=== PATIENT | female | born 1945 | race Caucasian/White ===

== ENCOUNTER 2016-09-15 22:59 | Inpatient (IN) | payer MEDICARE ==
[~2016-09-15] VITALS: Ht 162.6 cm; Wt 127.6 kg
[~2016-09-15 22:59] MED LIST: AMOX500C2 PO; CLAR500T PO; FERR-83 PO; FUR20 PO; GLIM4TAB2 PO; LEVO50TA6 PO; LOSA50TA37 PO; METF500T4 PO; METO25TA6 PO; SPIR25TA3 PO
[2016-09-15 23:05] VITALS: BP 107/44; PULSE 75; RESP 26; O2SAT 98
[2016-09-15] MEDS ORDERED: Albuterol 2.5 mg/3 mL Inhalation Solution NEB ONE (23:05)
[2016-09-15] MEDS ORDERED: Calcium GLUCOnate 10% (Gm) 1 Gm/10 mL Inj IVPUSH ONE (23:05)
[2016-09-15] MEDS ORDERED: Sodium Bicarb (50 mEq) 8.4% 1 mEq/mL 50 mL Syringe IVPUSH ONE (23:05)
[2016-09-15] MEDS ORDERED: (U-500) Insulin Regluar, Human 500 Unit/mL Syringe SUBQ ONE (23:05)
[2016-09-15] MEDS ORDERED: Insulin Human REGular 300 Unit/3 mL Inj SUBQ ONE (23:10)
[2016-09-15] MEDS ORDERED: Insulin Human REGular-Omnicell 100 Unit/mL SUBQ ONE (23:10)
--- NOTE | 2016-09-15 23:14 | ED.REPORT ---
HPI-General Illness Date of Service Sep 15, 2016 ED Provider: Phil Presley MD Patient is a 70-year-old female with a hx of HTN, DM, rectal cancer, and hypothyroidism reports to the ED via EMS from [facility] assisted living after abnormal blood labs were drawn revealing elevated potassium levels. Via [facility] the patient has been acting noticeably weaker and presented an altered mental status for the past couple of days. Patient is unable to give full review of symptoms due to confusion and altered mental status. Nursing Notes Stated Complaint: ABNORMAL LAB Nursing Notes Reviewed: Yes (Spoonfed not reconciled) Allergies: Coded Allergies: codeine (Verified Allergy, Unknown, 09/16/16) Scheduled Amoxicillin (Amoxicillin) 500 Mg Capsule 500 MG PO BID Clarithromycin (Clarithromycin) 500 Mg Tablet 500 MG PO BID Ferrous Sulfate (Ferrous Sulfate) 325 Mg Tablet 325 MG PO BID Furosemide (Furosemide) 20 Mg Tab 20 MG PO DAILY Glimepiride (Glimepiride) 4 Mg Tablet 4 MG PO DAILYAC Levothyroxine (Levothyroxine) 50 Mcg Tablet 50 MCG PO DAILY Loperamide (Loperamide) 2 Mg Capsule 2 MG PO Q4H Losartan Potassium (Losartan Potassium) 50 Mg Tablet 50 MG PO DAILY Metformin (Metformin) 500 Mg Tablet 1,000 MG PO BID Metoprolol Tartrate (Metoprolol Tartrate) 25 Mg Tablet 25 MG PO DAILY Pantoprazole DR (Pantoprazole DR) 40 Mg Tablet.dr 40 MG PO DAILY Spironolactone (Spironolactone) 25 Mg Tablet 25 MG PO DAILY Scheduled PRN Acetaminophen (Acetaminophen) 500 Mg Tablet 500 MG PO Q6H PRN PRN For Fever oxyCODONE (oxyCODONE) 5 Mg Capsule 5 MG PO Q4H PRN PRN For Pain General Time Seen by MD: 22:56 Chief Complaint Other (elevated potassium levels) Hx Obtained From: EMS Arrived By: Ambulance Sudden in Onset?: Yes Onset Occurred: Just prior to arrival Symptom Duration: Since onset Recent Healthcare: Recent hospitalization Similar Sx Previous: Yes Past Medical History Past Medical History Rectal CA HTN Diabetes Hypothyroidism Vascular insufficiency Leg Swelling Past Surgical History Laparoscopic robotic low anterior resection with diverting loop ileostomy and a transanal total mesorectal excision with rigid proctoscopy May 2016 GRIFFIN drain to buttock recently Colonoscopy 2015 Reports: Tonsillectomy Smoking History Never Smoker Social History Currently residing at [facility] form indicates full code Alcohol Use: Denies alcohol use Drug Use: Denies drug use Review of Systems Unable to Obtain ROS Patient condition Physical Exam Vital Signs Vital Signs Date Time Temp Pulse Resp B/P Pulse Ox O2 Delivery O2 Flow Rate FiO2 09/15/16 23:24 72 21 92 Room Air 09/15/16 23:05 36.6 75 26 107/44 98 Room Air Initial VS: Reviewed, Vital signs abnormal (increased RR) Head / Eyes: Atraumatic, Normocephalic, PERRL ENT: Mucous membranes moist, Conjunctiva normal, No scleral icterus Neck: Supple, Non-tender, Full range of motion General/Constitutional: Awake Alertness: Positive: Confused Appearance / Presentation: Positive: Obese Cannot give full history Respiratory / Chest: Atraumatic, Breath sounds NL, Breath sounds = bilat tachypnic lungs are clear Interpretation & Diagnostics Lab Results Interpretation Result Diagram: 09/21/16 0320 09/21/16 0320 Test 09/15/16 00:00 09/15/16 00:55 09/16/16 01:08 Miscellaneous Test Comment Urine Color Yellow (YELLOW) Urine Appearance Cloudy (CLEAR,HAZY) Urine pH 5.5 (5.0-8.0) Urine Specific [place] 1.025 (1.003-1.035) Urine Protein Negativemg/dL (NEG,TRACE) Urine Glucose (UA) 100mg/dL (NEGATIVE) Urine Ketones Negativemg/dL (NEGATIVE) Urine Occult Blood Negative (NEGATIVE) Urine Nitrite Negative (NEGATIVE) Urine Bilirubin Negative (NEGATIVE) Urine Urobilinogen Normalmg/dL (NORMAL) Urine Leukocyte Esterase Small (NEGATIVE) Urine RBC 0-2/hpf (0-2) Urine WBC 6-10/hpf (0-5) Urine Epithelial Cells Many/hpf (NONE-MOD) Urine Crystals Amorphous urates (NONE Urine Bacteria Few/hpf (NONE-FEW) Urine Hyaline Casts Occasional/lpf (NONE) Urine Granular Casts None seen (NONE SEEN) Urine Waxy Casts None seen (NONE SEEN) Urine Red Blood Cell Casts None seen (NONE SEEN) Urine White Blood Cell Casts None seen (NONE SEEN) Urine Mucus None seen (None Seen) Urine Trichomonas None seen (NONE SEEN) Urine Yeast None (NONE SEEN) Urine Culture Reflexed Indicated Pro-B-Type Natriuretic Peptide 3452pg/mL (0-301) Lab Results Interpretation: CBC moderate leukocytosis This is CMP-significant hyponatremia, severe hyperkalemia, moderate acidosis, renal failure-new compared to June 2016 work creatinine was 0.66 at [facility] Blood cultures pending UA 6-10 white cells and few bacteria, but is not suggestive of significant infection merit antibiotics at this time repeat potassium pending Urinalysis pending ECG Interpretation ECG Interpretation: widened QRS concerning for findings consistent with hypokalemia no prior EKG avilable for comparison Time: 10:59 Interpreted by: ED physician Normal ECG Interpretation: Normal sinus rhythm Abnormal T wave or ST segment: T-waves peaked ECG Interpretation: improved from previous ECG T-waves improved Q-wave narrowing from 146-106 Time: 13:28 Interpreted by: ED physician X-Ray Chest Interpretation Chest Xray Interpretation: no signs of heart disease View: Portable Interpretation / Wet Read by: Wet read ED physician NL X-Ray Chest Findings: No acute disease CT Abd / Pelvis Interpretation IMPRESSION: No acute abnormalities. No evidence of obstructive uropathy. Study type: Abdominal CT no contrast Interpretation / Wet Read by: Interpret - Radiologist Re-Eval/Medical Decision Med Decision/Clinical Course This is a 70-year-old female sent from [facility] about Andrew with a lab draw that revealed a potassium of 7.8. Patient herself is unable to give any useful history, and she has some chronic confusion. The facility indicates that the patient is recovering air following surgery in June for a rectal cancer. He also has what sounds like a buttock abscess that was was then drained. However she is, increasingly weak, less energetic-she can only stand for transfers and he noticed a decrease in her energy level-soaked Baseline labs were drawn today. These returned markedly abnormal, so she was sent to the emergency department. Patient's chief complaint is that she is missing her pink pillow. She cannot provide useful history. He appears fatigued, and she appears ill. She is also obese. He has a colostomy. Her abdomen is soft and nontender. Her mucous membranes appear dry, her obesity complicates the evaluation for JVD, and her lung sounds are normal without gross rales or respiratory distress, or hypoxia. Her habitus he also complicates exam of her lower extremities, she does have some chronic edema. Overall makes it somewhat difficult to determine her clinical assessment of her volume status, but I think she is dehydrated. I do not find signs of severe volume overload, and the nursing facility indicates decreased intake recently. She has some venous discoloration of the lower extremities which appears chronic. On arrival an EKG was obtained and revealed widened QRS and peak T waves concerning for hyperkalemic changes, no prior EKG was available for comparison. I ultimately was able to obtain a faxed copy of his ear ox of an EKG that suggests as best I can tell that the peak T waves are new, but cannot quite tell if the QRS widening is actually new or not. Given such elevated potassium, the patient is treated empirically and received calcium, insulin, albuterol, bicarbonate, dextrose, and Kayexalate has been ordered, the patient however is initially refusing to drink it. I had the facility sent over her MARS record, but I did not identify any overt nephrotoxic drugs. I also obtained last admitted from [facility] which was in June-and her baseline creatinine appears to be normal at 0.66. Repeat labs today confirm the lab abnormalities identified from the draw at the [facility] - and are notable for leukocytosis, significant hyponatremia, moderate metabolic acidosis, renal insufficiency, and severe hyperkalemia. A Jordan was placed to drain the bladder. A CT KUB was obtained to evaluate for signs of obstructive pathology. (None was appreciated on my wet read.) The nightshift read also did not appreciate obstructive uropathy, but does note an incidental stone and an irregular soft tissue density near the rectum with an included differential. The patient does not have any complaints of abdominal pain, has no abdominal tenderness to suggest an abscess, and postsurgical changes remain in the differential given the patient's recent surgery in this area in June. Continue to monitor. Consults been obtained with the terrazzo polisher and the case discussed. The patient is being admitted to the CCU for continued care. Source of Hx: Old records, EMS Time of Eval: 00:12 Re-Evaluation/Progress Note: Seam Press Operator Dr. Steve Parker consulted. Case discussed. She will see patient in the morning. Time of Eval: 13:00 Patient Status: Condition improved Re-Evaluation/Progress Note: Pt rechecked. Informed pt of need for admission. Pt understands and agrees with plan for admission. All questions addressed. Differential Diagnosis: Positive: Diabetes mellitus, Negative: Abdominal pain, Acute coronary syndrome, G-tube repair/replacement , Malingering, Medication refill, Neutropenia, Pneumonia, Urinary tract infection Counseled Regarding: Diagnosis, Lab results, Need for admission Discharge & Departure Primary Impression: Hyperkalemia Additional Impressions: Renal failure Hyponatremia Metabolic acidosis Disposition: ADMITTED TO HOSPITAL Discharge Condition All VS Reviewed: Yes Condition: Stable Crit Care Except Billable Proc Time Spent: 30-74 minutes Services Performed: Patient management by me, Time spent at bedside, Reviewing test results, Reviewing imaging, Discussing patient care, Documentation in record Critical Care Notes: Management of life-threatening hyperkalemia Scribe Attestation Portion of this note were transcribed by Sridhar Arnett. I, Dr. Preslye, personally performed the history, physical exam, and medical decision-making: I reviewed and confirmed the accuracy for the information in the transcribed note. Signed by: debbie Rosales, 09/15/16 1345 Phil Presley MD Sep 15, 2016 23:14 SRIDHAR ARNETT Sep 15, 2016 23:38 Given such elevated potassium, the patient is treated empirically and received calcium, insulin, albuterol, bicarbonate, dextrose, and Kayexalate has been ordered, the patient however is initially refusing to drink it. I had the facility sent over her MARS record, but I did not identify any overt nephrotoxic drugs. I also obtained last admitted from [facility] which was in June-and her baseline creatinine appears to be normal at 0.66. Repeat labs today confirm the lab abnormalities identified from the draw at the nursing home facility - and are notable for leukocytosis, significant hyponatremia, moderate metabolic acidosis, renal insufficiency, and severe hyperkalemia. A Jordan was placed to drain the bladder. A CT KUB was obtained to evaluate for signs of obstructive pathology. (None was appreciated on my wet read.) The nightshift read also did not appreciate obstructive uropathy, but does note an incidental stone and an irregular soft tissue density near the rectum with an included differential. The patient does not have any complaints of abdominal pain, has no abdominal tenderness to suggest an abscess, and postsurgical changes remain in the differential given the patient's recent surgery in this area in June. Consults been obtained with the terrazzo polisher and the case discussed. The patient is being admitted to the CCU for continued care. Source of Hx: Old records, EMS Time of Eval: 00:12 Re-Evaluation/Progress Note: Seam Press Operator Dr. Steve Parker consulted. Case discussed. She will see patient in the morning. Time of Eval: 13:00 Patient Status: Condition improved Re-Evaluation/Progress Note: Pt rechecked. Informed pt of need for admission. Pt understands and agrees with plan for admission. All questions addressed. Differential Diagnosis: Positive: Diabetes mellitus, Negative: Abdominal pain, Acute coronary syndrome, G-tube repair/replacement , Malingering, Medication refill, Neutropenia, Pneumonia, Urinary tract infection Counseled Regarding: Diagnosis, Lab results, Need for admission Discharge & Departure Primary Impression: Hyperkalemia Additional Impressions: Renal failure Hyponatremia Metabolic acidosis Disposition: ADMITTED TO HOSPITAL Discharge Condition All VS Reviewed: Yes Condition: Stable Crit Care Except Billable Proc Time Spent: 30-74 minutes Services Performed: Patient management by me, Time spent at bedside, Reviewing test results, Reviewing imaging, Discussing patient care, Documentation in record Critical Care Notes: Management of life-threatening hyperkalemia Scribe Attestation Portion of this note were transcribed by Sridhar Arnett. I, Dr. Presley, personally performed the history, physical exam, and medical decision-making: I reviewed and confirmed the accuracy for the information in the transcribed note. Signed by: debbie Rosales, 09/15/16 1345 Phil Presley MD Sep 15, 2016 23:14 SRIDHAR ARNETT Sep 15, 2016 23:38
[2016-09-15 23:24] VITALS: PULSE 72; RESP 21; O2SAT 92
[2016-09-15 23:41] LABS: BASOPHILS % (AUTO) 0.1 % (0-3); EOSINOPHILS % (AUTO) 0.1 % (0-5); MONOCYTES % (AUTO) 9.1 % (4-12); Mean Corpuscular Hemoglobin 27.2 pg (27.0-35.0); Mean Corpuscular Volume 80.2 fL (81-100); NEUTROPHILS % (AUTO) 81.5 % (40-74); Platelet Count 387 bil/L (150-400)
[2016-09-15 23:45] LABS: Magnesium 2.1 mg/dL (1.6-2.6); Phosphorus 6.5 mg/dL (2.5-4.9)
[2016-09-16] VITALS (9 sets, daily range): BP systolic 77–119; BP diastolic 27–75; PULSE 64–105; RESP 17–24; O2SAT 96–100
[2016-09-16] MEDS ORDERED: 0.9% Sodium Chloride 1,000 ML IV ONE ×2 (00:10→01:30)
[2016-09-16] MEDS ORDERED: Calcium GLUCOnate 10% (Gm) 1 Gm/10 mL Inj IVPUSH ONE (00:15)
[2016-09-16 01:13] LABS: APPEARANCE,URINE CLOUDY (CLEAR,HAZY); COLOR,URINE YELLOW (YELLOW); OCCULT BLOOD,URINE NEGATIVE (NEGATIVE); PH,URINE 5.5 (5.0-8.0); UROBILINOGEN,URINE NORMAL (NORMAL)
[2016-09-16] MEDS ORDERED: Albuterol 2.5 mg/3 mL Inhalation Solution NEB ONE ×2 (01:25→02:40)
[2016-09-16] MEDS ORDERED: 0.9% Sodium Chloride 1,000 ML IV SCH (02:28)
[2016-09-16] MEDS ORDERED: Insulin Human REGular 300 Unit/3 mL Inj IV ONE (02:30)
[2016-09-16] MEDS ORDERED: Albuterol 0.5% (5mg/mL) 20 mL Inhalation Solution NEB ONE (02:30)
[2016-09-16] MEDS ORDERED: Sodium Bicarb (50 mEq) 8.4% 1 mEq/mL 50 mL Syringe IVPUSH ONE (02:30)
[2016-09-16] MEDS ORDERED: Norepinephrine 8,000 mCg/250 mL NS Premix IV ONE (02:32)
[2016-09-16] MEDS ORDERED: 0.9% Sodium Chloride 500 ML ONE (02:56)
[2016-09-16] MEDS: Sodium Polystyrene Sulfonate 0.25 Gm/mL 500 mL Suspension PO ONE ×2 (02:59→03:52)
[2016-09-16] MEDS: Norepineph 8,000 mCg/250 mL NS 8,000 MCG in IV Premix 1 EACH IV SCH ×2 (02:59→22:55)
--- NOTE | 2016-09-16 03:20 | ABG ---
DateTimeAnalyzed 03:14:00 -_ pH ____7.303 - 7.350 7.450 pCO2 ___31.6__ -mmHg 35.0 45.0 pO2 100 -mmHg 69.0 116 HCO3- ___15.2__ -mmol/L 22.0 26.0 ABE ___-9.8__ -mmol/L -2.0 2.0 tHb ____9.3__ -g/dL O2Hb ___96.0__ -% COHb ____0.7__ -% MetHb ____0.9__ -% sO2 ___97.6__ -% FIO2 ___21.0__ -% Drawn By MM - Date/Time Notified____ 03:19:00 -_ Notified By MM - Notified Whom DRSullenberger - B 772 -mmHg tO2 ___12.7__ -Vol% Puma test _Positive -
--- NOTE | 2016-09-16 03:58 | PCM.HPMED ---
Subjective Date of Service Sep 16, 2016 Primary Provider: Admitting Physician: Sofi Titus DO Primary Care Physician: Nopcp Attending Physician: Sofi Titus DO Chief Complaint: Hyperkalemia History of Present Illness: Patient is a 70 year old female with a history of rectal cancer and type 2 DM. She presented to [facility] on 09/15/16 from [facility] after abnormal lab testing was found. Patient was hyperkalemic with acute renal failure. Patient currently able to report that she has no pain anywhere, including no chest pain or abdominal pain. She is undergoing a nebulizer treatment at the time of this exam and perseverates about how she cannot breathe with the mask on. Unable to obtain any meaningful history. Per ED report the nursing staff at [facility] states that the patient has been increasingly weak and less-energetic. This worsening weakness was the motivation to check labs today. In the ED the patient is afebrile with a heart rate of 75, respiratory rate 26, blood pressure 107/44, and O2 saturation 98% on room air. Labs remarkable for WBC 16.9, sodium 120, potassium 7.9, chloride 84, CO2 17, BUN 69, creatinine 3.39 and lactate 2.2. Given albuterol, insulin/dextrose, calcium gluconate, kayexalate, and sodium bicarb given in ED. Repeat labs showed potassium 6.9. IV NS given x 2L. Patient to be admitted to the ICU for further management. Discussed with Dr. Presley. Review of Systems: A comprehensive review of systems was conducted with the patient and found to be negative except as above in the history of present illness. Allergies Coded Allergies: codeine (Verified Allergy, Unknown, 09/16/16) Home Medications Per MAR from [facility]: Levothyroxine 50 mcg daily Loperamide 2 mg Q8H Omeprazole 20 mg daily Fentanyl patch 25 mcg Q3D Oxycodone 10 mg Q6H PRN Metoprolol tartrate 25 mg Q8H (give 12.5 if BP <95/55) Tolterodine ER 4 mg daily Colace 200 mg daily PRN constipation Miralax daily Magnesium 400 mg Q12 Melatonin 6 mg HS PRN Tylenol 650 mg PRN Zofran 4 mg ODT PRN Lorazepam 1 mg Q6H PRN Mirtazapine 7.5 mg HS Levemir 10 units HS Novolog correction scale insulin: <150 0 units, 151-200 1 unit, 201-250 2 units , 251-300 3 units, 301-350 4 units, 351-400 5 units Heparin SQ 5000 units Q8H PMH Rectal cancer Type 2 diabetes mellitus GERD Hypertension Hypothyroidism Generalized weakness Surgical History Laparoscopic robotic low anterior resection with diverting loop ileostomy and a transanal total mesorectal excision with rigid proctoscopy May 2016 GRIFFIN drain to buttock recently Colonoscopy 2016 Tonsillectomy Family History Patient currently unable to answer this question Social History Hx Alcohol Use: Yes (rare per record review) Hx Substance Use: No Hx Tobacco Use: No Smoking Status: Never Smoker Living Arrangement: Nursing Home Facility ([facility] Exam Vital Signs Vital Sign - Last Date Time Temp Pulse Resp B/P Pulse Ox O2 Delivery O2 Flow Rate FiO2 09/16/16 01:39 96 17 97 Room Air 09/15/16 23:05 36.6 107/44 Intake and Output 09/15/16 09/15/16 09/16/16 Cumulative From/Thru 15:00 23:00 07:00 09/15/16 23:05 - 09/16/16 01:10 Intake Total 1000 ml 1000 ml Balance 1000 ml 1000 ml Intake IV Total 1000 ml 1000 ml Exam Awake but confused, no acute distress, obese, follows directions poorly Head atraumatic, normocephalic PERRLA, EOMI, sclera anicteric Mucus membranes dry, no oral thrush observed No cervical lymphadenopathy, neck supple, nontender No JVD noted Cardiac tones regular rate and rhythm with no murmur appreciated Lungs clear to auscultation bilaterally with adequate respiratory effort - difficult to appreciate due to body habitus No abdominal tenderness, non-distended, normoactive bowel tones, soft; right side colostomy Jordan present Radial pulses normal and equivalent bilaterally, dorsalis pedis pulses normal and equivalent bilaterally No cyanosis, clubbing; moderate pitting edema with appearance of venous stasis changes; lower extremities warm to touch, erythematous Thickened, dry looking skin on the feet Cranial nerves appear to be fully intact, normal speech, patient can move upper and lower limbs grossly; cannot assess further as patient following directions poorly Lab and Diagnostics Labs Labs ordered 09/15/16 6:10PM WBC 13.3 Hgb 11.6 Hct 34.4 Plt 403 [id number] Potassium 7.8 Chloride 83 Co2 17 BUN 66 Cr 3.34 Glucose 154 Result Diagram: 09/15/16 2311 09/16/16 0108 X-Rays, CTs and MRIs CT abdomen/pelvis: Impression: No evidence of obstructive uropathy. There is a 2 mm stone in the region of the left UPJ producing no apparent obstruction. There is marked distortion of the lower rectum and anal region is irregular soft tissue density, fluid density, and gas collections. Differential considerations include rectal neoplasm, abscess, postsurgical change or combination thereof. Findings need to be correlated with surgical history and symptoms. There is parastomal herniation of small bowel segment at the site of the patient 's right lower quadrant ileostomy. There is no evidence of small bowel obstruction or other complication. NightShift reader: Alok Rose MD 12-lead ECG Multiple EKG's taken in ED. Rate 75-85. Peaked T waves in first EKG in keeping with hyperkalemia on labs. Improved on subsequent exam. QTc 495 on first EKG improved to 443. Assessment & Plan Patient is a 70 year old female with a history of rectal cancer and type 2 DM. She presented to [facility] on 09/15/16 from [facility] after abnormal lab testing was found. Patient was hyperkalemic with acute renal failure. Given albuterol, insulin/dextrose, calcium gluconate, kayexalate, and sodium bicarb given in ED. Given IV NS x 2L. Admitted to ICU for management. 1. Hyperkalemia, acute, present on admission. - Possibly secondary to renal failure. - Another dose of kayexalate, insulin/dextrose, albuterol and sodium bicarb to be given. - Continue IV hydration. - Continue to monitor with BMP Q2 through 0800. - Nephrology consulted. We appreciate their expertise. 2. Hyponatremia, acute, present on admission. - Continue IV NS. - Do not want to correct too quickly - goal 6 mEq in first 24 hours - unknown chronicity. - Continue to monitor with BMP Q2 through 0800. 3. Acute renal failure, present on admission. - Possibly secondary to infection or hypoperfusion related to hypotension. - Baseline creatinine appears to be normal at 0.66 (Jun 2016). - Continue IV hydration. - Continue to monitor with BMP. 4. Hypotension, acute, present on admission. - Likely secondary to shock - cardiogenic, possible PE (consider VQ when stable , heparin DVT protocol started) vs. septic . - Dr. Kimball called for central line placement. We appreciate his expertise. - Norepinephrine drip to be started. - Continue IV NS. Boluses given up to 4L. norepinephrine started - Echo ordered and pending. 5. Leukocytosis, acute, present on admission. - Possible lower extremity cellulitis, diabetic leg infection. - Will start antibiotics - Linezolid and cefepime (to be renally adjusted). - Consider ID consult tomorrow AM. - Continue to montior CBC. 6. Metabolic acidosis, acute, present on admission. - Likely secondary to CLAY. - Continue to monitor BMP. ABG as needed. 7. Type 2 diabetes mellitus, chronic, presume stable. - A1c 6.4 01/03/16. - Low dose correction scale to be ordered. - Will hold levemir 10 units HS at this time. Add back to regimen once patient stabilizes. 8. Rectal cancer, ongoing. - Oncologist Wicho Delong. Uncertain of current treatment regimen, if any. - Consider wound care consultation for ostomy management. - Continue Fentanyl patch 25 mcg Q3days. 9. Hypothyroidism, chronic, presume stable. - Holding levothyroxine 50 mcg daily at this time until patient stabilizes. - Bowel regimen available PRN. Patient admitted under inpatient status with expected length of stay greater than 2 midnights for severity of present symptoms, complexities of treatment plan and risk for adverse events. PCP Gal Krishnan DO GI Prophylaxis: Proton Pump Inhibitor VTE Prophylaxis: Sub-Q Heparin (Unfractionated), SCDs Resuscitation Status: CPR: Attempt Resuscitation Attending Statement The patient was seen and examined together with house staff on 09/16/2016 and I agree with the history, exam and plan as outlined in the note above. copies to: Gal Krishnan Jennifer E DO Sep 16, 2016 02:28 Sofi Titus DO Sep 16, 2016 06:57
[2016-09-16] MEDS ORDERED: Glucose 40% Oral Gel 15 Gm Tube PO PRN (04:00)
[2016-09-16] MEDS: Cefepime Inj 1,000 MG in Dextrose 5% Minibag Plus 50 ML IV SCH ×2 (04:25→20:03)
[2016-09-16] MEDS: Linezolid Inj 600 MG in IV Premix 1 EACH IV SCH ×2 (04:26→20:03)
[2016-09-16] MEDS: Sodium Bicarb(50 mEq) 8.4% Inj 150 MEQ in Dextrose 5% 1,000 ML IV SCH ×2 (05:27→19:40)
[2016-09-16] MEDS ORDERED: Polyethylene Glycol (PEG) 17 Gm Powder PO PRN (05:30)
[2016-09-16 05:46] LABS: INR 1.19 ratio
[2016-09-16] MEDS: Vasopressin Inj 20 UNIT in 0.9% Sodium Chloride 100 ML IV SCH ×3 (05:52→21:59)
[2016-09-16] MEDS ORDERED: Heparin 5,000 Unit/mL Inj IVPUSH ONE (05:55)
[2016-09-16] MEDS ORDERED: Heparin 5,000 Unit/mL Inj IVPUSH PRN (05:55)
[2016-09-16] MEDS: Heparin 25K Unit/500mL 0.45 NS 25,000 UNIT in IV Premix 1 EACH IV SCH (06:10)
--- NOTE | 2016-09-16 06:48 | NUR ---
Admission Pt admitted to CCU Room # 2014 at 0155 this morn ing 09/16/16. Pt has 2 PIV with NS running wide open with pressure bag. TELE SR, SpO2 96% on RA. Pt restless. Pt smells strongly. Skin check performed with Brittany RN and myself. MD and Resident at bedside multiple times throughout the night r/t hypotension. Anesthesia called in to place central line with no success r/t restlessness/confusion of patient. Decision made to start pressers through peripheral lines. Levophed gtt titrated up to 0.05mcg/kg/minute. Vasopressin at 0.03units/minute. Pt given total of 4L NS. Sodium Bicarbonate gtt at 150ml/hour. Heparin gtt DVT/PE protocol at 18units with 9350 unit bolus.
[2016-09-16 07:25] LABS: Mean Corpuscular Hemoglobin 26.8 pg (27.0-35.0); Mean Corpuscular Volume 80.8 fL (81-100)
[2016-09-16] MEDS ORDERED: Phenylephrine/NS-PF 100 mCg/mL 5 mL Syringe IVPUSH ONE (07:32)
--- NOTE | 2016-09-16 08:08 | DRSVH ---
PROCEDURE: X-RAY CHEST ONE VIEW, PORTABLE ([id number]) INDICATIONS: 70 year-old woman with dyspnea. TECHNIQUE: One view of the chest was acquired. COMPARISON: Located Within [facility], , CHEST 2 VIEW, 03/07/2007, 15:44. FINDINGS: Surgical changes and devices: None. Lungs and pleura: Low lung volumes secondary to shallow inspiration. No pleural effusions or pneumot horax. Lungs are clear. Mediastinum: Mediastinal contours appear normal. Heart size is normal. Bones and chest wall: No suspicious bony lesions. Overlying soft tissues appear unremarkable. IMPRESSION: No acute cardiopulmonary disease. Dictated by: Umer Smith M.D. on 09/16/2016 at 8:06 Approved by: Umer Smith M.D. on 09/16/2016 at 8:07
--- NOTE | 2016-09-16 08:08 | PCM.PNMED ---
Subjective Date of Service Sep 16, 2016 Subjective Patient really nonverbal and cannot complain of chest pain dyspnea or nausea and vomiting Exam Vital Signs Vital Sign - Last Date Time Temp Pulse Resp B/P Pulse Ox O2 Delivery O2 Flow Rate FiO2 09/16/16 03:14 105 22 89/75 100 Room Air 09/16/16 02:34 36.7 Intake and Output 09/15/16 09/15/16 09/16/16 Cumulative From/Thru 15:00 23:00 07:00 09/15/16 23:05 - 09/16/16 06:38 Intake Total 6651 ml 6651 ml Output Total 650 ml 650 ml Balance 6001 ml 6001 ml Intake Oral 0 ml 0 ml IV Total 6651 ml 6651 ml Output Urine Total 400 ml 400 ml Stool Total 250 ml 250 ml Exam Gen.- A+ O 3 no apparent distress. Morbidly obese female lying in bed obtunded Eyes-eyes are closed, no drainage noted normal limits Mouth- oral mucosa moist, no exudate ENT- ears normal, nose normal Neck- supple/trach midline CVS- RRR no murmur or gallop Lungs CTA GI- NABS/NT soft Musc- moving 4 no obvious deformity Neuro- cranial nerves II through XII intact to gross examination, nonfocal Skin- warm and dry, no rashes/lesions/wounds noted Psych- pleasant and appropriate, Lab and Diagnostics WBC 16.9, HDL 11.8, PLT S 387 on admission NA 122, K+ 6.9, CL 85, CO2 16, BUNs 68, CR 3.4 on admission Troponin 0.35 09/15?, 0.521 1351 09/16 Urine clear with no UTI 09/15 Result Diagram: 09/16/16 0715 09/16/16 0400 Microbiology MRSA, blood, urine pending X-Rays, CTs and MRIs CXR IMPRESSION: No acute cardiopulmonary disease. Umer Smith M.D. on 09/16/2016 at 8:06 personally/concurrently reviewed by Yuan 09/16 CT abdomen/pelvis: Personally/concurrently reviewed by Yuan 09/16 Impression: No evidence of obstructive uropathy. There is a 2 mm stone in the region of the left UPJ producing no apparent obstruction. There is marked distortion of the lower rectum and anal region is irregular soft tissue density, fluid density, and gas collections. Differential considerations include rectal neoplasm, abscess, postsurgical change or combination thereof. Findings need to be correlated with surgical history and symptoms. There is parastomal herniation of small bowel segment at the site of the patient 's right lower quadrant ileostomy. There is no evidence of small bowel obstruction or other complication. NightShift reader: Alok Rose MD 12-lead ECG Sinus rhythm personally/concurrently reviewed by Angelo Trevino 09/16 * Left bundle branch block rate 75, QTC 430 ms . When compared with ECG of 15-Sep-2016 22:59:46, * No significant change none prior to 09/15 Multiple EKG's taken in ED. Rate 75-85. Peaked T waves in first EKG in keeping with hyperkalemia on labs. Improved on subsequent exam. QTc 495 on first EKG improved to 443 . Cardiac Echo Impressions ECHO 08/27 [place] Interpretation Summary The left ventricle is not well visualized. The left ventricle is mildly dilated.The ejection fraction is estimated to be 25-30%. Except basal segments which are marcos slightly hyperdynamic rest of the LV segments are severely hypokinetic to akinetic with apical ballooning. These findings suggest likely stress induced cardiomyopathy, however multivessel CAD can not be ruled out. Compared to the prior exam, left ventricular function is significantly decreased with new wall motion abnormalities. The right ventricle is normal in size and function. There is severe posterior mitral annulus calcification, extending in to the subvalvular apparatus as well with restricted posterior mitral leaflet. Based on pressure half time MVA is about 1.7 cm square. Overall based on doppler profile across the MV, MS does not appear to be severe. It appears to be in moderate range. The mitral valve mean gradient is 6.2 mmHg. The mean MV gradient was 10.2 mmHg on the prior echo. There is mild to moderate tricuspid regurgitation. Right ventricular systolic pressure is estimated to be 48 mmHg plus the clinically estimated CVP which cannot be estimated on this exam. Assessment & Plan Patient is a 70 year old female with a history of rectal cancer and type 2 DM. She presented to [facility] on 09/15/16 from [facility] after abnormal lab testing was found. Patient was hyperkalemic with acute renal failure. Given albuterol, insulin/dextrose, calcium gluconate, kayexalate, and sodium bicarb given in ED. Given IV NS x 2L. Admitted to ICU for management. Hypotension, volume depletion/shock - cardiogenic, possible PE vs. septic . Acute anemia-uncertain whether this is blood loss or simply dilutional will continue to follow H&H transfusing as needed, anemia panel pending ACS?nstemi- first EKG benign controlled still going up, thank you cardiology consultation patient requires volume resuscitation before starting any cardiac med she is already on a heparin drip. DVT- R leg, left leg poorly visualized patient on heparin drip Hyperkalemia, Probaly 2' CLAY. Kayexalate, insulin/dextrose, albuterol and sodium bicarb given 09/15-09/16. Last K+ 5.0 0700, 4.7 1400 09/16 Hyponatremia, consistent with volume depletion, have corrected greater than 6 and acute first 8 hours IV fluid to 1/2NS, following BMPs, Na 127 0800, 127 1400 09/16 CLAY- 2' volume depletion/creatinine hydrate and monitor BMP, baseline Cr 0.7 , Cr 1.78 1400 09/16, thank you Dr. Phillips nephrology for following/ recommendations Acute systolic CHF-whether there is a chronic component is not known Will have to follow fluids closely for now fluid resuscitation taking precedence Leukocytosis, no definitive source, covering with Levaquin/cefepime/Flagyl for GI sources should has known Hx of intra-abdominal abscess/something in the buttock possibly perirectal. CT abd/pelvis 09/16 not revealing. Metabolic acidosis, volume depletion and renal failure lactate only 2.2 DM2/hyperglycemia, resume her low-dose sliding scale, many of her fluids are containing glucose we will try and minimize these and treat accordingly. Rectal cancer, Oncologist Wicho Delong. Uncertain of current treatment regimen, if any. Ileostomy/multiple intra-abdominal and extra abdominal ptosis thank you surgery Dr. Blanc will need to roll the patient and evaluate her buttock where she had a drain placed and only removed mid July Metabolic encephalopathy-discontinue fentanyl and narcotics and other sedating medications Ileostomy- - Consider wound care consultation for ostomy management. Hypothyroidism, chronic, presume stable. - Holding levothyroxine 50 mcg daily at this time until patient stabilizes. Prophylaxis-DVT patient already has on heparin drip 09/16, GI pantoprazole IV Greater than 90 minutes spent doing ICU level care on this patient she has life- threatening illness thank you Dr. Mendoza ICU slag dumper consultation/ recommendation. Thank you anesthesia for placing difficult arterial line as well as central access. GI Prophylaxis: Proton Pump Inhibitor VTE Prophylaxis: SCDs, Other Resuscitation Status: CPR: Attempt Resuscitation Kushal Bolden MD Sep 16, 2016 08:08
[2016-09-16] MEDS ORDERED: Heparin 5,000 Unit/mL Inj SUBQ SCH (08:30)
[2016-09-16] MEDS: Pantoprazole 4 mg/mL 10 mL Inj IVPUSH SCH (09:12)
[2016-09-16] MEDS: Insulin LISPRO 300 Unit/3 mL Inj SUBQ SCH ×4 (09:14→20:04)
[2016-09-16] MEDS ORDERED: SODIUM CHLORIDE IV PRN (09:15)
[2016-09-16] MEDS: Phenylephrine 20 mg/250 mL D5W IV SCH ×8 (09:48→21:58)
--- NOTE | 2016-09-16 10:23 | CONS ---
[address] [address] CONSULTATION REPORT PATIENT: JOHN SMITH : 1945 MR#: [id number] ADMIT: 09/16/2016 JOB ID: [id number] DATE OF SERVICE: 09/16/2016 CHIEF COMPLAINT: Hypotension and acute renal failure. HISTORY OF PRESENT ILLNESS: The patient is a 70-year-old female, who was transferred in from [facility] due to progressive weakness and hyperkalemia. I was consulted by the Hospitalist team for evaluation due to the patient's history of robotic low anterior section at the [facility] back in May 2016. The patient is currently in intensive care, and she is requiring pressors to increase her blood pressure. The patient is arousable, and she denies any recent nausea, vomiting, or any abdominal pain. From the charts, I am able to gather that she had T3 rectal cancer and underwent preoperative chemoradiation, followed by laparoscopic robotic low anterior resection with diverting ileostomy and transanal excision at [facility] in May 2016. The patient has a right lower quadrant ileostomy. The patient did undergo a CT scan yesterday upon presentation to the hospital, and it did not show any signs of small bowel obstruction or anything ominous at this point. It did show some abnormality at the rectal region but this could be due to postoperative changes or a subclinical leak or an abscess. The patient did have an elevated white blood count of 16.9. PAST MEDICAL HISTORY: Rectal cancer, status post preop chemoradiation, followed by robotic low anterior resection at [facility] in May 2016. Hypertension, diabetes, lower extremity stasis dermatitis and morbid obesity. MEDICATIONS AT [facility]: Include amoxicillin, clarithromycin, iron, Lasix, glimepiride, levothyroxine, losartan, metformin, metoprolol, spironolactone. ALLERGIES: To CODEINE. SOCIAL HISTORY: The patient is . She was at [facility]. FAMILY HISTORY: Not contributory to the current clinical situation. REVIEW OF SYSTEMS: Negative for abdominal pain or nausea and vomiting. PHYSICAL EXAMINATION: The patient is currently in the intensive care. She is not intubated. She does arouse and was able to provide me with some answers. She denies any abdominal pain. Her BMI is 44.2. Her temperature is 36.7, blood pressure 89/75, pulse is 105. Head is normocephalic, atraumatic. Neck is supple. Heart is in regular rate. Lungs are clear. Abdomen is obese. There is a right lower quadrant ileostomy with a bag; however, there is no obvious tenderness. Incisions are all well healed. Extremities: The patient has obvious bilateral lower extremity stasis dermatitis. LABORATORY EXAMINATION: Showed a white blood count of 13 this morning, hematocrit 29.5, platelet count is 272. Sodium is 127, potassium 5.0, creatinine 2.42 which is down from 2.93. She had a troponin level of 0.035. ASSESSMENT: This is a morbidly obese, 70-year-old female, who presents to the hospital due to progressive weakness and hyperkalemia and elevated creatinine and hypotension. The patient did have rectal surgery at [facility] in May 2016 with an ileostomy, which is a while ago. I will follow up on the final reading on the CT scan from last night. It would be nice if we had a prior CT scan to compare with in regards to the rectal findings. The patient should be maintained on IV antibiotics. The patient is currently requiring pressors. We will follow the patient along with you. Addendum: Her says she had a RLQ drain after May surgery, then it was removed, then a CT guided drain was placed thru L buttock region on Jul 28, then the L sided drain was removed on 08/23/16. TOY
--- NOTE | 2016-09-16 10:45 | DRSVH ---
PROCEDURE: US VENOUS LEG DUPLEX BILATERAL INDICATIONS: assess for DVT TECHNIQUE: Real-time imaging, as well as color and pulse Doppler interrogation, were performed of the deep veins of both legs from the inguinal ligament to the popliteal fossa. COMPARISON: [facility], US, US ARTERY LEG DPLX BILAT, 09/16/2016, 9:38. FINDINGS: This study is limited by body habitus. There is occlusive thrombus seen within the left distal femoral vein and the left popliteal vein. No definite right lower extremity deep venous thrombosis is seen, although the midportion of the righ t femoral vein is not well-seen. IMPRESSION: Occlusive deep venous thrombosis is seen involving the left distal femoral vein and the l eft popliteal vein. No definite right lower extremity deep venous thrombosis is seen. Suboptimal examination, secondary to body habitus. Note: Concordant preliminary findings given by the network support analyst upon the completion of the examination to Lilian Naylor at 10:15 [place] time on September 16, 2016. Dictated by: Lam Law M.D. on 09/16/2016 at 9:40 Approved by: Lam Law M.D. on 09/16/2016 at 9:43
--- NOTE | 2016-09-16 10:46 | DRSVH ---
PROCEDURE: CT KUB ([id number]) INDICATIONS: Severe acute renal failure. Evaluate for renal obstruction, TECHNIQUE: Noncontrast 5 mm thick sections acquired from the diaphragms to the symphysis. 5 mm thick coronal an d sagittal reformats were then performed. For radiation dose reduction, the following was used: aut omated exposure control, adjustment of mA and/or kV according to patient size. COMPARISON: [facility], CT, CHEST/ABD/PEL WITH CONTRAST, 12/28/2015, 9:19. FINDINGS: Image quality: Excellent. Lung bases: There is a 1.2 cm nodular density in the left lower lobe. Heart size is normal. Urinary system: There is a 2 mm stone in the proximal left ureter just beyond the left UPJ. No left hydronephrosis. No right renal stone. Both kidneys are normal in size. Both ureters appear non-dila abdiel throughout their expected courses. Bladder is contracted with a Jordan catheter. Other solid organs: Mild hepatic fatty infiltration. Liver and spleen are normal in size. Gallbladd er is contracted. Pancreas is normal in contours. No adrenal nodules. Peritoneum and bowel: There is an ileostomy. Unenhanced bowel loops demonstrate normal wall thicknes s and caliber. No free fluid or air. Nodes and vessels: No retroperitoneal or mesenteric adenopathy by size criteria. Aorta and inferior vena cava are normal in caliber. Abdominal wall: There is a tiny fat containing umbilical hernia. Pelvis: There is presacral soft tissue thickening and a complex presacral fluid collection with air collection measuring 3.5 x 7.5 cm suspicious for abscess. No free pelvic fluid. No inguinal hernias or adenopathy. Bones: No suspicious bony lesions. No vertebral body compression fractures. IMPRESSION: 1. A 2 mm nonobstructing stone in the proximal right ureter just beyond the right UPJ. No CT findings to explain acute renal failure. 2. Presacral soft tissue thickening and a fluid collection with air suspicious for an abscess. No significant discrepancy with the shift manager radiology preliminary report. Dictated by: Umer Smith M.D. on 09/16/2016 at 10:44 Transcribed by: CASIMIRO on 09/16/2016 at 10:47 Approved by: Umer Smith M.D. on 09/16/2016 at 11:30
--- NOTE | 2016-09-16 10:51 | DRSVH ---
PROCEDURE: US DUPLEX DOPPLER BILATERAL LEG ARTERIES ([id number]) INDICATIONS: swelling, erythema TECHNIQUE: Color and pulse Doppler interrogation was performed of both lower extremity arterial systems, with im age documentation. COMPARISON: [facility], US, US VENOUS LEG DPLX BILAT, 09/16/2016, 9:19. FINDINGS: Right lower extremity: Vascular Ultrasound Procedure Report Findings(Artery of Lower Extremity)(Right) Common Femoral Artery(Distal) Velocity: 107 cm/s Profunda Femoris Artery(Proximal) Velocity: 129.70 cm/s Superficial Femoral Artery(Proximal) Velocity: 130 Superficial Femoral Artery(Mid-longitudinal) Velocity: Not well seen Superficial Femoral Artery(Distal) Velocity: Not well-seen Popliteal Artery(Mid-longitudinal) Velocity: 13.90 cm/s Posterior Tibial Artery(Distal) Velocity: Not well-seen Dorsalis Pedis Artery(Distal) Velocity: 51.70 cm/s Greyscale findings: Atherosclerotic changes are seen. Left lower extremity: Vascular Ultrasound Procedure Report Findings(Artery of Lower Extremity)(Left) Common Femoral Artery(Distal) Velocity: 139.50 cm/s Profunda Femoris Artery(Proximal) Velocity: 102.20 cm/s Superficial Femoral Artery(Proximal) Velocity: 136.30 cm/s Superficial Femoral Artery(Mid-longitudinal) Velocity: 120 cm/s, 125.10 cm/s Superficial Femoral Artery(Distal) Velocity: 76.40 cm/s, 121.50 cm/s Popliteal Artery(Mid-longitudinal) Velocity: 51.30 cm/s Posterior Tibial Artery(Distal) Velocity: Not well seen Dorsalis Pedis Artery(Distal) Velocity: 122.90 cm/s Greyscale findings: Atherosclerotic changes are seen. This study is limited by body habitus. IMPRESSION: No definite, focal hemodynamically significant stenosis is identified. This ultrasound study is limited by body habitus, with several arterial sites not well-seen. Dictated by: Lam Law M.D. on 09/16/2016 at 9:45 Approved by: Lam Law M.D. on 09/16/2016 at 9:49
[2016-09-16 12:08] LABS: BASOPHILS % (AUTO) 0.1 % (0-3); EOSINOPHILS % (AUTO) 0 % (0-5); MONOCYTES % (AUTO) 10.7 % (4-12); NEUTROPHILS % (AUTO) 82.4 % (40-74)
[2016-09-16] MEDS ORDERED: 0.9% Sodium Chloride 1,000 ML ONE (12:52)
--- NOTE | 2016-09-16 13:44 | DRSVH ---
[facility] [address] [place] [address] Echocardiogram Report Name: JOHN SMITH HStudy Date: 09/16/2016 Height: 64 in Hospital Exam Location: [facility] Weight: 258 lb Gender: Female BSA: 2.2 m2 : 1945 Age: 70 yrs BP: 150/76 mmHg Reason For Study: Hypotension Ordering Physician: Performed By: Jimena De La Rosa HOSPITALIST [facility] Interpretation Summary The left ventricle is not well visualized. The left ventricle is mildly dilated.The ejection fraction is estimated to be 25-30%. Except basal segments which are marcos slightly hyperdynamic rest of the LV segments are severely hypokinetic to akinetic with apical ballooning. These findings suggest likely stress induced cardiomyopathy, however multivessel CAD can not be ruled out. Compared to the prior exam, left ventricular function is significantly decreased with new wall motion abnormalities. The right ventricle is normal in size and function. There is severe posterior mitral annulus calcification, extending in to the subvalvular apparatus as well with restricted posterior mitral leaflet. Based on pressure half time MVA is about 1.7 cm square. Overall based on doppler profile across the MV, MS does not appear to be severe. It appears to be in moderate range. The mitral valve mean gradient is 6.2 mmHg. The mean MV gradient was 10.2 mmHg on the prior echo. There is mild to moderate tricuspid regurgitation. Right ventricular systolic pressure is estimated to be 48 mmHg plus the clinically estimated CVP which cannot be estimated on this exam. Procedure: A two-dimensional transthoracic echocardiogram with color flow and Doppler was performed. The study quality was technically difficult. Comparison is made with the echocardiogram of 06/12/2016. A contrast injection of Definity was performed to improve assessment of LV function. The patient was in normal sinus rhythm during the exam. Left Ventricle: The left ventricle is not well visualized. The left ventricle is mildly dilated. There is no thrombus. The ejection fraction is estimated to be 25-30%. Compared to the prior exam, left ventricular function is significantly decreased. Except basal segments which are marcos slightly hyperdynamic rest of the LV segments are severely hypokinetic to akinetic with apical ballooning. These findings suggest likely stress induced cardiomyopathy, however multivessel CAD can not be ruled out. Diastolic function could not be accurately assessed due to unobtainable data. Right Ventricle: The right ventricle is normal in size and function. Atria: The left atrium is moderately dilated. Right atrial size is normal. The interatrial septum is intact with no evidence for an atrial septal defect. There is no Doppler evidence for an interatrial shunt. Mitral Valve: The mitral valve is not well visualized. There is moderate mitral annular calcification. There is severe posterior mitral annulus calcification, extending in to the subvalvular apparatus as well with restricted posterior mitral leaflet. with pressure half time MVA is about 1.7 cm square. Overall based on doppler profile across the MV, MS does not appear to be severe appears to be in moderate range. The mitral valve mean gradient is 6.2 mmHg. The mean MV gradient was 10.2 mmHg on the prior echo. There is mild mitral regurgitation. Aortic Valve: The aortic valve is not well visualized. The peak aortic velocity is 2.05 m/sec. The peak aortic velocity on the previous exam was 2.04 m/sec. There is mild aortic stenosis. There is trace aortic regurgitation. Tricuspid Valve: The tricuspid valve is not well visualized. There is mild to moderate tricuspid regurgitation. Right ventricular systolic pressure is estimated to be 48 mmHg plus the clinically estimated CVP which cannot be estimated on this exam. Pulmonic Valve: The pulmonic valve is not well visualized. Great Vessels: The aortic root is not well visualized. The ascending aorta could not be visualized. The IVC has a measurement of 28 mm. The patient could not perform sniff test. Pericardium/ Pleura There is no pericardial effusion. There is an anterior echo-free space consistent with a fat pad. MMode/2D Measurements & Calculations RA long axis EDV(MOD-sp2) RVD1 (basal) LA A2 area: 29.0 cm : 151.3 ml : 3.8 cm LA A4 area: 26.5 cm LA length (vol) RA area: 19.3 cm RA vol: 59.1 ml LA vol: 92.8 ml RA : 27.1 ml/m2 LA vol index IVC diam: 2.8 cm TAPSE: 2.0 cm Doppler Measurements & Calculations Ao V2 max MV E max oliver MV E/A: 0.86 TR max oliver : 205.3 cm/sec : 166.8 cm/sec Pulm A Revs Dur : 347.5 cm/sec Ao max PG MV A max oliver TR max PG : 16.9 mmHg : 194.2 cm/sec : 48.3 mmHg Ao mean PG MV P1/2t: 123.4 msec LVOT Max Oliver : 102.4 cm/sec sev ratio: 0.46 MV V2 mean MV P1/2t max oliver Ao V2 mean LV V1 max PG : 115.2 cm/sec : 119.7 cm/sec MV mean PG Ao V2 VTI: 44.3 cm LV V1 VTI: 20.2 cm MVA(P1/2t): 1.8 cm2 MV V2 VTI: 62.2 cm MV dec time : 0.42 sec Reading Physician:PM
--- NOTE | 2016-09-16 13:56 | CONS ---
[address] [address] CONSULTATION REPORT PATIENT: JOHN SMITH : 1945 MR#: [id number] ADMIT: 09/16/2016 JOB ID: [id number] DATE OF SERVICE: 09/16/2016 CARDIOLOGY CONSULTATION: REASON FOR CONSULT: Hospitalist team asked me to see this patient regarding abnormal potassium, EKG changes, abnormal troponin. CHIEF COMPLAINT: Lethargy, confused. Most of the information I gathered through the current chart. The patient is in the ICU. She is drowsy. She is not able to provide detailed history. PRESENT HISTORY: This 70-year-old female, who has a history of vsrfziha-qe-odnskw mitral stenosis due to significant mitral annulus calcification based on echocardiogram on June 12, 2016 with LV ejection fraction 65%-70% with mild to moderately increased LVH, normal right ventricular function, pulmonary artery systolic pressure about 38 mmHg, severely dilated left atrium, zvmt-kn-fbwgvopz tricuspid regurgitation, borderline aortic stenosis with mean gradient about 9 mmHg, history of essential hypertension, diabetes mellitus, hypothyroidism, rectal cancer who underwent laparoscopic robotic low anterior resection with diverting loop ileostomy and a total mesorectal excision with rigid proctoscopy in May 2016 in [facility], recent rectal abscess surgery, history of ileostomy who has been in [facility], was transferred to the ED because her potassium was very high. It was about 7.9. In the hospital, the patient was found to be in shock, acute renal failure, sepsis. At present, she is in ICU. She was on Levophed, phenylephrine, as well as vasopressin. Later on, Levophed was discontinued. Cardiology consult was sought. At present, she is in the ICU. She is not able to provide detailed history. She is confused. When I tried to ask about chest pain, did not get a definitive answer. PAST MEDICAL HISTORY: History of jqqieazf-lj-rbfabr mitral stenosis due to significant mitral annulus calcification and mitral leaflet calcification with mitral valve area about 1.1 cm2, LVEF 65%-70% with underlying essential hypertension, hyperlipidemia, hypothyroidism, history of rectal cancer, details as stated above, recent rectal abscess surgery, GERD, ileostomy, history of tonsillectomy. PAST SURGICAL HISTORY: As stated above. ALLERGIES: The patient is allergic to CODEINE. MEDICATION LIST: She was on: 1. Levothyroxine 50 mcg daily. 2. Loperamide. 3. Omeprazole 20 mg daily. 4. Fentanyl patch. 5. Oxycodone 10 mg p.r.n. 6. Metoprolol tartrate 25 mg q.8. 7. Tolterodine ER 4 mg daily. 8. Colace 200 mg daily. 9. Magnesium 400 mg q.12. 10. Melatonin 6 mg q.h.s. 11. Tylenol. 12. Zofran. 13. Lorazepam. 14. Mirtazapine 7.5 mg h.s. 15. Insulin. 16. Heparin. SOCIAL HISTORY: No history of tobacco abuse. Alcohol history use: The patient is unable to provide detailed history. FAMILY HISTORY: None obtainable. REVIEW OF SYSTEMS: I tried to obtain at least 10 points of review of system but not able to obtain due to patient's mental status. PHYSICAL EXAMINATION: Blood pressure 111/44, heart rate 83, respiratory rate 22, oxygen saturation 2 L 98%. HEENT: No significant jaundice. Neck: I do not appreciate any significant JVD. Chest: Decreased air entry at the bases. CVS: Clinically S1, S2 normal. No S3, no S4. I do not appreciate any significant rub or murmur. Abdomen: Obese. The patient has right lower quadrant ileostomy. GROUP HOME COUNSELOR: The patient is confused. Extremities: The patient has diffuse erythematous changes in shins as well as both feet. Lower extremity appears to be warm. It is not cold, clammy. Vascular: I do not see obvious critical limb ischemia features. LABORATORIES: Initial WBC 16.9, now 13. Hemoglobin was 11.8, now 9.8, platelets 387 and repeat 272. Polymorphs 81.5. INR 1.19. Initial sodium 122, potassium 7.9, then 6.9, now 5.0. Initial BUN 69, creatinine 3.39, now 2.42. Chloride 85, CO2 16. Total bilirubin, AST, ALT normal. Troponin T 0.035. ProBNP 3452. Albumin 3.0. Procalcitonin 0.48. EKG on September 15, 2006 at 11:38 a.m. revealed sinus rhythm with intraventricular conduction delay with almost QS complexes in V1-V6, as well as inferior leads. Tall tented T-waves. Minimal J-point elevation in inferior lateral leads. QTc 438 msec. Repeat EKG today at 11:12 a.m. revealed sinus rhythm, sinus bradycardia, rate 55, with almost similar EKG changes. There is a concave less than [address]-elevation in V4-V6 and minimal J-point elevation in inferior leads. QTc 444 msec. Lower extremity venous Doppler revealed left lower extremity deep vein thrombosis involving the left distal femoral vein and left popliteal vein. Arterial duplex examination revealed atherosclerotic plaque without any critical disease. CT abdomen revealed presacral soft tissue thickening and fluid collection, suspicious for an abscess. There was no obvious abdominal aortic aneurysm. Heart size reported to be normal. On x-ray chest, there was no acute cardiopulmonary disease seen. ASSESSMENT AND PLAN: Hypertension with shock which appears to be multifactorial, likely septic shock with an abnormal EKG suggestive of possible anterior inferior AK. However, we do not have old EKG to compare and those EKG changes could be due to significant electrolyte imbalances like severe hyperkalemia. With acute renal failure, metabolic acidosis, leukocytosis, history of zfloxdct-ew-cdsxef mitral stenosis due to significant mitral valve calcification, recent rectal cancer surgery and rectal abscess surgery, likely source possible reaccumulation of rectal abscess and other problems as stated above. At present, patient is critically sick. I showed those EKGs to our jewelry inspector, Dr. Aguayo, and discussed the case. We will plan stat echocardiogram which we will review. She has significant barriers to take her to the clinical laboratory service teacher at present. As per Dr. Leonardo, the consensus is to treat her medically. Continue anticoagulation/anti-platelet therapy unless there is major contraindication. Her liver function is okay. We can put her on statin as well. At present, she is not a candidate for any beta violette, DC inhibitor due to hypotension. Continue vasopressor support. Management of underlying sepsis, other medical problems as well as acute renal failure, I will leave up to the hospitalist team. We will get her records from [facility] to compare her EKG. Cardiology service will continue to follow this patient. I spent more than 90 minutes for this critical care consult including having discussion with different physicians, ICU team as well as the nurse. Thanks for the cardiology consult. At present there is no family members in the room.
--- NOTE | 2016-09-16 14:21 | CONS ---
[address] [address] CONSULTATION REPORT PATIENT: JOHN SMITH : 1945 MR#: [id number] ADMIT: 09/16/2016 JOB ID: [id number] DATE OF SERVICE: 09/16/2016 NEPHROLOGY CONSULTATION: REQUESTING PHYSICIAN: Sofi Titus DO REASON FOR CONSULTATION: Management of acute kidney injury and hyperkalemia. PRESENT ILLNESS: This is a 70-year-old lady with a significant past medical history of type 2 diabetes, hypertension, colorectal cancer who was brought to the emergency department due to altered mental status and malaise. The patient is now very lethargic. She is not able to provide me a solid history. She is able to follow simple commands and able to answer yes and no. I have gathered history from the medical record. Apparently she was recently diagnosed with colorectal cancer. She underwent preoperative chemoradiation and followed by laparoscopic robotic low anterior resection with diverting ileostomy at [facility] in May 2016. The patient now lives at [facility] assisted living. According to the ED note, the patient noted to become more confused and weak. She was found to have abnormal blood work with an elevation of potassium level. She was then brought to [facility] Emergency Department for further investigation. Her initial vitals at the emergency department were a temperature of 36.6, respiratory of 26, blood pressure of 107/44, later on dropped to 77/27. Her initial BMP showed a potassium of 7.9, sodium of 120, BUN of 69, creatinine of 3.39. Overnight she has had medical management for hyperkalemia. Current potassium level came down to 5.0. Her sodium level now is 127. Her blood pressure has been low currently on Levophed to maintain her blood pressure. CT abdomen showed complex presacral fluid collection with air collection measuring 3.5 x 7.5 cm suspicious for an abscess, 2 mm non obstructing stone in the proximal right ureter. There was no evidence of hydronephrosis. The patient has been evaluated by surgical team. There was no emergent surgical procedure required at this moment. The patient is currently administered IV broad-spectrum antibiotics including linezolid and cefepime. Heparin drip was started given evidence soft occlusive DVT involving the left distal femoral vein and left popliteal vein. PAST MEDICAL HISTORY: 1. Colorectal cancer, status post preoperative chemoradiation, low anterior resection and diverting ileostomy at the [facility] in May 2016. 2. Type 2 diabetes. 3. Hypertension. 4. Obesity. PAST SURGICAL HISTORY: 1. Status post colonoscopy. 2. Status post tonsillectomy. 3. Status post laparoscopic robotic low anterior resection with diverting loop colostomy in May 2016. SOCIAL HISTORY: She lives at [facility]. FAMILY HISTORY: Noncontributory. ALLERGIES: CODEINE. MEDICATIONS: Levothyroxine, loperamide, omeprazole, fentanyl patch, oxycodone, metoprolol tartrate, Colace, MiraLAX, magnesium, melatonin, Tylenol, Zofran, Ativan, Levemir insulin sliding scale, heparin subcu, mirtazapine. REVIEW OF SYSTEMS: Unable to obtain. PHYSICAL EXAM: Vitals: Temperature 36.8, pulse 83, respiratory 22, blood pressure 111/44, pulse ox 89% nasal cannula 2%. General appearance: Chronically ill-looking, mild distress. Obese. Follows simple commands. Able to answer yes and no. HEENT: Dry mucous membranes. Atraumatic. PERRLA. Mild pallor. No jaundice. No JVD. No lymphadenopathy. No thyroid gland enlargement. Heart: Regular rhythm. Normal S1, S2. No murmurs, rubs or gallops. Lungs: Decreased breath sound at bases. No wheezing. No rhonchi. No rales. Abdomen: Soft, nontender, nondistended. Right ileostomy with greenish watery stool. Active bowel sounds. Extremities: Chronic skin changes on the lower extremities, 1+ edema. LABORATORY: INR 1.19. Sodium 127, potassium 5.0, chloride 93, bicarbonate 27, BUN 56, creatinine 2.42. Glucose 113. Calcium 7.9. CBC: Hemoglobin 6.9, a drop from 9.8 last night. WBC 10.5, platelets 265. The lower extremity Doppler showed occlusive DVT involving left distal femoral vein and left popliteal vein. CT abdomen showed a complex presacral fluid collection with air measuring 3.5 x 7.5 cm suspicious for abscess, 2 mm nonobstructing stones in the proximal right year ureter just beyond the right UPJ. ASSESSMENT: 1. Acute kidney injury, unknown baseline serum creatinine. The etiology of acute kidney injury secondary to intravascular volume depletion and sepsis. 2. Hypovolemic hyponatremia. Her current serum sodium is 127. I would recommend to switch normal saline to half normal saline to prevent over-correction. 3. Hyperkalemia secondary to acute kidney injury, poor renal perfusion. 4. Hypotension, multifactorial secondary to intravascular volume depletion, septic shock and possible pulmonary embolus since the patient has a deep venous thrombophlebitis. 5. Mixed anion gap metabolic acidosis and metabolic alkalosis. 6. Colorectal cancer status post preoperative chemo and radiation followed by robotic low anterior resection with a voiding loop ileostomy. 7. History of hypertension. 8. History of type 2 diabetes. 9. History of hypothyroidism. 10. Complex presacral fluid collection, suspected abscess. 11. Deep venous thrombophlebitis involving left distal femoral vein and left popliteal vein. PLAN: Per renal standpoint, we will switch D5 normal saline to half normal saline 100 cc/hour to prevent over collection. Potassium has gone down to 5.0 with the IV fluids as well as her kidney function has improved slowly. At this point, we do not need to proceed with any renal replacement therapy. We will monitor carefully. ICU team has done to management on her electrolytes. I do not have anything to add right now. We will monitor along. Thank you for the consultation.
--- NOTE | 2016-09-16 14:57 | CONS ---
[address] [address] CONSULTATION REPORT PATIENT: JOHN SMITH : 1945 MR#: [id number] ADMIT: 09/16/2016 JOB ID: [id number] DATE OF SERVICE: 09/16/2016 EMERGENT PULMONARY CRITICAL CARE CONSULTATIVE NOTE: REQUESTING PHYSICIAN: Sofi Titus DO REASON FOR CONSULTATION: Shock. HISTORY OF PRESENT ILLNESS: The patient is a 70-year-old female who was recently operated on for rectal carcinoma. The patient is unable to give any history and no family members are accompanying her at this time. She is unable to give any cogent history and no family members are present. Apparently after chemoradiation therapy she underwent a low anterior resection with diverting loop ileostomy and transanal total mesorectal excision. Apparently she was at [facility]. Developed increasing weakness, apparently became increasingly weak, and this prompted blood work which showed hyponatremia and hyperkalemia. No other history is particularly available. Admitting note indicates that she suffers from type 2 diabetes mellitus, GERD, hypertension, hypothyroidism, and generalized weakness. MEDICATIONS: On admission include levothyroxine, loperamide, omeprazole, fentanyl patch, oxycodone, metoprolol, tolterodine, Zofran, lorazepam, mirtazepine, Levemir, NovoLog, and subcu heparin. SOCIAL HISTORY: Rare use of alcohol. No use of tobacco. No other history is available. REVIEW OF SYSTEMS: Attempts to obtain review of systems but the patient could not supply any details. PHYSICAL EXAMINATION: Vital signs: Blood pressure 80/40. Pulse about 100-105. General appearance: Well-developed female lying in bed. Somewhat agitated. Although she response to questions, her answers are often inaudible and bereft of content. Eyes: Conjunctivae are pink. Chest: Moderately decreased breath sounds. Lung barfield are clear. Abdomen: Soft. Extremities: Stasis changes over both calves distally to the feet. The patient is currently being evaluated for a central line. I have told that she has significant abnormalities on her buttocks consisting of ulcerations as well as possibly a rectal lesion consistent with abscess. In order to facilitate procedures with the patient in shock she was given blood pressure responded to the 120-130 range with diastolic of about 70. Mental status did not improve. Apparently access for central line was not obtained. Apparently the plan is to . LABORATORY VALUES: [place] [address]. No diff available. However diff from midnight shows moderate neutrophilia with 81 polymorphonuclears, no bands, 8 lymphocytes, 9 monocytes. Sodium at 125, potassium 6, chloride 90, CO2 14, BUN 62, creatinine 2.93, glucose 243. Calcium 8.2 with an albumin of 2.7, total bilirubin 0.4. PT/INR is 1.19. PTT is 36.2. UA shows 6-10 urine WBCs. Few bacteria. Small leukocyte esterase. Currently Nephrology service has been contacted regarding the hyperkalemia. ASSESSMENT: Shock. Presumably the shock is from the soft tissue infections. Surgery has been consulted and will be evaluating the situation. The prime problem now as to obtain IV access. Apparently this will be evaluated quickly. The plan is to put IJ line in. If she remains agitated and needs sedation, may very well need to be intubated in order to accomplish this. With the suspicion that the infection is from the perineal area, would cover for anaerobes, gram-negative rods, and Staph as she came from a long-term care facility. At the moment I do not see any need for intubation and mechanical ventilation. Hopefully with some fluids, maintenance of a good blood pressure. The patient is in renal failure. Will need to discuss fluids with Nephrology. Currently receiving bicarbonate. PLAN: 1. Phenylephrine until a line can be placed. Will maintain blood pressure with that. Then hopefully will be able to assess the patient for the type and physiology of the shock and approach it from that perspective. Phenylephrine IV push in 0.05 mL doses p.r.n. mean arterial pressure less than 55 until central venous access obtained. Hopefully we can avoid intubation though if needed there is no obvious reason that cannot be accomplished. 2. Surgical nephrology consultation. 3. May well need to speak with Infectious Disease. Thank you so much, Dr. Titus for asking me to see this most unfortunate individual.
[2016-09-16 15:02] LABS: Mean Corpuscular Hemoglobin 27.4 pg (27.0-35.0); Mean Corpuscular Volume 80.7 fL (81-100)
[2016-09-16 15:03] LABS: Platelet Count 442 bil/L (150-400)
--- NOTE | 2016-09-16 15:19 | DRSVH ---
PROCEDURE: X-RAY CHEST ONE VIEW, PORTABLE ([id number]) INDICATIONS: Check Right IJ line placement TECHNIQUE: One view of the chest was acquired. COMPARISON: [facility], CR, XR CHEST 1VW (PORTABLE), 09/15/2016, 23:25. FINDINGS: Surgical changes and devices: There is a right IJ central line with the tip in the area of right atri um. Lungs and pleura: Bilateral interstitial and airspace infiltrates suspicious for pulmonary edema. No pleural effusions or pneumothorax. Mediastinum: Mediastinal contours appear normal. Heart size is mildly increased. Bones and chest wall: No suspicious bony lesions. Overlying soft tissues appear unremarkable. IMPRESSION: 1. Right IJ central line tip in the area of right atrium. 2. Suspect pulmonary edema secondary to CHF. Dictated by: Umer Smith M.D. on 09/16/2016 at 15:17 Approved by: Umer Smith M.D. on 09/16/2016 at 15:18
--- NOTE | 2016-09-16 15:29 | NUR ---
NUTRITION ASSESSMENT: ASSESS:70 YO female transferred from [facility] due to progressive weakness and hyperkalemia, with elevated creatinine and hypotension. Septic shock appears to be multifactorial, with an abnormal EKG suggestive of possible anterior inferior DC. With acute renal failure, metabolic acidosis, leukocytosis, history of degcinlv-vm-kexcqn mitral stenosis due to significant mitral valve calcification, recent rectal cancer surgery and rectal abscess surgery, likely source possible reaccumulation of rectal abscess and other problems as stated above. Code status: full. PMHx:Rectal cancer surgery with abscess surgery, type 2 diabetes, GERD, HTN, mitral stenosis, hypothyroid, deconditioning. DIET:NPO. LABS: Reviewed. Na 127, Chloride 93, CO2 16, BUN 48, Cr 187, Glu 260, A1c pending, Ca 7.8. MEDICATIONS: Reviewed. Norepi, levophed, vasopressin, insulin, fentanyl patch. NUTRITION FOCUSED PHYSICAL ASSESSMENT: GI symptoms / stool: 250 ml stool today.Koko: 12. Skin Integrity: Pt. reports she is a current [facility] pt. ANTHROPOMETRICS: Current Wt: 116.9 kg BMI: 44.0 kg/m2. IBW: 54.5 kg (214.3% IBW) ESTIMATED NEEDS(CLASS III OBESITY, CCU): Calories: 1636 - 1909 kcal (30 - 35 kcal / kg IBW) Protein: 109 - 136 g protein (2.0 - 2.5 g / kg IBW) Fluids: 1635 ml fluid (approx. 30 ml / kg IBW) NUTRITION DIAGNOSIS: 1)Inadequate oral intake related to workup for septic shock, hyperkalemia, as evidenced by NPO status. INTERVENTION: 1) No intervention at this time. MONITOR/EVALUATE: Diet advance / tolerance, PO intake, labs, GI/nutrition status. Follow up per high nutrition risk guidelines.
[2016-09-16] MEDS: Albumin 25% 50 GM in IV Premix 1 EACH IV SCH ×2 (15:30→20:02)
[2016-09-16 16:16] LABS: Unsaturated Iron Binding 98.2 ug/dL
--- NOTE | 2016-09-16 16:50 | NUR ---
Social Work: Attempted Assessment D: Per EMR review, pt is a 70 year old female admitted for acute renal failure; hyperkalemia. Pt is Medicare with [employer]. Pt does not have a primary care provider listed. NOK is Angelo Cody, spouse, .m No readmit score entered at this time. PRODUCT MANAGEMENT MANAGER attempted to meet with pt at bedside. Per pharmacy sales assistant, pt is not approrpiate for assessment at this time. Family also not present. PRODUCT MANAGEMENT MANAGER left message for pt's spouse to discuss and complete IA. Pt comes from [facility]. t/c to [facility]; PRODUCT MANAGEMENT MANAGER spoke roger Rousseau, Weekend timekeeper. She states that the pt is a rehab pt and has been there for approximately 1 month. She has been able to ambulate approximately 200 feet with assistance but yesterday was only able to ambulate 10 feet due to ams. They state they can accept the pt back once she is medically stable. Dr. Krishnan follows. A: Pt who was completing rehab at [facility] prior to admission. P: Anticipate pt to discharge back to [facility] with Dr. Krishnan to follow once medically stable; PRODUCT MANAGEMENT MANAGER to continue to attempt assessment with pt's spouse FREEDOM Scherer
--- NOTE | 2016-09-16 19:18 | NUR ---
BP/LOC/labs Pt's BP trending down this AM (see CCU flow sheet). Notified who added phenylephrine pushes and then finally a phenylephrine gtt along with vasopressin and norepi. Those doses were maxed out for PIV sites. MD at bedside trying to get central line in, but unsuccessful. PICC RN also unsuccessful. Pt LOC RASS score +1 most of morning, very confused and asking for water and saying she had to urinate and would not remember when we reoriented her. IN afternoon, pt LOC decreased and but was able to voice pain and needs. Pt's brought in ileostomy appliance from home and helped me apply it. Lab draws from lab techs kept coming back very abnormal, so had to redraw them a couple times, so some labs delayed. Critical labs notified , who said they were false. Redrawn when got ART line.
[2016-09-16] MEDS: Sodium Chloride LOK Flush 10 mL Syringe IVFLUSH PRN ×2 (20:03)
[2016-09-16] MEDS ORDERED: 0.9% Sodium Chloride 100 ML ONE (20:15)
[2016-09-16 21:30] LABS: Magnesium 1.6 mg/dL (1.6-2.6)
[2016-09-16 21:37] LABS: TROPONIN T 0.881 ug/L (0.0-0.011)
[2016-09-16 21:39] LABS: Phosphorus 4.9 mg/dL (2.5-4.9)
[2016-09-16] MEDS ORDERED: Mag Sulf 4 Gm/100 mL IV Premix (Mag < 1.6 & Creat < 2) IV ONE (22:50)
[2016-09-17] VITALS (7 sets, daily range): BP systolic 100–130; BP diastolic 60–77; PULSE 74–88; RESP 19–36; O2SAT 95–100
[2016-09-17] MEDS: Albumin 25% 50 GM in IV Premix 1 EACH IV SCH ×5 (02:44→20:30)
[2016-09-17 04:06] LABS: BASOPHILS % (AUTO) 0.2 % (0-3); EOSINOPHILS % (AUTO) 0.1 % (0-5); Mean Corpuscular Hemoglobin 27.1 pg (27.0-35.0); Mean Corpuscular Volume 82.4 fL (81-100); NEUTROPHILS % (AUTO) 86.9 % (40-74); Platelet Count 270 bil/L (150-400)
[2016-09-17 05:10] LABS: Magnesium 2.6 mg/dL (1.6-2.6); Unsaturated Iron Binding 84.6 ug/dL
[2016-09-17] MEDS: Norepineph 8,000 mCg/250 mL NS 8,000 MCG in IV Premix 1 EACH IV SCH ×2 (05:16→17:31)
[2016-09-17 05:27] LABS: TROPONIN T 0.697 ug/L (0.0-0.011)
--- NOTE | 2016-09-17 06:43 | NUR ---
Heparin Heparin gtt restarted once Ptt levels were <150. Heparin gtt decreased to 14 units/kg/hour and then upon subsequent ptt was decreased a second time down to 10 units/kg/hour. Next PTT draw at 1100 this morning.
--- NOTE | 2016-09-17 07:45 | DRSVH ---
PROCEDURE: X-RAY CHEST ONE VIEW, PORTABLE ([id number]) INDICATIONS: short of breath TECHNIQUE: One view of the chest was acquired. COMPARISON: [facility], CR, XR CHEST 1VW (PORTABLE), 09/16/2016, 14:28. [facility], CR, XR CHEST 1VW (PORTABLE), 09/15/2016, 23:25. FINDINGS: Surgical changes and devices: Right internal jugular vein central venous catheter is present, tip of which is in the lower SVC. Lungs and pleura: No pleural effusions or pneumothorax. Mild bilateral perihilar opacity. Mediastinum: Mediastinal contours appear normal. Heart size is normal. Bones and chest wall: No suspicious bony lesions. Overlying soft tissues appear unremarkable. IMPRESSION: Mild atypical pneumonia. Dictated by: Rebecca Salgado M.D. on 09/17/2016 at 7:43 Approved by: Rebecca Salgado M.D. on 09/17/2016 at 7:43
[2016-09-17] MEDS ORDERED: LOPE2CAP PO (07:52)
[2016-09-17] MEDS ORDERED: PANT40TA3 PO (07:52)
[2016-09-17] MEDS ORDERED: ACET-171 PO (07:52)
[2016-09-17] MEDS ORDERED: OXYC5CAP4 PO (07:52)
--- NOTE | 2016-09-17 07:55 | PCM.PNMED ---
Subjective Date of Service Sep 17, 2016 Subjective Patient is drowsy but denies chest pain, dyspnea, nausea vomiting. She is hungry and really wants his chips. Exam Vital Signs Vital Sign - Last Date Time Temp Pulse Resp B/P Pulse Ox O2 Delivery O2 Flow Rate FiO2 09/17/16 03:19 76 19 110/60 95 Nasal Cannula 2.00 09/16/16 23:08 36.8 Intake and Output 09/16/16 09/16/16 09/17/16 Cumulative From/Thru 15:00 23:00 07:00 09/15/16 23:05 - 09/17/16 05:23 Intake Total 2398 ml 2549 ml 15565 ml Output Total 1360 ml 800 ml 2810 ml Balance 1038 ml 1749 ml 8788 ml Intake Oral 0 ml 0 ml IV Total 2398 ml 2549 ml 61314 ml Output Urine Total 800 ml 600 ml 1800 ml Stool Total 560 ml 200 ml 1010 ml Exam Gen.- A+ O 1-2 no apparent distress. More awake today 09/17 and interactive Eyes- open conjunctiva clear, pupils equal nonicteric Mouth- oral mucosa moist, no exudate ENT- ears normal, nose normal Neck- supple/trach midline, unable to assess JVD secondary to body habitus CVS- RRR no murmur or gallop, heart sounds particular secondary to body habitus Bilateral pedal edema Lungs CTA, breath sounds difficult to hear secondary to body habitus GI- NABS/NT soft, generous pannus multiple skin folds Ostomy in place multiple bruises covering the abdomen likely sites of subcutaneous heparin Musc- moving 4 no obvious deformity Neuro- cranial nerves II through XII intact to gross examination, nonfocal Stasis dermatitis bilaterally lower extremities Skin- warm and with a variety of different lesion Psych-pretty agreeable but obtunded and sleepy Lab and Diagnostics Troponin 0.035 admitted, 0.521, 0.881 09/16, 0.697 09/17 Iron normal, B12 pending CRP 18.6, ESR 63 09/17 Result Diagram: 09/17/16 0400 09/17/16 0400 Microbiology MRSA, blood, urine pending X-Rays, CTs and MRIs CXR IMPRESSION: No acute cardiopulmonary disease. Umer Smith M.D. on 09/16/2016 at 8:06 personally/concurrently reviewed by Yuan 09/16 CT abdomen/pelvis: Personally/concurrently reviewed by Yuan 09/16 Impression: No evidence of obstructive uropathy. There is a 2 mm stone in the region of the left UPJ producing no apparent obstruction. There is marked distortion of the lower rectum and anal region is irregular soft tissue density, fluid density, and gas collections. Differential considerations include rectal neoplasm, abscess, postsurgical change or combination thereof. Findings need to be correlated with surgical history and symptoms. There is parastomal herniation of small bowel segment at the site of the patient 's right lower quadrant ileostomy. There is no evidence of small bowel obstruction or other complication. NightShift reader: Alok Rose MD 12-lead ECG 09/16 11:00 personally/concurrently reviewed by Yuan . Sinus rhythm 55, QTC 444 ms . Atrial premature complex . Inferior infarct, old . Consider anterior infarct Sinus rhythm personally/concurrently reviewed by Yuan 09/16 * Left bundle branch block rate 75, QTC 430 ms . When compared with ECG of 15-Sep-2016 22:59:46, * No significant change none prior to 09/15 Multiple EKG's taken in ED. Rate 75-85. Peaked T waves in first EKG in keeping with hyperkalemia on labs. Improved on subsequent exam. QTc 495 on first EKG improved to 443 . Cardiac Echo Impressions ECHO 08/27 Pal[place]wal Interpretation Summary The left ventricle is not well visualized. The left ventricle is mildly dilated.The ejection fraction is estimated to be 25-30%. Except basal segments which are marcos slightly hyperdynamic rest of the LV segments are severely hypokinetic to akinetic with apical ballooning. These findings suggest likely stress induced cardiomyopathy, however multivessel CAD can not be ruled out. Compared to the prior exam, left ventricular function is significantly decreased with new wall motion abnormalities. The right ventricle is normal in size and function. There is severe posterior mitral annulus calcification, extending in to the subvalvular apparatus as well with restricted posterior mitral leaflet. Based on pressure half time MVA is about 1.7 cm square. Overall based on doppler profile across the MV, MS does not appear to be severe. It appears to be in moderate range. The mitral valve mean gradient is 6.2 mmHg. The mean MV gradient was 10.2 mmHg on the prior echo. There is mild to moderate tricuspid regurgitation. Right ventricular systolic pressure is estimated to be 48 mmHg plus the clinically estimated CVP which cannot be estimated on this exam. Assessment & Plan Patient is a 70 year old female with a history of rectal cancer and type 2 DM. She presented to [facility] on 09/15/16 from [facility] after abnormal lab testing was found. Patient was hyperkalemic with acute renal failure. Given albuterol, insulin/dextrose, calcium gluconate, kayexalate, and sodium bicarb given in ED. Given IV NS x 2L. Admitted to ICU for management. Hypotension, volume depletion/shock - patient volume resuscitated most pressors weaned we are working weaning last 09/17 Acute anemia-uncertain whether this is blood loss or simply dilutional will continue to follow H&H transfusing as needed, anemia panel iron WNL, Retics low 2.0, Hgb 10.4, 9.3 09/16, 9.1 09/17 ACS/nstemi- first EKG benign controlled still going up, thank you cardiology consultation (dx stress cardiomyopathy noted) ongoing volume resuscitation any cardio interventions/meds cont heparin ggt 09/16-. Trops seemed to plateau and may be trending down will continue to trend 09/17. DVT- R leg, left leg poorly visualized patient on heparin drip, holding further anticoagulation pending cardiac evaluation and need for DAPT and anticoagulation, not pursuing PE as I do not think that would size changer and patient is still quite unstable and it is not worth the benefit of pursuing this diagnosis. Hyperkalemia, Probaly 2' CLAY. Kayexalate, insulin/dextrose, albuterol and sodium bicarb given 09/15-09/16. Last K+ 5.0 0700, 4.7 1400 09/16, 4.6 09/17 Hyponatremia, c/w volume depletion, Na 127 0800, 127 1400 09/16, 131 09/17 CLAY- baseline Cr 0.7, Cr 1.78 1400 09/16, 1.3 09/17, thank you Dr. Phillips nephrology for following/recommendations Acute systolic CHF-whether there is a chronic component is not known Will have to follow fluids closely for now fluid resuscitation taking precedence Leukocytosis, no definitive source, covering with Levaquin/cefepime/Flagyl for GI sources should has known Hx of intra-abdominal abscess/something in the buttock possibly perirectal. CT abd/pelvis 09/16 not revealing. Metabolic acidosis, volume depletion and renal failure lactate only 2.2, HCO3 still 15 09/17 follow, tx sepsis/volume ?prolonged 2' ileostomy output? DM2/hyperglycemia, low-dose sliding scale, last 4 BSs 170s, no changes for now. Holding on resuming metformin/glyburide Rectal cancer, Oncologist Wicho Delong. Uncertain of current treatment regimen, if any. Ileostomy/multiple intra-abdominal and extra abdominal thank you surgery/Dr. Blanc evaluating Metabolic encephalopathy-discontinue fentanyl and narcotics and other sedating medications, seems to be clearing 09/17 Ileostomy- - Consider wound care consultation for ostomy management. Hypothyroidism, chronic, presume stable. - Holding levothyroxine 50 mcg daily at this time until patient stabilizes. Prophylaxis-DVT patient already has (SCD contraindicated) on heparin drip , GI pantoprazole IV Medically complex patient at high risk for complications GI Prophylaxis: Proton Pump Inhibitor VTE Prophylaxis: SCDs, Other Resuscitation Status: CPR: Attempt Resuscitation Kushal Bolden MD Sep 17, 2016 07:55
--- NOTE | 2016-09-17 07:55 | PCM.PNSURG ---
Subjective Visit Information: Reason for Visit Acute Renal Failure, Hyperkalemia Surgery/Surgery Date Post-Op Day # Date of Admission: Sep 16, 2016 at 01:18 Hospital Day # Subjective: not intubated on pressors, denies abd pain, c/o thirst Objective Objective Awake in bed, able to answer some questions Abd: obese, soft, RLQ ilestomy L buttock -- bandaid dressing x2 at old drain sites, no sutures Vital Sign- Last 8 Hours Date Time Temp Pulse Resp B/P Pulse Ox O2 Delivery O2 Flow Rate FiO2 09/17/16 03:19 76 19 110/60 95 Nasal Cannula 2.00 Intake and Output- Last 8 Hour 09/17/16 Cumulative From/Thru 07:00 09/15/16 23:05 - 09/17/16 05:23 Intake Total 2549 ml 58977 ml Output Total 800 ml 2810 ml Balance 1749 ml 8788 ml Intake Oral 0 ml 0 ml IV Total 2549 ml 74103 ml Output Urine Total 600 ml 1800 ml Stool Total 200 ml 1010 ml Result Diagram: 09/17/16 0400 09/17/16 0400 Assessment & Plan Impression Hypotension on pressors Morbid obesity Rectal CA s/p preop chemorad, robotic LAR & transanal excision in May @ [facility] s/p postop drain placement Elevated troponin DVT new Problems: Plan Continue hepearin drip for DVT OK for ice chips If there's question of perirectal abscess --> IR drain Continue abx Pressors prn for BP support VTE Prophylaxis: SCDs, Other Resuscitation Status: CPR: Attempt Resuscitation Walt Blanc MD Sep 17, 2016 07:55
[2016-09-17] MEDS: Phenylephrine 20 mg/250 mL D5W IV SCH ×8 (08:12→19:25)
[2016-09-17] MEDS ORDERED: 0.9% Sodium Chloride 250 ML ONE (08:24)
[2016-09-17] MEDS: Pantoprazole 4 mg/mL 10 mL Inj IVPUSH SCH (08:31)
[2016-09-17] MEDS: Cefepime Inj 1,000 MG in Dextrose 5% Minibag Plus 50 ML IV SCH ×2 (08:31→19:40)
[2016-09-17] MEDS: Insulin LISPRO 300 Unit/3 mL Inj SUBQ SCH ×4 (08:32→19:32)
[2016-09-17] MEDS: Linezolid Inj 600 MG in IV Premix 1 EACH IV SCH ×2 (08:33→19:40)
--- NOTE | 2016-09-17 10:12 | PROG NOTE ---
[address] [address] PROGRESS NOTE PATIENT: JOHN SMITH : 1945 MR#: [id number] ADMIT: 09/16/2016 JOB ID: [id number] DATE: 09/17/2016 PROGRESS NOTE: The patient is in ICU. She appears more alert today than yesterday. She is not intubated. She is not having any active chest pain or shortness of breath. No active bleeding. In summary, this 70-year-old, female, who has a history of moderate to severe mitral stenosis due to significant mitral annulus calcification based on echocardiogram on June 12, 2016 with LV ejection fraction 65% to 70%, severely dilated left atrium, mild to moderate TR, pulmonary artery systolic pressure 38, borderline aortic stenosis with essential hypertension, diabetes mellitus, hypothyroidism, rectal cancer who underwent laparoscopic robotic low anterior resection with diverting loop ileostomy and total mesorectal excision with rigid bronchoscopy in May 2016 in [facility], recent rectal abscess surgery, history of ileostomy who has been in [facility] was transferred to the emergency room because her potassium was very high which was 7.9 with lethargy. In the hospital, the patient was hypotensive. She was in shock. She had acute renal failure, sepsis, metabolic acidosis. Her troponin was abnormal as well. Initially, she was on three pressors. Later on, two of the pressors were discontinued. Phenylephrine and vasopressin were discontinued. At present, her Levophed has decreased to 0.1 mcg. She underwent echocardiogram yesterday which revealed mildly dilated left ventricle. Except basal segments which are marcos slightly hyperdynamic, rest of the LV segments were severely hypokinetic to akinetic with apical ballooning consistent with stress-induced cardiomyopathy. However, multivessel CAD cannot be ruled out. Right ventricle function was normal. There was severe posterior mitral annular calcification extending into the subvalvular apparatus with a restricted posterior mitral leaflet. Overall mitral stenosis does not appear to be critical. The mean gradient across mitral valve was 6.2 mmHg, and based on pressure half time, mitral valve area about 1.7 cm2. Previous mean gradient was about 10.2 mmHg. There was mild to moderate TR and pulmonary artery systolic pressure about 48 mmHg. She also found to have left lower extremity DVT. She was started on anticoagulation. She underwent bilateral lower extremity arterial duplex examination which did not reveal any critical stenosis. OBJECTIVE: Blood pressure 110/60, heart rate 76, respiratory rate 19, oxygen saturation on 2 L 95%. Patient has a right IJ central line. Chest: Decreased air entry at the bases. CVS: Clinically S1, S2 normal. No S3, no S4. No significant murmur at present. Abdomen obese. Patient has ileostomy. Extremity: Bilateral diffuse erythematous changes. Distal toes appears to have some dusky discoloration. I cannot feel the distal pulses well. BALANCE BRIDGE INSPECTOR: As stated above. Telemetry: Patient at present is in sinus rhythm with some PACs. LABORATORY: WBC has decreased to 12.8. Her initial WBC was 16.9. Hemoglobin 9.2, platelets 270, polymorphs 86.9. Sodium improved to 131. She came with sodium of 120. Potassium has decreased to 4.6. She came with potassium of 7.9. Creatinine has decreased to 1.3. She came with 3.39. BUN 38. Lactic acid decreased from 2.2 to 1.0. Magnesium 2.6. Total bilirubin 0.5. AST, ALT normal. Troponin T peaked 0.881, now 0.697. Elevated C. reactive protein and ESR. ASSESSMENT AND PLAN: Shock which appears to be multifactorial with predominant complaint of sepsis with possibility of reaccumulation of rectal abscess. There is an element of left ventricular dysfunction as well. On 2D echo, left ventricular ejection fraction has decreased to 25% to 30%. She has wall motion abnormalities consistent with stress-induced cardiomyopathy with apical ballooning. However, multivessel coronary artery disease cannot be ruled out. She presented with severe hyperkalemia, acute renal failure, metabolic acidosis, hyponatremia. Electrolyte abnormalities are improving. Yesterday, I discussed the case with our interventional partner, Dr. Leonardo, and at that time decided, in view of acute renal failure and other comorbid conditions, to wait for left heart catheterization. Especially based on echocardiogram, as it is more consistent with stress-induced cardiomyopathy, it was decided to treat medically at present. Clinically, I do not see any stigmata of endocarditis. On 2D echocardiogram which was not a good quality, however, no significant vegetation seen. So far, blood culture is negative. She has a left lower extremity deep venous thrombosis and has been on anticoagulation. Now, she is on one vasopressor, Levophed 0.1. I will recommend discontinuation and see how she does. She had bilateral lower extremity arterial duplex yesterday which did not reveal any critical stenosis. However, not each and every artery was well seen. She may have peripheral vasoconstriction due to Levophed. We will get Doppler evaluation of posterior tibial and dorsalis pedis artery. Once she is off vasopressor and able to sustain blood pressure, then slowly we will recommend adding beta violette, and once kidney function gets normalized, angiotensin-converting enzyme inhibitor. If her left ventricular function down the road does not get better, consider left heart catheterization if everybody agrees. Total critical care time about 60 minutes. Discussed the plan with intensive care unit nurse as well. Tomorrow, my associate Dr. Olivera, will evaluate the patient.
--- NOTE | 2016-09-17 11:33 | NUR ---
Social Work: Continued Attempted Assessment D: Pt discussed at AMA rounds. Pt remains in CCU and confused with a sitter. MANUFACTURING TECHNOLOGIST attempted to contact pt's spouse at both phone numbers provided on pt's white board (home: [phone]; cell [phone]); messages left on both to discuss initial assessment. MANUFACTURING TECHNOLOGIST provided contact information on pt's board with message for spouse to contact social work A: Pt who comes from [facility] P: Evolving; Anticipate pt to discharge back to [facility] when medically appropriate. MANUFACTURING TECHNOLOGIST to continue to follow up with spouse to complete assessment. FREEDOM Scherer
--- NOTE | 2016-09-17 12:51 | NUR ---
Social Work: Initial Assessment D: APPLICATION CHEMIST was able to meet with pt's spouse at bedside. Sw role explained. See initial assessment. Pt was previously at [facility] for rehab. Spouse would like her to return there if she does not get transferred to another hospital. Pt has not completed advanced directives- information was provided to the spouse. Pt was accepted back by [facility] yesterday with Dr. Krishnan to follow. They have access and are following pt's progress. PPW is on chart A: Pt who previously was at [facility] for rehab P: Anticipate pt to discharge to [facility] with Dr. Krishnan to follow; APPLICATION CHEMIST to continue to follow if needs arise or change FREEDOM Scherer Addendum: 09/17/16 at 1254 by MIGNON NEGRETE Amended: Links added.
--- NOTE | 2016-09-17 13:12 | PCM.PNMED ---
Subjective Date of Service Sep 17, 2016 Subjective Pt remained in the critical condition. BP is stabilized. She is on 1/2 NS, IV alb and vasopressors. Trop elevated, seen by cardiology. Heparin gtt for DVT. K and serum creatinine have been normalized. is at the bedside, stated that she is better today. Exam Vital Signs Vital Sign - Last Date Time Temp Pulse Resp B/P Pulse Ox O2 Delivery O2 Flow Rate FiO2 09/17/16 12:00 37.0 76 19 100/62 95 09/17/16 08:00 Nasal Cannula 2.00 Intake and Output 09/16/16 09/16/16 09/17/16 Cumulative From/Thru 15:00 23:00 07:00 09/15/16 23:05 - 09/17/16 05:23 Intake Total 2398 ml 2549 ml 52544 ml Output Total 1360 ml 800 ml 2810 ml Balance 1038 ml 1749 ml 8788 ml Intake Oral 0 ml 0 ml IV Total 2398 ml 2549 ml 41672 ml Output Urine Total 800 ml 600 ml 1800 ml Stool Total 560 ml 200 ml 1010 ml Exam General appearance: Chronically ill-looking, Obese. more awake and alert today. HEENT: Dry mucous membranes. Atraumatic. PERRLA. Mild pallor. No jaundice. No JVD. No lymphadenopathy. No thyroid gland enlargement. Heart: Regular rhythm. Normal S1, S2. No murmurs, rubs or gallops. Lungs: Decreased breath sound at bases. No wheezing. No rhonchi. No rales. Abdomen: Soft, nontender, nondistended. Right ileostomy with greenish watery stool. Active bowel sounds. Extremities: Chronic skin changes on the lower extremities, 1+ edema. Lab and Diagnostics Result Diagram: 09/17/16 0400 09/17/16 0400 Microbiology MRSA, blood, urine pending X-Rays, CTs and MRIs CXR IMPRESSION: No acute cardiopulmonary disease. Umer Smith M.D. on 09/16/2016 at 8:06 personally/concurrently reviewed by Yuan 09/16 CT abdomen/pelvis: Personally/concurrently reviewed by Yuan 09/16 Impression: No evidence of obstructive uropathy. There is a 2 mm stone in the region of the left UPJ producing no apparent obstruction. There is marked distortion of the lower rectum and anal region is irregular soft tissue density, fluid density, and gas collections. Differential considerations include rectal neoplasm, abscess, postsurgical change or combination thereof. Findings need to be correlated with surgical history and symptoms. There is parastomal herniation of small bowel segment at the site of the patient 's right lower quadrant ileostomy. There is no evidence of small bowel obstruction or other complication. NightShift reader: Alok oRse MD 12-lead ECG 09/16 11:00 personally/concurrently reviewed by Yuan . Sinus rhythm 55, QTC 444 ms . Atrial premature complex . Inferior infarct, old . Consider anterior infarct Sinus rhythm personally/concurrently reviewed by Yuan 09/16 * Left bundle branch block rate 75, QTC 430 ms . When compared with ECG of 15-Sep-2016 22:59:46, * No significant change none prior to 09/15 Multiple EKG's taken in ED. Rate 75-85. Peaked T waves in first EKG in keeping with hyperkalemia on labs. Improved on subsequent exam. QTc 495 on first EKG improved to 443 . Cardiac Echo Impressions ECHO 08/27 Paliwal Interpretation Summary The left ventricle is not well visualized. The left ventricle is mildly dilated.The ejection fraction is estimated to be 25-30%. Except basal segments which are marcos slightly hyperdynamic rest of the LV segments are severely hypokinetic to akinetic with apical ballooning. These findings suggest likely stress induced cardiomyopathy, however multivessel CAD can not be ruled out. Compared to the prior exam, left ventricular function is significantly decreased with new wall motion abnormalities. The right ventricle is normal in size and function. There is severe posterior mitral annulus calcification, extending in to the subvalvular apparatus as well with restricted posterior mitral leaflet. Based on pressure half time MVA is about 1.7 cm square. Overall based on doppler profile across the MV, MS does not appear to be severe. It appears to be in moderate range. The mitral valve mean gradient is 6.2 mmHg. The mean MV gradient was 10.2 mmHg on the prior echo. There is mild to moderate tricuspid regurgitation. Right ventricular systolic pressure is estimated to be 48 mmHg plus the clinically estimated CVP which cannot be estimated on this exam. Assessment & Plan 1. Acute kidney injury. improving. secondary to intravascular volume depletion and sepsis. 2. Hypovolemic hyponatremia, improving 3. Hyperkalemia secondary to acute kidney injury, poor renal perfusion, resolved. 4. Septic shock. 5. Mixed anion gap metabolic acidosis and 6. Colorectal cancer status post preoperative chemo and radiation followed by robotic low anterior resection with ileostomy. 7. Complex presacral fluid collection, suspected abscess. 8. DVT involving left distal femoral vein and left popliteal vein. 9. GNR UTI. 10. Stress-induced cardiomyopathy with apical ballooning/mod MS/mild-mod TR. 11. History of hypertension. 12. History of type 2 diabetes. 13. History of hypothyroidism. PLAN: We will switch 1/2 NS to NS 80 ml/hr. Taper off vasopressors. maintain MAP > 65 mmHg. follow surgery recommendation, ? IR to drain fluid collection. GI Prophylaxis: Proton Pump Inhibitor VTE Prophylaxis: SCDs, Other Resuscitation Status: CPR: Attempt Resuscitation Amador Berrios MD Sep 17, 2016 13:12
[2016-09-17] MEDS: 0.9% Sodium Chloride 1,000 ML IV SCH (13:28)
--- NOTE | 2016-09-17 13:44 | ABG ---
DateTimeAnalyzed 13:37:00 -_ pH ____7.339 - 7.350 7.450 pCO2 ___31.1__ -mmHg 35.0 45.0 pO2 ___65.8__ -mmHg 69.0 116 HCO3- ___16.3__ -mmol/L 22.0 26.0 ABE ___-8.2__ -mmol/L -2.0 2.0 tHb ____8.3__ -g/dL O2Hb ___90.7__ -% COHb ____1.2__ -% MetHb ____0.8__ -% sO2 ___92.6__ -% FIO2 ___28.0__ -% Drawn By KBB - Date/Time Notified____ 13:44:00 -_ Oxygen Device 1 __CANNULA - Notified By kbb - Notified Whom Kendregan, John MD -_ B 767 -mmHg tO2 ___10.7__ -Vol% Puma test N/A -
[2016-09-17] MEDS ORDERED: HYDROcodone-APAP 5-325 mg Tablet PO PRN (14:05)
[2016-09-17] MEDS: Vasopressin Inj 20 UNIT in 0.9% Sodium Chloride 100 ML IV SCH (14:42)
[2016-09-17 15:58] LABS: TROPONIN T 0.533 ug/L (0.0-0.011)
--- NOTE | 2016-09-17 16:30 | PROG NOTE ---
[address] [address] PROGRESS NOTE PATIENT: JOHN SMITH : 1945 MR#: [id number] ADMIT: 09/16/2016 JOB ID: [id number] DATE: 09/17/2016 PROBLEM LIST: 1. Shock. 2. Cardiomyopathy. 3. Status post resection of rectal carcinoma with placement of the ileostomy. SUBJECTIVE: The patient is awake. Answers some questions. Denies shortness of breath, chest pain or abdominal pain. At other times she states she does not know how she feels. Apologizes for this but has problems with recall of recent events on even telling us how she is doing right now. OBJECTIVE: Temperature 37. Pulse mid 70s. Respiratory rate 20. Blood pressure 110/62 on norepinephrine IV infusion at 0.06 mcg/kg per minute. O2 sat on 2 L is 95%. I and O shows 9 L in, 2 L out. General appearance: A bit uncomfortable. No acute distress. Thinking is a bit blurred. Speech is relatively clear. Not effective cough at times. Chest: Clear in the upper lung barfield. Cannot hear very well in the lower. Heart: Regular rhythm. Heart tones seem normal. Abdomen soft. Nondistended. The patient states that there may be some discomfort in the left upper quadrant but then on re-examination states this feels okay. Ileostomy is functioning well. Lower extremities show stasis changes with induration below the knee. LABORATORY DATA: Shows a white count of 12,800 with 86 folic polymorphonuclears, 4 lymphocytes, 7 monocytes. Hemoglobin 9.2. Platelet count 270,000. Sodium 131, up from 128, potassium 4.6, chloride 96, CO2 is 15. BUN 38 and falling. Creatinine 1.3 and dropped the past 8 hours from 1.56. Lactic acid is 1. Calcium is 7.8 with albumin of 3.5. Phosphorus normal at 4. Magnesium normal at 2.6. Iron studies are normal. Ferritin moderately increased, however. PTT is 139 seconds with the patient receiving heparin. Chest x-ray shows some mild patchy perihilar infiltrates. ASSESSMENT: 1. Shock. Echocardiogram suggests a mildly low ejection fraction estimated to be 25% to 30%. Not sure what prestudies show. However, apical ballooning present. Takotsubo's cardiomyopathy implicated. What role the possible infection versus cardiomyopathy is playing is unclear. Initially thought to be in septic shock. However, I am told that the area of the rectal surgery looks reasonably well externally. Would wonder if we are dealing with Takotsubo's and that we should be using inotropes as to pressors. Will see if the system will accommodate a patient not on a ventilator. Otherwise, might consider empirically starting dobutamine so it will be quite difficult to follow hemodynamically. 2. Anion gap acidosis. Will need to see where her acidemia is falling. Lactate is normal. Renal function is improving. 3. Hypokalemia, resolved. PLAN: 1. Mixed venous gas. 2. Will find out about hemodynamic monitoring, otherwise might consider empirically dobutamine and see how this falls out. 3. Speech eval. TIME SPENT: So far in critical care is 46 minutes.
--- NOTE | 2016-09-17 18:33 | NUR ---
Oxygen/pain/anxiety/cough Pt's oxygen needs increased with oxymask up to 9L at 96%. RR in the mid 20s. Pt constantly trying to take off mask, sitter at bedside reorienting patient. Pt complains of back pain, vicodin 2 tabs given with moderate relief. Pt restless and anxious, states that she takes ativan PRN prior to hospital. Got order for IV ativan, gave 1mg IV push with good relief. Sitter at bedside. Q2h turns, oral care and frequent rounding continue. Pt coughing when taking ice chips. Notified MD and ordered speech eval.
[2016-09-17] MEDS ORDERED: Furosemide 10 mg/mL 2 mL Inj IV ONE (20:05)
[2016-09-17] MEDS ORDERED: Furosemide 10 mg/mL 4 mL Inj IVPUSH ONE (21:25)
--- NOTE | 2016-09-17 21:30 | ABG ---
DateTimeAnalyzed 21:26:00 -_ pH ____7.111 - 7.350 7.450 pCO2 ___45.8__ -mmHg 35.0 45.0 pO2 ___99.5__ -mmHg 69.0 116 HCO3- ___14.0__ -mmol/L 22.0 26.0 ABE __-14.4__ -mmol/L -2.0 2.0 tHb ____8.7__ -g/dL O2Hb ___94.1__ -% COHb ____0.5__ -% MetHb ____0.9__ -% sO2 ___95.4__ -% FIO2 __100.0__ -% Drawn By AF - Date/Time Notified____ 21:30:00 -_ Notified By AF - Notified Whom __Ryan RN - B 769 -mmHg tO2 ___11.7__ -Vol% Puma test N/A -
[2016-09-17] MEDS ORDERED: Sodium Bicarb (50 mEq) 8.4% 1 mEq/mL 50 mL Syringe ONE (22:16)
[2016-09-17 22:26] LABS: Magnesium 2.5 mg/dL (1.6-2.6); Phosphorus 4.4 mg/dL (2.5-4.9)
[2016-09-17] MEDS ORDERED: Propofol 10,000 mCg/mL 100 mL Inj ONE (22:28)
[2016-09-17 22:38] LABS: TROPONIN T 0.608 ug/L (0.0-0.011)
[2016-09-17] MEDS ORDERED: Sodium Bicarb 8.4% Inj 150 MEQ in Dextrose 5% 1,000 ML IV ONE (23:10)
[2016-09-17] MEDS: Sodium Chloride LOK Flush 10 mL Syringe IVFLUSH PRN ×2 (23:33)
[2016-09-18] VITALS (15 sets, daily range): BP systolic 78–125; BP diastolic 59–82; PULSE 59–77; RESP 18–30; O2SAT 96–100
--- NOTE | 2016-09-18 00:01 | ABG ---
DateTimeAnalyzed 23:56:00 -_ pH ____7.418 - 7.350 7.450 pCO2 ___26.0__ -mmHg 35.0 45.0 pO2 ___63.7__ -mmHg 69.0 116 HCO3- ___16.5__ -mmol/L 22.0 26.0 ABE ___-6.7__ -mmol/L -2.0 2.0 tHb ____8.4__ -g/dL O2Hb ___91.9__ -% COHb ____1.2__ -% MetHb ____0.9__ -% sO2 ___93.9__ -% FIO2 ___60.0__ -% PRVC 30 - PEEP ____7.0__ -cmH2O Vt __380.0__ -L Drawn By blf - Date/Time Notified____ 00:00:00 -_ Spontaneous_RR ___30.0__ -b/min Oxygen Device 1 VENTILATOR - Notified By blf - Notified Whom ___Dr. Sullenberger -____ B 768 -mmHg tO2 ___10.9__ -Vol% Puma test N/A -
[2016-09-18] MEDS: Albumin 25% 50 GM in IV Premix 1 EACH IV SCH (01:24)
[2016-09-18] MEDS: Vasopressin Inj 20 UNIT in 0.9% Sodium Chloride 100 ML IV SCH (01:24)
[2016-09-18] MEDS: Phenylephrine 20 mg/250 mL D5W IV SCH ×8 (01:24→22:19)
[2016-09-18] MEDS: fentaNYL 2,500 mCg/250 mL 2,500 MCG in IV Premix 1 EACH IV SCH (02:01)
[2016-09-18] MEDS: 0.9% Sodium Chloride 1,000 ML IV SCH (02:02)
--- NOTE | 2016-09-18 04:57 | ABG ---
DateTimeAnalyzed 04:52:00 -_ pH ____7.513 - 7.350 7.450 pCO2 ___21.0__ -mmHg 35.0 45.0 pO2 206 -mmHg 69.0 116 HCO3- ___16.8__ -mmol/L 22.0 26.0 ABE ___-5.0__ -mmol/L -2.0 2.0 tHb ____8.3__ -g/dL O2Hb ___97.9__ -% COHb ____1.0__ -% MetHb ____0.8__ -% sO2 ___99.7__ -% FIO2 ___70.0__ -% PRVC 30 - PEEP ____7.0__ -cmH2O Vt __380.0__ -L Drawn By blf - Date/Time Notified____ 04:57:00 -_ Spontaneous_RR ___30.0__ -b/min Oxygen Device 1 VENTILATOR - Notified By blf - Notified Whom TOM MARY RN - B 767 -mmHg tO2 ___11.9__ -Vol% Puma test N/A -
[2016-09-18 05:26] LABS: BASOPHILS % (AUTO) 0.1 % (0-3); EOSINOPHILS % (AUTO) 0 % (0-5); Mean Corpuscular Volume 79.9 fL (81-100); NEUTROPHILS % (AUTO) 86.3 % (40-74); Platelet Count 190 bil/L (150-400)
[2016-09-18] MEDS ORDERED: Propofol 10,000 mCg/mL 100 mL Inj ONE (05:41)
[2016-09-18] MEDS: Propofol Inj 1,000,000 MCG in IV Premix 1 EACH IV SCH ×2 (05:48→20:12)
[2016-09-18] MEDS: Heparin 25K Unit/500mL 0.45 NS 25,000 UNIT in IV Premix 1 EACH IV SCH (06:32)
--- NOTE | 2016-09-18 07:27 | PCM.PNMED ---
Subjective Date of Service Sep 18, 2016 Subjective Patient nonverbal unfortunately intubated overnight Exam Vital Signs Vital Sign - Last Date Time Temp Pulse Resp B/P Pulse Ox O2 Delivery O2 Flow Rate FiO2 09/18/16 05:00 100 50 09/18/16 03:50 72 106/82 09/18/16 03:17 30 Mechanical Ventilator 09/17/16 23:00 36.3 09/17/16 19:20 9.00 Intake and Output 09/17/16 09/17/16 09/18/16 Cumulative From/Thru 14:59 22:59 06:59 09/15/16 23:05 - 09/18/16 06:00 Intake Total 2329 ml 2800 ml 00076 ml Output Total 500 ml 430 ml 3740 ml Balance 1829 ml 2370 ml 45039 ml Intake Oral 0 ml 0 ml 0 ml IV Total 2329 ml 2800 ml 60539 ml Output Urine Total 500 ml 400 ml 2700 ml Stool Total 30 ml 1040 ml Gastric Drainage Total 0 ml 0 ml Exam Gen.-Sedated, obese female intubated Eyes- eyes closed normal eyelids no drainage from either eye Mouth- ET tube protruding ENT- ears normal, nose normal Neck- supple/trach midline, unable to assess JVD secondary to body habitus CVS- RRR no murmur or gallop, heart sounds particular secondary to body habitus Bilateral pedal edema, extremities warm, pulses auscultated in all 4 with Doppler by nurse Lungs CTA, strong clear mechanical ventilations GI- NABS/NT soft, generous pannus multiple skin folds Ostomy in place multiple bruises covering the abdomen likely sites of subcutaneous heparin Musc- no obvious deformity Neuro- cranial nerves II through XII intact to gross examination, nonfocal Stasis dermatitis bilaterally lower extremities Skin- warm and with a variety of different lesion, both legs deep purple hemosiderosis/stasis dermatitis Psych- sedated Lab and Diagnostics Lactate 5.09/17, 1.9 09/18 Result Diagram: 09/18/16 0515 09/18/16 0515 Microbiology MRSA, blood, urine pending X-Rays, CTs and MRIs CXR 09/18 -personally/concurrently reviewed by Yuan 09/18 1. Lines and tubes as above. 2. Worsening pulmonary edema and/or diffuse bilateral inflammatory process. Correlate clinically. CT abd/pelvis 09/17 -personally/concurrently reviewed by Yuan 09/18 1. In absence of oral and IV contrast, evaluation for bowel ischemia is limited ; but no definitive evidence for bowel ischemia. 2. Presacral soft tissue thickening with fluid and air collection appears unchanged and remains suspicious for abscess. 3. Bibasilar infiltrates and consolidation consistent with pneumonia. Small to moderate bilateral effusions. Recommend followup to resolution. 4. Abnormal appearance of gallbladder with wall thickening and hyperdensity within the gallbladder lumen. Recommend clinical correlation for acute cholecystitis. 5. A 2 mm nonobstructive renal calculus in the proximal left ureter just beyond the UPJ, unchanged. CXR IMPRESSION: No acute cardiopulmonary disease. Umer Smith M.D. on 09/16/2016 at 8:06 personally/concurrently reviewed by Yuan 09/16 CT abdomen/pelvis: Personally/concurrently reviewed by Yuan 09/16 Impression: No evidence of obstructive uropathy. There is a 2 mm stone in the region of the left UPJ producing no apparent obstruction. There is marked distortion of the lower rectum and anal region is irregular soft tissue density, fluid density, and gas collections. Differential considerations include rectal neoplasm, abscess, postsurgical change or combination thereof. Findings need to be correlated with surgical history and symptoms. There is parastomal herniation of small bowel segment at the site of the patient 's right lower quadrant ileostomy. There is no evidence of small bowel obstruction or other complication. NightShi reader: Alok Rose MD 12-lead ECG 09/16 11:00 personally/concurrently reviewed by Yuan . Sinus rhythm 55, QTC 444 ms . Atrial premature complex . Inferior infarct, old . Consider anterior infarct Sinus rhythm personally/concurrently reviewed by Yuan 09/16 * Left bundle branch block rate 75, QTC 430 ms . When compared with ECG of 15-Sep-2016 22:59:46, * No significant change none prior to 09/15 Multiple EKG's taken in ED. Rate 75-85. Peaked T waves in first EKG in keeping with hyperkalemia on labs. Improved on subsequent exam. QTc 495 on first EKG improved to 443 . Cardiac Echo Impressions ECHO 08/27 [place] Interpretation Summary The left ventricle is not well visualized. The left ventricle is mildly dilated.The ejection fraction is estimated to be 25-30%. Except basal segments which are marcos slightly hyperdynamic rest of the LV segments are severely hypokinetic to akinetic with apical ballooning. These findings suggest likely stress induced cardiomyopathy, however multivessel CAD can not be ruled out. Compared to the prior exam, left ventricular function is significantly decreased with new wall motion abnormalities. The right ventricle is normal in size and function. There is severe posterior mitral annulus calcification, extending in to the subvalvular apparatus as well with restricted posterior mitral leaflet. Based on pressure half time MVA is about 1.7 cm square. Overall based on doppler profile across the MV, MS does not appear to be severe. It appears to be in moderate range. The mitral valve mean gradient is 6.2 mmHg. The mean MV gradient was 10.2 mmHg on the prior echo. There is mild to moderate tricuspid regurgitation. Right ventricular systolic pressure is estimated to be 48 mmHg plus the clinically estimated CVP which cannot be estimated on this exam. Assessment & Plan Patient is a 70 year old female with a history of rectal cancer and type 2 DM. She presented to [facility] on 09/15/[address] [facility] after abnormal lab testing was found. Patient was hyperkalemic with acute renal failure. Given albuterol, insulin/dextrose, calcium gluconate, kayexalate, and sodium bicarb given in ED. Given IV NS x 2L. Admitted to ICU for management. Rectal abscess-we will inquire with INR here if they feel comfortable draining otherwise patient may need to be returned to [facility] for interventions , copious drainage noted by infectious disease this morning thank you Dr. Paula. Hopefully this is getting cultured... Surgeon David Tovar reportedly surgery making contact. Acute respiratory failure- 2' CHF and obesity hypoventilation, pneumonia Hypotension, volume depletion/shock - patient volume resuscitated last small bit norepi still running 09/18 Acute systolic CHF-whether there is a chronic component is not known. Pt 12L + since admit wt up 7kg when stable diuresis will be needed, thought to be acute stress induced cardiomyopathy (AKA Takatsubo) per cards , agree with gentle diuresis Pneumonia- by CT will add nebs q6 09/18 Acute anemia-uncertain whether this is blood loss or simply dilutional will continue to follow H&H transfuse prn, anemia panel iron WNL, Retics low 2.0, Hgb 10.4, 9.3 09/16, 9.1, 8.3 09/17, 8.2 09/18 ACS/nstemi- first EKG benign controlled still going up, thank you cardiology consultation (dx stress cardiomyopathy noted) ongoing volume resuscitation any cardio interventions/meds cont heparin ggt 09/16-. Trops seemed to plateau and may be trending down will continue to trend 09/17. DVT- R leg, left leg poorly visualized patient on heparin drip, holding further anticoagulation pending cardiac evaluation and need for DAPT and anticoagulation, not pursuing PE as I do not think that would director of program management and patient is still quite unstable and it is not worth the benefit of pursuing this diagnosis. Hyperkalemia, 2' CLAY. Kayexalate, insulin/dextrose, albuterol and sodium bicarb given 09/15-09/16. Last K+ 5.0 0700, 4.7 1400 09/16, 4.6 09/17, 3.8 09/18 Hyponatremia, c/w volume depletion, Na 127 0800, 127 1400 09/16, 131 09/17, 131 09/18 CLAY- baseline Cr 0.7 05/2016, Cr 1.78 1400 09/16, 1.3 09/17, 1.29 09/[address] Phillips nephrology for following/recommendations Leukocytosis, ressolved 09/18 CT abd/pelvis 09/16 not revealing. All cultures from admit still -09/18, WBCs 8.2 09/18 Metabolic acidosis, lactate 2.2, 5.0 09/17, 1.9 09/18, HCO3 still 15 09/17, 15 09/18 follow, multifactorila tx sepsis/volume/ 2' ileostomy output, resume bicarb drip 09/18 DM2/hyperglycemia, low-dose sliding scale, . Holding on resuming metformin/ glyburide. BS 140-170s 09/18 Rectal cancer, Oncologist Wicho Delong. Uncertain of current treatment regimen, if any. Ileostomy/multiple intra-abdominal and extra abdominal thank you surgery/Dr. Blanc evaluating Metabolic encephalopathy-discontinue fentanyl and narcotics and other sedating medications, seems to be clearing 09/17 Ileostomy- - Consider wound care consultation for ostomy management. Hypothyroidism, chronic, presume stable. - Holding levothyroxine 50 mcg daily at this time until patient stabilizes. Prophylaxis-DVT patient already has (SCD contraindicated) on heparin drip , GI pantoprazole IV Medically complex patient at high risk for complications GI Prophylaxis: Proton Pump Inhibitor VTE Prophylaxis: SCDs, Other Resuscitation Status: CPR: Attempt Resuscitation Kushal Bolden MD Sep 18, 2016 07:27
--- NOTE | 2016-09-18 08:54 | DRSVH ---
PROCEDURE: X-RAY CHEST ONE VIEW, PORTABLE ([id number]) INDICATIONS: POST INTUBATION. TECHNIQUE: One view of the chest was acquired. COMPARISON: [facility], CR, XR CHEST 1VW (PORTABLE), 09/17/2016, 4:53. FINDINGS: Surgical changes and devices: Right IJ CVL is in place tip projected over the lower SVC. Endotrachea l tube present tip projected 2 cm above the nichelle. Nasogastric tube tip not well seen. Lungs and pleura: Diffuse, widespread bilateral pulmonary interstitial and air space opacities are pr esent which has increased from prior examination. No definite pleural effusion. No pneumothorax Mediastinum: Mediastinal contours appear normal. Heart size is prominent. Bones and chest wall: No suspicious bony lesions. Overlying soft tissues appear unremarkable. IMPRESSION: 1. Lines and tubes as above. 2. Worsening pulmonary edema and/or diffuse bilateral inflammatory process. Correlate clinically. Dictated by: Wilton Casas RRA Interpreted: Abigail Acosta MD on 09/18/2016 at 8:52 Transcribed by: RADHA on 09/18/2016 at 8:54 Approved by: Abigail Acosta MD, PhD on 09/18/2016 at 17:02
[2016-09-18] MEDS: Pantoprazole 4 mg/mL 10 mL Inj IVPUSH SCH (08:55)
[2016-09-18] MEDS: Cefepime Inj 1,000 MG in Dextrose 5% Minibag Plus 50 ML IV SCH (08:56)
[2016-09-18] MEDS: Insulin LISPRO 300 Unit/3 mL Inj SUBQ SCH ×4 (08:56→20:02)
[2016-09-18] MEDS: Linezolid Inj 600 MG in IV Premix 1 EACH IV SCH ×2 (08:57→20:11)
[2016-09-18] MEDS ORDERED: fentaNYL-PF 50 mCg/mL 2 mL Inj ONE (08:57)
--- NOTE | 2016-09-18 09:22 | DRSVH ---
PROCEDURE: CT ABDOMEN AND PELVIS WITHOUT CONTRAST ([id number]) INDICATIONS: bowel ischemia TECHNIQUE: After the administration of oral contrast, 5 mm thick sections acquired from the diaphragms to the sy mphysis. 5 mm coronal and sagittal reformats were performed. For radiation dose reduction, the foll owing was used: automated exposure control, adjustment of mA and/or kV according to patient size. COMPARISON: [facility], CT, CT KUB, 09/16/2016, 0:58. [facility], CR, XR SHOSHANA ST 1VW (PORTABLE), 09/17/2016, 22:57. FINDINGS: Suboptimal examination to evaluate for ischemia in the absence of IV and oral contrast. Image quality: Excellent. ABDOMEN: Lung bases: There are bibasilar infiltrates and consolidations consistent with pneumonia. Several nod ular densities are present in the lower lobes bilaterally. There are small to moderate effusions tricia aterally. Heart size is normal. Dense calcification of mitral anulus. Solid organs: Liver and spleen are normal in size. Gallbladder has abnormal appearance with thicken ed wall and hyperintensity within the lumen. Pancreas is normal in size. No adrenal nodules. Again noted is a linear noncalcific stone in the proximal left ureter just beyond the UPJ. Both kidneys ar e normal in size, without hydronephrosis or nephrolithiasis. Mild bilateral perinephric stranding. Peritoneum and bowel: A ileostomy is noted. Bowel loops demonstrate normal wall thickness and caliber . No free fluid or air. Nodes and vessels: No retroperitoneal or mesenteric adenopathy by size criteria. Aorta and inferior vena cava are normal in size. Miscellaneous: A tiny fat-containing ventral hernia is noted. PELVIS: Genitourinary: Bladder wall thickness is normal. Presacral soft tissue thickening with fluid and ai r collection appears unchanged. Miscellaneous: No inguinal hernias or adenopathy. Bones: No suspicious bony lesions. No vertebral body compression fractures. IMPRESSION: 1. In absence of oral and IV contrast, evaluation for bowel ischemia is limited; but no definitive ev idence for bowel ischemia. 2. Presacral soft tissue thickening with fluid and air collection appears unchanged and remains suspi cious for abscess. 3. Bibasilar infiltrates and consolidation consistent with pneumonia. Small to moderate bilateral eff usions. Recommend followup to resolution. 4. Abnormal appearance of gallbladder with wall thickening and hyperdensity within the gallbladder antoni men. Recommend clinical correlation for acute cholecystitis. 5. A 2 mm nonobstructive renal calculus in the proximal left ureter just beyond the UPJ, unchanged. No significant discrepancy with the public health aides teacher radiology preliminary report. Dictated by: Umer Smith M.D. on 09/18/2016 at 9:09 Approved by: Umer Smith M.D. on 09/18/2016 at 9:20
--- NOTE | 2016-09-18 10:25 | NUR ---
NUTRITION FOLLOW UP: ASSESS: 70 YO F admitted to CCU with CLAY, hypotension, DVT, ACS/NSTEMI, and possible rectal abscess. Pt intubated last night 09/17. Enteral feeding to start per verbal order via Dr. Tillman. Possible transfer per CCU rounds. PMHx: Rectal cancer surgery with abscess surgery, type 2 diabetes, GERD, HTN, mitral stenosis, hypothyroid, deconditioning. DIET: NPO. LABS: Reviewed. Na 131, BUN 34, Cr 1.23, Glu 163, Lactic acid 2.3, Ca 7.8 MEDICATIONS: Reviewed. Fentanyl, Pressor, Propofol at ~ 15 ml/hr providing 396 kcal/day. GI: Stool via ileostomy. SKIN: Wound eval pending. ANTHROPOMETRICS: Current Wt: 124.0 kg, BMI: 46.9 kg/m2. Admit wt: 116.0 kg. IBW: 54.5 kg (214.3% IBW) ESTIMATED NEEDS(VENT/BMI): Calories: 6970-8856 kcal (20-22 kcal/kg BW) Protein: 82-98 g protein (1.5-1.8 g/kg IBW) Fluids: 1635 ml fluid (approx. 30 ml/kg IBW) NUTRITION DIAGNOSIS: 1) Inadequate oral intake related to inability to consume sufficient energy as evidenced by NPO/Vent status. INTERVENTION: 1) Recommend enteral feeding of Vital 1.5 starting at 10 ml/hr, once tolerance established, advance 10 ml q 6 hr to goal rate of 60 ml/hr. At goal TF will provide 1980 kcal (TF + Propofol = 2376 kcal), 90 g protein; meeting 100% calorie/protein needs. Signed orders to be placed in chart. 2) Adjust TF based on daily propofol rate. MONITOR/EVALUATE: NPO/Vent status, TF start, labs, GI/nutrition status. Follow per high nutrition risk guidelines.
[2016-09-18] MEDS: Piperacillin-Tazo 3.375 Gm Inj 3.375 GM in Dextrose 5% Minibag Plus 50 ML IV SCH ×2 (10:41→16:56)
--- NOTE | 2016-09-18 11:27 | DRSVH ---
PROCEDURE: X-RAY CHEST ONE VIEW, PORTABLE ([id number]) INDICATIONS: intubated TECHNIQUE: One view of the chest was acquired. COMPARISON: [facility], CR, XR CHEST 1VW (PORTABLE), 09/17/2016, 22:57. FINDINGS: Surgical changes and devices: Stable position of ETT and right IJ CVL. Nasogastric tube tip not well seen. Lungs and pleura: Diffuse bilateral pulmonary air space opacities are not significantly changed. No pneumothorax Mediastinum: Mediastinal contours appear normal. Heart size is normal. Bones and chest wall: No suspicious bony lesions. Overlying soft tissues appear unremarkable. IMPRESSION: 1. Support lines and tubes as above. 2. Pulmonary edema and/or bilateral pneumonia, unchanged. Dictated by: Wilton Casas [facility] Interpreted: Umer Smith MD on 09/18/2016 at 11:25 Transcribed by: SYDNI on 09/18/2016 at 11:26 Approved by: Umer Smith M.D. on 09/18/2016 at 16:32
--- NOTE | 2016-09-18 11:44 | PCM.PNMED ---
Subjective Date of Service Sep 18, 2016 Subjective PULMONARY/CRITICAL CARE PROGRESS NOTE Overnight: Patient was intubated overnight secondary to increasing respiratory compromise and inability to maintain airway. Today: Remains intubated and sedated. No acute distress noted on exam. Not aroused to voice stimuli. During turn, and by examination by other physician, approx 20cc foul-smelling purulent fluid exuded from site of anal closure. Cultured, sent to lab. Vent: PRVC FiO2 50 PEEP 7 RR26 Vt 380 Other: Net IO + [address]90; 24hUOP 1100mL Labs: Na 131, K 3.8, Cl 96, HCO 15, Cr 1.23, LA 2.3 Exam Vital Signs Vital Sign - Last Date Time Temp Pulse Resp B/P Pulse Ox O2 Delivery O2 Flow Rate FiO2 09/18/16 08:11 62 98/67 100 50 09/18/16 03:17 30 Mechanical Ventilator 09/17/16 23:00 36.3 09/17/16 19:20 9.00 Intake and Output 09/17/16 09/17/16 09/18/16 Cumulative From/Thru 15:00 23:00 07:00 09/15/16 23:05 - 09/18/16 06:00 Intake Total 2329 ml 2800 ml 90741 ml Output Total 500 ml 430 ml 3740 ml Balance 1829 ml 2370 ml 26423 ml Intake Oral 0 ml 0 ml 0 ml IV Total 2329 ml 2800 ml 32077 ml Output Urine Total 500 ml 400 ml 2700 ml Stool Total 30 ml 1040 ml Gastric Drainage Total 0 ml 0 ml Exam General: Intubated and sedated; no acute distress; no responses to stimuli HENT: Sclera anicteric; ETT in place, mucus membranes dry Neck: Soft, obese, trachea midline by palpation; edematous; RIJ in place Cardiac: Regular rate and rhythm; no murmurs appreciated Respiratory: Sounds faint secondary to habitus; faint crackles at bases bilaterally; no wheeze appreciated Abdomen: Soft, nontender, nondistended; obese; ileostomy RLQ Extremities: BLLE moderate chronic venous stasis changes; no distal palpable pulses, cap refill < 3s : Jordan in place; urine yellow; area of anal closure has abscess draining site Skin: Warm, dry Neuro: Unable to fully assess secondary to intubation and sedation; not arousable to voice or sternal rub Psych: Unable to assess at this time secondary to intubation and sedation Lab and Diagnostics Result Diagram: 09/18/16 0515 09/18/16 0515 Microbiology MRSA, blood, urine pending X-Rays, CTs and MRIs CXR IMPRESSION: No acute cardiopulmonary disease. Umer Smith M.D. on 09/16/2016 at 8:06 personally/concurrently reviewed by Yuan 09/16 CT abdomen/pelvis: Personally/concurrently reviewed by Yuan 09/16 Impression: No evidence of obstructive uropathy. There is a 2 mm stone in the region of the left UPJ producing no apparent obstruction. There is marked distortion of the lower rectum and anal region is irregular soft tissue density, fluid density, and gas collections. Differential considerations include rectal neoplasm, abscess, postsurgical change or combination thereof. Findings need to be correlated with surgical history and symptoms. There is parastomal herniation of small bowel segment at the site of the patient 's right lower quadrant ileostomy. There is no evidence of small bowel obstruction or other complication. NightShift reader: Alok Roes MD 12-lead ECG 09/16 11:00 personally/concurrently reviewed by Yuan . Sinus rhythm 55, QTC 444 ms . Atrial premature complex . Inferior infarct, old . Consider anterior infarct Sinus rhythm personally/concurrently reviewed by Yuan 09/16 * Left bundle branch block rate 75, QTC 430 ms . When compared with ECG of 15-Sep-2016 22:59:46, * No significant change none prior to 09/15 Multiple EKG's taken in ED. Rate 75-85. Peaked T waves in first EKG in keeping with hyperkalemia on labs. Improved on subsequent exam. QTc 495 on first EKG improved to 443 . Cardiac Echo Impressions ECHO 08/27 [place] Interpretation Summary The left ventricle is not well visualized. The left ventricle is mildly dilated.The ejection fraction is estimated to be 25-30%. Except basal segments which are marcos slightly hyperdynamic rest of the LV segments are severely hypokinetic to akinetic with apical ballooning. These findings suggest likely stress induced cardiomyopathy, however multivessel CAD can not be ruled out. Compared to the prior exam, left ventricular function is significantly decreased with new wall motion abnormalities. The right ventricle is normal in size and function. There is severe posterior mitral annulus calcification, extending in to the subvalvular apparatus as well with restricted posterior mitral leaflet. Based on pressure half time MVA is about 1.7 cm square. Overall based on doppler profile across the MV, MS does not appear to be severe. It appears to be in moderate range. The mitral valve mean gradient is 6.2 mmHg. The mean MV gradient was 10.2 mmHg on the prior echo. There is mild to moderate tricuspid regurgitation. Right ventricular systolic pressure is estimated to be 48 mmHg plus the clinically estimated CVP which cannot be estimated on this exam. Assessment & Plan PULMONARY/CRITICAL CARE PROGRESS NOTE - Hospital day 3 - Ventilator day 1 (intubated 09/17 @2300) Ms. Heather Cody is a 70 year old woman with history of rectal carcinoma s/p resection with ileostomy placement, DM2, and hypothyroidism, that presented from [facility] with increased weakness, confusion, and lethargy. On admission, initial labs revealed K 6.9. She was admitted for evaluation and treatment of CLAY due to volume depletion and septic chock secondary to PNA vs UTI vs perirectal abscess, hypovolemic hyponatremia, hyperkalemia, and elevated troponin secondary to stress-induced cardiomyopathy. Micro studies: MRSA screen POSITIVE; BCx 09/16 no growth to date; UCx 09/15 GNR with C/S to follow Imaging: CT 09/16 fluid collection suggestive of abscess within presacral region measuring 3.5 x 7.5cm; repeat CT completed 09/17, report pending. BLLE doppler revealed left distal femoral and left popliteal DVT; BLLE arterial studies did not reveal any areas of significant stenosis. Echo 09/16 revealed EF25-30 with apical ballooning and normal RV size and function. General surgery has been consulted, and has kindly agreed to follow. Recommending drain placement per IR of abscess visualized on repeat CT. Cardiology kindly consulted; recommending to treat stress-induced cardiomyopathy medically at this time, with initiation of therapies as BP stabilizes and CLAY resolves. ID consulted, will continue to monitor studies and antibiotic changes as needed. Nephrology has been consulted and has kindly agreed to follow, appreciate time and recommendations with fluid and electrolyte management. Assessments Acute hypoxemic respiratory failure requiring mechanical ventilation CLAY secondary to volume depletion and sepsis Septic shock secondary to presumed PNA, UTI and/or perirectal abscess Hypovolemic hyponatremia Hyperkalemia Elevated troponin secondary to stress-induced cardiomyopathy Plan - Await recs per general surgery for drain placement - Records request placed to [facility] for operative notes and imaging push - Tx stress-induced cardiomyopathy medically at this time: Cardiology recs include beta-violette tx initiation once stabilized and off pressors, initiation ACEi when CLAY resolved; consideration of cardiac cath when stabilized - Addition of NaHCO3 per nephro - Abx per ID - Continue heparin gtt - Continue to wean pressors as tolerated - Decrease RR to 18 on vent - Daily ABGs/CXR - Lasix 40mg IV x1 - DC IVF DVT prophylaxis: Therapeutic heparin gtt GI: PPI Nutrition: Tube feeds initiated PT: Consulted Thank you for this interesting consult, we will happily follow along at this time. Please let us know any additional questions or concerns. Total time: 90 minutes GI Prophylaxis: Proton Pump Inhibitor VTE Prophylaxis: SCDs, Other Resuscitation Status: CPR: Attempt Resuscitation Attending Statement I have seen and examined this patient with the resident physician. Vital signs , labs, imaging have been reviewed. I agree with the assessment and plan above. Please refer to my separately dictated progress note for any modifications to above. Geena Tillman M.D. Pulmonary and Critical Care medicine Pager [phone] Leeann Shaver DO Sep 18, 2016 10:01 Geena Tillman MD Sep 18, 2016 16:17
[2016-09-18] MEDS ORDERED: Furosemide 10 mg/mL 4 mL Inj IVPUSH ONE (11:45)
[2016-09-18] MEDS ORDERED: Furosemide 10 mg/mL 10 mL Inj IVPUSH ONE (11:55)
[2016-09-18] MEDS ORDERED: 0.9% Sodium Chloride 500 ML ONE (12:28)
--- NOTE | 2016-09-18 14:05 | PCM.PNMED ---
Subjective Date of Service Sep 18, 2016 Subjective Nephrology progress note I have discussed case with Dr. Sanchez, shortly exam of the patient. She recently had a resection of colorectal cancer and placement of an ileostomy in May 2016 at [facility]. He was admitted for prison several days ago with sepsis and acute kidney injury. Your evaluation of systems revealed perirectal abscess. She has been aggressively hydrated and diuresed and she has had some improvement in her urine output and renal function. She remains sedated Nuha ventilator with low-dose pressors currently infusing. Her systolic blood pressure remains in the mid to upper 80s. Her total fluid intake yesterday was 4878 in and 1100 out. His morning her hemoglobin is 8.2, sodium is 131, potassium 3.8, chloride 96, CO2 of 15, lactic acid is dropping to a level II.3 today, her BUN and creatinine were 34 and 1.23 respectively. Exam Vital Signs Vital Sign - Last Date Time Temp Pulse Resp B/P Pulse Ox O2 Delivery O2 Flow Rate FiO2 09/18/16 12:00 36.4 71 26 103/70 97 Mechanical Ventilator 50 09/17/16 19:20 9.00 Intake and Output 09/17/16 09/17/16 09/18/16 Cumulative From/Thru 15:00 23:00 07:00 09/15/16 23:05 - 09/18/16 06:00 Intake Total 2329 ml 2800 ml 68998 ml Output Total 500 ml 430 ml 3740 ml Balance 1829 ml 2370 ml 63050 ml Intake Oral 0 ml 0 ml 0 ml IV Total 2329 ml 2800 ml 25230 ml Output Urine Total 500 ml 400 ml 2700 ml Stool Total 30 ml 1040 ml Gastric Drainage Total 0 ml 0 ml Exam Patient is sedated and on a ventilator. Her sclerae are pale and there is some edema noted in her perineal region. Lungs show some scattered rhonchi and index auditory wheezes in both lung barfield. Heart sounds are diminished but present. Abdominal examination reveals a distended abdomen which is semi- formed. A possible fluid wave is noted in her intra-abdominal pressure is 13 mmHg. Bowel sounds are diminished and there is some tympany to percussion noted. Otherwise there was no tenderness, rebound, guarding, or masses noted. 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 There is some mild generalized edema. Skin turgor is good and there is no evidence of any rashes. Lab and Diagnostics Result Diagram: 09/18/16 0515 09/18/16514 Microbiology MRSA, blood, urine pending X-Rays, CTs and MRIs CXR 09/18 -personally/concurrently reviewed by Yuan 09/18 1. Lines and tubes as above. 2. Worsening pulmonary edema and/or diffuse bilateral inflammatory process. Correlate clinically. CT abd/pelvis 09/17 -personally/concurrently reviewed by Yuan 09/18 1. In absence of oral and IV contrast, evaluation for bowel ischemia is limited ; but no definitive evidence for bowel ischemia. 2. Presacral soft tissue thickening with fluid and air collection appears unchanged and remains suspicious for abscess. 3. Bibasilar infiltrates and consolidation consistent with pneumonia. Small to moderate bilateral effusions. Recommend followup to resolution. 4. Abnormal appearance of gallbladder with wall thickening and hyperdensity within the gallbladder lumen. Recommend clinical correlation for acute cholecystitis. 5. A 2 mm nonobstructive renal calculus in the proximal left ureter just beyond the UPJ, unchanged. CXR IMPRESSION: No acute cardiopulmonary disease. Umer Smith M.D. on 09/16/2016 at 8:06 personally/concurrently reviewed by Yuan 09/16 CT abdomen/pelvis: Personally/concurrently reviewed by Yuan 09/16 Impression: No evidence of obstructive uropathy. There is a 2 mm stone in the region of the left UPJ producing no apparent obstruction. There is marked distortion of the lower rectum and anal region is irregular soft tissue density, fluid density, and gas collections. Differential considerations include rectal neoplasm, abscess, postsurgical change or combination thereof. Findings need to be correlated with surgical history and symptoms. There is parastomal herniation of small bowel segment at the site of the patient 's right lower quadrant ileostomy. There is no evidence of small bowel obstruction or other complication. NightShift reader: Alok Rose MD 12-lead ECG 09/16 11:00 personally/concurrently reviewed by Yuan . Sinus rhythm 55, QTC 444 ms . Atrial premature complex . Inferior infarct, old . Consider anterior infarct Sinus rhythm personally/concurrently reviewed by Yuan 09/16 * Left bundle branch block rate 75, QTC 430 ms . When compared with ECG of 15-Sep-2016 22:59:46, * No significant change none prior to 09/15 Multiple EKG's taken in ED. Rate 75-85. Peaked T waves in first EKG in keeping with hyperkalemia on labs. Improved on subsequent exam. QTc 495 on first EKG improved to 443 . Cardiac Echo Impressions ECHO 08/27 [place] Interpretation Summary The left ventricle is not well visualized. The left ventricle is mildly dilated.The ejection fraction is estimated to be 25-30%. Except basal segments which are marcos slightly hyperdynamic rest of the LV segments are severely hypokinetic to akinetic with apical ballooning. These findings suggest likely stress induced cardiomyopathy, however multivessel CAD can not be ruled out. Compared to the prior exam, left ventricular function is significantly decreased with new wall motion abnormalities. The right ventricle is normal in size and function. There is severe posterior mitral annulus calcification, extending in to the subvalvular apparatus as well with restricted posterior mitral leaflet. Based on pressure half time MVA is about 1.7 cm square. Overall based on doppler profile across the MV, MS does not appear to be severe. It appears to be in moderate range. The mitral valve mean gradient is 6.2 mmHg. The mean MV gradient was 10.2 mmHg on the prior echo. There is mild to moderate tricuspid regurgitation. Right ventricular systolic pressure is estimated to be 48 mmHg plus the clinically estimated CVP which cannot be estimated on this exam. Assessment & Plan Impression #1 acute kidney injury secondary to sepsis and hypovolemia #2 dehydration #3 hyponatremia secondary to #1 and #2 #4 metabolic acidosis #5 acute anemia Recommendations #1 I would like to try to back down on her fluids and continue fairly aggressive IV diuretics. I would recommend minimum of 60-80 mg of furosemide now and see order urine output is likely next few hours. She says have improved urine output I would repeat this in about 8-12 hours. GI Prophylaxis: Proton Pump Inhibitor VTE Prophylaxis: SCDs, Other Resuscitation Status: CPR: Attempt Resuscitation He,Jaden Herrera DO Sep 18, 2016 14:05
[2016-09-18] MEDS: Albumin 25% 25 GM in IV Premix 1 EACH IV SCH ×3 (15:40→23:13)
--- NOTE | 2016-09-18 15:50 | NUR ---
Wound Care [facility] Patient seen per pressure ulcer protocol. Patient with likely perirectal abscess with plans for surgical exploration this evening, therefore did not assess during protocol eval. Patient with vascular changes to bilateral legs but no open areas noted. Patient with significant moisture to anastacio-area skin folds. Dried with 4x4s. Patient also noted with 2 intact blisters in skin fold under ostomy pouch. states it was leaking on Sunday. Blisters likely in response to increased moisture. Cleaned with 4x4s, and dry 4x4 placed between skin fold. Blisters each measure 8cmW x 1cmL with intact fluid filled blisters. Nursing to keep skin to blister area dry with 4x4s as needed. Reconsult wound care if further needs arise.
--- NOTE | 2016-09-18 16:13 | NUR ---
Social Work IRMA: IRMA signed
--- NOTE | 2016-09-18 16:39 | PROG NOTE ---
[address] [address] PROGRESS NOTE PATIENT: JOHN SMITH : 1945 MR#: [id number] ADMIT: 09/16/2016 JOB ID: [id number] DATE: 09/18/2016 PULMONARY CRITICAL CARE PROGRESS NOTE The patient is a 70-year-old woman with history of rectal cancer status post low anterior resection in May at [facility] presenting with septic shock, respiratory failure, and likely stress-induced cardiomyopathy. The patient was seen and evaluated with resident physician, Dr. Leeann Renteria. Please refer to her separate detailed note for additional information. The following is an addendum. INTERVAL HISTORY: She remains on very low-dose norepinephrine at 0.05. On evaluation by ID and ICU resident today, the patient had a large volume of pus flowing out of the perianal area on palpation. REVIEW OF SYSTEMS: Unable to obtain. PHYSICAL EXAMINATION: Vital signs reviewed. Temperature afebrile, pulse 72, respirations 30, BP 106/82, sats 100% on 50% FiO2. General: Morbidly obese woman, intubated, sedated, not responding to voice. Chest: Clear to auscultation. Heart: Regular rate, rhythm. Extremities: She has venous stasis dermatitis with edema. LABORATORIES: Reviewed. WBC down to 8.2 from 16.9 on admission. Chemistry reviewed and creatinine is down to 1.2 from a peak of 3.4 at admission. Electrolytes within normal limits except for bicarb of 15. Lactate is 2.3 today from 5 yesterday. Procalcitonin was 0.48 a few days ago and has not been checked since. Culture data: No growth on blood or urine or sputum cultures so far. MRSA nasal screen is positive. IMAGING: Reviewed. CT abdomen and pelvis done yesterday. Report indicates a presacral soft tissue fluid and air collection concerning for abscess. Dense bibasilar infiltrates and consolidation with small pleural effusions. Other nonspecific findings as well. Arterial blood gas from this morning shows pH of 7.51, pCO2 of 21, pO2 of 206. Bicarb of 16. Chest x-ray reviewed and shows some vascular congestion but no focal infiltrates appreciated on x-ray. ASSESSMENT AND RECOMMENDATIONS: 1. Septic shock. 2. Suspected perirectal abscess following low anterior resection for rectal carcinoma in May at [facility]. 3. Rectal carcinoma status post neoadjuvant chemoradiation, low anterior resection complicated by postoperative infection requiring drainage. 4. Acute hypoxic respiratory failure on mechanical ventilation since September 17. 5. Acute renal failure-improving. 6. Known prior deep venous thromboses. A 70-year-old woman with rectal CA status post chemoradiation followed by low anterior resection in May 2016 at [facility]. She had subsequent postoperative infection requiring drain placement in this area. She was discharged and presented here a few days ago with septic shock. Imaging shows findings suspicious for recurrent infections, and she had pus draining out of this area on exam this morning, per ID. She is currently on linezolid and cefepime. ID went to see her and modified her antibiotics so she has better anaerobic coverage. She is on very low-dose norepinephrine at 0.05. Will speak to Surgery and see if we can pursue drainage procedure here or if she needs to be transferred back to [facility]. From a respiratory standpoint, she is on 40% FiO2 and 7 cm of PEEP, stable. She is on appropriate DVT and GI prophylaxis. She is on a heparin drip for prior DVTs. She is reportedly a FULL CODE. TIME SPENT: Critical care time is 60 minutes.
--- NOTE | 2016-09-18 17:26 | CONS ---
[address] [address] CONSULTATION REPORT PATIENT: JOHN SMITH : 1945 MR#: [id number] ADMIT: 09/16/2016 JOB ID: [id number] DATE OF SERVICE: 09/18/[address] Bolden for this timely consult. REASON FOR CONSULTATION: Presacral abscess. HISTORY OF PRESENT ILLNESS: The patient is an unfortunate 70-year-old woman with multiple medical problems including diabetes and morbid obesity. In May of this year at [facility], she was treated for rectal carcinoma and underwent a robotic anterior-posterior resection with formation of an ileostomy. Also, there was some radiation involved in the treatment of this rectal CA. She subsequently ended up at [facility] in [facility] where recently she has been receiving amoxicillin though the reasons for this are not entirely clear to me. On September 15, she was noted to be profoundly weak and some labs were obtained at [facility] which were disconcerting and led to her referral to the emergency department here at [facility]. She was subsequently admitted in the perfusionist hours of September 16 for a variety of problems including profound weakness, diminished mental status, hypotension, acute renal injury and extreme hyperkalemia. The imaging was performed shortly after admission that raised the possibility of a presacral abscess but Surgery and others evaluated the patient and were not certain of the diagnosis so a repeat CT was done late last night, the results of which are not yet available. Because of possible sepsis, the patient was started on broad-spectrum antibiotics which include cefepime and linezolid at this time. 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 This morning, I discussed the patient extensively with Dr. Bolden, the attending, as well as Dr. Tillman of the ICU team, the bedside nurse and Respiratory Therapy. The patient remains intubated and sedated at this point. She is still requiring low doses of norepinephrine which has been present since the time of admission, a couple of days ago, and her current norepinephrine dose is 0.5 mg/kg. This case was discussed in detail with the above-mentioned health field care coordinator and all records were reviewed. There can be no additional interview from the patient as she is intubated and sedated. PAST MEDICAL HISTORY: 1. Rectal cancer status post APR, May 2016. 2. Diabetes. 3. Hypertension. 4. Lower extremity edema. 5. Morbid obesity. 6. Hypothyroidism. 7. GERD. SOCIAL HISTORY: This is gleaned from the records. The patient is a lifetime nonsmoker who rarely, if ever, smokes. She is and is a resident of the local area though she had her surgery at [place] and has since been at [facility]. FAMILY HISTORY: Cannot be obtained from this intubated patient. REVIEW OF SYSTEMS: Cannot be obtained from this critically ill intubated patient. PHYSICAL EXAMINATION: Reveals a morbidly obese, chronically ill-appearing woman lying supine, intubated and sedated in the ICU. Current temperature 36.3, pulse is running in the 60s, blood pressure 98/67. She is on 50% FiO2 and saturating quite well. Examination of the head reveals no trauma. The patient does have some of what appear to be actinic keratoses on the head. The eyes are small nonreactive pupils and no conjunctivitis or scleral icterus. Nose appears normal. Oral gastric tube. Oral endotracheal tube in good position. There are no herpetic lesions on the lips. The neck is unremarkable. The lungs with decreased breath sounds and a few crackles though air flow is fair bilaterally. Cardiac tones a bit distant. Regular rate and rhythm. No significant murmurs appreciated. The abdomen is slightly distended, soft, and without organomegaly or ascites. The external genitalia appear normal. A Jordan catheter is present. The extremities are notable for edema 2+ with venous stasis changes bilaterally that are quite significant. The feet have a diffuse erythema bilaterally with good capillary refill. There is scaling of the skin and cracking on the lower extremities below the knee as well as especially on the feet. Neurologically, we cannot examine the patient as she is intubated, sedated and unresponsive. The patient's joints are without evidence of synovitis. Of critical importance, the nurse and I made a great effort to roll over this morbidly obese patient and I carefully examined her perianal area. During examination of this area, a pocket of pus was encountered which drained out what appeared to be a pin hole adjacent to the anus. This material was thick, white and creamy with a truly horrible odor consistent with anaerobic infection. Recall that the patient has had an APR so there should not be any fluid collections present around the anus. It also appears that there is a former drain site and we understand from the records from [facility] that a perirectal drain was pulled just a couple of weeks ago. LABORATORIES: Include a white count that was 17,000 on admission, now down to 8000, hematocrit 24, platelet count 190,000, creatinine 1.23. Lactic acid 2.3. Urinalysis negative. MRSA screen of the nares positive. Blood cultures are negative. Urine is growing gram-negative rods though, as noted, there was not any significant pyuria. Two CT scans have been done, one on the when she was admitted that showed a presacral area about 7 x 3 cm consistent with an abscess. Numerous chest x-rays have been done but, in general, show bilateral pulmonary edema. The repeat CT was done late last night and was just read within the last few moments by Radiology. It shows what appears to be a presacral abscess and bilateral infiltrates and consolidation which could be compatible with pneumonia. A small nonobstructive stone was noted in the left ureter as well. IMPRESSION: This is a most interesting case of a woman admitted with hypotension, renal failure, hyperkalemia, leukocytosis and lactic acidosis. She has had a complex recent course with a rectal cancer including radiation and extensive surgery with a prolonged drained, all of which occurred at the [facility] in [place]. At this point, she is relatively stable in the intensive care unit on the ventilator but still requiring vasopressor agents. There has been some improvement in her white count and her renal failure since admission. Based on my physical exam during which I was able to uncover and partially drain a pocket of pus, I think that the CT scans are correct in what they are showing is a presacral abscess of significant size which I doubt has been completely drained. This is the source I believe of her ongoing sepsis and deterioration. She is currently on antibiotics which include linezolid and cefepime which, unfortunately, have no anaerobic coverage and we know from the stench emanating from this drainage that anaerobes are certainly present. Antibiotic modifications will be needed as well as additional drainage and this was discussed with the intensive care unit team during rounds this morning. RECOMMENDATIONS: 1. Will DC the cefepime. 2. Will substitute Zosyn. 3. The patient should have drainage either by Interventional Radiology or by General Surgery with probable need for a drain once again in this area. 4. Given that all this surgery and other events were initiated at [facility], it may be that a transfer is indicated though this is beyond my scope to recommend.
--- NOTE | 2016-09-18 18:07 | NUR ---
tube feeds/UAP/urine output Patient started on vital 1.5 feeds at 10ml/hr per MD order. Pt had 40ml residual at 6 hours, so advanced to 20ml/hr. Abd ZULY cook score 0. UAP sent up per nephrology request this afternoon, reading at 13. No repleting K+ at 3.8, order to recheck later this afternoon ordered my MD. 60mg of IV lasix given, urine output only 650ml, MD notified.
--- NOTE | 2016-09-18 19:26 | PROG NOTE ---
[address] [address] PROGRESS NOTE PATIENT: JOHN SMITH : 1945 MR#: [id number] ADMIT: 09/16/2016 JOB ID: [id number] DATE: 09/18/2016 The patient is seen in followup by the surgery service after her recent admission for sepsis with CT yesterday showing a presacral fluid collection. I have reviewed this patient's history and also discussed her case with her surgeon down at [facility]. In brief, she is a 70-year-old female with a history of rectal cancer for which she underwent neoadjuvant chemoradiotherapy and then a combined transanal and abdominal low anterior resection with colorectal anastomosis, in particular loop ileostomy. This was performed several months ago. Shortly after surgery, it was complicated by an anastomotic dehiscence requiring percutaneous drain placement. She has had a number of drain placements and keeps developing recurrent abscesses. She recently presented with weakness and was admitted to the hospital here at [facility]. A CT scan yesterday showed recurrent fluid collection down the area of her anastomotic dehiscence. Overnight, her condition worsened requiring intubation. She remains pressor dependent. She has remained afebrile and this afternoon is hemodynamically stable on low-dose blood pressure support. On exam, there is purulent material draining from the anus. This is a 70-year-old female with a pelvic abscess after anastomotic dehiscence from a colorectal anastomosis. Undoubtedly, this recurrent abscess is contributing to her sepsis, if not entirely causing it. I think the most appropriate course of action, given her history of multiple failed percutaneous drains, is to take her to the operating room, perform the exam under anesthesia, and place a pelvic drain through the anus. I can irrigate out her pelvis at that time. I discussed this with Dr Carias and he agrees that this would be likely the best solution. I reviewed it with her and he understands. He has provided consent. This will be done this evening. TOY
[2016-09-18] MEDS: Norepineph 8,000 mCg/250 mL NS 8,000 MCG in IV Premix 1 EACH IV SCH (20:11)
--- NOTE | 2016-09-18 21:21 | NUR ---
Intubation/CT Late entry. Pt intubated 09/17 @ approximately 2230. Dr. Titus paged multiple times throughout the night r/t increased O2 demands, moist/crackly lungs, and increased statements from patient regarding SOB and being oxygen hungry. Pt becoming increasingly anxious. Stat order for BIPAP, ABG, labs, and 20mg followed by subsequent 40mg Lasix IVP obtained. Lasix had little effect with almost no urine output. Based off of lab values and ABG results, decision was made to intubate patient. ER MD came up to intubate patient. 50 of NORA and [address] Titus, residents x2 RT x2 and ED MD present during intubation. 8.0 tube used. OG tube placed. Placement of ET and OG tube verified by stat portable CXR. Order obtained for Stat Abd/Pelvis CT. Pt taken down to CT with RT henry and this RN. Pt returned without adverse event.
--- NOTE | 2016-09-18 21:27 | NUR ---
Pt to OR Pt taken to OR 1.30 at 2210. Pt accompanied by Anesthesia and 4 OR staff including RN which this check writer salesperson gave report to. Plan to drain perisacral abscess and return with patent radial A-Line.
--- NOTE | 2016-09-18 23:01 | PCM.HPANE ---
Patient Data Surgeon Admitting Provider:Sofi Titus DO Attending Provider:Sofi Titus DO Primary Care Physician:Nopcp Other Provider: Reason for Visit Acute Renal Failure, Hyperkalemia Ht/WT & BMI Height (Feet): 5 Height (Inches): 4.00 Weight (Kilograms): 124.000 Body Mass Index 44.00 Allergies Coded Allergies: codeine (Verified Allergy, Unknown, 09/16/16) Past Anesthesia History Anesthesia History: Denies:: Abnormal Airway, Anesthesia Reactions, Difficult Intubation, Fam Anesthesia Reaction, Fam Malignant Hypertherm, Malignant Hyperthermia Diabetes History Hx Diabetes?: Yes Current Bedside Blood Glucose: 141 MRSA MRSA: No Medications Reported Medications oxyCODONE 5 Mg Capsule5 Mg PO Q4H PRN For Pain Ref 0 09/17/16 Acetaminophen 500 Mg Wagqdh226 Mg PO Q6H PRN For Fever 09/17/16 Loperamide 2 Mg Capsule2 Mg PO Q4H 09/17/[address] 40 Mg Tablet.dr40 Mg PO DAILY Ref 0 09/17/16 Spironolactone 25 Mg Amwzrb67 Mg PO DAILY #30 TABLET Ref 0 01/06/16 Furosemide 20 Mg Tab20 Mg PO DAILY 30 Days Ref 0 01/06/16 Losartan Potassium 50 Mg Xebvad50 Mg PO DAILY 01/06/16 Metoprolol Tartrate 25 Mg Oeqvxg73 Mg PO DAILY 30 Days Ref 0 01/06/16 Glimepiride 4 Mg Tablet4 Mg PO DAILYAC #30 TABLET Ref 0 01/06/16 Ferrous Sulfate 325 Mg Jumbqi079 Mg PO BID 30 Days Ref 0 01/06/16 Metformin 500 Mg Tablet1,000 Mg PO BID Ref 0 01/06/16 Clarithromycin 500 Mg Nlycdx480 Mg PO BID Ref 0 01/06/16 Amoxicillin 500 Mg Ddubtus027 Mg PO BID Ref 0 01/06/16 Levothyroxine 50 Mcg Mhponq75 Mcg PO DAILY Ref 0 01/05/16 History History of ENT Problems?: No HEENT History: Denies:: Abnormal Airway Cataracts Difficult Intubation Dysphagia Glaucoma Hearing Problem Sinus Problem Hx of Heart Problems?: Yes Cardiovascular History: Positive for:: Hypertension Denies:: AICD Atrial Fibrillation Cardiac Surgery Chest Pain Congestive Heart Failure Edema Heart Murmur Pacemaker Valvular Heart Disease Hx of Respiratory Problem?: No Respiratory History: Denies:: Asthma COPD Chest Surgery Cough Dyspnea Emphysema Hemoptysis Pneumonia Tuberculosis Hx Neurologic Problems?: No Neurological History: Denies:: Alzheimer's Disease CVA Dementia Dizziness Headaches Parkinson's Disease Seizures Hx of GI Problems?: Yes Gastrointestinal History: Positive for:: Gastrointestinal Bleeding Hepatitis ("I had hepatitis years ago" ) Rectal Bleeding (SMALL BRIGHT RED) Denies:: Cirrhosis Diverticulitis Gastroesphageal Reflux Heartburn Hiatal Hernia Other GI Pertinent History: Rectal CA post APR at [facility] now with profound sepsis due to presacral abscess Hx of Problems?: No Genitourinary History: Denies:: Kidney Stones Urinary Tract Infection HX of Peritoneal Dialysis: No Female Hx: Denies:: Currently Endometriosis Pelvic Inflammatory Problems with Breasts? Other Skin Pertinent History: 2 abcess sites to buttocks. Covered with Mepelex. Stitch to perianal area. Hx Musculoskeletal Problems?: No Musculoskeletal History: Denies:: Back Injury Joint Replacement Musculoskeletal Trauma Hx of Psycho/Social Problems?: No Psycho Social History: Positive for:: Anxiety Denies:: Hx Depression Hx Surgeries?: Yes (TONSILLECTOMY) Hx Any Other Health Problems?: No Other History: Positive for:: Hospitalization Thyroid Disease Denies:: Cancer History Blood Transfusions: Positive for:: Accept Blood Products? Denies:: Blood Transfusions Hx Diabetes: YesBedside Blood Glucose: 141 Hx Alcohol Use: Yes (rare per record review)Hx Substance Use: No Smoking Status: Never Smoker Stop/Bang Risk Assessment Category Category 1A: Patient has history of documented sleep apnea, and HAS NOT received any narcotic, sedative or anesthesia administration during this stay. Category 1B: Patient has history of documented sleep apnea, and HAS received any narcotic , sedative or anesthesia administration during this stay Category 2: Patient has SUSPECTED Obstructive Sleep Apnea, and HAS received any narcotic , sedative or anesthesia administration during this stay. Category 3: Patient has SUSPECTED Obstructive Sleep Apnea and HAS NOT received narcotic, sedative or anesthesia administration during this stay. Category 4: Outpatient in Procedural Areas with known sleep apnea or who screen positive for High Risk via the STOP/BANG questionnaire. Exam Exam Vital Signs Vital Signs Date Time Temp Pulse Resp B/P Pulse Ox O2 Delivery O2 Flow Rate FiO2 09/18/16 16:00 36.9 69 18 113/77 98 Mechanical Ventilator 40 09/18/16 15:48 70 112/76 98 40 09/18/16 12:00 36.4 71 26 103/70 97 Mechanical Ventilator 50 09/18/16 11:47 109/74 96 40 General Appearance: Other (intubated and sedated on vent) Lungs: Diminished Heart: Exam Unremarkable Meds/Labs/Diagnostics Admission Meds Current Medications Furosemide (Lasix Inj) 20 mg OT ONCE IV Last administered on 09/17/16 20:05; Start 09/17/16 at 20:05; Stop 09/17/16 at 20:06; Status DC Furosemide (Lasix Inj) 40 mg OT ONCE IVPUSH Last administered on 09/17/16 23: 32; Start 09/17/16 at 21:25; Stop 09/17/16 at 21:26; Status DC Sodium Bicarbonate (Sodium Bicarb(50 mEq) 8.4% Inj) 50 meq STK-MED ONCE .ROUTE Last administered on 09/17/16 23:32; Start 09/17/16 at 22:16; Stop 09/17/16 at 22:18; Status DC Propofol 1004178 mcg 1,000,000 mcg STK-MED ONCE .ROUTE Last administered on 23:33; Start 09/17/16 at 22:28; Stop 09/17/16 at 22:30; Status DC Sodium Bicarbonate 150 meq/Dextrose/Water 1,150 ml @ 150 mls/hr ONCE ONCE IV Last administered on 09/17/16 23:34; Start 09/17/16 at 23:10; Stop 09/18/16 at 06:49; Status DC Fentanyl/Premix (fentaNYL 2,500 mCg/250 mL/IV Premix) 250 ml @ 5 mls/hr Q24H IV Last administered on 09/18/16 02:01; Start 09/18/16 at 01:02 Propofol (Diprivan Inj) 1,000,000 mcg STK-MED ONCE .ROUTE Last administered on 09/18/16 05:49; Start 09/18/16 at 05:41; Stop 09/18/16 at 05:43; Status DC Levothyroxine Sodium 50 mcg 50 mcg DAILYAC PO Last administered on 09/18/16 10 :42; Start 09/18/16 at 09:31 Piperacillin Sod/ Tazobactam Sod 3.375 gm/Dextrose/ Water 50 ml @ 12.5 mls/hr Q8 IV Last administered on 09/18/16 16:56; Start 09/18/16 at 09:50 Albumin Human/ Premix (Albuminar 25/IV Premix) 100 ml @ 30 mls/hr Q6 IV Last administered on 09/18/16 15:40; Start 09/18/16 at 14:30 Furosemide 60 mg 60 mg ONCE ONCE IVPUSH Last administered on 09/18/16 13:06; Start 09/18/16 at 11:55; Stop 09/18/16 at 13:01; Status DC Sodium Chloride (Normal Saline) 500 ml @ STK-MED ONCE .ROUTE Last administered on 09/18/16 13:02; Start 09/18/16 at 12:28; Stop 09/18/16 at 12:30 ; Status DC Bedside Blood Glucose: 141 Labs Test 09/15/16 00:55 09/15/16 23:11 09/16/16 01:08 09/16/16 04:00 Urine Color Yellow (YELLOW) Urine Appearance Cloudy (CLEAR,HAZY) Urine pH 5.5 (5.0-8.0) Urine Specific [place] 1.025 (1.003-1.035) Urine Protein Negativemg/dL (NEG,TRACE) Urine Glucose (UA) 100mg/dL (NEGATIVE) Urine Ketones Negativemg/dL (NEGATIVE) Urine Occult Blood Negative (NEGATIVE) Urine Nitrite Negative (NEGATIVE) Urine Bilirubin Negative (NEGATIVE) Urine Urobilinogen Normalmg/dL (NORMAL) Urine Leukocyte Esterase Small (NEGATIVE) Urine RBC 0-2/hpf (0-2) Urine WBC 6-10/hpf (0-5) Urine Epithelial Cells Many/hpf (NONE-MOD) Urine Crystals Amorphous urates (NONE Urine Bacteria Few/hpf (NONE-FEW) Urine Hyaline Casts Occasional/lpf (NONE) Urine Granular Casts None seen (NONE SEEN) Urine Waxy Casts None seen (NONE SEEN) Urine Red Blood Cell Casts None seen (NONE SEEN) Urine White Blood Cell Casts None seen (NONE SEEN) Urine Mucus None seen (None Seen) Urine Trichomonas None seen (NONE SEEN) Urine Yeast None (NONE SEEN) Urine Culture Reflexed Indicated Procalcitonin 0.48ng/mL (See Comment) Pro-B-Type Natriuretic Peptide 3452pg/mL (0-301) Prothrombin Time 12.8sec (8.1-12.5) Prothromb Time International Ratio 1.19ratio Test 09/16/16 11:52 09/16/16 13:55 09/16/16 16:25 09/16/16 18:50 Hematology Comments Reticulocyte Count,Calculated 2.0% (0.6-2.6) Hold Purple Top Tube Received (Received) Hemoglobin A1c 6.7% (4.8-5.6) Hold [place] Top Tube Received (Received) C-Reactive Protein 18.6mg/dL (0.0-0.5) Cortisol 18.8ug/dL (.) Erythrocyte Sedimentation Rate 63mm/hr (0-40) Test 09/17/16 04:00 09/17/16 21:26 09/17/16 21:39 09/18/16 05:15 Iron Level 43ug/dL (35-150) Total Iron Binding Capacity 128ug/dL (250-450) Percent Iron Saturation 34%sat (15-50) Unsaturated Iron Binding 84.6ug/dL Ferritin 565ng/mL (13-150) Total Bilirubin 0.5mg/dL (0.0-1.2) Aspartate Amino Transf (AST/SGOT) 26U/L (0-50) Alanine Aminotransferase (ALT/SGPT) 10U/L (0-32) Alkaline Phosphatase 111U/L (25-165) Total Protein 6.4g/dL (6.4-8.4) Albumin 3.5g/dL (3.4-5.0) Phosphorus Level 4.4mg/dL (2.5-4.9) Magnesium Level 2.5mg/dL (1.6-2.6) Troponin T 0.608ug/L (0.0-0.011) Hold [place] Top Tube Received (Received) White Blood Count 8.2th/mm3 (3.8-10.1) Red Blood Count 3.04mil/mm3 (3.90-5.20) Hemoglobin 8.2g/dL (12.0-15.6) Hematocrit 24.3% (35.0-46.0) Mean Corpuscular Volume 79.9fL (81-100) Mean Corpuscular Hemoglobin 27.0pg (27.0-35.0) Mean Corpuscular Hemoglobin Concent 33.7% (32.0-37.0) Red Cell Distribution Width 14.9% (12.3-15.4) Platelet Count 190bil/L (150-400) Neutrophils (%) (Auto) 86.3% (40-74) Lymphocytes (%) (Auto) 6.7% (14-46) Monocytes (%) (Auto) 6.0% (4-12) Eosinophils (%) (Auto) 0% (0-5) Basophils (%) (Auto) 0.1% (0-3) Sodium Level 131mEq/L (134-144) Potassium Level 3.8mEq/L (3.5-5.2) Chloride Level 96mEq/L (97-108) Carbon Dioxide Level 15mmol/L (18-29) Blood Urea Nitrogen 34mg/dL (8-27) Creatinine 1.23mg/dL (0.57-1.00) Estimat Glomerular Filtration Rate 62mL/min (>59) Glucose Level 163mg/dL (60-99) Lactic Acid Level 2.3mmol/L (0.4-2.0) Calcium Level 7.8mg/dL (8.5-10.1) Test 09/18/16 13:47 Activated Partial Thromboplast Time 68.9sec (22.8-33.0) Plan Impression Patient chart reviewed, patient interviewed and anesthestic plan with risks, benefits, and alternatives discussed, and informed consent obtained. ASA Physical Status: ASA4 Life Threatening Anesthetic Support Modalities: Arterial Line Anesthetic Plan: GA Bene/Risks/Altern/Consents: Yes HP Complete Prior to Induction: Yes Other unable to consent for anesthesia as patient critically ill intubated and sedated on ventilator Angelo Olmedo MD Sep 18, 2016 18:55
--- NOTE | 2016-09-18 23:02 | PCM.ANEP1 ---
Post Anesthesia Phase 1 PACU Phase 1 Assessment Vital Signs Vital Signs Date Time Temp Pulse Resp B/P Pulse Ox O2 Delivery O2 Flow Rate FiO2 09/18/16 22:35 59 107/70 98 40 09/18/16 20:16 35.8 09/18/16 19:58 35.0 77 18 125/74 98 Mechanical Ventilator 40 09/18/16 19:35 57 78/59 98 40 09/18/16 19:30 Ventilator 09/18/16 16:00 36.9 69 18 113/77 98 Mechanical Ventilator 40 09/18/16 15:48 70 112/76 98 40 Anesthetic Administered: GA Level of Alertness: Sleeping, hard to arouse GOLDSTEIN's with Equal Strength: No Pain: No Pain Scale Score: 0 Nausea or Vomiting: No Airway Device: Endotrachial Tube Oxygen Delivery: Mechanical Ventilator Lungs: Diminished Angelo Olmedo MD Sep 18, 2016 23:02
--- NOTE | 2016-09-18 23:03 | PCM.ANEP2 ---
Post Anesthesia Evaluation ASA/CMS Post Anesthesia VS in Patient's Normal Range?: No (hypotensive on pressor support) Resp Stable; Airway Patent?: Yes CV Function & Hydration Stable: Yes Mental Status Recovered?: No Pain control Satisfactory?: Yes N/V Control Satisfactory?: Yes Additional Comments patient remains criticall ill with sepsis on ventilator in ICU Angelo Olmedo MD Sep 18, 2016 23:03
--- NOTE | 2016-09-18 23:27 | NUR ---
Back from OR Pt returned from OR at 2230. Pt had perisacral/anal acevedo drain placed and is draining moderate amount of pink tinged fluid. Pt still hypothermic at 35.3 temporal. Warming blanket remains on. Lore patent in patient's right radial artery. Per report patient received additional amount of fentanyl and versed. Pt's status remains unchanged.
--- NOTE | 2016-09-18 23:52 | ABG ---
DateTimeAnalyzed 23:43:00 -_ pH ____7.354 - 7.350 7.450 pCO2 ___32.5__ -mmHg 35.0 45.0 pO2 ___86.3__ -mmHg 69.0 116 HCO3- ___17.7__ -mmol/L 22.0 26.0 ABE ___-6.6__ -mmol/L -2.0 2.0 tHb ____8.9__ -g/dL O2Hb ___94.7__ -% COHb ____0.9__ -% MetHb ____0.8__ -% sO2 ___96.3__ -% FIO2 ___40.0__ -% PRVC 18 - PEEP ____7.0__ -cmH2O Vt __380.0__ -L Drawn By blf - Date/Time Notified____ 23:52:00 -_ Spontaneous_RR ___18.0__ -b/min Oxygen Device 1 VENTILATOR - Notified By blf - Notified Whom TOM MARY RN - B 763 -mmHg tO2 ___12.0__ -Vol% Puma test N/A -
[2016-09-19] VITALS (14 sets, daily range): BP systolic 81–119; BP diastolic 51–86; PULSE 67–121; RESP 18–21; O2SAT 94–99
--- NOTE | 2016-09-19 01:24 | OP ---
[address] [address] OPERATIVE REPORT PATIENT: JOHN SMITH : 1945 MR#: [id number] ADMIT: 09/16/2016 JOB ID: [id number] DATE OF SURGERY: 09/18/2016 PREOPERATIVE DIAGNOSIS(ES): History of low anterior resection with transanal total mesorectal excision with subsequent anastomotic dehiscence and new presacral abscess. POSTOPERATIVE DIAGNOSIS(ES): History of low anterior resection with transanal total mesorectal excision with subsequent anastomotic dehiscence and new presacral abscess. PROCEDURES: Transanal drainage of presacral abscess. SURGEON: Luiz Perez MD. MOBILE HEALTH VEHICLE OPERATOR: None. COMPLICATIONS: None. ESTIMATED BLOOD LOSS: None. CONDITION: Satisfactory. SPECIMEN: Culture of the abscess fluid was sent. FINDINGS: The distal component of the anastomosis was easily visualized and palpated a few centimeters from the anal verge. Proximal to this was a presacral cavity containing a large amount of purulent material. INDICATION/SIGNIFICANT HISTORY: The patient is a 70-year-old female with a history of rectal cancer, for which she underwent neoadjuvant chemoradiotherapy, followed by a low anterior resection, as well as transanal TME. This was performed at [facility] in May 2016. She also had a diverting loop ileostomy performed. Shortly thereafter, she developed an anastomotic dehiscence with subsequent abscess development. The abscess has been drained percutaneously a number of times. She was most recently convalescing locally here in [place] when she developed recurrent illness prompting admission. CT scan showed a reaccumulated in the presacral space. OPERATIVE TECHNIQUE: The patient was taken to the operating room and placed in supine position. She was already intubated and sedated. She was then placed in lithotomy. A procedure pause was performed. I began with placing the anal speculum in the anus. A large amount of pus spontaneously drained. I suctioned this out. I also sent cultures. I was then able to visualize the distal end of the anastomosis into the abscess cavity. Using the HydroSurg I irrigated this with 3 L. I then placed a 22-[place] three-way Jordan catheter up into the space. The balloon was inflated to 15 cc and that secured it nicely. This was also sutured to the perianal buttocks. The case was then concluded. MTDD
[2016-09-19] MEDS: Albumin 25% 25 GM in IV Premix 1 EACH IV SCH ×4 (03:11→20:04)
[2016-09-19] MEDS: Piperacillin-Tazo 3.375 Gm Inj 3.375 GM in Dextrose 5% Minibag Plus 50 ML IV SCH ×3 (03:11→17:44)
[2016-09-19] MEDS: Phenylephrine 20 mg/250 mL D5W IV SCH ×10 (03:11→20:06)
[2016-09-19] MEDS: fentaNYL 2,500 mCg/250 mL 2,500 MCG in IV Premix 1 EACH IV SCH (03:11)
[2016-09-19 03:18] LABS: BASOPHILS % (AUTO) 0.2 % (0-3); EOSINOPHILS % (AUTO) 1.3 % (0-5); MONOCYTES % (AUTO) 7.6 % (4-12); Mean Corpuscular Volume 81.4 fL (81-100); NEUTROPHILS % (AUTO) 82.5 % (40-74); Platelet Count 233 bil/L (150-400)
[2016-09-19] MEDS: Propofol Inj 1,000,000 MCG in IV Premix 1 EACH IV SCH ×5 (03:18→23:51)
[2016-09-19 04:12] LABS: Phosphorus 2.6 mg/dL (2.5-4.9)
--- NOTE | 2016-09-19 06:04 | ABG ---
DateTimeAnalyzed 05:07:00 -_ pH ____7.351 - 7.350 7.450 pCO2 ___32.9__ -mmHg 35.0 45.0 pO2 ___95.4__ -mmHg 69.0 116 HCO3- ___17.7__ -mmol/L 22.0 26.0 ABE ___-6.6__ -mmol/L -2.0 2.0 tHb ____9.0__ -g/dL O2Hb ___95.6__ -% COHb ____0.8__ -% MetHb ____0.9__ -% sO2 ___97.3__ -% FIO2 ___40.0__ -% PRVC 18 - PEEP ____7.0__ -cmH2O Vt __380.0__ -L Drawn By AF - Date/Time Notified____ 05:12:00 -_ Spontaneous_RR ___18.0__ -b/min Oxygen Device 1 VENTILATOR - Notified By AF - Notified Whom __ryan rn - B 763 -mmHg tO2 ___12.2__ -Vol% Puma test N/A -
--- NOTE | 2016-09-19 07:53 | PCM.PNMED ---
Subjective Date of Service Sep 19, 2016 Subjective Patient intubated and sedated and not really responsive Exam Vital Signs Vital Sign - Last Date Time Temp Pulse Resp B/P Pulse Ox O2 Delivery O2 Flow Rate FiO2 09/19/16 07:45 85 85/55 98 40 09/19/16 03:24 36.5 18 Mechanical Ventilator 09/17/16 19:20 9.00 Intake and Output 09/18/16 09/18/16 09/19/16 Cumulative From/Thru 15:00 23:00 07:00 09/15/16 23:05 - 09/19/16 06:09 Intake Total 1537 ml 1360 ml 70866 ml Output Total 690 ml 1000 ml 5430 ml Balance 847 ml 360 ml 69205 ml Intake Oral 0 ml 0 ml IV Total 1450 ml 1161 ml 98379 ml Tube Feeding 47 ml 159 ml 206 ml Tube Irrigant 40 ml 40 ml 80 ml Output Urine Total 650 ml 450 ml 3800 ml Stool Total 40 ml 200 ml 1280 ml Gastric Drainage Total 0 ml Drainage Total 350 ml 350 ml Exam Gen.-Sedated, obese female intubated Eyes- eyes closed normal eyelids no drainage from either eye Mouth- ET tube protruding ENT- ears normal, nose normal Neck- supple/trach midline, unable to assess JVD secondary to body habitus CVS- RRR no murmur or gallop, heart sounds particular secondary to body habitus , + edema Bilateral pedal edema, extremities warm, pulses auscultated in all 4 with Doppler by nurse Lungs CTA, strong clear mechanical ventilations GI- generous pannus multiple skin folds Ostomy in place multiple bruises covering the abdomen likely sites of subcutaneous heparin Musc- no obvious deformity Neuro- cranial nerves II through XII intact to gross examination, nonfocal Stasis dermatitis bilaterally lower extremities Skin- warm and with a variety of different lesion, both legs deep purple hemosiderosis/stasis dermatitis Psych- sedated Lab and Diagnostics Result Diagram: 09/19/16 0255 09/19/16 0255 Microbiology MRSA, blood, urine pending X-Rays, CTs and MRIs CXR 09/19 1. Support lines and tubes as above. 2. Pulmonary edema and/or bilateral multifocal pneumonia similar to prior exam. CXR 09/18 -personally/concurrently reviewed by Yuan 09/18 1. Lines and tubes as above. 2. Worsening pulmonary edema and/or diffuse bilateral inflammatory process. Correlate clinically. CT abd/pelvis 09/17 -personally/concurrently reviewed by Yuan 09/18 1. In absence of oral and IV contrast, evaluation for bowel ischemia is limited ; but no definitive evidence for bowel ischemia. 2. Presacral soft tissue thickening with fluid and air collection appears unchanged and remains suspicious for abscess. 3. Bibasilar infiltrates and consolidation consistent with pneumonia. Small to moderate bilateral effusions. Recommend followup to resolution. 4. Abnormal appearance of gallbladder with wall thickening and hyperdensity within the gallbladder lumen. Recommend clinical correlation for acute cholecystitis. 5. A 2 mm nonobstructive renal calculus in the proximal left ureter just beyond the UPJ, unchanged. CXR IMPRESSION: No acute cardiopulmonary disease. Umer Smith M.D. on 09/16/2016 at 8:06 personally/concurrently reviewed by Yuan 09/16 CT abdomen/pelvis: Personally/concurrently reviewed by Yuan 09/16 Impression: No evidence of obstructive uropathy. There is a 2 mm stone in the region of the left UPJ producing no apparent obstruction. There is marked distortion of the lower rectum and anal region is irregular soft tissue density, fluid density, and gas collections. Differential considerations include rectal neoplasm, abscess, postsurgical change or combination thereof. Findings need to be correlated with surgical history and symptoms. There is parastomal herniation of small bowel segment at the site of the patient 's right lower quadrant ileostomy. There is no evidence of small bowel obstruction or other complication. NightShift reader: Alok Rose MD 12-lead ECG 09/16 11:00 personally/concurrently reviewed by Yuan . Sinus rhythm 55, QTC 444 ms . Atrial premature complex . Inferior infarct, old . Consider anterior infarct Sinus rhythm personally/concurrently reviewed by Yuan 09/16 * Left bundle branch block rate 75, QTC 430 ms . When compared with ECG of 15-Sep-2016 22:59:46, * No significant change none prior to 09/15 Multiple EKG's taken in ED. Rate 75-85. Peaked T waves in first EKG in keeping with hyperkalemia on labs. Improved on subsequent exam. QTc 495 on first EKG improved to 443 . Cardiac Echo Impressions ECHO 08/27 Paliwal Interpretation Summary The left ventricle is not well visualized. The left ventricle is mildly dilated.The ejection fraction is estimated to be 25-30%. Except basal segments which are marcos slightly hyperdynamic rest of the LV segments are severely hypokinetic to akinetic with apical ballooning. These findings suggest likely stress induced cardiomyopathy, however multivessel CAD can not be ruled out. Compared to the prior exam, left ventricular function is significantly decreased with new wall motion abnormalities. The right ventricle is normal in size and function. There is severe posterior mitral annulus calcification, extending in to the subvalvular apparatus as well with restricted posterior mitral leaflet. Based on pressure half time MVA is about 1.7 cm square. Overall based on doppler profile across the MV, MS does not appear to be severe. It appears to be in moderate range. The mitral valve mean gradient is 6.2 mmHg. The mean MV gradient was 10.2 mmHg on the prior echo. There is mild to moderate tricuspid regurgitation. Right ventricular systolic pressure is estimated to be 48 mmHg plus the clinically estimated CVP which cannot be estimated on this exam. Assessment & Plan Patient is a 70 admit 09/15/16 from [facility]-MV K+ 8.0 found and patient was somnolent. Patient was rehydrated and treated for sepsis with multiple antibiotics, developed respiratory failure 09/16 overnight and was intubated, went to OR for a rectal drain 09/[address] Perez, is growing multi drug-resistant Enterobacter cloacea from urine that was a colonization by urinalysis. All other micro-still pending, infectious disease is following for antibiotics. Rectal abscess-we will inquire with INR here if they feel comfortable draining otherwise patient may need to be returned to [place] for interventions , copious drainage noted by infectious disease this morning thank you Dr. Paula. Hopefully this is getting cultured... Surgeon David Tovar ([place]) [phone], drain placed transanal thanks Dr Perez/surgery 09/18 cltrs pending Acute respiratory failure- 2' CHF and obesity hypoventilation, pneumonia, CHF Hypotension, volume depletion/shock - patient volume resuscitated early last small bit norepi still running 09/18 Acute systolic CHF-whether there is a chronic component is not known. Pt 12L + from admit as of 09/18 wt up 117kg 09/16, 124kg 09/17, thought to be acute stress induced cardiomyopathy (AKA Takatsubo) per cards , agree with gentle diuresis Pneumonia- by CT 09/18 on broad spectrum abx 09/16-, nebs q6 09/18- Acute anemia- following H&H transfuse prn, anemia panel iron WNL 09/17, Retics low 2.0 09/16, Hgb 10.4, 9.3 09/16, 9.1, 8.3 09/17, 8.2 09/18, Hg 8.7 09/19 ACS/nstemi- first EKG benign controlled still going up, thank you cardiology Dr.Paliwal gonzalez (dx stress cardiomyopathy noted) ongoing volume resuscitation any cardio interventions/meds cont heparin ggt 09/16-. Trops seemed to plateau and may be trending down will continue to trend 09/19. DVT- R leg 09/16, left leg poorly visualized patient on heparin drip, holding further anticoagulation pending cardiac evaluation and need for DAPT and anticoagulation, not pursuing PE as I do not think that would telephone exchange operator and patient is still quite unstable and it is not worth the benefit of pursuing this diagnosis. Hyperkalemia, 2' CLAY. Kayexalate, insulin/dextrose, albuterol and sodium bicarb given 09/15-09/16. Last K+ 5.0 0700, 4.7 1400 09/16, 4.6 09/17, 3.8 09/18, 3.9 09/19 Hyponatremia, c/w volume depletion, Na 127 0800, 127 1400 09/16, 131 09/17, 131 09/18, 131 09/19 CLAY- baseline Cr 0.7 05/2016, Cr 1.78 1400 09/16, 1.3 09/17, 1.29 09/18, 1.49 09/19 Thanks renal for following/recommendations Leukocytosis, resolved 09/18 CT abd/pelvis 09/16 not revealing. All cultures from admit still -09/18, WBCs 8.2 09/18, 9.1 09/19 Metabolic acidosis, lactate 2.2, 5.0 09/17, 1.9 09/18, HCO3 still 15 09/17, 15 09/18, 18 09/19 follow, multifactorial tx sepsis/volume/ 2' ileostomy output, resume bicarb drip 09/18 DM2/hyperglycemia, low-dose sliding scale, . Holding on resuming metformin/ glyburide. BS 140s 09/19, Rectal cancer, Oncologist Wicho Delong. Uncertain of current treatment regimen, if any. loop Ileostomy w/ ansatamotic dehisence 05/2016 s/p 2-3 drains [place] now another 09/18 thank you surgery/Dr. Blanc evaluating Metabolic encephalopathy-discontinue fentanyl and narcotics and other sedating medications, seems to be clearing 09/17, pt sedated for ventilation Ileostomy- - Consider wound care consultation for ostomy management. Hypothyroidism, chronic, presume stable. - Holding levothyroxine 50 mcg daily at this time until patient stabilizes. Prophylaxis-DVT patient already has (SCD contraindicated) on heparin drip , GI pantoprazole IV Disposition- full code from [facility] Thank you surgery for managing abscess Dr. Perez Thank you infectious disease for managing antibiotics thank you Dr. Paula. Thank you nephrology managing kidney/fluids thank you Dr. He Thank you cardiology please keep giving input and deciding when to repeat echo and further intervention for possible end STEMI Thank you Dr. Tillman pulmonary/critical care for managing [place] pulmonary issues Medically complex patient still on pressor drug-resistant bacteria and still medically unstable 09/19 GI Prophylaxis: Proton Pump Inhibitor VTE Prophylaxis: SCDs, Other Resuscitation Status: CPR: Attempt Resuscitation Kushal Bolden MD Sep 19, 2016 07:53
[2016-09-19] MEDS: Pantoprazole 4 mg/mL 10 mL Inj IVPUSH SCH (08:21)
[2016-09-19] MEDS: Insulin LISPRO 300 Unit/3 mL Inj SUBQ SCH ×4 (08:22→21:20)
[2016-09-19] MEDS: Linezolid Inj 600 MG in IV Premix 1 EACH IV SCH ×2 (08:23→20:03)
[2016-09-19] MEDS ORDERED: 0.9% Sodium Chloride 250 ML ONE ×2 (09:35→19:39)
--- NOTE | 2016-09-19 09:51 | PCM.PNMED ---
Subjective Date of Service Sep 19, 2016 Subjective PULMONARY/CRITICAL CARE PROGRESS NOTE Overnight: Patient was taken to OR for irrigation and drain placement of pelvic abscess. Tolerated procedure well. Was reported to be hypothermic post-procedure , placed with Edna hugger. Today: Remains intubated and sedated. No acute distress noted on exam. Not aroused to voice stimuli. Vent: PRVC FiO2 40 PEEP 7 RR18 Vt 380 Other: Net IO + 14k; 24hUOP 1050mL; 24hNet IO + 3217mL; perianal drain 350mL output Labs: Na 131, K 3.9, Cl 97, HCO 17, Cr 1.49; LA 1.9, Mg 2.0; PCT 0.58 Exam Vital Signs Vital Sign - Last Date Time Temp Pulse Resp B/P Pulse Ox O2 Delivery O2 Flow Rate FiO2 09/19/16 08:10 37.6 84 20 119/80 98 Mechanical Ventilator 40 09/17/16 19:20 9.00 Intake and Output 09/18/16 09/18/16 09/19/16 Cumulative From/Thru 15:00 23:00 07:00 09/15/16 23:05 - 09/19/16 06:09 Intake Total 1537 ml 1360 ml 00998 ml Output Total 690 ml 1000 ml 5430 ml Balance 847 ml 360 ml 84968 ml Intake Oral 0 ml 0 ml IV Total 1450 ml 1161 ml 28598 ml Tube Feeding 47 ml 159 ml 206 ml Tube Irrigant 40 ml 40 ml 80 ml Output Urine Total 650 ml 450 ml 3800 ml Stool Total 40 ml 200 ml 1280 ml Gastric Drainage Total 0 ml Drainage Total 350 ml 350 ml Exam General: Intubated and sedated; no acute distress; no responses to stimuli HENT: Sclera anicteric; ETT in place, mucus membranes dry Neck: Soft, obese, trachea midline by palpation; edematous; RIJ in place Cardiac: Tachycardic rate and regular rhythm; no murmurs appreciated Respiratory: Sounds faint secondary to habitus; faint crackles at bases bilaterally; no wheeze appreciated Abdomen: Soft, nontender, nondistended; obese; ileostomy RLQ with dark liquid output Extremities: BLLE moderate chronic venous stasis changes; no distal palpable pulses : Jordan in place; urine yellow; perianal drain in place. insertion site not visualized Skin: Warm, dry Neuro: Unable to fully assess secondary to intubation and sedation; not arousable to voice or sternal rub Psych: Unable to assess at this time secondary to intubation and sedation Lab and Diagnostics Result Diagram: 09/19/1625409/19/16254 Microbiology MRSA, blood, urine pending X-Rays, CTs and MRIs CXR 09/18 -personally/concurrently reviewed by Yuan 09/18 1. Lines and tubes as above. 2. Worsening pulmonary edema and/or diffuse bilateral inflammatory process. Correlate clinically. CT abd/pelvis 09/17 -personally/concurrently reviewed by Yuan 09/18 1. In absence of oral and IV contrast, evaluation for bowel ischemia is limited ; but no definitive evidence for bowel ischemia. 2. Presacral soft tissue thickening with fluid and air collection appears unchanged and remains suspicious for abscess. 3. Bibasilar infiltrates and consolidation consistent with pneumonia. Small to moderate bilateral effusions. Recommend followup to resolution. 4. Abnormal appearance of gallbladder with wall thickening and hyperdensity within the gallbladder lumen. Recommend clinical correlation for acute cholecystitis. 5. A 2 mm nonobstructive renal calculus in the proximal left ureter just beyond the UPJ, unchanged. CXR IMPRESSION: No acute cardiopulmonary disease. Umer Smith M.D. on 09/16/2016 at 8:06 personally/concurrently reviewed by Yuan 09/16 CT abdomen/pelvis: Personally/concurrently reviewed by Yuan 09/16 Impression: No evidence of obstructive uropathy. There is a 2 mm stone in the region of the left UPJ producing no apparent obstruction. There is marked distortion of the lower rectum and anal region is irregular soft tissue density, fluid density, and gas collections. Differential considerations include rectal neoplasm, abscess, postsurgical change or combination thereof. Findings need to be correlated with surgical history and symptoms. There is parastomal herniation of small bowel segment at the site of the patient 's right lower quadrant ileostomy. There is no evidence of small bowel obstruction or other complication. NightShift reader: Alok Rose MD 12-lead ECG 09/16 11:00 personally/concurrently reviewed by Yuan . Sinus rhythm 55, QTC 444 ms . Atrial premature complex . Inferior infarct, old . Consider anterior infarct Sinus rhythm personally/concurrently reviewed by Yuan 09/16 * Left bundle branch block rate 75, QTC 430 ms . When compared with ECG of 15-Sep-2016 22:59:46, * No significant change none prior to 09/15 Multiple EKG's taken in ED. Rate 75-85. Peaked T waves in first EKG in keeping with hyperkalemia on labs. Improved on subsequent exam. QTc 495 on first EKG improved to 443 . Cardiac Echo Impressions ECHO 08/27 Paliwal Interpretation Summary The left ventricle is not well visualized. The left ventricle is mildly dilated.The ejection fraction is estimated to be 25-30%. Except basal segments which are marcos slightly hyperdynamic rest of the LV segments are severely hypokinetic to akinetic with apical ballooning. These findings suggest likely stress induced cardiomyopathy, however multivessel CAD can not be ruled out. Compared to the prior exam, left ventricular function is significantly decreased with new wall motion abnormalities. The right ventricle is normal in size and function. There is severe posterior mitral annulus calcification, extending in to the subvalvular apparatus as well with restricted posterior mitral leaflet. Based on pressure half time MVA is about 1.7 cm square. Overall based on doppler profile across the MV, MS does not appear to be severe. It appears to be in moderate range. The mitral valve mean gradient is 6.2 mmHg. The mean MV gradient was 10.2 mmHg on the prior echo. There is mild to moderate tricuspid regurgitation. Right ventricular systolic pressure is estimated to be 48 mmHg plus the clinically estimated CVP which cannot be estimated on this exam. Assessment & Plan PULMONARY/CRITICAL CARE PROGRESS NOTE - Hospital day 4 - Ventilator day 2 Ms. Heather Cody is a 70 year old woman with history of rectal carcinoma s/p resection with ileostomy placement, DM2, and hypothyroidism, that presented from [facility] with increased weakness, confusion, and lethargy. On admission, initial labs revealed K 6.9. She was admitted for evaluation and treatment of CLAY due to volume depletion and septic chock secondary to PNA vs UTI vs perirectal abscess, hypovolemic hyponatremia, hyperkalemia, and elevated troponin secondary to stress-induced cardiomyopathy. Micro studies: MRSA screen POSITIVE; BCx 09/16 no growth to date; UCx 09/15 Enterobacter cloacae; Abscess sent for stain and culture Imaging: CT 09/16 fluid collection suggestive of abscess within presacral region measuring 3.5 x 7.5cm; repeat CT completed 09/17 confirmed abscess. BLLE doppler revealed left distal femoral and left popliteal DVT; BLLE arterial studies did not reveal any areas of significant stenosis. Echo 09/16 revealed EF25-30 with apical ballooning and normal RV size and function. General surgery has been consulted, and has kindly agreed to follow. Pelvic/ perianal drain placed 09/18. Cardiology kindly consulted; recommending to treat stress-induced cardiomyopathy medically at this time, with initiation of therapies as BP stabilizes and CLAY resolves. ID consulted, will continue to monitor studies and antibiotic changes as needed. Nephrology has been consulted and has kindly agreed to follow, appreciate time and recommendations with fluid and electrolyte management. Assessments Acute hypoxemic respiratory failure requiring mechanical ventilation CLAY secondary to volume depletion and sepsis Septic shock secondary to presumed PNA, UTI and/or perirectal abscess Perirectal abscess secondary to anastomotic dehiscence Hypovolemic hyponatremia Hyperkalemia Elevated troponin secondary to stress-induced cardiomyopathy UTI, Enterobacter cloacae DVT of left lower extremity Plan - Tx stress-induced cardiomyopathy medically at this time: Cardiology recs include beta-violette tx initiation once stabilized and off pressors, initiation ACEi when CLAY resolved; consideration of cardiac cath when stabilized - Abx per ID - Continue heparin gtt - Continue to wean pressors as tolerated - Daily ABGs/CXR - DC IVF - HOLD lasix pushes at this time - EKG to eval Afib/flutter; consideration of addition of amiodarone with bolus, if indicated, and will discuss with cardiology if not addressed DVT prophylaxis: Therapeutic heparin gtt GI: PPI Nutrition: Tube feeds initiated PT: Consulted Thank you for this interesting consult, we will happily follow along at this time. Please let us know any additional questions or concerns. Total time: 60 minutes Pain Evaluation: Adequate Pain Control GI Prophylaxis: Proton Pump Inhibitor VTE Prophylaxis: SCDs, Other Resuscitation Status: CPR: Attempt Resuscitation Attending Statement I have seen and examined this patient with the resident physician. Vital signs , labs, imaging have been reviewed. I agree with the assessment and plan above. Please refer to my separately dictated progress note for any modifications to above. Geena Tillman M.D. Pulmonary and Critical Care medicine Pager [phone] Leeann Shaver DO Sep 19, 2016 09:51 Geena Tillman MD Sep 19, 2016 14:32
--- NOTE | 2016-09-19 09:52 | DRSVH ---
PROCEDURE: X-RAY CHEST ONE VIEW, PORTABLE ([id number]) INDICATIONS: intubated TECHNIQUE: One view of the chest was acquired. COMPARISON: [facility], CR, XR CHEST 1VW (PORTABLE), 09/18/2016, 11:01. FINDINGS: Surgical changes and devices: Stable position of ETT and right IJ CVL. Nasogastric tube tip traverse s the GE junction.. Lungs and pleura: Diffuse bilateral pulmonary air space opacities are not significantly changed. No pneumothorax Mediastinum: Mediastinal contours appear normal. Heart size is normal. Bones and chest wall: No suspicious bony lesions. Overlying soft tissues appear unremarkable. IMPRESSION: 1. Support lines and tubes as above. 2. Pulmonary edema and/or bilateral multifocal pneumonia similar to prior exam. Dictated by: Wilton Casas [facility] Interpreted: Rell Roy MD on 09/19/2016 at 9:51 Transcribed by: JOE on 09/19/2016 at 9:52 Approved by: Paulo Roy M.D. on 09/19/2016 at 14:15
--- NOTE | 2016-09-19 10:52 | ABG ---
DateTimeAnalyzed 10:47:00 -_ pH ____7.320 - pCO2 ___36.6__ -mmHg pO2 ___41.3__ -mmHg HCO3- ___18.3__ -mmol/L ABE ___-6.6__ -mmol/L tHb ____8.9__ -g/dL O2Hb ___70.5__ -% COHb ____1.1__ -% MetHb ____1.0__ -% sO2 ___72.0__ -% FIO2 ___40.0__ -% PRVC 18 - PEEP ____7.0__ -cmH2O Vt __380.0__ -L Drawn By MT - Date/Time Notified____ 10:52:00 -_ Spontaneous_RR ___18.0__ -b/min Oxygen Device 1 VENTILATOR - Notified By MT - Notified Whom ___Dr. Shaver - B 764 -mmHg tO2 ____8.9__ -Vol% Puma test N/A -
--- NOTE | 2016-09-19 11:20 | PROG NOTE ---
[address] [address] PROGRESS NOTE PATIENT: JOHN SMITH : 1945 MR#: [id number] ADMIT: 09/16/2016 JOB ID: [id number] DATE: 09/19/2016 INFECTIOUS DISEASE FOLLOWUP NOTE: REASON FOR FOLLOWUP: Complex presacral abscess, multi-drug resistant Enterobacter urinary tract infection, and MRSA in a colonization and/or infection. INTERVAL HISTORY: Since I saw the patient yesterday, the patient has undergone drainage of the abscess, which was performed yesterday by Dr. Perez in the operating room. He found a large amount of pus right adjacent to the anus, which is what we had seen yesterday during rounds. He irrigated the abscess space and then inserted a Jordan catheter actually up into the abscess and sutured it to the buttocks for continued drainage. The patient tolerated that procedure well, though she remains in critical situation in the ICU this morning with vasopressor agents going and still on the ventilator. The patient is, of course, sedated, intubated, and not able to offer any additional history. PHYSICAL EXAMINATION: Reveals temperature 37.6, pulse 84, respiratory rate 20, blood pressure 119/80. She is 2 saturating fairly well on 40% on the ventilator and 7 of PEEP. Eyes without conjunctival or scleral changes. Oral endotracheal tube and orogastric tube in good position. Lungs with scattered rhonchi bilaterally. Cardiac tones irregular rate and rhythm with a tachycardia. Abdomen is soft and nontender. The drain is protruding but I did not roll the patient over again today, though I did examine and partially drain the abscess yesterday as was noted. Jordan catheter is also present. Extremities without change. LABORATORIES: Include white blood count 9100, platelet count 233,000. Creatinine 1.49, which is up a bit. Sodium 131, potassium 3.9. Procalcitonin 0.58, which is little changed. Urinalysis has 6-10 white cells, but grew a highly resistant Enterobacter cloacae which is really only sensitive to trimethoprim sulfamethoxazole and aminoglycosides. I have asked the lab to send this for CRE testing. Additionally, in terms of micro, we have sputum growing Staph aureus and a nasal smear positive for MRSA. Blood cultures are negative. Today's chest x-ray shows bilateral infiltrates consistent with pneumonia or CHF. IMPRESSION: This is an extremely difficult case of a woman who underwent rectal cancer surgery back in May at [facility]. She developed an abscess following that and had multiple drains placed. She ended up at [facility] in [place]. where the last perianal drain was pulled a few weeks ago. Unfortunately, she then developed weakness, diminished mental status, shock, and renal failure, which led to her admission to the intensive care unit here. I originally saw the patient in consult yesterday and upon exam was able to obtain some purulent material from the perianal area. This, plus the imaging, led to the drainage yesterday in the operating room by Dr. Perez. Today the patient remains critically ill, in shock, and on the ventilator. There are at least three possible infections going on here. The most obvious is the perirectal abscess, and we await the cultures that were performed yesterday when we did our minimal bedside drainage. Of concern is the fact that we also know the patient has MRSA in her nose, and probably in her airway. This may also be part of the abscess, though I would tend to doubt it. She also has modest pyuria, but a urine positive for an extremely resistant gram-negative mi, which could be a feature of her abscess as well, or it could be causing a totally separate process in her urinary tract. RECOMMENDATIONS: 1. I have asked the lab to send the urine isolate to the [facility] for additional studies. 2. We will add trimethoprim sulfamethoxazole to the current regimen of linezolid and Zosyn while we await additional susceptibilities on the respiratory MRSA, as well as the abscess fluid cultures. 3. We will continue to closely monitor this extremely complex patient with you, who certainly is in a life-threatening situation at this point. 4. This case discussed in detail during ICU rounds.
--- NOTE | 2016-09-19 11:57 | PROG NOTE ---
[address] [address] PROGRESS NOTE PATIENT: JOHN SMITH : 1945 MR#: [id number] ADMIT: 09/16/2016 JOB ID: [id number] DATE: 09/19/2016 The patient was seen and evaluated with resident physician, Leeann Renteria. Refer to her separate detailed note for additional information. The following is an addendum. PULMONARY CRITICAL CARE PROGRESS NOTE: The patient is a 70-year-old woman with rectal cancer neoadjuvant chemoradiation status post low anterior resection with diverting loop ileostomy in May at [facility] presenting with septic shock, respiratory failure, stress-induced cardiomyopathy and a presacral abscess in the setting of postoperative anastomotic dehiscence. INTERVAL HISTORY: She went to the operating room last night, and had a washout of the abscess cavity with a drain placed. Large quantity of pus was drained. She remains on vasopressors and norepinephrine is actually up to 0.15 mcg now. Low-grade temperature of 37.6. REVIEW OF SYSTEMS: Unable to obtain. PHYSICAL EXAMINATION: Vital signs reviewed. T-max of 37.6, pulse 84, respirations 20, BP 119/80, sats 98% on 40% FiO2 with 7 cm of PEEP. General: Intubated, sedated, unresponsive, morbidly obese. Chest: Clear to auscultation. LABORATORIES: Reviewed. WBC 9.1, hemoglobin 8.7, platelets 233. Chemistry also reviewed. Creatinine is 1.49, up slightly from 1.33. Procalcitonin 0.58. Intake and output: She put out 1.1 L of urine yesterday. Cultures: Urine culture growing carbapenem resistant Enterobacter. Chest x-ray reviewed and shows pulmonary edema. Arterial blood gas, pH 7.32, pCO2 of 36, pO2 of 41, bicarbonate of 18. ASSESSMENT AND RECOMMENDATIONS: 1. Septic shock. 2. Presacral abscess following low anterior resection for rectal carcinoma in May at [facility] complicated by anastomotic dehiscence. 3. Rectal carcinoma status post neoadjuvant chemoradiation and low anterior resection May 2016. 4. Acute hypoxic respiratory failure on mechanical ventilation since September 17. 5. Acute kidney injury-improving. 6. Deep venous thrombophlebitis on anticoagulation. A 70-year-old woman with rectal CA status post neoadjuvant chemoradiation, followed by low anterior resection with a diverting loop ileostomy in May [address] [facility] complicated by postoperative anastomotic dehiscence approximately two weeks after. She has had recurrent drainage procedures and finally went to the OR last night for another washout and drain placement. Hemodynamically she is actually on a slightly higher dose of vasopressors now-0.15 of norepinephrine. She is tachycardic but EKG did not show AFib. We tried diuresing her yesterday and her creatinine has gone up slightly with this and she is on more pressors. So, at this point, I think we will hold off and watch. Her urine culture is growing carbapenem Enterobacter and Dr. Paula wonders if this is also present in the wound. Her current antibiotics are quite broad including linezolid and Zosyn but we are going to add coverage for this organism until we get cultures from the wound itself that were sent from the OR. She is on appropriate DVT and GI prophylaxis. Vent settings are stable. She is on significant amount of sedation with fentanyl at 100 and propofol at 25. Will try lightening the fentanyl and see if she tolerates it. Continue heparin drip for DVT. She is a FULL CODE. CRITICAL CARE TIME: 50 minutes. TOY
--- NOTE | 2016-09-19 12:08 | PROG NOTE ---
[address] [address] PROGRESS NOTE PATIENT: JOHN SMITH : 1945 MR#: [id number] ADMIT: 09/16/2016 JOB ID: [id number] DATE: 09/19/2016 SUBJECTIVE: The patient is seen postop day #1 drainage of her presacral abscess. Unfortunately she has not really improved at all. She remains pressor dependent with increasing requirements. From a surgical standpoint, the Jordan catheter I placed into the presacral space can be placed into wall suction or a bulb. It should be flushed 2-3 times a day with 10-20 cc of normal saline. I will continue to follow along as needed. MTDD
[2016-09-19] MEDS: DEXTROSE 5% IV SCH ×2 (12:25→20:04)
[2016-09-19] MEDS: TRIMETHOPRIM SULFA IV SCH ×2 (12:25→20:04)
--- NOTE | 2016-09-19 14:03 | PROG NOTE ---
[address] [address] PROGRESS NOTE PATIENT: JOHN SMITH : 1945 MR#: [id number] ADMIT: 09/16/2016 JOB ID: [id number] DATE: 09/19/2016 CHIEF COMPLAINT: The patient came in with a history of normal LV systolic function, ljqwsdke-kw-imrjlv mitral stenosis, history of hypertension, diabetes, hypothyroidism as well as rectal cancer. She had a laparoscopic robotic low anterior resection with diverting loop ileostomy and total mesorectal incision with rigid proctoscopy in May 2016. She had a history of a rectal abscess surgery as well. She was admitted originally with very high potassium and renal failure and apparently this has improved. She had abnormal troponins and had an echocardiogram performed that suggested findings consistent with stress or Takotsubo cardiomyopathy. Given this finding, conservative management was recommended. PAST MEDICAL HISTORY/PROBLEM LIST: 1. History of poejsduj-aa-pxluid mitral stenosis with normal EF. 2. History of rectal cancer. 3. History of GERD. 4. History of recent rectal abscess surgery. 5. Ileostomy. CURRENT MEDICATIONS: Include trimethoprim sulfa, propofol, piperacillin-tazobactam, linezolid, levothyroxine, fentanyl, norepinephrine, heparin. ALLERGIES: To CODEINE. SOCIAL HISTORY: No tobacco, no significant alcohol. FAMILY HISTORY: No early coronary artery disease. REVIEW OF SYSTEMS: Not able to be obtained at this time. PHYSICAL EXAMINATION: Blood pressure 110/86, heart rate 121 although through most of the day, the heart rates have been as low as the 60s, yesterday low as the 50s and up to the 80s as well. The patient is ventilated and sedated. Lungs with coarse breath sounds. Cardiac: Occasionally irregular. Abdomen: Soft. There was a drain. A Jordan catheter also present. LABORATORIES: Show white count 9.1, H and H 8.7 and 26.2, platelets of 233,000. Chemistry shows a sodium 131, potassium 3.9, chloride and bicarbonate 97 and 70 respectively. BUN and creatinine 34 and 1.49. Troponin has been as high as 0.88 and now is at 0.316. IMPRESSION: The patient is a woman with rectal cancer status post radiation followed by low anterior resection with ileostomy. She has an abscess which is growing Enterobacter. She is currently covered with linezolid and Zosyn but also remains on multiple pressors. She has findings consistent with a stress cardiomyopathy. She is having episodes of tachycardia which I am told are likely sinus tachycardia rather than a rhythm such as atrial fibrillation. PLAN: I would continue to monitor her. If we have evidence of an arrhythmia that we think is atrial fibrillation, an EKG would be helpful, and if we find that she goes into atrial fibrillation with any kind of hemodynamic compromise, I would recommend treating that at that time. She appears to be having periods of sinus tachycardia (that are likely physiologic) If she is hypotensive and develops an arrhythmia such as atrial fib or flutter with associated hemodynamic compromise, amiodarone would be the drug of choice. However, if she is having episodes of intermittent sinus tachycardia, I would not recommend any treatment with amiodarone as this likely represents a physiologic response. 75 minutes spent (critical care reviewing the patient's chart, echo findings, medications as well as her examination). TOY
--- NOTE | 2016-09-19 14:34 | NUR ---
NUTRITION FOLLOW UP ASSESS: 70 YO F admitted to CCU with CLAY, hypotension, DVT, ACS/NSTEMI, and possible rectal abscess. Pt went to OR last night (09/18) to washout abscess; drain was placed. Pt remains intubated and sedated. Enteral feeding initiated 09/18, and is advancing to goal rate. PMHx: Rectal cancer surgery with abscess surgery, type 2 diabetes, GERD, HTN, mitral stenosis, hypothyroid, deconditioning. DIET: NPO. NUTRITION SUPPORT: Current TF @ 40 ml/hr advancing towards goal rate providing 1785 kcal (1320 kcal TF + 465 kcal Propofol) and 60g protein (75% of kcal needs and 66% of protein needs). LABS: Reviewed. Na 131, CO2 17, BUN 34, Cr 1.49, Glu 147, Ca 8.3 MEDICATIONS: Reviewed. Fentanyl, Pressor, Propofol at ~ 17.6 ml/hr providing 465 kcal/day, Albumin, Synthroid, Insulin. GI: 70 ml stool via ileostomy. SKIN: Wound eval 09/18 - rectal abscess w/ perisacral/anal drain. Surgery is following. ANTHROPOMETRICS: Current Wt: 124.0 kg, BMI: 46.9 kg/m2. Admit wt: 116.0 kg. IBW: 54.5 kg (214.3% IBW) ESTIMATED NEEDS(VENT/BMI): Calories: 8521-8135 kcal (20-22 kcal/kg BW) Protein: 82-98 g protein (1.5-1.8 g/kg IBW) Fluids: 1635 ml fluid (approx. 30 ml/kg IBW) NUTRITION DIAGNOSIS: 1) Inadequate oral intake related to inability to consume sufficient energy as evidenced by NPO/Vent status.---PERSISTS INTERVENTION: 1) Recommend continuing enteral feeding of Vital 1.5 as tolerated, advancing 10 ml q 6 hr to goal rate of 60 ml/hr. At goal TF will provide 1980 kcal (TF + Propofol = 2445 kcal), 90 g protein; meeting 100% calorie/protein needs. 2) Adjust TF based on daily propofol rate. MONITOR/EVALUATE: NPO/Vent status, TF adv/vaishali, labs, GI/nutrition status, POC. Follow per high nutrition risk guidelines. Addendum: 09/19/16 at [address] I have read and agree with above student documentation. Arabella Bermudez RD, CD
--- NOTE | 2016-09-19 14:58 | PCM.PNMED ---
Subjective Date of Service Sep 19, 2016 Subjective Patient is having some improvement in her condition over 72 and drainage of the perirectal abscess. She remains ventilatory dependent however she has had some increasing urine output along with some slight improvement in her renal function. Her current ventilator settings are all 40% FiO2, pulse 70, her cardiac output is 8.7 and cardiac index of 3.9 and a total peripheral resistance of 1530. Nominal pressure is 14 mmHg. Exam Vital Signs Vital Sign - Last Date Time Temp Pulse Resp B/P Pulse Ox O2 Delivery O2 Flow Rate FiO2 09/19/16 12:37 37.5 121 21 110/86 98 Mechanical Ventilator 40 09/17/16 19:20 9.00 Intake and Output 09/18/16 09/18/16 09/19/16 Cumulative From/Thru 15:00 23:00 07:00 09/15/16 23:05 - 09/19/16 06:09 Intake Total 1537 ml 1360 ml 17736 ml Output Total 690 ml 1000 ml 5430 ml Balance 847 ml 360 ml 81361 ml Intake Oral 0 ml 0 ml IV Total 1450 ml 1161 ml 55990 ml Tube Feeding 47 ml 159 ml 206 ml Tube Irrigant 40 ml 40 ml 80 ml Output Urine Total 650 ml 450 ml 3800 ml Stool Total 40 ml 200 ml 1280 ml Gastric Drainage Total 0 ml Drainage Total 350 ml 350 ml Exam Lungs show diffuse scattered rhonchi and intermittent emesis expiratory wheezes. Heart regular rhythm with a soft systolic murmur. Abdomen remains quite distended and tympanitic. Her abdomen is noncancerous. There is no tenderness, rebound, or hepatosplenomegaly. Extremities showed some mild generalized edema. Lab and Diagnostics Result Diagram: 09/19/16 0255 09/19/16 0255 Microbiology MRSA, blood, urine pending X-Rays, CTs and MRIs CXR 09/19 1. Support lines and tubes as above. 2. Pulmonary edema and/or bilateral multifocal pneumonia similar to prior exam. CXR 09/18 -personally/concurrently reviewed by Yuan 09/18 1. Lines and tubes as above. 2. Worsening pulmonary edema and/or diffuse bilateral inflammatory process. Correlate clinically. CT abd/pelvis 09/17 -personally/concurrently reviewed by Yuan 09/18 1. In absence of oral and IV contrast, evaluation for bowel ischemia is limited ; but no definitive evidence for bowel ischemia. 2. Presacral soft tissue thickening with fluid and air collection appears unchanged and remains suspicious for abscess. 3. Bibasilar infiltrates and consolidation consistent with pneumonia. Small to moderate bilateral effusions. Recommend followup to resolution. 4. Abnormal appearance of gallbladder with wall thickening and hyperdensity within the gallbladder lumen. Recommend clinical correlation for acute cholecystitis. 5. A 2 mm nonobstructive renal calculus in the proximal left ureter just beyond the UPJ, unchanged. CXR IMPRESSION: No acute cardiopulmonary disease. Umer Smith M.D. on 09/16/2016 at 8:06 personally/concurrently reviewed by Yuan 09/16 CT abdomen/pelvis: Personally/concurrently reviewed by Yuan 09/16 Impression: No evidence of obstructive uropathy. There is a 2 mm stone in the region of the left UPJ producing no apparent obstruction. There is marked distortion of the lower rectum and anal region is irregular soft tissue density, fluid density, and gas collections. Differential considerations include rectal neoplasm, abscess, postsurgical change or combination thereof. Findings need to be correlated with surgical history and symptoms. There is parastomal herniation of small bowel segment at the site of the patient 's right lower quadrant ileostomy. There is no evidence of small bowel obstruction or other complication. NightShift reader: Alok Rose MD 12-lead ECG 09/16 11:00 personally/concurrently reviewed by Yuan . Sinus rhythm 55, QTC 444 ms . Atrial premature complex . Inferior infarct, old . Consider anterior infarct Sinus rhythm personally/concurrently reviewed by Yuan 09/16 * Left bundle branch block rate 75, QTC 430 ms . When compared with ECG of 15-Sep-2016 22:59:46, * No significant change none prior to 09/15 Multiple EKG's taken in ED. Rate 75-85. Peaked T waves in first EKG in keeping with hyperkalemia on labs. Improved on subsequent exam. QTc 495 on first EKG improved to 443 . Cardiac Echo Impressions ECHO 08/27 [place] Interpretation Summary The left ventricle is not well visualized. The left ventricle is mildly dilated.The ejection fraction is estimated to be 25-30%. Except basal segments which are marcos slightly hyperdynamic rest of the LV segments are severely hypokinetic to akinetic with apical ballooning. These findings suggest likely stress induced cardiomyopathy, however multivessel CAD can not be ruled out. Compared to the prior exam, left ventricular function is significantly decreased with new wall motion abnormalities. The right ventricle is normal in size and function. There is severe posterior mitral annulus calcification, extending in to the subvalvular apparatus as well with restricted posterior mitral leaflet. Based on pressure half time MVA is about 1.7 cm square. Overall based on doppler profile across the MV, MS does not appear to be severe. It appears to be in moderate range. The mitral valve mean gradient is 6.2 mmHg. The mean MV gradient was 10.2 mmHg on the prior echo. There is mild to moderate tricuspid regurgitation. Right ventricular systolic pressure is estimated to be 48 mmHg plus the clinically estimated CVP which cannot be estimated on this exam. Assessment & Plan Impression #1 acute kidney injury/acute tubular necrosis secondary to sepsis and intravascular volume depletion #2 metabolic acidosis secondary #1 Recommendations #1 I would recommend following her corrected CVP and seems comfortable IV furosemide to augment her urine output. Obviously we need to balance this with her pressure. GI Prophylaxis: Proton Pump Inhibitor VTE Prophylaxis: SCDs, Other Resuscitation Status: CPR: Attempt Resuscitation Jaden He DO Sep 19, 2016 14:58
--- NOTE | 2016-09-19 18:33 | NUR ---
HEMODYNAMICS/SEDATION/DRAIN Patient remains on Levophed at 0.15 mcg/kg/min, which maintains MAP >60. CVP of 22, has remained steady throughout shift, as well as other hemodynamic numbers. She has been tachycardic for most of shift, but tele demonstrates SR/ST w/ frequent PACs and PVCs. Per cardiology, this HR is okay, as long as no rhythm changes noted. Patient sedated w/ Propofol at 25 mcg/kg/min and Fentanyl gtt, which started at 100 mcg/hr, but has steadily been decreased to 65 mcg/hr. Will continue to wean Fentanyl gtt, as long as patient remains comfortable, and adequate sedated. Fani-rectal drain hooked up to wall suction, low continuous. This has been somewhat effective in draining the abscess, but tube does clog intermittently and has to be flushed. Will continue to monitor.
[2016-09-19] MEDS ORDERED: 0.9% Sodium Chloride 100 ML ONE (19:39)
[2016-09-19] MEDS: Norepineph 8,000 mCg/250 mL NS 8,000 MCG in IV Premix 1 EACH IV SCH (20:05)
[2016-09-20] VITALS (11 sets, daily range): BP systolic 86–108; BP diastolic 54–67; PULSE 79–97; RESP 18–23; O2SAT 97–100
[2016-09-20] MEDS: Piperacillin-Tazo 3.375 Gm Inj 3.375 GM in Dextrose 5% Minibag Plus 50 ML IV SCH ×2 (00:10→09:29)
[2016-09-20] MEDS: Albumin 25% 25 GM in IV Premix 1 EACH IV SCH ×2 (02:38→08:30)
[2016-09-20] MEDS: fentaNYL 2,500 mCg/250 mL 2,500 MCG in IV Premix 1 EACH IV SCH (03:23)
[2016-09-20] MEDS: Norepineph 8,000 mCg/250 mL NS 8,000 MCG in IV Premix 1 EACH IV SCH ×2 (03:40→10:52)
--- NOTE | 2016-09-20 04:44 | ABG ---
DateTimeAnalyzed 04:39:00 -_ pH ____7.301 - 7.350 7.450 pCO2 ___38.0__ -mmHg 35.0 45.0 pO2 114 -mmHg 69.0 116 HCO3- ___18.1__ -mmol/L 22.0 26.0 ABE ___-7.1__ -mmol/L -2.0 2.0 tHb ____9.1__ -g/dL O2Hb ___96.3__ -% COHb ____0.9__ -% MetHb ____1.0__ -% sO2 ___98.2__ -% FIO2 ___40.0__ -% PEEP ____7.0__ -cmH2O Set_RR ___18.0__ -b/min Vt __380.0__ -L Drawn By MK - Date/Time Notified____ 04:44:00 -_ Oxygen Device 1 VENTILATOR - Notified By MK - B 766 -mmHg tO2 ___12.5__ -Vol% Puma test N/A -
[2016-09-20 05:04] LABS: BASOPHILS % (AUTO) 0.5 % (0-3); Mean Corpuscular Hemoglobin 26.6 pg (27.0-35.0); NEUTROPHILS % (AUTO) 79.5 % (40-74); Platelet Count 202 bil/L (150-400)
[2016-09-20 05:28] LABS: Magnesium 1.6 mg/dL (1.6-2.6); Phosphorus 2.3 mg/dL (2.5-4.9)
[2016-09-20] MEDS ORDERED: Mag Sulf 4 Gm/100 mL IV Premix (Mag < 1.6 & Creat < 2) IV ONE (05:50)
--- NOTE | 2016-09-20 06:08 | NUR ---
Hemodynamics/DUNCAN Levophed need remained steady at 0.15mcg/kg/minute. IV therapy redressed DUNCAN (removed constricting tape chevron around catheter and slightly pulled back). Previously the DUNCAN was not drawing blood back and had poor waveform. S/P dressing change DUNCAN sluggish but still draws and improved waveform. New antibiotic administered per Dr. Paula order r/t urine culture being positive for Antibiotic resistant Enterobacter. Pt remains in contact isolation for MRSA + in nares and for microbiology results of urine culture.
--- NOTE | 2016-09-20 09:04 | PROG NOTE ---
[address] [address] PROGRESS NOTE PATIENT: JOHN SMITH : 1945 MR#: [id number] ADMIT: 09/16/2016 JOB ID: [id number] DATE: 09/20/2016 INFECTIOUS DISEASE FOLLOW UP NOTE: REASON FOR FOLLOWUP: Septic shock with ventilator dependent respiratory failure secondary to rectal abscess potentially involving multi-drug resistant organisms. INTERVAL HISTORY: The patient remains intubated and sedated. I discussed the case at the bedside with the hospitalist in charge of the case as well as the patient's . The patient herself is intubated, sedated and not responsive. No additional history is available from her. PHYSICAL EXAMINATION: Reveals a woman who has been consistently afebrile. Is currently 36.9, pulse in the 80s. Respiratory rate is ventilator dependent. She is on 40% and 6 of PEEP. Her blood pressures range between 90 and 100 systolic and she is still requiring norepinephrine at 0.15 mcg/kg/minute. Her eyes were examined. The conjunctivae and sclerae are normal. The oral cavity is notable for the endotracheal and oral gastric tube. The right neck IJ line is in good position without evidence of inflammation. The lungs are reasonably clear bilaterally with a few rales at the bases but not bad. Cardiac tones: Tachycardic at times without significant murmur. The abdomen is soft and without a focal mass or organomegaly. The colostomy is present as previous. The Jordan catheter is present as well. A rectal drain is also present which extends into the rectal abscess and I discussed this drain yesterday afternoon with Dr. Perez of General Surgery. The legs have venous stasis changes without evidence of inflammation and the feet are reasonably well-perfused despite the vasopressor agents. LABORATORIES: Include today's white count 10,200, platelet count 202. Creatinine 1.5 which is stable. Liver function tests notable for AST 75, albumin 3.9, procalcitonin 0.56. Culture data: Micro data was reviewed. Recall that the initial blood cultures were negative from the but the urine grew a very resistant Enterobacter cloacae. We know it is susceptible to Bactrim, Tobra and gent and otherwise quite resistant. Additional susceptibility testing has been sent for ceftazidime and V bactam as well as ceftolozane-tazobactam and tigecycline. We await those results and I discussed this today with micro. Also I performed a culture of some of the drainage from the rectal abscess two days ago and that has grown an E. coli and will have susceptibilities tomorrow. Yesterday's chest x-ray showed changes consistent with what looks like pulmonary edema though pneumonia, of course, could not be ruled out. IMPRESSION: This is a critically ill patient who has had recurrent rectal abscesses ever since her surgery back in May at [facility]. The patient has undergone numerous drainage procedures with the last drain being removed about three weeks ago. She then developed septic shock and is now on the ventilator. The abscess itself had a very foul smell indicating anaerobes and we now have E coli growing. We do not know susceptibilities of the E coli. A urine culture grew a very resistant organism but it is unclear if this same organism is involved or not in the abscess. Also, we have MRSA in the respiratory tract at least in the form of a nasal swab. RECOMMENDATIONS: 1. Will continue with our current regimen of linezolid, the Zosyn and Bactrim as we await additional data. The linezolid is aimed at, of course, the MRSA in the airway. The Zosyn is intended for the abscess including anaerobes which are surely present and the Bactrim is for the highly resistant gram-negative in the urine. 2. We await the multiple susceptibilities which are pending and I have been in contact with the micro lab both yesterday and today to try and expedite these susceptibility studies. 3. Switch to tigecycline or some combination of one of the new cephalosporin compounds may be indicated as we get back more data. 4. Overall the patient's condition seems quite stable as compared to yesterday and I discussed this in detail with the patient's .
[2016-09-20] MEDS ORDERED: DOBUTamine 500 mg/250 D5W 500,000 MCG in IV Premix 1 EACH IV PRN (09:18)
[2016-09-20] MEDS: Linezolid Inj 600 MG in IV Premix 1 EACH IV SCH ×2 (09:28→20:35)
[2016-09-20] MEDS: Pantoprazole 4 mg/mL 10 mL Inj IVPUSH SCH (09:29)
[2016-09-20] MEDS: Insulin LISPRO 300 Unit/3 mL Inj SUBQ SCH ×4 (09:30→21:03)
--- NOTE | 2016-09-20 09:30 | DRSVH ---
PROCEDURE: X-RAY CHEST ONE VIEW, PORTABLE ([id number]) INDICATIONS: intubated TECHNIQUE: One view of the chest was acquired. COMPARISON: [facility], CR, XR CHEST 1VW (PORTABLE), 09/19/2016, 5:37. FINDINGS: Surgical changes and devices: Stable position of ETT, nasogastric tube and right IJ CVL. Lungs and pleura: Slight decrease in right upper and left perihilar air space opacities otherwise per sistent interstitial and airspace opacities present with basilar predominance. Mediastinum: Mediastinal contours appear normal. Heart size is enlarged. Bones and chest wall: No suspicious bony lesions. Overlying soft tissues appear unremarkable. IMPRESSION: Slight decrease in right upper and left perihilar airspace opacity otherwise persistent e trip and/or pneumonia involves the lung bases. Dictated by: Wilton Casas RRA Interpreted: Abigail Acosta MD on 09/20/2016 at 9:29 Transcribed by: RADHA on 09/20/2016 at 9:30 Approved by: Abigail Acosta MD, PhD on 09/20/2016 at 10:54
[2016-09-20] MEDS ORDERED: 0.9% Sodium Chloride 250 ML ONE (09:59)
[2016-09-20] MEDS: DEXTROSE 5% IV SCH ×2 (10:00→21:31)
[2016-09-20] MEDS: TRIMETHOPRIM SULFA IV SCH ×2 (10:00→21:31)
--- NOTE | 2016-09-20 10:07 | PCM.PNMED ---
Subjective Date of Service Sep 20, 2016 Subjective PULMONARY/CRITICAL CARE PROGRESS NOTE Overnight: No acute events. Reports that she was agitated with decreases in fentanyl, boluses provided, with relief. Today: Remains intubated and sedated. No acute distress noted on exam. Not aroused to voice stimuli. Vent: PRVC FiO2 40 PEEP 6 RR18 Vt 380 Other: Net IO + 15k; 24hUOP 1800mL; 24hNet IO + 1L; perianal drain to suction with minimal output 30mL Labs: Na 131, K 3.6, Cl 96, HCO 18, Cr 1.50, Mg 1.6; PCT 0.56 Exam Vital Signs Vital Sign - Last Date Time Temp Pulse Resp B/P Pulse Ox O2 Delivery O2 Flow Rate FiO2 09/20/16 08:15 76 106/65 100 40 09/20/16 08:00 36.5 18 Mechanical Ventilator 09/17/16 19:20 9.00 Intake and Output 09/19/16 09/19/16 09/20/16 Cumulative From/Thru 15:00 23:00 07:00 09/15/16 23:05 - 09/20/16 05:21 Intake Total 2451 ml 2320 ml 38628 ml Output Total 1700 ml 2160 ml 9290 ml Balance 751 ml 160 ml 20105 ml Intake Oral 0 ml IV Total 1972 ml 1923 ml 84634 ml Tube Feeding 399 ml 264 ml 869 ml Tube Irrigant 80 ml 133 ml 293 ml Output Urine Total 1350 ml 1840 ml 6990 ml Stool Total 200 ml 300 ml 1780 ml Gastric Drainage Total 0 ml Drainage Total 150 ml 20 ml 520 ml Exam General: Intubated and sedated; no acute distress; no responses to stimuli HENT: Sclera anicteric; ETT in place, mucus membranes dry Neck: Soft, obese, trachea midline by palpation; edematous; RIJ in place Cardiac: Tachycardic rate and regular rhythm; no murmurs appreciated Respiratory: Sounds faint secondary to habitus; faint crackles at bases bilaterally; no wheeze appreciated Abdomen: Soft, nontender, nondistended; obese; ileostomy RLQ with dark liquid output Extremities: BLLE moderate chronic venous stasis changes; no distal palpable pulses : Jordan in place; urine yellow; perianal drain in place to suction; insertion site not visualized Skin: Warm, dry Neuro: Unable to fully assess secondary to intubation and sedation; not arousable to voice or sternal rub Psych: Unable to assess at this time secondary to intubation and sedation Lab and Diagnostics Result Diagram: 09/20/16 0440 09/20/16 0440 Microbiology MRSA, blood, urine pending X-Rays, CTs and MRIs CXR 09/19 1. Support lines and tubes as above. 2. Pulmonary edema and/or bilateral multifocal pneumonia similar to prior exam. CXR 09/18 -personally/concurrently reviewed by Yuan 09/18 1. Lines and tubes as above. 2. Worsening pulmonary edema and/or diffuse bilateral inflammatory process. Correlate clinically. CT abd/pelvis 09/17 -personally/concurrently reviewed by Yuan 09/18 1. In absence of oral and IV contrast, evaluation for bowel ischemia is limited ; but no definitive evidence for bowel ischemia. 2. Presacral soft tissue thickening with fluid and air collection appears unchanged and remains suspicious for abscess. 3. Bibasilar infiltrates and consolidation consistent with pneumonia. Small to moderate bilateral effusions. Recommend followup to resolution. 4. Abnormal appearance of gallbladder with wall thickening and hyperdensity within the gallbladder lumen. Recommend clinical correlation for acute cholecystitis. 5. A 2 mm nonobstructive renal calculus in the proximal left ureter just beyond the UPJ, unchanged. CXR IMPRESSION: No acute cardiopulmonary disease. Umer Smith M.D. on 09/16/2016 at 8:06 personally/concurrently reviewed by Yuan 09/16 CT abdomen/pelvis: Personally/concurrently reviewed by Yuan 09/16 Impression: No evidence of obstructive uropathy. There is a 2 mm stone in the region of the left UPJ producing no apparent obstruction. There is marked distortion of the lower rectum and anal region is irregular soft tissue density, fluid density, and gas collections. Differential considerations include rectal neoplasm, abscess, postsurgical change or combination thereof. Findings need to be correlated with surgical history and symptoms. There is parastomal herniation of small bowel segment at the site of the patient 's right lower quadrant ileostomy. There is no evidence of small bowel obstruction or other complication. NightShift reader: Alok Rose MD 12-lead ECG 09/16 11:00 personally/concurrently reviewed by Yuan . Sinus rhythm 55, QTC 444 ms . Atrial premature complex . Inferior infarct, old . Consider anterior infarct Sinus rhythm personally/concurrently reviewed by Yuan 09/16 * Left bundle branch block rate 75, QTC 430 ms . When compared with ECG of 15-Sep-2016 22:59:46, * No significant change none prior to 09/15 Multiple EKG's taken in ED. Rate 75-85. Peaked T waves in first EKG in keeping with hyperkalemia on labs. Improved on subsequent exam. QTc 495 on first EKG improved to 443 . Cardiac Echo Impressions ECHO 08/27 [place] Interpretation Summary The left ventricle is not well visualized. The left ventricle is mildly dilated.The ejection fraction is estimated to be 25-30%. Except basal segments which are marcos slightly hyperdynamic rest of the LV segments are severely hypokinetic to akinetic with apical ballooning. These findings suggest likely stress induced cardiomyopathy, however multivessel CAD can not be ruled out. Compared to the prior exam, left ventricular function is significantly decreased with new wall motion abnormalities. The right ventricle is normal in size and function. There is severe posterior mitral annulus calcification, extending in to the subvalvular apparatus as well with restricted posterior mitral leaflet. Based on pressure half time MVA is about 1.7 cm square. Overall based on doppler profile across the MV, MS does not appear to be severe. It appears to be in moderate range. The mitral valve mean gradient is 6.2 mmHg. The mean MV gradient was 10.2 mmHg on the prior echo. There is mild to moderate tricuspid regurgitation. Right ventricular systolic pressure is estimated to be 48 mmHg plus the clinically estimated CVP which cannot be estimated on this exam. Assessment & Plan PULMONARY/CRITICAL CARE PROGRESS NOTE - Hospital day 5 - Ventilator day 3 Ms. Heather Cody is a 70 year old woman with history of rectal carcinoma s/p resection with ileostomy placement, DM2, and hypothyroidism, that presented from [facility] with increased weakness, confusion, and lethargy. On admission, initial labs revealed K 6.9. She was admitted for evaluation and treatment of CLAY due to volume depletion and septic chock secondary to PNA vs UTI vs perirectal abscess, hypovolemic hyponatremia, hyperkalemia, and elevated troponin secondary to stress-induced cardiomyopathy. Micro studies: MRSA screen POSITIVE; Sputum Cx (+) MRSA; BCx 09/16 no growth to date; UCx 09/15 Enterobacter cloacae- carbapenem resistant; Abscess sent for stain and culture Imaging: CT 09/16 fluid collection suggestive of abscess within presacral region measuring 3.5 x 7.5cm; repeat CT completed 09/17 confirmed abscess. BLLE doppler revealed left distal femoral and left popliteal DVT; BLLE arterial studies did not reveal any areas of significant stenosis. Echo 09/16 revealed EF25-30 with apical ballooning and normal RV size and function, indicative of stress-induced cardiomyopathy. General surgery has been consulted, and has kindly agreed to follow. Pelvic/ perianal drain placed 09/18. Cardiology kindly consulted; recommending to treat stress-induced cardiomyopathy medically at this time, with initiation of therapies as BP stabilizes and CLAY resolves. ID consulted, will continue to monitor studies and antibiotic changes as needed. Nephrology has been consulted and has kindly agreed to follow, appreciate time and recommendations with fluid and electrolyte management. Recommendations also include NILTON when pt stabilized to eval valves. Assessments Acute hypoxemic respiratory failure requiring mechanical ventilation CLAY secondary to volume depletion and sepsis Septic shock secondary to presumed PNA, UTI, and/or perirectal abscess Perirectal abscess secondary to anastomotic dehiscence Hypovolemic hyponatremia Hyperkalemia Elevated troponin secondary to stress-induced cardiomyopathy UTI, Enterobacter cloacae DVT of left lower extremity MRSA positive: Screen, sputum Plan - Tx stress-induced cardiomyopathy medically at this time: Cardiology recs include beta-violette tx initiation once stabilized and off pressors, initiation ACEi when CLAY resolved; consideration of cardiac cath when stabilized - Abx per ID: Bactrim, Zosyn, linezolid - Continue heparin gtt for DVT; consider transition when appropriate - Continue to wean pressors as tolerated - Continue to decrease sedation as tolerated - Daily ABGs/CXR - HOLD lasix pushes at this time - Dobutamine gtt initiated for persistent decreased sysBP DVT prophylaxis: Therapeutic heparin gtt GI: PPI Nutrition: Tube feeds initiated; at goal PT: Consulted; will see Thank you for this interesting consult, we will happily follow along at this time. Please let us know any additional questions or concerns. Total time: 60 minutes Pain Evaluation: Adequate Pain Control GI Prophylaxis: Proton Pump Inhibitor VTE Prophylaxis: SCDs, Other Resuscitation Status: CPR: Attempt Resuscitation Attending Statement I have seen and examined this patient with the resident physician. Vital signs , labs, imaging have been reviewed. I agree with the assessment and plan above. Please refer to my separately dictated progress note for any modifications to above. Geena Tillman M.D. Pulmonary and Critical Care medicine Pager [phone] Leeann Shaver DO Sep 20, 2016 10:07 Geena Tillman MD Sep 21, 2016 11:17
--- NOTE | 2016-09-20 10:49 | PROG NOTE ---
[address] [address] PROGRESS NOTE PATIENT: JOHN SMITH : 1945 MR#: [id number] ADMIT: 09/16/2016 JOB ID: [id number] DATE: 09/20/2016 SUBJECTIVE: The patient was seen in followup after drainage of her presacral abscess. Overall, she is doing essentially the same. She remains on pressors. She has a slight leukocytosis, smaller than 10.2. Her creatinine is about the same at 1.5. Her urine output did cone picker overnight. The Jordan catheter I placed in the presacral space remains in place. She is having some thin output about 30 cc per shift though she had 500 recorded yesterday. ASSESSMENT AND PLAN: This is a 70-year-old female with a history of rectal cancer status post low anterior resection and diverting loop ileostomy with anastomotic dehiscence with chronic recurrent presacral abscesses two days out from drainage. From a surgical standpoint, the drain can stay indefinitely since he is doing better. I will continue to follow along as needed.
[2016-09-20] MEDS: Propofol Inj 1,000,000 MCG in IV Premix 1 EACH IV SCH ×3 (10:57→20:42)
--- NOTE | 2016-09-20 11:11 | NUR ---
NUTRITION FOLLOW UP ASSESS: 70 YO F admitted to CCU with CLAY, hypotension, DVT, ACS/NSTEMI, and possible rectal abscess. Pt went to OR 09/18 to washout abscess; drain was placed. Pt remains intubated and sedated. Enteral feeding initiated 09/18. TF has reached goal rate and pt is tolerating well. Pt is positive 15 L. PMHx: Rectal cancer surgery with abscess surgery, type 2 diabetes, GERD, HTN, mitral stenosis, hypothyroid, deconditioning. DIET: NPO. NUTRITION SUPPORT: Vital 1.5 @ 60 ml/hr providing 1980 kcal (TF + Propofol = 2445 kcal), 90 g protein; meeting 100% calorie/protein needs. LABS: Reviewed. Na 131, Cl 96, BUN 30, Cr 1.50, Glu 199, Ca 8.0, Phos 2.3, AST 75, ALT 57 MEDICATIONS: Reviewed. Fentanyl, Pressor, Propofol at ~ 17.6 ml/hr providing 465 kcal/day, Insulin. GI: 400 ml stool via ileostomy 09/19 SKIN: Wound eval 09/18 - rectal abscess w/ perisacral/anal drain. Surgery is following. ANTHROPOMETRICS: Current Wt: 124.0 kg, BMI: 46.9 kg/m2. Admit wt: 116.0 kg (BMI: 43.9 kg/m2), IBW: 54.5 kg ESTIMATED NEEDS(VENT/BMI): Calories: 9162-4099 kcal (20-22 kcal/kg BW) Protein: 82-98 g protein (1.5-1.8 g/kg IBW) Fluids: 1635 ml fluid (approx. 30 ml/kg IBW) NUTRITION DIAGNOSIS: 1) Inadequate oral intake related to inability to consume sufficient energy as evidenced by NPO/Vent status.---IMPROVED w/ enteral nutrition INTERVENTION: 1) Recommend continuing enteral feeding w/ Vital 1.5 @ 60 ml/hr 2) Adjust TF based on daily propofol rate. MONITOR/EVALUATE: NPO/Vent status, TF, labs, GI/nutrition status, POC. Follow per high nutrition risk guidelines.
--- NOTE | 2016-09-20 11:20 | PROG NOTE ---
[address] [address] PROGRESS NOTE PATIENT: JOHN SMITH : 1945 MR#: [id number] ADMIT: 09/16/2016 JOB ID: [id number] DATE: 09/20/2016 PULMONARY CRITICAL CARE PROGRESS NOTE: A 70-year-old woman with rectal CA status post low anterior resection in May 2016 with anastomotic dehiscence subsequently and recurrent infections, abscess admitted with septic shock and respiratory failure. The patient was seen and evaluated with resident physician, Leeann Shaver. Please refer to her separate detailed note for additional information. The following is an addendum. INTERVAL HISTORY: She remains on norepinephrine at 0.15 mcg. She is not tolerating weaning her sedation with agitation and restlessness. REVIEW OF SYSTEMS: Unable to obtain. PHYSICAL EXAMINATION: Vital signs reviewed. Afebrile. Pulse 76, respirations 18, BP 108/67, sats 100% on 40% FiO2. General: Morbidly obese woman intubated, sedated, unresponsive. Chest clear to auscultation. LABORATORIES: Reviewed. WBC 10.2. Chemistries also reviewed. Creatinine of 1.5. Procalcitonin 0.56, which is stable. Micro: Sputum culture from September 17 with MRSA light growth. Urine culture 127 with Enterobacter, which is carbapenem resistant. IMAGING: Chest x-ray shows patchy bilateral infiltrates. Arterial blood gas: pH 7.3, pCO2 of 38, pO2 of 114, bicarbonate of 18. ASSESSMENT AND RECOMMENDATIONS: 1. Septic shock. 2. Acute hypoxic respiratory failure. 3. Presacral abscess status post drainage in the operating room on September 18. 4. Rectal carcinoma status post neoadjuvant chemoradiation and low anterior resection May 2016 with diverting loop ileostomy and postoperative anastomotic dehiscence. 5. Acute kidney injury-improving. 6. Deep venous thrombophlebitis on anticoagulation. 7. Takotsubo cardiomyopathy stress-induced 70yr old woman with rectal carcinoma status post neoadjuvant chemoradiation followed by a low anterior resection with diverting loop ileostomy May 2016 at [facility] complicated by a postoperative anastomotic dehiscence approximately two weeks later. She went to the operating room on September 18 for another washout and drain placement. There was significant output initially but this has dropped off since. We are hoping that with adequate drainage, her pressor requirement would improved but actually she is on a little more pressors than she was previously-norepinephrine at 0.15 mcg. I think we are most likely dealing with multiple resistant organisms. She is broadly covered on linezolid, Zosyn and Bactrim was added yesterday to cover the CRE, i.e. carbapenem resistant Enterobacter which grew in her urine. Cultures from the pus draining out of the wound itself grew E. coli, but sensitivities are still pending. Discussed with Dr. Paula regarding my concerns for other resistant bacteria and he is going to switch from Zosyn to some other antibacterial drug with broader gram-negative coverage. The other concern would be her cardiomyopathy contributing to hypotension so we will do a trial of low-dose dobutamine to see if that helps. I am going to avoid Lasix at this point. We also discussed antifungal coverage but there seems to be no indication of fungal involvement at this point so we will hold off on that. She is on appropriate deep venous thrombophlebitis and gastrointestinal prophylaxis. She is FULL CODE. CRITICAL CARE TIME: 70 minutes. TOY
--- NOTE | 2016-09-20 11:34 | PCM.PNMED ---
Subjective Date of Service Sep 20, 2016 Subjective The patient is sedated and intubated. Review of systems and subjective are not obtainable. Exam Vital Signs Vital Sign - Last Date Time Temp Pulse Resp B/P Pulse Ox O2 Delivery O2 Flow Rate FiO2 09/20/16 08:15 76 106/65 100 40 09/20/16 08:00 36.5 18 Mechanical Ventilator 09/17/16 19:20 9.00 Intake and Output 09/19/16 09/19/16 09/20/16 Cumulative From/Thru 15:00 23:00 07:00 09/15/16 23:05 - 09/20/16 05:21 Intake Total 2451 ml 2320 ml 83436 ml Output Total 1700 ml 2160 ml 9290 ml Balance 751 ml 160 ml 31957 ml Intake Oral 0 ml IV Total 1972 ml 1923 ml 42515 ml Tube Feeding 399 ml 264 ml 869 ml Tube Irrigant 80 ml 133 ml 293 ml Output Urine Total 1350 ml 1840 ml 6990 ml Stool Total 200 ml 300 ml 1780 ml Gastric Drainage Total 0 ml Drainage Total 150 ml 20 ml 520 ml Exam Intubated. She is sedated. Anicteric sclera Endotracheal tube in place Neck is supple Lungs are clear with minimal wheezing or rhonchi. Heart is regular without murmur gallop or rub Abdomen is soft. She does have an ostomy in place with output. Extremities are free of edema. Good radial pulses. Skin is free of rash or lesions. IVs and Medications Medications Reviewed: Medications were reviewed in detail Lab and Diagnostics Result Diagram: 09/20/16 0440 09/20/16 0440 Microbiology MRSA, blood, urine pending X-Rays, CTs and MRIs CXR 09/19 1. Support lines and tubes as above. 2. Pulmonary edema and/or bilateral multifocal pneumonia similar to prior exam. CXR 09/18 -personally/concurrently reviewed by Yuan 09/18 1. Lines and tubes as above. 2. Worsening pulmonary edema and/or diffuse bilateral inflammatory process. Correlate clinically. CT abd/pelvis 09/17 -personally/concurrently reviewed by Yuan 09/18 1. In absence of oral and IV contrast, evaluation for bowel ischemia is limited ; but no definitive evidence for bowel ischemia. 2. Presacral soft tissue thickening with fluid and air collection appears unchanged and remains suspicious for abscess. 3. Bibasilar infiltrates and consolidation consistent with pneumonia. Small to moderate bilateral effusions. Recommend followup to resolution. 4. Abnormal appearance of gallbladder with wall thickening and hyperdensity within the gallbladder lumen. Recommend clinical correlation for acute cholecystitis. 5. A 2 mm nonobstructive renal calculus in the proximal left ureter just beyond the UPJ, unchanged. CXR IMPRESSION: No acute cardiopulmonary disease. Umer Smith M.D. on 09/16/2016 at 8:06 personally/concurrently reviewed by Yuan 09/16 CT abdomen/pelvis: Personally/concurrently reviewed by Yuan 09/16 Impression: No evidence of obstructive uropathy. There is a 2 mm stone in the region of the left UPJ producing no apparent obstruction. There is marked distortion of the lower rectum and anal region is irregular soft tissue density, fluid density, and gas collections. Differential considerations include rectal neoplasm, abscess, postsurgical change or combination thereof. Findings need to be correlated with surgical history and symptoms. There is parastomal herniation of small bowel segment at the site of the patient 's right lower quadrant ileostomy. There is no evidence of small bowel obstruction or other complication. [facility] reader: Alok Rose MD 12-lead ECG 09/16 11:00 personally/concurrently reviewed by Yuan . Sinus rhythm 55, QTC 444 ms . Atrial premature complex . Inferior infarct, old . Consider anterior infarct Sinus rhythm personally/concurrently reviewed by Yuan 09/16 * Left bundle branch block rate 75, QTC 430 ms . When compared with ECG of 15-Sep-2016 22:59:46, * No significant change none prior to 09/15 Multiple EKG's taken in ED. Rate 75-85. Peaked T waves in first EKG in keeping with hyperkalemia on labs. Improved on subsequent exam. QTc 495 on first EKG improved to 443 . Cardiac Echo Impressions ECHO 08/27 Paliwal Interpretation Summary The left ventricle is not well visualized. The left ventricle is mildly dilated.The ejection fraction is estimated to be 25-30%. Except basal segments which are marcos slightly hyperdynamic rest of the LV segments are severely hypokinetic to akinetic with apical ballooning. These findings suggest likely stress induced cardiomyopathy, however multivessel CAD can not be ruled out. Compared to the prior exam, left ventricular function is significantly decreased with new wall motion abnormalities. The right ventricle is normal in size and function. There is severe posterior mitral annulus calcification, extending in to the subvalvular apparatus as well with restricted posterior mitral leaflet. Based on pressure half time MVA is about 1.7 cm square. Overall based on doppler profile across the MV, MS does not appear to be severe. It appears to be in moderate range. The mitral valve mean gradient is 6.2 mmHg. The mean MV gradient was 10.2 mmHg on the prior echo. There is mild to moderate tricuspid regurgitation. Right ventricular systolic pressure is estimated to be 48 mmHg plus the clinically estimated CVP which cannot be estimated on this exam. Assessment & Plan Patient is a 70 admit 09/15/16 from [facility]-MV K+ 8.0 found and patient was somnolent. Patient was rehydrated and treated for sepsis with multiple antibiotics, developed respiratory failure 09/16 overnight and was intubated, went to OR for a rectal drain 09/[address] Perez, is growing multi drug-resistant Enterobacter cloacea from urine that was a colonization by urinalysis. 1. Rectal abscess- continue antibiotic coverage for Enterobacter at this point as well as secondary coverage for MRSA. The patient has a catheter in place which is hooked to suction. Will await surgery's recommendations regarding other procedural aspects of this abscess treatment. 2. Acute hypoxic respiratory failure-Factorial. The patient is intubated and ventilated. She is still requiring a fair amount of sedation. Her FiO2 is 0.40. 3. Hypotension, septic shock - patient volume resuscitated but still requires norepinephrine at 0.15. 4. Acute systolic CHF, presumed stress cardiomyopathy-whether there is a chronic component is not known. Pt 12L+ from admit as of 09/18 wt up 117kg 09/16 , 124kg 09/17, thought to be acute stress induced cardiomyopathy (AKA Takatsubo) per cards , she will be maintained on the ventilator with PEEP and oxygen. She is still hemodynamically not stable enough for diuresis today. I will add low- dose dobutamine today to encourage inotropic improvement. We will wean norepinephrine as able. 5. Pneumonia- by CT 09/18 on broad spectrum abx 09/16-, nebs q6 09/18- 6. Acute anemia, unclear etiology- following H&H transfuse prn, anemia panel iron WNL 09/17, Retics low 2.0 09/16, Hgb 10.4, 9.3 09/16, 9.1, 8.3 09/17, 8.2 09/18 , Hg 8.7 09/19 7. ACS/nstemi- first EKG benign controlled still going up, thank you cardiology Dr.Paliwal gonzalez (dx stress cardiomyopathy noted) ongoing volume resuscitation any cardio interventions/meds cont heparin ggt 09/16-. Trops seemed to plateau and may be trending down will continue to trend 09/19. No change in current medical management. 8. DVT- R leg 09/16, left leg poorly visualized patient on heparin drip, holding further anticoagulation pending cardiac evaluation and need for DAPT and anticoagulation, not pursuing PE as I do not think that would change management expert and patient is still quite unstable and it is not worth the benefit of pursuing this diagnosis. Hyperkalemia, 2' CLAY. Resolved. Kayexalate, insulin/dextrose, albuterol and sodium bicarb given 09/15-09/16. Last K+ 5.0 0700, 4.7 1400 09/16, 4.6 09/17, 3.8 09/18, 3.9 09/19 Hyponatremia, c/w volume depletion, Na 127 0800, 127 1400 09/16, 131 09/17, 131 09/18, 131 09/19 CLAY- baseline Cr 0.7 05/2016, Cr 1.78 1400 09/16, 1.3 09/17, 1.29 09/18, 1.49 09/19 Thanks renal for following/recommendations Metabolic acidosis (gap), lactate 2.2, 5.0 09/17, 1.9 09/18, HCO3 still 15 , 15 09/18, 18 09/19 follow, multifactorial tx sepsis/volume/ 2' ileostomy output, resume bicarb drip 09/18 DM2/hyperglycemia, low-dose sliding scale, . Holding on resuming metformin/ glyburide. BS 140s 09/19, Rectal cancer, Oncologist Wicho Delong. Uncertain of current treatment regimen, if any. loop Ileostomy w/ ansatamotic dehisence 05/2016 s/p 2-3 drains Hebrew now another 09/18 thank you surgery/Dr. Blanc evaluating Metabolic encephalopathy-discontinue fentanyl and narcotics and other sedating medications, seems to be clearing 09/17, pt sedated for ventilation Ileostomy- - Consider wound care consultation for ostomy management. Hypothyroidism, chronic, presume stable. - Holding levothyroxine 50 mcg daily at this time until patient stabilizes. Prophylaxis-DVT patient already has (SCD contraindicated) on heparin drip , GI pantoprazole IV Disposition- full code from [facility] care of [place] Pain Evaluation: Adequate Pain Control GI Prophylaxis: Proton Pump Inhibitor VTE Prophylaxis: SCDs, Other Resuscitation Status: CPR: Attempt Resuscitation Time spent 35 minutes, met with at bedside. Discussed overall prognosis and current treatment with him. Puma Johnson MD Sep 20, 2016 11:34
[2016-09-20] MEDS: Meropenem Inj 1,000 MG in IV Premix 1 EACH IV SCH ×2 (12:11→17:14)
--- NOTE | 2016-09-20 14:31 | NUR ---
HEMODYNAMICS Attempted to start Dobutamine gtt to help improve BPs. Initiated at 2 mcg/kg/min, this was ineffective, so increased to 3 mcg/kg/min. Shortly after starting dobutamine gtt, HR increased into low 100s-110s w/ frequent PVCs and BP began to decrease to 80s/50s w/ MAP <65. Dr. Shaver informed of these vitals Addendum: 09/20/16 at 1437 by ERICA JONAS RN Dobutamine gtt placed in "standby" per Dr. Shaver, until patient's response to dobutamine gtt can be discussed w/ Dr. Tillman. BPs continue to remain stable on .15 mcg/kg/min of Levophed.
--- NOTE | 2016-09-20 15:42 | PCM.PNMED ---
Subjective Date of Service Sep 20, 2016 Subjective The patient is continuing to have some slow improvement. She still remains ventilator dependent. Pruritus noticed most 24 hours was 3811 in and 2700 out 1800 mL of urine output. In the first 8 hour stay she had 1840 urine out. Her vent settings this morning at time of evaluation were 30% with 17 of PEEP. Cardiac output and cardiac index were 6.8 and 3.1 respectively. INR is improving at 992. Tetracycline back for Enterobacter. Her sodium this morning is 139, potassium 3.6, chloride 96 CO2 of 18 and creatinine were 30 and 1.5 respectively. This was on 2.3. Exam Vital Signs Vital Sign - Last Date Time Temp Pulse Resp B/P Pulse Ox O2 Delivery O2 Flow Rate FiO2 09/20/16 12:05 37.0 79 23 100/60 99 Mechanical Ventilator 09/20/16 12:00 30 09/17/16 19:20 9.00 Intake and Output 09/19/16 09/19/16 09/20/16 Cumulative From/Thru 15:00 23:00 07:00 09/15/16 23:05 - 09/20/16 05:21 Intake Total 2451 ml 2320 ml 45852 ml Output Total 1700 ml 2160 ml 9290 ml Balance 751 ml 160 ml 40371 ml Intake Oral 0 ml IV Total 1972 ml 1923 ml 17340 ml Tube Feeding 399 ml 264 ml 869 ml Tube Irrigant 80 ml 133 ml 293 ml Output Urine Total 1350 ml 1840 ml 6990 ml Stool Total 200 ml 300 ml 1780 ml Gastric Drainage Total 0 ml Drainage Total 150 ml 20 ml 520 ml Exam Lungs showed some scattered rhonchi and a few end expiratory wheezes. Abdomen: Soft systolic murmur. Abdomen is less distended and her intra-abdominal pressure is today. She will tympany to percussion and no masses were noted. Extremities show some generalized edema which appears to be bit less. Lab and Diagnostics Result Diagram: 09/20/16 0440 09/20/16 0440 Microbiology MRSA, blood, urine pending X-Rays, CTs and MRIs CXR 09/19 1. Support lines and tubes as above. 2. Pulmonary edema and/or bilateral multifocal pneumonia similar to prior exam. CXR 09/18 -personally/concurrently reviewed by Yuan 09/18 1. Lines and tubes as above. 2. Worsening pulmonary edema and/or diffuse bilateral inflammatory process. Correlate clinically. CT abd/pelvis 09/17 -personally/concurrently reviewed by Yuan 09/18 1. In absence of oral and IV contrast, evaluation for bowel ischemia is limited ; but no definitive evidence for bowel ischemia. 2. Presacral soft tissue thickening with fluid and air collection appears unchanged and remains suspicious for abscess. 3. Bibasilar infiltrates and consolidation consistent with pneumonia. Small to moderate bilateral effusions. Recommend followup to resolution. 4. Abnormal appearance of gallbladder with wall thickening and hyperdensity within the gallbladder lumen. Recommend clinical correlation for acute cholecystitis. 5. A 2 mm nonobstructive renal calculus in the proximal left ureter just beyond the UPJ, unchanged. CXR IMPRESSION: No acute cardiopulmonary disease. Umer Smith M.D. on 09/16/2016 at 8:06 personally/concurrently reviewed by Yuan 09/16 CT abdomen/pelvis: Personally/concurrently reviewed by Yuan 09/16 Impression: No evidence of obstructive uropathy. There is a 2 mm stone in the region of the left UPJ producing no apparent obstruction. There is marked distortion of the lower rectum and anal region is irregular soft tissue density, fluid density, and gas collections. Differential considerations include rectal neoplasm, abscess, postsurgical change or combination thereof. Findings need to be correlated with surgical history and symptoms. There is parastomal herniation of small bowel segment at the site of the patient 's right lower quadrant ileostomy. There is no evidence of small bowel obstruction or other complication. [facility] reader: Alok Rose MD 12-lead ECG 09/16 11:00 personally/concurrently reviewed by Yuan . Sinus rhythm 55, QTC 444 ms . Atrial premature complex . Inferior infarct, old . Consider anterior infarct Sinus rhythm personally/concurrently reviewed by Yuan 09/16 * Left bundle branch block rate 75, QTC 430 ms . When compared with ECG of 15-Sep-2016 22:59:46, * No significant change none prior to 09/15 Multiple EKG's taken in ED. Rate 75-85. Peaked T waves in first EKG in keeping with hyperkalemia on labs. Improved on subsequent exam. QTc 495 on first EKG improved to 443 . Cardiac Echo Impressions ECHO 08/27 Paliwal Interpretation Summary The left ventricle is not well visualized. The left ventricle is mildly dilated.The ejection fraction is estimated to be 25-30%. Except basal segments which are marcos slightly hyperdynamic rest of the LV segments are severely hypokinetic to akinetic with apical ballooning. These findings suggest likely stress induced cardiomyopathy, however multivessel CAD can not be ruled out. Compared to the prior exam, left ventricular function is significantly decreased with new wall motion abnormalities. The right ventricle is normal in size and function. There is severe posterior mitral annulus calcification, extending in to the subvalvular apparatus as well with restricted posterior mitral leaflet. Based on pressure half time MVA is about 1.7 cm square. Overall based on doppler profile across the MV, MS does not appear to be severe. It appears to be in moderate range. The mitral valve mean gradient is 6.2 mmHg. The mean MV gradient was 10.2 mmHg on the prior echo. There is mild to moderate tricuspid regurgitation. Right ventricular systolic pressure is estimated to be 48 mmHg plus the clinically estimated CVP which cannot be estimated on this exam. Assessment & Plan Impression #1 acute kidney injury/acute tubular necrosis secondary to bacterial sepsis from perirectal abscess. This appears to be improving. #2 increased anion Metabolic acidosis #3 hyperphosphatemia Recommendations #1 over to give a small potassium phosphate supplement down her NG tube. I would like to continue to follow her urine output and her lab. GI Prophylaxis: Proton Pump Inhibitor VTE Prophylaxis: SCDs, Other Resuscitation Status: CPR: Attempt Resuscitation Jaden He DO Sep 20, 2016 15:42
[2016-09-20] MEDS ORDERED: Sodium-Potassium Phosphorus Packet NGTUBE ONE (15:45)
[2016-09-20] MEDS: Heparin 25K Unit/500mL 0.45 NS 25,000 UNIT in IV Premix 1 EACH IV SCH (20:35)
--- NOTE | 2016-09-20 23:58 | PROCED ---
[address] [address] PROCEDURE NOTE PATIENT: JOHN SMITH : 1945 MR#: [id number] ADMIT: 09/16/2016 JOB ID: [id number] DATE OF SERVICE: 09/17/2015 POSTOPERATIVE DIAGNOSIS(ES): PREOPERATIVE DIAGNOSIS(ES): SURGEON: Butch Martinez MD PROCEDURE: Endotracheal intubation. INDICATIONS: Hypoventilation and acidosis. PROCEDURE IN DETAIL: I was asked by the Medicine attending to assist with intubation of this patient in need of ventilation, currently failing on BiPAP. Patient was awake, alert, understands the need for the procedure. She is, at this point, hyperkalemic, so succinylcholine could not be used. Alternatively, she was given 50 mg of rocuronium and 20 mg of etomidate to achieve rapid sequence induction. She had good relaxation ultimately and a Jean Baptiste blade was advanced with good visualization of the cords. A 7.5 tube was advanced through the cords under direct visualization and secured in place at 22 cm at the teeth. End-tidal CO2 confirms good placement and auscultation confirms bilateral breath sounds. X-ray is pending at this time. Care was returned to the Medicine attending. She was 100% saturated throughout the procedure, and there were no complications.
[2016-09-21] VITALS (13 sets, daily range): BP systolic 78–127; BP diastolic 50–87; PULSE 80–109; RESP 16–25; O2SAT 96–99
[2016-09-21] MEDS: Meropenem Inj 1,000 MG in IV Premix 1 EACH IV SCH ×3 (00:01→17:18)
[2016-09-21] MEDS: Norepineph 8,000 mCg/250 mL NS 8,000 MCG in IV Premix 1 EACH IV SCH ×2 (00:06→06:11)
[2016-09-21] MEDS: Sodium Chloride LOK Flush 10 mL Syringe IVFLUSH PRN ×2 (00:06)
[2016-09-21] MEDS: fentaNYL 2,500 mCg/250 mL 2,500 MCG in IV Premix 1 EACH IV SCH (01:12)
[2016-09-21] MEDS: Propofol Inj 1,000,000 MCG in IV Premix 1 EACH IV SCH ×3 (01:12→14:25)
[2016-09-21 03:38] LABS: BASOPHILS % (AUTO) 0.4 % (0-3); EOSINOPHILS % (AUTO) 2.2 % (0-5); MONOCYTES % (AUTO) 8.5 % (4-12); Mean Corpuscular Hemoglobin 26.9 pg (27.0-35.0); Mean Corpuscular Volume 82.4 fL (81-100); NEUTROPHILS % (AUTO) 80.4 % (40-74); Platelet Count 178 bil/L (150-400)
[2016-09-21 04:20] LABS: Magnesium 1.9 mg/dL (1.6-2.6); Phosphorus 1.7 mg/dL (2.5-4.9)
--- NOTE | 2016-09-21 05:06 | ABG ---
DateTimeAnalyzed 05:02:00 -_ pH ____7.293 - 7.350 7.450 pCO2 ___40.7__ -mmHg 35.0 45.0 pO2 105 -mmHg 69.0 116 HCO3- ___19.1__ -mmol/L 22.0 26.0 ABE ___-6.4__ -mmol/L -2.0 2.0 tHb ____9.1__ -g/dL O2Hb ___95.9__ -% COHb ____1.1__ -% MetHb ____0.9__ -% sO2 ___97.9__ -% FIO2 ___30.0__ -% PEEP ____7.0__ -cmH2O Set_RR ___18.0__ -b/min Vt __380.0__ -L Drawn By MK - Date/Time Notified____ 05:06:00 -_ Oxygen Device 1 VENTILATOR - Notified By MK - B 763 -mmHg tO2 ___12.4__ -Vol% Puma test N/A -
[2016-09-21] MEDS ORDERED: SODIUM CHLORIDE ONE (07:05)
--- NOTE | 2016-09-21 07:15 | NUR ---
Lore/Central Line/Levophed/Ileostomy Pt's Lore extremely positional throughout the night. By end of shift, Lore having poor waveform correlation to NBP. LORE very difficult to draw blood from. At 0600 this morning after patient was turned and Portable CXR taken, it was discovered that patient's right IJ central line appears to have un-advanced. Stat portable CXR repeated for placement verification. Call placed to IV therapy and spoke with RN regarding assessing Central Line/redressing if in correct place. Levophed titrated up slightly in the night from 0.2mcg/kg/minute to 0.22mcg/kg/minute. Pt's ileostomy had also come unattached at 0600 this morning. Pt had large amounts of cottage cheese looking drainage from ileostomy; day RN made aware. New appliance attached after cleansing skin and preparing with barrier wipes.
[2016-09-21] MEDS: Pantoprazole 4 mg/mL 10 mL Inj IVPUSH SCH (07:44)
[2016-09-21] MEDS: Insulin LISPRO 300 Unit/3 mL Inj SUBQ SCH ×4 (07:46→22:00)
[2016-09-21] MEDS: Linezolid Inj 600 MG in IV Premix 1 EACH IV SCH ×2 (07:47→20:28)
[2016-09-21] MEDS ORDERED: DEXTROSE 5% IV ONE (09:00)
[2016-09-21] MEDS ORDERED: SODIUM PHOSPHATE IV ONE (09:00)
[2016-09-21] MEDS ORDERED: Furosemide 10 mg/mL 4 mL Inj IVPUSH ONE (09:05)
--- NOTE | 2016-09-21 09:09 | PROG NOTE ---
[address] [address] PROGRESS NOTE PATIENT: JOHN SMITH : 1945 MR#: [id number] ADMIT: 09/16/2016 JOB ID: [id number] DATE: 09/21/2016 INFECTIOUS DISEASE FOLLOWUP NOTE: REASON FOR FOLLOWUP: Septic shock with multi-drug resistant organisms in the urine, also with extensive perirectal abscess and possible MRSA pneumonia. INTERVAL HISTORY: This case was discussed extensively yesterday afternoon with Dr. Tillman of the ICU team and again this morning with the ICU team. The main problem overnight has been the patient's worsening hypotension requiring increasing vasopressor agents. There has been concern that we may have an untreated pathogen and so, yesterday, we switched the Zosyn to meropenem and continued the patient on Bactrim IV for her multi-drug resistant urinary isolate, as well as linezolid for her possible MRSA pulmonary process. The patient has been stable except for her dropping of blood pressure and requirement for increasing vasopressor agents, as her ventilatory requirements have not changed, and she continues to have a good urine output and renal function. There was also concern by the night nurse that there was a white cheesy material seen around her ileostomy site but that seems to have resolved overnight. The patient is not responsive and is heavily sedated. PHYSICAL EXAMINATION: Reveals a sedated, intubated woman in the ICU. Temperature 37.8. It has been the max in the past 24 hours. Currently 37.3, pulse 93, respiratory 21, blood pressure 98/78 requiring 0.2 mcg/kg/min of norepinephrine. She is on 30% and 7 of PEEP and saturating very well. Head without trauma. Eyes without conjunctivitis. The oral endotracheal tube, orogastric tube in good position. The neck is without notable abnormality. The lungs are with a few scattered crackles bilaterally but unimpressive. Cardiac tones without murmur. Patient's abdomen has the ileostomy in good position. I did not observe any of the white material emerging from the ileostomy and see just normal small-bowel contents. The rectal drain is likewise not draining much. It is not draining much of anything at this point. Recall that it had been placed into an abscess. The rectal abscess drain is not draining much of anything, and has been placed into the center of the abscess. The patient's pannus is free of apparent inflammation. The feet are slightly cool but not grossly ischemic. LABORATORIES: Include white count 10,700, platelet count 178,000. Creatinine 1.28, which has actually improved from yesterday's 1.5. ALT is down to 44, which is improved from 57 yesterday. Procalcitonin is improved to 0.34, down from 0.56 yesterday. Urinalysis had 6-10 white cells. The urine culture grew the highly resistant enterobacter which we are treating with Bactrim at this point. The culture of the rectal abscess is growing at least two variants of E. coli, and these are being and will have sensitivities tomorrow. MRSA grew from the sputum, and it was clindamycin resistant, otherwise standard MRSA including being susceptible to linezolid. IMAGING: Includes chest radiographs, which show continued pneumonia and/or CHF. IMPRESSION: The patient's hemodynamic behavior is little bit puzzling. In terms of her overall infection picture, I would think the patient should be improving. We had drained her perirectal abscess and provided broad-spectrum antibiotics aimed at all isolated and postulated pathogens. The patient's procalcitonin has dropped. Her white count is reasonable, and she has been afebrile. Her urine output continues to be fairly good, and her creatinine and LFT are both improving. Against this positive back drop, the patient is requiring more vasopressor agents and I wonder if this could be due to cardiogenic factors rather than infection. The possibility of adrenal insufficiency may also need to be addressed here, as her blood pressure situation seems incongruent with respect to her infection treatment. RECOMMENDATIONS: 1. Will continue with our incredibly broad coverage of linezolid, meropenem and trimethoprim/sulfamethoxazole. 2. I am awaiting results on the enterobacter in the urine with respect to sensitivity for tigecycline, colistin, ceftazidime, avibactam and ceftolozane/tazobactam. 3. This case discussed in detail with the ICU team, and we discussed multiple issues including other possible causes of hypotension.
--- NOTE | 2016-09-21 09:59 | DRSVH ---
PROCEDURE: X-RAY CHEST ONE VIEW, PORTABLE ([id number]) INDICATIONS: Central Line placement Verification TECHNIQUE: One view of the chest was acquired. COMPARISON: [facility], CR, XR CHEST 1VW (PORTABLE), 09/20/2016, 4:18. [facility], CR, XR CHEST 1VW (PORTABLE), 09/21/2016, 5:20. FINDINGS: Surgical changes and devices: Stable position of ETT, nasogastric tube and right IJ CVL. Lungs and pleura: Mild venous congestion and bibasilar air space opacities not significantly changed. No pneumothorax. Mediastinum: Mediastinal contours appear normal. Heart size is enlarged. Bones and chest wall: No suspicious bony lesions. Overlying soft tissues appear unremarkable. IMPRESSION: Pulmonary edema and/or diffuse bilateral pneumonia. Dictated by: Wilton Casas [facility] Interpreted: Abigail Acosta MD on 09/21/2016 at 9:57 Transcribed by: RADHA on 09/21/2016 at 9:59 Approved by: Abigail Acosta MD, PhD on 09/21/2016 at 15:50
--- NOTE | 2016-09-21 10:07 | DRSVH ---
PROCEDURE: X-RAY CHEST ONE VIEW, PORTABLE ([id number]) INDICATIONS: intubated TECHNIQUE: One view of the chest was acquired. COMPARISON: [facility], CR, XR CHEST 1VW (PORTABLE), 09/20/2016, 4:18. FINDINGS: Surgical changes and devices: Stable position of ETT, nasogastric tube and right IJ CVL. Lungs and pleura: No significant change in upper and perihilar/basilar air space opacities. No pneum othorax. Mediastinum: Mediastinal contours appear normal. Heart size is enlarged. Bones and chest wall: No suspicious bony lesions. Overlying soft tissues appear unremarkable. IMPRESSION: Persistent edema and/or bilateral multifocal pneumonia. Dictated by: Wilton Casas RRA Interpreted: Abigail Acosta MD on 09/21/2016 at 10:05 Transcribed by: RADHA on 09/21/2016 at 10:06 Approved by: Abigail Acosta MD, PhD on 09/21/2016 at 16:25
--- NOTE | 2016-09-21 10:49 | PCM.PNMED ---
Subjective Date of Service Sep 21, 2016 Subjective PULMONARY/CRITICAL CARE PROGRESS NOTE Overnight: Events included arterial line with inability to draw and poor waveforms, pulled. Ileostomy bag detachment with observation of white, cheesy, thick discharge noted as output. Levophed increased to 0.22. Today: Remains intubated and sedated. No acute distress noted on exam. Not aroused to voice stimuli. Levophed remains at 0.2. BP remain low, 80s-90s systolic. Afebrile. Perianal drain minimal to zero output. Vent: PRVC FiO2 30 PEEP 7 RR18 Vt 380 Other: Net IO + 17k; 24hUOP 3590mL; 24hNet IO + 449mL; perianal drain to suction with minimal output Labs: Na 134, K 3.8, Cl 101, HCO 18, Cr 1.28, Mg 1.9; PCT 0.34 Exam Vital Signs Vital Sign - Last Date Time Temp Pulse Resp B/P Pulse Ox O2 Delivery O2 Flow Rate FiO2 09/21/16 08:00 93 99/78 98 30 09/21/16 07:40 37.3 21 Mechanical Ventilator 09/17/16 19:20 9.00 Intake and Output 09/20/16 09/20/16 09/21/16 Cumulative From/Thru 15:00 23:00 07:00 09/15/16 23:05 - 09/21/16 06:37 Intake Total 2439 ml 4054 ml 90389 ml Output Total 2150 ml 2710 ml 98260 ml Balance 289 ml 1344 ml 94156 ml Intake Oral 0 ml IV Total 1700 ml 3135 ml 84166 ml Tube Feeding 694 ml 759 ml 2322 ml Tube Irrigant 45 ml 160 ml 498 ml Output Urine Total 1750 ml 2400 ml 10238 ml Stool Total 400 ml 300 ml 2480 ml Gastric Drainage Total 0 ml Drainage Total 10 ml 530 ml Exam General: Intubated and sedated; no acute distress; no responses to stimuli HENT: Sclera anicteric; ETT in place, mucus membranes dry Neck: Soft, obese, trachea midline by palpation; edematous; RIJ in place Cardiac: Tachycardic rate and regular rhythm; no murmurs appreciated Respiratory: Sounds faint secondary to habitus; faint crackles at bases bilaterally; no wheeze appreciated Abdomen: Soft, nontender, nondistended; obese; ileostomy RLQ with dark, thickened output and liquid output seen within bag Extremities: BLLE moderate chronic venous stasis changes; no distal palpable pulses : Jordan in place; urine yellow; perianal drain in place to suction; insertion site not visualized Skin: Warm, dry Neuro: Unable to fully assess secondary to intubation and sedation; not aroused to voice or sternal rub Psych: Unable to assess at this time secondary to intubation and sedation Lab and Diagnostics Result Diagram: 09/21/16 0320 09/21/16 0320 Microbiology MRSA, blood, urine pending X-Rays, CTs and MRIs CXR 09/19 1. Support lines and tubes as above. 2. Pulmonary edema and/or bilateral multifocal pneumonia similar to prior exam. CXR 09/18 -personally/concurrently reviewed by Yuan 09/18 1. Lines and tubes as above. 2. Worsening pulmonary edema and/or diffuse bilateral inflammatory process. Correlate clinically. CT abd/pelvis 09/17 -personally/concurrently reviewed by Yuan 09/18 1. In absence of oral and IV contrast, evaluation for bowel ischemia is limited ; but no definitive evidence for bowel ischemia. 2. Presacral soft tissue thickening with fluid and air collection appears unchanged and remains suspicious for abscess. 3. Bibasilar infiltrates and consolidation consistent with pneumonia. Small to moderate bilateral effusions. Recommend followup to resolution. 4. Abnormal appearance of gallbladder with wall thickening and hyperdensity within the gallbladder lumen. Recommend clinical correlation for acute cholecystitis. 5. A 2 mm nonobstructive renal calculus in the proximal left ureter just beyond the UPJ, unchanged. CXR IMPRESSION: No acute cardiopulmonary disease. Umer Smith M.D. on 09/16/2016 at 8:06 personally/concurrently reviewed by Yuan 09/16 CT abdomen/pelvis: Personally/concurrently reviewed by Yuan 09/16 Impression: No evidence of obstructive uropathy. There is a 2 mm stone in the region of the left UPJ producing no apparent obstruction. There is marked distortion of the lower rectum and anal region is irregular soft tissue density, fluid density, and gas collections. Differential considerations include rectal neoplasm, abscess, postsurgical change or combination thereof. Findings need to be correlated with surgical history and symptoms. There is parastomal herniation of small bowel segment at the site of the patient 's right lower quadrant ileostomy. There is no evidence of small bowel obstruction or other complication. NightShift reader: Alok Rose MD 12-lead ECG 09/16 11:00 personally/concurrently reviewed by Yuan . Sinus rhythm 55, QTC 444 ms . Atrial premature complex . Inferior infarct, old . Consider anterior infarct Sinus rhythm personally/concurrently reviewed by Yuan 09/16 * Left bundle branch block rate 75, QTC 430 ms . When compared with ECG of 15-Sep-2016 22:59:46, * No significant change none prior to 09/15 Multiple EKG's taken in ED. Rate 75-85. Peaked T waves in first EKG in keeping with hyperkalemia on labs. Improved on subsequent exam. QTc 495 on first EKG improved to 443 . Cardiac Echo Impressions ECHO 08/27 [place] Interpretation Summary The left ventricle is not well visualized. The left ventricle is mildly dilated.The ejection fraction is estimated to be 25-30%. Except basal segments which are marcos slightly hyperdynamic rest of the LV segments are severely hypokinetic to akinetic with apical ballooning. These findings suggest likely stress induced cardiomyopathy, however multivessel CAD can not be ruled out. Compared to the prior exam, left ventricular function is significantly decreased with new wall motion abnormalities. The right ventricle is normal in size and function. There is severe posterior mitral annulus calcification, extending in to the subvalvular apparatus as well with restricted posterior mitral leaflet. Based on pressure half time MVA is about 1.7 cm square. Overall based on doppler profile across the MV, MS does not appear to be severe. It appears to be in moderate range. The mitral valve mean gradient is 6.2 mmHg. The mean MV gradient was 10.2 mmHg on the prior echo. There is mild to moderate tricuspid regurgitation. Right ventricular systolic pressure is estimated to be 48 mmHg plus the clinically estimated CVP which cannot be estimated on this exam. Assessment & Plan PULMONARY/CRITICAL CARE PROGRESS NOTE - Hospital day 6 - Ventilator day 4 Ms. Heather Cody is a 70 year old woman with history of rectal carcinoma s/p resection with ileostomy placement, DM2, and hypothyroidism, that presented from [facility] with increased weakness, confusion, and lethargy. On admission, initial labs revealed K 6.9. She was admitted for evaluation and treatment of CLAY due to volume depletion and septic chock secondary to PNA vs UTI vs perirectal abscess, hypovolemic hyponatremia, hyperkalemia, and elevated troponin secondary to stress-induced cardiomyopathy. Micro studies: MRSA screen POSITIVE; Sputum Cx (+) MRSA, does not appear to have MRSA PNA; BCx 09/16 no growth to date; UCx 09/15 Enterobacter cloacae- carbapenem resistant; Abscess sent for stain and culture. Preliminary results of E.coli from abscess cultures. Imaging: CT 09/16 fluid collection suggestive of abscess within presacral region measuring 3.5 x 7.5cm; repeat CT completed 09/17 confirmed abscess. BLLE doppler revealed left distal femoral and left popliteal DVT; BLLE arterial studies did not reveal any areas of significant stenosis. Echo 09/16 revealed EF25-30 with apical ballooning and normal RV size and function, indicative of stress-induced cardiomyopathy. General surgery has been consulted, and has kindly agreed to follow. Pelvic/ perianal drain placed 09/18. Cardiology kindly consulted; recommending to treat stress-induced cardiomyopathy medically at this time, with initiation of therapies as BP stabilizes and CLAY resolves. ID consulted, will continue to monitor studies and antibiotic changes as needed. Nephrology has been consulted and has kindly agreed to follow, appreciate time and recommendations with fluid and electrolyte management. Recommendations also include NILTON when pt stabilized to eval valves. Discussion 09/21 revolved around etiology of persistent hypotension. Infectious source unlikely, as she is receiving multiple antibiotics, has been afebrile, and PCT has decreased. Possible concern cardiogenic vs adrenal insufficiency. No known use of chronic steroids. Assessments Acute hypoxemic respiratory failure requiring mechanical ventilation CLAY secondary to volume depletion and sepsis Septic shock secondary to presumed PNA, UTI, and/or perirectal abscess Perirectal abscess secondary to anastomotic dehiscence s/p drain placement Hypovolemic hyponatremia Hyperkalemia Elevated troponin secondary to stress-induced cardiomyopathy UTI, Enterobacter cloacae DVT of left lower extremity MRSA positive: Screen, sputum Plan - Tx stress-induced cardiomyopathy medically at this time: Cardiology recs include beta-violette tx initiation once stabilized and off pressors, initiation ACEi when CLAY resolved; consideration of cardiac cath when stabilized - Abx per ID: Bactrim, Zosyn, linezolid - Continue heparin gtt for DVT; consider transition when appropriate - Continue to wean pressors as tolerated - Continue to decrease sedation as tolerated - Daily ABGs/CXR - HOLD lasix pushes at this time - Cortisol level to eval adrenal function - Echo LTD - Admin steroids: Solu-Cortef 100mg IV q8h - Repeat CT C/A/P to eval abscess and drain placement DVT prophylaxis: Therapeutic heparin gtt GI: PPI Nutrition: Tube feeds initiated; at goal PT: Consulted; will see Thank you for this interesting consult, we will happily follow along at this time. Please let us know any additional questions or concerns. Total time: 60 minutes Pain Evaluation: Adequate Pain Control GI Prophylaxis: Proton Pump Inhibitor VTE Prophylaxis: SCDs, Other Resuscitation Status: CPR: Attempt Resuscitation Attending Statement I have seen and examined this patient with the resident physician. Vital signs , labs, imaging have been reviewed. I agree with the assessment and plan above. Please refer to my separately dictated progress note for any modifications to above. Geena Tillman M.D. Pulmonary and Critical Care medicine Pager [phone] Leeann Shaver DO Sep 21, 2016 10:49 Geena Tillman MD Sep 21, 2016 11:21
[2016-09-21] MEDS: DEXTROSE 5% IV SCH ×2 (11:00→20:29)
[2016-09-21] MEDS: TRIMETHOPRIM SULFA IV SCH ×2 (11:00→20:29)
--- NOTE | 2016-09-21 11:12 | PCM.PNMED ---
Subjective Date of Service Sep 21, 2016 Subjective The patient's creatinine continues to improve as has her urine output. In the last 36 hours she has had over 6 L of urine out. She still remains ventilatory dependent with marked elevation in her CVP at 22 and her intra-abdominal pressure is 20. Her vent settings are 70% and +7 of PEEP. This morning her sodium is 134, potassium 3.8, chloride 101, CO2 of 18, and her creatinine is 1.2 weight. Versus 1.7 with a magnesium of 1.9. Exam Vital Signs Vital Sign - Last Date Time Temp Pulse Resp B/P Pulse Ox O2 Delivery O2 Flow Rate FiO2 09/21/16 08:00 93 99/78 98 30 09/21/16 07:40 37.3 21 Mechanical Ventilator 09/17/16 19:20 9.00 Intake and Output 09/20/16 09/20/16 09/21/16 Cumulative From/Thru 15:00 23:00 07:00 09/15/16 23:05 - 09/21/16 06:37 Intake Total 2439 ml 4054 ml 76150 ml Output Total 2150 ml 2710 ml 42320 ml Balance 289 ml 1344 ml 18452 ml Intake Oral 0 ml IV Total 1700 ml 3135 ml 47159 ml Tube Feeding 694 ml 759 ml 2322 ml Tube Irrigant 45 ml 160 ml 498 ml Output Urine Total 1750 ml 2400 ml 08925 ml Stool Total 400 ml 300 ml 2480 ml Gastric Drainage Total 0 ml Drainage Total 10 ml 530 ml Exam Patient remained sedated and on a ventilator. Lungs shows some bibasilar bibasal rales approximately 1 cm in morning the dependent area, scattered end expiratory wheezes. Abdomen is distended but nontender. Bowel sounds are present but diminished. No masses palpated minimal limited abdominal exam was performed because of her recent surgery. Extremities showed anasarca. Lab and Diagnostics Result Diagram: 09/21/16 0320 09/21/16 0320 Microbiology MRSA, blood, urine pending X-Rays, CTs and MRIs CXR 09/19 1. Support lines and tubes as above. 2. Pulmonary edema and/or bilateral multifocal pneumonia similar to prior exam. CXR 09/18 -personally/concurrently reviewed by Yuan 09/18 1. Lines and tubes as above. 2. Worsening pulmonary edema and/or diffuse bilateral inflammatory process. Correlate clinically. CT abd/pelvis 09/17 -personally/concurrently reviewed by Yuan 09/18 1. In absence of oral and IV contrast, evaluation for bowel ischemia is limited ; but no definitive evidence for bowel ischemia. 2. Presacral soft tissue thickening with fluid and air collection appears unchanged and remains suspicious for abscess. 3. Bibasilar infiltrates and consolidation consistent with pneumonia. Small to moderate bilateral effusions. Recommend followup to resolution. 4. Abnormal appearance of gallbladder with wall thickening and hyperdensity within the gallbladder lumen. Recommend clinical correlation for acute cholecystitis. 5. A 2 mm nonobstructive renal calculus in the proximal left ureter just beyond the UPJ, unchanged. CXR IMPRESSION: No acute cardiopulmonary disease. Umer Smith M.D. on 09/16/2016 at 8:06 personally/concurrently reviewed by Yuan 09/16 CT abdomen/pelvis: Personally/concurrently reviewed by Yuan 09/16 Impression: No evidence of obstructive uropathy. There is a 2 mm stone in the region of the left UPJ producing no apparent obstruction. There is marked distortion of the lower rectum and anal region is irregular soft tissue density, fluid density, and gas collections. Differential considerations include rectal neoplasm, abscess, postsurgical change or combination thereof. Findings need to be correlated with surgical history and symptoms. There is parastomal herniation of small bowel segment at the site of the patient 's right lower quadrant ileostomy. There is no evidence of small bowel obstruction or other complication. NightShift reader: Alok Rose MD 12-lead ECG 09/16 11:00 personally/concurrently reviewed by Yuan . Sinus rhythm 55, QTC 444 ms . Atrial premature complex . Inferior infarct, old . Consider anterior infarct Sinus rhythm personally/concurrently reviewed by Yuan 09/16 * Left bundle branch block rate 75, QTC 430 ms . When compared with ECG of 15-Sep-2016 22:59:46, * No significant change none prior to 09/15 Multiple EKG's taken in ED. Rate 75-85. Peaked T waves in first EKG in keeping with hyperkalemia on labs. Improved on subsequent exam. QTc 495 on first EKG improved to 443 . Cardiac Echo Impressions ECHO 08/27 [place] Interpretation Summary The left ventricle is not well visualized. The left ventricle is mildly dilated.The ejection fraction is estimated to be 25-30%. Except basal segments which are marcos slightly hyperdynamic rest of the LV segments are severely hypokinetic to akinetic with apical ballooning. These findings suggest likely stress induced cardiomyopathy, however multivessel CAD can not be ruled out. Compared to the prior exam, left ventricular function is significantly decreased with new wall motion abnormalities. The right ventricle is normal in size and function. There is severe posterior mitral annulus calcification, extending in to the subvalvular apparatus as well with restricted posterior mitral leaflet. Based on pressure half time MVA is about 1.7 cm square. Overall based on doppler profile across the MV, MS does not appear to be severe. It appears to be in moderate range. The mitral valve mean gradient is 6.2 mmHg. The mean MV gradient was 10.2 mmHg on the prior echo. There is mild to moderate tricuspid regurgitation. Right ventricular systolic pressure is estimated to be 48 mmHg plus the clinically estimated CVP which cannot be estimated on this exam. Assessment & Plan Impression #1 acute kidney injury which is resolving #2 metabolic acidosis #3 pulmonary edema #4 acute anemia #5 hypophosphatemia Recommendations #1 no diverticula 30 mEq of potassium phosphate IV along with 2 packages of Neutra-Phos and down her NG tube. In addition would like to give her 60-80 mg of Lasix IV and follow her urine output and CVP along with her oxygenation. GI Prophylaxis: Proton Pump Inhibitor VTE Prophylaxis: SCDs, Other Resuscitation Status: CPR: Attempt Resuscitation Jaden He DO Sep 21, 2016 11:12
--- NOTE | 2016-09-21 11:28 | PROG NOTE ---
[address] [address] PROGRESS NOTE PATIENT: JOHN SMITH : 1945 MR#: [id number] ADMIT: 09/16/2016 JOB ID: [id number] DATE: 09/21/2016 PULMONARY CRITICAL CARE PROGRESS NOTE: The patient was seen and evaluated with resident physician, Opal Shaver. Please refer to her separate detailed note for additional information. The patient is a 70-year-old woman with history of rectal cancer status post low anterior resection in May complicated by anastomotic dehiscence admitted with septic shock and respiratory failure. INTERVAL HISTORY: The patient pressor requirements have gone up over the last 24 hours. We attempted adding dobutamine infusion yesterday but her blood pressure actually dropped very quickly to the 70s on 2-3 mcg of dobutamine and continued to drop as the nurse tried to go up on the infusions so the dobutamine was stopped. She had a T-max of 37.8. REVIEW OF SYSTEMS: Unable to obtain. PHYSICAL EXAMINATION: Vital signs reviewed. T-max 37.8, pulse 84, respirations 18, BP 127/72, sats 98% on 30% FiO2 and 7 cm of PEEP. General: Morbidly obese woman lying in bed, unresponsive, intubated, sedated. Chest clear to auscultation. LABORATORIES: Reviewed. WBC 10.7. Chemistry shows stable creatinine 1.2, procalcitonin is down to 0.3. Cultures with no new growth except for sputum with MRSA. Urine culture with Enterobacter which is a CRE. Chest x-ray shows left basilar infiltrate and some bibasilar atelectasis. No new abnormalities. Arterial blood gas shows pH of 7.29, pCO2 of 40, pO2 of 105, bicarbonate of 19. ASSESSMENT AND RECOMMENDATIONS: 1. Septic shock. 2. Acute hypoxic respiratory failure. 3. Rectal carcinoma status post low anterior resection in May complicated by anastomotic dehiscence. 4. Presacral abscess status post drainage and washout in the operating room on September 18. 5. DVT on heparin drip. 6. Takotsubo cardiomyopathy. 7. Acute kidney injury-improving. A 70-year-old woman with rectal CA status post low anterior resection in May with anastomotic dehiscence complicated by recurrent infections most recently with a presacral abscess for which she was taken to the operating room on September 18 and had a drain placement. I was anticipating improvement in her hemodynamics and pressor requirement with this, but over the last few days, she has steadily worsened. This is despite adequate drainage and aggressive antibiotics which include linezolid, meropenem (switched yesterday from Zosyn) as well as Bactrim to cover the CRE that grew out of her urine, but not any of the wound cultures. She does not have any other unusual growth on her wound and we are broadly covering her. She has MRSA in her sputum but I am not sure if this is a true pathogen. Regardless she has been on linezolid for many days now and her procalcitonin has been coming down. So I doubt that this is the source of her persistent pressor requirement. We attempted adding dobutamine to the norepinephrine for possibility of low cardiac output related hypotension but this resulted in worsen hypotension yesterday and it was stopped. I think at this point we should consider relative adrenal insufficiency and I am checking a cortisol level and starting her on hydrocortisone 100 mg IV q.8 to cover this possibility. We are also going to repeat imaging including a CT of the chest, abdomen and pelvis looking for any residual abscess or other abnormalities that could explain her persistent shock. She is on very minimal vent settings at this point with FiO2 of 30%, PEEP of 7 cm. I would like to try a pressure support trial today after she comes back from CT and see if she does well on a spontaneous breathing trial. She is on a heparin drip for DVT and appropriate GI prophylaxis. CRITICAL CARE TIME: 45 minutes.
[2016-09-21] MEDS: Hydrocortisone 50 mg/mL 2 mL Inj IVPUSH SCH ×2 (11:42→17:18)
[2016-09-21] MEDS: Sodium-Potassium Phosphorus Packet TUBE SCH ×3 (12:09→22:56)
--- NOTE | 2016-09-21 12:12 | DRSVH ---
[facility] [address] [place] [address] Echocardiogram Report Name: JOHN SMITH HStudy Date: 09/21/2016 Height: 64 in Hospital Exam Location: [facility] Weight: 281 lb Gender: Female BSA: 2.3 m2 : 1945 Age: 70 yrs BP: 99/7 8 mmHg Ordering Physician: [facility]PITAL[facility] Performed By: Ty Darling Referring Physician: GAIL PAGAN Interpretation Summary Left ventricular ejection fraction is estimated to be 40 +/- 5%. Compared to the prior exam, left ventricular function is moderately improved. There is still moderate hypokinesis of the apical third. Basal segments are hypercontractile. Procedure: A two-dimensional transthoracic echocardiogram with color flow and Doppler was performed in limited views only. The study quality was technically difficult. A contrast injection of Definity was performed to improve assessment of LV function. The patient was in normal sinus rhythm during the exam. Left Ventricle: Compared to the prior exam, left ventricular function is moderately improved. Left ventricular ejection fraction is estimated to be 40 +/- 5%. There is still moderate hypokinesis of the apical third. Basal segments are hypercontractile. Reading Physician:ROSE
[2016-09-21] MEDS ORDERED: Rocuronium 10 mg/mL 5 mL Inj ONE (12:25)
[2016-09-21] MEDS ORDERED: Glycopyrrolate 0.2 mg/mL 5 mL Inj ONE (12:25)
[2016-09-21] MEDS ORDERED: Succinylcholine Chloride 20 mg/mL 5 mL Inj ONE (12:27)
--- NOTE | 2016-09-21 14:16 | PCM.PNMED ---
Subjective Date of Service Sep 21, 2016 Subjective Patient is intubated and sedated, ROS and subjective not obtainable Exam Vital Signs Vital Sign - Last Date Time Temp Pulse Resp B/P Pulse Ox O2 Delivery O2 Flow Rate FiO2 09/21/16 12:30 84 99/78 99 30 09/21/16 12:00 37.2 22 Mechanical Ventilator 09/17/16 19:20 9.00 Intake and Output 09/20/16 09/20/16 09/21/16 Cumulative From/Thru 15:00 23:00 07:00 09/15/16 23:05 - 09/21/16 06:37 Intake Total 2439 ml 4054 ml 85906 ml Output Total 2150 ml 2710 ml 33244 ml Balance 289 ml 1344 ml 01166 ml Intake Oral 0 ml IV Total 1700 ml 3135 ml 86384 ml Tube Feeding 694 ml 759 ml 2322 ml Tube Irrigant 45 ml 160 ml 498 ml Output Urine Total 1750 ml 2400 ml 44335 ml Stool Total 400 ml 300 ml 2480 ml Gastric Drainage Total 0 ml Drainage Total 10 ml 530 ml Exam Sedated and intubated. Anicteric sclera. Neck supple Lungs are clear. She has been actively ventilated. Heart is regular without murmur Abdomen is generally soft. She has an ostomy in place. Extremities 1+ edema with good pedal pulses. IVs and Medications Medications Reviewed: Medications were reviewed in detail Lab and Diagnostics Result Diagram: 09/21/16 0320 09/21/16 0320 Microbiology MRSA, blood, urine pending X-Rays, CTs and MRIs CXR 09/19 1. Support lines and tubes as above. 2. Pulmonary edema and/or bilateral multifocal pneumonia similar to prior exam. CXR 09/18 -personally/concurrently reviewed by Yuan 09/18 1. Lines and tubes as above. 2. Worsening pulmonary edema and/or diffuse bilateral inflammatory process. Correlate clinically. CT abd/pelvis 09/17 -personally/concurrently reviewed by Yuan 09/18 1. In absence of oral and IV contrast, evaluation for bowel ischemia is limited ; but no definitive evidence for bowel ischemia. 2. Presacral soft tissue thickening with fluid and air collection appears unchanged and remains suspicious for abscess. 3. Bibasilar infiltrates and consolidation consistent with pneumonia. Small to moderate bilateral effusions. Recommend followup to resolution. 4. Abnormal appearance of gallbladder with wall thickening and hyperdensity within the gallbladder lumen. Recommend clinical correlation for acute cholecystitis. 5. A 2 mm nonobstructive renal calculus in the proximal left ureter just beyond the UPJ, unchanged. CXR IMPRESSION: No acute cardiopulmonary disease. Umer Smith M.D. on 09/16/2016 at 8:06 personally/concurrently reviewed by Yuan 09/16 CT abdomen/pelvis: Personally/concurrently reviewed by Yuan 09/16 Impression: No evidence of obstructive uropathy. There is a 2 mm stone in the region of the left UPJ producing no apparent obstruction. There is marked distortion of the lower rectum and anal region is irregular soft tissue density, fluid density, and gas collections. Differential considerations include rectal neoplasm, abscess, postsurgical change or combination thereof. Findings need to be correlated with surgical history and symptoms. There is parastomal herniation of small bowel segment at the site of the patient 's right lower quadrant ileostomy. There is no evidence of small bowel obstruction or other complication. NightShift reader: Alok Rose MD 12-lead ECG 09/16 11:00 personally/concurrently reviewed by Yuan . Sinus rhythm 55, QTC 444 ms . Atrial premature complex . Inferior infarct, old . Consider anterior infarct Sinus rhythm personally/concurrently reviewed by Yuan 09/16 * Left bundle branch block rate 75, QTC 430 ms . When compared with ECG of 15-Sep-2016 22:59:46, * No significant change none prior to 09/15 Multiple EKG's taken in ED. Rate 75-85. Peaked T waves in first EKG in keeping with hyperkalemia on labs. Improved on subsequent exam. QTc 495 on first EKG improved to 443 . Cardiac Echo Impressions ECHO 08/27 Paliwal Interpretation Summary The left ventricle is not well visualized. The left ventricle is mildly dilated.The ejection fraction is estimated to be 25-30%. Except basal segments which are marcos slightly hyperdynamic rest of the LV segments are severely hypokinetic to akinetic with apical ballooning. These findings suggest likely stress induced cardiomyopathy, however multivessel CAD can not be ruled out. Compared to the prior exam, left ventricular function is significantly decreased with new wall motion abnormalities. The right ventricle is normal in size and function. There is severe posterior mitral annulus calcification, extending in to the subvalvular apparatus as well with restricted posterior mitral leaflet. Based on pressure half time MVA is about 1.7 cm square. Overall based on doppler profile across the MV, MS does not appear to be severe. It appears to be in moderate range. The mitral valve mean gradient is 6.2 mmHg. The mean MV gradient was 10.2 mmHg on the prior echo. There is mild to moderate tricuspid regurgitation. Right ventricular systolic pressure is estimated to be 48 mmHg plus the clinically estimated CVP which cannot be estimated on this exam. Assessment & Plan 1. Rectal abscess- continue antibiotic coverage for Enterobacter at this point as well as secondary coverage for MRSA. The patient has a catheter in place which is hooked to suction. Will await surgery's recommendations regarding other procedural aspects of this abscess treatment. No change to current antibiotics. ID is helping. 2. Acute hypoxic respiratory failure-Mutlifactorial. The patient is intubated and ventilated. She is still requiring a fair amount of sedation. Her FiO2 is 0.40. She also has MRSA in sputum but this may well represent colonization. 3. Hypotension, septic shock - patient volume resuscitated but still requires norepinephrine at higher dosing. We will recheck echo today. 4. Acute systolic CHF, presumed stress cardiomyopathy-whether there is a chronic component is not known. Pt 12L+ from admit as of 09/18 wt up 117kg 09/16 , 124kg 09/17, thought to be acute stress induced cardiomyopathy (AKA Takatsubo) per cards , she will be maintained on the ventilator with PEEP and oxygen. She is still hemodynamically not stable enough for diuresis today. I will add low- dose dobutamine today to encourage inotropic improvement. She failed a dobutamine trial yesterday. She has unfortunately required up titration of norepinephrine. We will repeat an echo of her heart today to assess her systolic function. 5. Pneumonia- by CT 09/18 on broad spectrum abx 09/16-, nebs q6 09/18- 6. Acute anemia, unclear etiology- following H&H transfuse prn, anemia panel iron WNL 09/17, Retics low 2.0 09/16, Hgb 10.4, 9.3 09/16, 9.1, 8.3 09/17, 8.2 09/18 , Hg 8.7 09/19 7. ACS/nstemi- first EKG benign controlled still going up, thank you cardiology Dr.Paliwal gonzalez (dx stress cardiomyopathy noted) ongoing volume resuscitation any cardio interventions/meds cont heparin ggt 09/16-. Trops seemed to plateau and may be trending down will continue to trend 09/19. No change in current medical management. 8. DVT- R leg 09/16, left leg poorly visualized patient on heparin drip, holding further anticoagulation pending cardiac evaluation and need for DAPT and anticoagulation, not pursuing PE as I do not think that would management advisor and patient is still quite unstable and it is not worth the benefit of pursuing this diagnosis. Hyperkalemia, 2' CLAY. Resolved. Kayexalate, insulin/dextrose, albuterol and sodium bicarb given 09/15-09/16. Last K+ 5.0 0700, 4.7 1400 09/16, 4.6 09/17, 3.8 09/18, 3.9 09/19 Hyponatremia, c/w volume depletion, Na 127 0800, 127 1400 09/16, 131 09/17, 131 09/18, 131 09/19 CLAY- baseline Cr 0.7 05/2016, Cr 1.78 1400 09/16, 1.3 09/17, 1.29 09/18, 1.49 09/19 Thanks renal for following/recommendations Metabolic acidosis (gap), lactate 2.2, 5.0 09/17, 1.9 09/18, HCO3 still 15 , 15 09/18, 18 09/19 follow, multifactorial tx sepsis/volume/ 2' ileostomy output, resume bicarb drip 09/18 DM2/hyperglycemia, low-dose sliding scale, . Holding on resuming metformin/ glyburide. BS 140s 09/19, Rectal cancer, Oncologist Wicho Delong. Uncertain of current treatment regimen, if any. loop Ileostomy w/ ansatamotic dehisence 05/2016 s/p 2-3 drains Vietnamese now another 09/18 thank you surgery/Dr. Blanc evaluating Metabolic encephalopathy-discontinue fentanyl and narcotics and other sedating medications, seems to be clearing 09/17, pt sedated for ventilation Ileostomy- - Consider wound care consultation for ostomy management. Hypothyroidism, chronic, presume stable. - Holding levothyroxine 50 mcg daily at this time until patient stabilizes. Prophylaxis-DVT patient already has (SCD contraindicated) on heparin drip , GI pantoprazole IV Disposition- full code from [facility] Pain Evaluation: Adequate Pain Control GI Prophylaxis: Proton Pump Inhibitor VTE Prophylaxis: SCDs, Other Resuscitation Status: CPR: Attempt Resuscitation Time spent 35 minutes, met with at bedside. Discussed overall prognosis and current treatment with him. Puma Johnson MD Sep 20, 2016 11:34 Pain Evaluation: Adequate Pain Control GI Prophylaxis: Proton Pump Inhibitor VTE Prophylaxis: SCDs, Other Resuscitation Status: CPR: Attempt Resuscitation Time spent 30 minutes Puma Johnson MD Sep 21, 2016 14:16
--- NOTE | 2016-09-21 16:47 | NUR ---
Social Work: Continued Discharge Planning D: Pt discussed in am rounds. Pt is on ay 5 of stay and was vented overnight on 09/17. Pt remains vented and sedated in the CCU. Pt comes from [facility] where she was in a rehab bed. [facility] spoke with pt's spouse prior to ventalation and they both agreed that she would return there once medically stable. Per MD, pt likely to be here at least another week. Pt has been accepted back with Dr. Krishnan to follow. PPW is on chart. A: Pt who will likely require skilled rehab at time of discharge P: Anticipate pt to discharge back to [facility] with Dr. Krishnan to follow once medically stable; [facility] to continue to follow. FREEDOM Scherer
--- NOTE | 2016-09-21 18:40 | NUR ---
HEMODYNAMICS/RESPIRATORY/SEDATION/ART LINE Patient remains on 0.15 mcg/kg/min of Norepinephrine, currently maintaining BPs 90s-100s/40s-60s, and MAP >60. Required slightly higher dose for approx 2-3 hours, but has tolerated the titration to current dosing. Pressure support trial attempted this afternoon. Patient was started on PST w/ 30% FiO2 and pressure support of 5/5. She tolerated this session for approximately 90 minutes, and will likely extubate tomorrow if able to tolerate another PST in the morning. Sedated w/ Fentanyl and Propofol, which were decreased for PST to 40 mcg/hr and 10 mcg/kg/min. She is tolerating these current infusion rates, does not appear to be anxious and wakes intermittently, but does not becomes restless or combative. Will continue this rate of sedation, and bolus w/ Fentanyl as needed. Art line removed at 1100 from R radial artery.
[2016-09-21] MEDS: Heparin 25K Unit/500mL 0.45 NS 25,000 UNIT in IV Premix 1 EACH IV SCH (19:51)
--- NOTE | 2016-09-21 20:52 | DRSVH ---
PROCEDURE: CT CHEST, ABDOMEN AND PELVIS [facility] CONTRAST ([id number]) INDICATIONS: assess abscess, pneumonia, intubated TECHNIQUE: After the administration of oral and intravenous contrast, 5 mm thick sections acquired from the lung apices to the symphysis. 5 mm coronal and sagittal reformats were performed, with additional 7 mm c oronal MIP reformats through the lungs. For radiation dose reduction, the following was used: autom ated exposure control, adjustment of mA and/or kV according to patient size. COMPARISON: [facility], CT, CT ABD PELVIS WO CON, 09/18/2016, 0:30. FINDINGS: Image quality: Excellent. CHEST: Lungs and pleura: Respiratory motion limits evaluation however there are multiple areas of consolida tion within the upper lobes and lower lobes bilaterally. Small to moderate bilateral pleural effusion s with adjacent atelectasis. Mediastinum: Heart size is normal. No pericardial effusion. No mediastinal or hilar adenopathy by size criteria. Thoracic aorta and central pulmonary arteries are normal in size. Esophagus is rafael l in caliber. No hiatal hernia. Chest wall: No axillary or supraclavicular adenopathy by size criteria. Thyroid gland unremarkable. ABDOMEN: Solid organs: Liver and spleen are normal in size and enhancement. Gallbladder grossly unremarkable . Biliary system is non dilated. Pancreas enhances normally. No adrenal nodules. Kidneys demonstr ate normal size and enhancement, without hydronephrosis. Peritoneum and bowel: Bowel loops demonstrate normal wall thickness and caliber. No free fluid or a ir. There is a right-sided ostomy. There is a anastacio ostial hernia containing bowel loops and fluid wi thout evidence of obstruction. Previously seen presacral fluid and gas collection appears decreased since 09/18/16. There is a drain versus rectal catheter present. Nodes and vessels: No retroperitoneal or mesenteric adenopathy by size criteria. Aorta and inferior vena cava are normal in size. Miscellaneous: No ventral hernias. PELVIS: Genitourinary: Bladder wall thickness is normal. Jordan catheter is present and the bladder is decom pressed Miscellaneous: No inguinal hernias or adenopathy. Bones: No suspicious bony lesions. No vertebral body compression fractures. IMPRESSION: Decrease in presacral fluid and gas collection since 09/18/16. Small to moderate bilateral pleural effusions with adjacent atelectasis. Multifocal areas of consolid ation within the upper and lower lobes suggestive of pneumonia and/or aspiration. Additional chronic and incidental findings as above. Dictated by: Isaac Mchugh M.D. on 09/21/2016 at 20:42 Approved by: Isaac Mchugh M.D. on 09/21/2016 at 20:51
[2016-09-22] VITALS (8 sets, daily range): BP systolic 101–126; BP diastolic 47–78; PULSE 78–95; RESP 13–17; O2SAT 97–100
[2016-09-22] MEDS: Meropenem Inj 1,000 MG in IV Premix 1 EACH IV SCH ×2 (00:40→08:11)
[2016-09-22] MEDS: Hydrocortisone 50 mg/mL 2 mL Inj IVPUSH SCH ×3 (00:40→17:30)
[2016-09-22] MEDS: Propofol Inj 1,000,000 MCG in IV Premix 1 EACH IV SCH ×2 (00:41→22:13)
--- NOTE | 2016-09-22 04:30 | NUR ---
Vent, Sedation, nutrition VS as noted. Continues ventilated with sats high 90s on 30% fio2 without desasts. Suctioning small amounts creamy don secretions per ett. Propofol 10mcg/kg/min and Fentanyl 40mcg/h unchanged. Opens eyes to stim but does not follow commands. Spontaneously breathing above vent rate. Tolerating tube feeds well. Ileostomy device leaking around site and changed twice. Abdomenal fold cleansed and absorbent dressings placed.
[2016-09-22 05:28] LABS: BASOPHILS % (AUTO) 0.1 % (0-3); EOSINOPHILS % (AUTO) 0 % (0-5); MONOCYTES % (AUTO) 3.4 % (4-12); Mean Corpuscular Hemoglobin 27.4 pg (27.0-35.0); Mean Corpuscular Volume 82.1 fL (81-100); NEUTROPHILS % (AUTO) 91.4 % (40-74); Platelet Count 157 bil/L (150-400)
[2016-09-22 07:48] LABS: Magnesium 1.9 mg/dL (1.6-2.6); Phosphorus 2.9 mg/dL (2.5-4.9)
[2016-09-22] MEDS: Pantoprazole 4 mg/mL 10 mL Inj IVPUSH SCH (08:00)
[2016-09-22] MEDS: Sodium-Potassium Phosphorus Packet TUBE SCH ×4 (08:18→19:45)
--- NOTE | 2016-09-22 09:05 | PCM.PNMED ---
Subjective Date of Service Sep 22, 2016 Subjective She is intubated and less sedated. Eyes are open. She still not able to track. ROS subjective not obtainable. Exam Vital Signs Vital Sign - Last Date Time Temp Pulse Resp B/P Pulse Ox O2 Delivery O2 Flow Rate FiO2 09/22/16 07:51 79 107/60 100 30 09/22/16 04:00 Ventilator 09/22/16 04:00 36.4 13 09/17/16 19:20 9.00 Intake and Output 09/21/16 09/21/16 09/22/16 Cumulative From/Thru 15:00 23:00 07:00 09/15/16 23:05 - 09/22/16 05:40 Intake Total 3228 ml 2374 ml 59240 ml Output Total 4270 ml 2450 ml 27648 ml Balance -1042 ml -76 ml 19932 ml Intake Oral 0 ml IV Total 2560 ml 1861 ml 53799 ml Tube Feeding 588 ml 473 ml 3383 ml Tube Irrigant 80 ml 40 ml 618 ml Output Urine Total 4000 ml 2250 ml 47904 ml Stool Total 250 ml 200 ml 2930 ml Gastric Drainage Total 0 ml Drainage Total 20 ml 550 ml Exam Intubated. Not able to talk. Eyes are open, not clearly following commands. Anicteric sclera Lungs are clear, no expiratory wheezing is appreciated Heart is regular without murmur gallop or rub. Abdomen is distended but not tender rigid. Ostomy is in place Extremities with 2+ edema and venous stasis changes. IVs and Medications Medications Reviewed: Medications were reviewed in detail Lab and Diagnostics Result Diagram: 09/22/16 0520 09/22/16 0520 Microbiology MRSA, blood, urine pending X-Rays, CTs and MRIs CXR 09/19 1. Support lines and tubes as above. 2. Pulmonary edema and/or bilateral multifocal pneumonia similar to prior exam. CXR 09/18 -personally/concurrently reviewed by Yuan 09/18 1. Lines and tubes as above. 2. Worsening pulmonary edema and/or diffuse bilateral inflammatory process. Correlate clinically. CT abd/pelvis 09/17 -personally/concurrently reviewed by Yuan 09/18 1. In absence of oral and IV contrast, evaluation for bowel ischemia is limited ; but no definitive evidence for bowel ischemia. 2. Presacral soft tissue thickening with fluid and air collection appears unchanged and remains suspicious for abscess. 3. Bibasilar infiltrates and consolidation consistent with pneumonia. Small to moderate bilateral effusions. Recommend followup to resolution. 4. Abnormal appearance of gallbladder with wall thickening and hyperdensity within the gallbladder lumen. Recommend clinical correlation for acute cholecystitis. 5. A 2 mm nonobstructive renal calculus in the proximal left ureter just beyond the UPJ, unchanged. CXR IMPRESSION: No acute cardiopulmonary disease. Umer Smith M.D. on 09/16/2016 at 8:06 personally/concurrently reviewed by Yuan 09/16 CT abdomen/pelvis: Personally/concurrently reviewed by Yuan 09/16 Impression: No evidence of obstructive uropathy. There is a 2 mm stone in the region of the left UPJ producing no apparent obstruction. There is marked distortion of the lower rectum and anal region is irregular soft tissue density, fluid density, and gas collections. Differential considerations include rectal neoplasm, abscess, postsurgical change or combination thereof. Findings need to be correlated with surgical history and symptoms. There is parastomal herniation of small bowel segment at the site of the patient 's right lower quadrant ileostomy. There is no evidence of small bowel obstruction or other complication. NightShift reader: Alok Rose MD 12-lead ECG 09/16 11:00 personally/concurrently reviewed by Yuan . Sinus rhythm 55, QTC 444 ms . Atrial premature complex . Inferior infarct, old . Consider anterior infarct Sinus rhythm personally/concurrently reviewed by Yuan 09/16 * Left bundle branch block rate 75, QTC 430 ms . When compared with ECG of 15-Sep-2016 22:59:46, * No significant change none prior to 09/15 Multiple EKG's taken in ED. Rate 75-85. Peaked T waves in first EKG in keeping with hyperkalemia on labs. Improved on subsequent exam. QTc 495 on first EKG improved to 443 . Cardiac Echo Impressions ECHO 08/27 Paliwal Interpretation Summary The left ventricle is not well visualized. The left ventricle is mildly dilated.The ejection fraction is estimated to be 25-30%. Except basal segments which are marcos slightly hyperdynamic rest of the LV segments are severely hypokinetic to akinetic with apical ballooning. These findings suggest likely stress induced cardiomyopathy, however multivessel CAD can not be ruled out. Compared to the prior exam, left ventricular function is significantly decreased with new wall motion abnormalities. The right ventricle is normal in size and function. There is severe posterior mitral annulus calcification, extending in to the subvalvular apparatus as well with restricted posterior mitral leaflet. Based on pressure half time MVA is about 1.7 cm square. Overall based on doppler profile across the MV, MS does not appear to be severe. It appears to be in moderate range. The mitral valve mean gradient is 6.2 mmHg. The mean MV gradient was 10.2 mmHg on the prior echo. There is mild to moderate tricuspid regurgitation. Right ventricular systolic pressure is estimated to be 48 mmHg plus the clinically estimated CVP which cannot be estimated on this exam. Assessment & Plan 1. Rectal abscess- continue antibiotic coverage for Enterobacter at this point as well as secondary coverage for MRSA. The patient has a catheter in place which is hooked to suction. Will await surgery's recommendations regarding other procedural aspects of this abscess treatment. No change to current antibiotics. CT scan yesterday indicates that the abscess is slightly smaller in size. There is minimal drainage output. Think the question is whether or not the current drainage of abscesses adequate to help her overcome this process. No changed antibiotics. 2. Acute hypoxic respiratory failure-Mutlifactorial. The patient is intubated and ventilated. She is still requiring a fair amount of sedation. Her FiO2 is 0.40. She also has MRSA in sputum but this may well represent colonization. CT scan indicates possible basilar infiltrates. He also has pleural effusions consistent with Lyme overload from her fluid resuscitation. The plan today is to wean sedation and pursue a breathing trial to see if there is any chance of extubation. 3. Hypotension, septic shock - echo showed improvement of EF to 40%, yesterday. Her norepinephrine is actively being weaned. 4. Acute systolic CHF, presumed stress cardiomyopathy-down her echo did show improvement with an EF of 40%. 5. Pneumonia-is reaffirmed by CT scan yesterday. No changed antibiotics. 6. Acute anemia, unclear etiology-this is relatively stable. 7. DVT- R leg 09/16, left leg poorly visualized patient on heparin drip, holding further anticoagulation pending cardiac evaluation and need for DAPT and anticoagulation, not pursuing PE as I do not think that would belt changer and patient is still quite unstable and it is not worth the benefit of pursuing this diagnosis. Hyperkalemia, 2' CLAY. Resolved. Kayexalate, insulin/dextrose, albuterol and sodium bicarb given 09/15-09/16. Last K+ 5.0 0700, 4.7 1400 09/16, 4.6 09/17, 3.8 09/18, 3.9 09/19 Hyponatremia, c/w volume depletion, Na 127 0800, 127 1400 09/16, 131 09/17, 131 09/18, 131 09/19 CLAY- baseline Cr 0.7 05/2016, Cr 1.78 1400 09/16, 1.3 09/17, 1.29 09/18, 1.49 09/19 Thanks renal for following/recommendations Metabolic acidosis (gap), lactate 2.2, 5.0 09/17, 1.9 09/18, HCO3 still 15 , 15 09/18, 18 09/19 follow, multifactorial tx sepsis/volume/ 2' ileostomy output, resume bicarb drip 09/18 DM2/hyperglycemia, low-dose sliding scale, . Holding on resuming metformin/ glyburide. BS 140s 09/19, Rectal cancer, Oncologist Wicho Delong. Uncertain of current treatment regimen, if any. loop Ileostomy w/ ansatamotic dehisence 05/2016 s/p 2-3 drains Polish now another 09/18 thank you surgery/Dr. Blanc evaluating Metabolic encephalopathy-discontinue fentanyl and narcotics and other sedating medications, seems to be clearing 09/17, pt sedated for ventilation Ileostomy- - Consider wound care consultation for ostomy management. Hypothyroidism, chronic, presume stable. - Holding levothyroxine 50 mcg daily at this time until patient stabilizes. Prophylaxis-DVT patient already has (SCD contraindicated) on heparin drip , GI pantoprazole IV Disposition- full code from [facility] [place] Pain Evaluation: Adequate Pain Control GI Prophylaxis: Proton Pump Inhibitor VTE Prophylaxis: SCDs, Other Resuscitation Status: CPR: Attempt Resuscitation Time spent 30 minute Puma Johnson MD Sep 22, 2016 09:05
[2016-09-22] MEDS ORDERED: Trimethoprim-Sulfa 160 mg-800 mg Tablet PO SCH (09:19)
[2016-09-22] MEDS: Linezolid Inj 600 MG in IV Premix 1 EACH IV SCH ×2 (09:36→20:35)
[2016-09-22] MEDS: Insulin LISPRO 300 Unit/3 mL Inj SUBQ SCH ×4 (09:38→21:51)
--- NOTE | 2016-09-22 09:49 | DRSVH ---
PROCEDURE: X-RAY CHEST ONE VIEW, PORTABLE ([id number]) INDICATIONS: intubated TECHNIQUE: One view of the chest was acquired. COMPARISON: [facility], CR, XR CHEST 1VW (PORTABLE), 09/21/2016, 6:33. FINDINGS: Surgical changes and devices: Stable position of ETT, nasogastric tube and right IJ CVL. Lungs and pleura: Mild venous congestion and bibasilar air space opacities not significantly changed. No pneumothorax. Mediastinum: Mediastinal contours appear normal. Heart size is enlarged. Bones and chest wall: No suspicious bony lesions. Overlying soft tissues appear unremarkable. IMPRESSION: No significant change from prior exam. Dictated by: Wilton Casas RRA Interpreted: Abigail Acosta MD on 09/22/2016 at 9:47 Transcribed by: RADHA on 09/22/2016 at 9:48 Approved by: Abigail Acosta MD, PhD on 09/22/2016 at 16:46
[2016-09-22] MEDS ORDERED: Insulin Human REGular Inj 100 UNIT in 0.9% Sodium Chloride-Pha MIX 100 ML IV SCH (09:59)
--- NOTE | 2016-09-22 10:04 | PCM.PNMED ---
Subjective Date of Service Sep 22, 2016 Subjective PULMONARY/CRITICAL CARE PROGRESS NOTE Overnight: No acute events. Tolerated 90m trial yesterday. Today: Appears comfortable. Eyes open and following commands. In process of PST , tolerating well. Vent: PST FiO2 30 PEEP 5 Other: Net IO + 15L; 24hUOP 6400mL; 24hNet IO + 302mL; perianal drain to suction with minimal output Labs: Na 142, K 5.2, Cl 103, HCO 17, Cr 1.16, Mg 1.9; PCT 0.27 Exam Vital Signs Vital Sign - Last Date Time Temp Pulse Resp B/P Pulse Ox O2 Delivery O2 Flow Rate FiO2 09/22/16 07:51 79 107/60 100 30 09/22/16 04:00 Ventilator 09/22/16 04:00 36.4 13 09/17/16 19:20 9.00 Intake and Output 09/21/16 09/21/16 09/22/16 Cumulative From/Thru 15:00 23:00 07:00 09/15/16 23:05 - 09/22/16 05:40 Intake Total 3228 ml 2374 ml 55863 ml Output Total 4270 ml 2450 ml 42173 ml Balance -1042 ml -76 ml 32783 ml Intake Oral 0 ml IV Total 2560 ml 1861 ml 57206 ml Tube Feeding 588 ml 473 ml 3383 ml Tube Irrigant 80 ml 40 ml 618 ml Output Urine Total 4000 ml 2250 ml 17076 ml Stool Total 250 ml 200 ml 2930 ml Gastric Drainage Total 0 ml Drainage Total 20 ml 550 ml Exam General: Intubated and sedated; no acute distress; responding to stimuli and following commands HENT: Sclera anicteric; ETT in place, mucus membranes dry Neck: Soft, obese, trachea midline by palpation; edematous; RIJ in place Cardiac: Regular rate and regular rhythm; no murmurs appreciated Respiratory: Sounds faint secondary to habitus; faint crackles at bases bilaterally; no wheeze appreciated Abdomen: Soft, nontender, nondistended; obese; ileostomy RLQ with dark, liquid output Extremities: BLLE moderate chronic venous stasis changes; no distal palpable pulses : Jordan in place; urine yellow; perianal drain in place to suction; insertion site not visualized Skin: Warm, dry Neuro: Unable to fully assess secondary to intubation and sedation; aroused to voice stimuli; follows commands Psych: Unable to assess at this time secondary to intubation and sedation Lab and Diagnostics Result Diagram: 09/22/1651909/22/16519 Microbiology MRSA, blood, urine pending X-Rays, CTs and MRIs CXR 09/19 1. Support lines and tubes as above. 2. Pulmonary edema and/or bilateral multifocal pneumonia similar to prior exam. CXR 09/18 -personally/concurrently reviewed by Yuan 09/18 1. Lines and tubes as above. 2. Worsening pulmonary edema and/or diffuse bilateral inflammatory process. Correlate clinically. CT abd/pelvis 09/17 -personally/concurrently reviewed by Yuan 09/18 1. In absence of oral and IV contrast, evaluation for bowel ischemia is limited ; but no definitive evidence for bowel ischemia. 2. Presacral soft tissue thickening with fluid and air collection appears unchanged and remains suspicious for abscess. 3. Bibasilar infiltrates and consolidation consistent with pneumonia. Small to moderate bilateral effusions. Recommend followup to resolution. 4. Abnormal appearance of gallbladder with wall thickening and hyperdensity within the gallbladder lumen. Recommend clinical correlation for acute cholecystitis. 5. A 2 mm nonobstructive renal calculus in the proximal left ureter just beyond the UPJ, unchanged. CXR IMPRESSION: No acute cardiopulmonary disease. Umer Smith M.D. on 09/16/2016 at 8:06 personally/concurrently reviewed by Yuan 09/16 CT abdomen/pelvis: Personally/concurrently reviewed by Yuan 09/16 Impression: No evidence of obstructive uropathy. There is a 2 mm stone in the region of the left UPJ producing no apparent obstruction. There is marked distortion of the lower rectum and anal region is irregular soft tissue density, fluid density, and gas collections. Differential considerations include rectal neoplasm, abscess, postsurgical change or combination thereof. Findings need to be correlated with surgical history and symptoms. There is parastomal herniation of small bowel segment at the site of the patient 's right lower quadrant ileostomy. There is no evidence of small bowel obstruction or other complication. NightShift reader: Alok Rose MD 12-lead ECG 09/16 11:00 personally/concurrently reviewed by Yuan . Sinus rhythm 55, QTC 444 ms . Atrial premature complex . Inferior infarct, old . Consider anterior infarct Sinus rhythm personally/concurrently reviewed by Yuan 09/16 * Left bundle branch block rate 75, QTC 430 ms . When compared with ECG of 15-Sep-2016 22:59:46, * No significant change none prior to 09/15 Multiple EKG's taken in ED. Rate 75-85. Peaked T waves in first EKG in keeping with hyperkalemia on labs. Improved on subsequent exam. QTc 495 on first EKG improved to 443 . Cardiac Echo Impressions ECHO 08/27 [place] Interpretation Summary The left ventricle is not well visualized. The left ventricle is mildly dilated.The ejection fraction is estimated to be 25-30%. Except basal segments which are marcos slightly hyperdynamic rest of the LV segments are severely hypokinetic to akinetic with apical ballooning. These findings suggest likely stress induced cardiomyopathy, however multivessel CAD can not be ruled out. Compared to the prior exam, left ventricular function is significantly decreased with new wall motion abnormalities. The right ventricle is normal in size and function. There is severe posterior mitral annulus calcification, extending in to the subvalvular apparatus as well with restricted posterior mitral leaflet. Based on pressure half time MVA is about 1.7 cm square. Overall based on doppler profile across the MV, MS does not appear to be severe. It appears to be in moderate range. The mitral valve mean gradient is 6.2 mmHg. The mean MV gradient was 10.2 mmHg on the prior echo. There is mild to moderate tricuspid regurgitation. Right ventricular systolic pressure is estimated to be 48 mmHg plus the clinically estimated CVP which cannot be estimated on this exam. Assessment & Plan PULMONARY/CRITICAL CARE PROGRESS NOTE - Hospital day 7 - Ventilator day 5 Ms. Heather Cody is a 70 year old woman with history of rectal carcinoma s/p resection with ileostomy placement, DM2, and hypothyroidism, that presented from [facility] with increased weakness, confusion, and lethargy. On admission, initial labs revealed K 6.9. She was admitted for evaluation and treatment of CLAY due to volume depletion and septic chock secondary to PNA vs UTI vs perirectal abscess, hypovolemic hyponatremia, hyperkalemia, and elevated troponin secondary to stress-induced cardiomyopathy. Micro studies: MRSA screen POSITIVE; Sputum Cx (+) MRSA, does not appear to have MRSA PNA; BCx 09/16 no growth to date; UCx 09/15 Enterobacter cloacae- carbapenem resistant; Abscess sent for stain and culture. Preliminary results of E.coli from abscess cultures, which may be two different types. Imaging: CT 09/16 fluid collection suggestive of abscess within presacral region measuring 3.5 x 7.5cm; repeat CT completed 09/17 confirmed abscess. BLLE doppler revealed left distal femoral and left popliteal DVT; BLLE arterial studies did not reveal any areas of significant stenosis. Echo 09/16 revealed EF25-30 with apical ballooning and normal RV size and function, indicative of stress-induced cardiomyopathy. Repeat imaging completed 09/21 included: CT C/A/P that revealed presacral abscess that appears decreased in size; Echo revealed improved cardiac function with EF 40 +/- 5 with apical hypokinesis of distal third. General surgery has been consulted, and has kindly agreed to follow. Pelvic/ perianal drain placed 09/18. Cardiology kindly consulted; recommending to treat stress-induced cardiomyopathy medically at this time, with initiation of therapies as BP stabilizes and CLAY resolves. ID consulted, will continue to monitor studies and antibiotic changes as needed. Nephrology has been consulted and has kindly agreed to follow, appreciate time and recommendations with fluid and electrolyte management. Recommendations also include NILTON when pt stabilized to eval valves. Discussion 09/21 revolved around etiology of persistent hypotension. Infectious source unlikely, as she is receiving multiple antibiotics, has been afebrile, and PCT has decreased. Possible concern cardiogenic vs adrenal insufficiency. No known use of chronic steroids. Cortisol level obtained 09/21 revealed value of 8.0; Solu-cortef continued. Assessments Acute hypoxemic respiratory failure requiring mechanical ventilation CLAY secondary to volume depletion and sepsis Septic shock secondary to presumed PNA, UTI, and/or perirectal abscess Perirectal abscess secondary to anastomotic dehiscence s/p drain placement Hypovolemic hyponatremia Hyperkalemia Elevated troponin secondary to stress-induced cardiomyopathy UTI, Enterobacter cloacae DVT of left lower extremity MRSA positive: Screen, sputum Plan - Tx stress-induced cardiomyopathy medically at this time: Cardiology recs include beta-violette tx initiation once stabilized and off pressors, initiation ACEi when CLAY resolved; consideration of cardiac cath when stabilized - Abx per ID: Bactrim, meropenem, linezolid - Continue heparin gtt for DVT; consider transition when appropriate - Continue to wean pressors as tolerated - Daily ABGs/CXR - Continue Solu-cortef 100mg q8 - Insulin gtt for improved coverage; transition to correctional scale after swallow eval - All sedation off - SBT, with plans to extubate in afternoon if progressing well - Speech eval post extubation DVT prophylaxis: Therapeutic heparin gtt GI: PPI Nutrition: Tube feeds initiated; at goal PT: Consulted; will see Thank you for this interesting consult, we will happily follow along at this time. Please let us know any additional questions or concerns. Total time: 60 minutes Pain Evaluation: Adequate Pain Control GI Prophylaxis: Proton Pump Inhibitor VTE Prophylaxis: SCDs, Other Resuscitation Status: CPR: Attempt Resuscitation Attending Statement I have seen and examined this patient with the resident physician. Vital signs , labs, imaging have been reviewed. I agree with the assessment and plan above. Please refer to my separately dictated progress note for any modifications to above. Geena Tillman M.D. Pulmonary and Critical Care medicine Pager [phone] Leeann Shaver DO Sep 22, 2016 10:04 Geena Tillman MD Sep 22, 2016 15:52
--- NOTE | 2016-09-22 11:24 | PROG NOTE ---
[address] [address] PROGRESS NOTE PATIENT: JOHN SMITH : 1945 MR#: [id number] ADMIT: 09/16/2016 JOB ID: [id number] DATE: 09/22/2016 INFECTIOUS DISEASE FOLLOW UP NOTE: REASON FOR FOLLOW UP: Complex perirectal abscess with septic shock and ventilatory dependent respiratory failure. INTERVAL HISTORY: As was discussed yesterday, steroid replacement was added to this patient because of concerns about hypoadrenalism. We also continued with our very broad-spectrum antibiotics directed at her perirectal abscess and additional imaging was requested. Today, the patient is awake on the ventilator and appears somewhat anxious. She is not interactive enough to derive any history from but we did discuss her case in detail on ICU rounds. The patient remains on moderate doses of norepinephrine but much lower than yesterday at 0.08 mcg/kg/minute. Her ventilator settings have also improved somewhat and she is down to 30% FiO2 and 5 of PEEP. PHYSICAL EXAMINATION: Reveals an intubated, somewhat sedated woman who does seem to be following events in the room though cannot really clearly communicate. Her temperature is 38.1. It was 38.1 last night. Otherwise, she has been afebrile throughout her hospital stay. Pulse is 79, blood pressure 107/60 on 0.08 mcg/kg/minute of norepinephrine, saturating very well on 30% and 5 of PEEP. The patient's eyes are without conjunctival or scleral abnormality. Oral endotracheal tube, oral gastric tube in good position. Neck with central line otherwise negative. Lungs quite clear today bilaterally. Cardiac tones irregular rate and rhythm without murmur. The abdomen is soft and nontender. The perirectal drain is basically not draining anything at this point. No skin rashes noted and the extremities are well perfused. LABORATORIES: Include a white count of 10,000. Platelet count is 157,000. Creatinine 1.16. Procalcitonin has dropped to 0.27 which shows evidence of continued improvement. LFTs reasonably normal with slight increase of ALT to 44. Micro studies include the urine which was notable for a highly resistant Enterobacter cloacae that was sensitive to Bactrim. It was also susceptible to Colistin and Ceptaz-avibactam and the VANNESA to Ceptaz-avibactam was 4. Susceptibility testing for tigecycline is pending. The sputum and nares culture both grew MRSA which was also sensitive to Bactrim interestingly and the rectal abscess is growing enterococci with susceptibilities pending as well as at least two separate gram negative rods. IMAGING: Includes a chest x-ray done today which is unchanged and shows some mild venous congestion but no real infiltrates. Yesterday's CT of the chest, abdomen and pelvis was reviewed on the view screen with the ICU team. There is a decrease in the presacral fluid and gas collection which represents an abscess since September 18. IMPRESSION: This is a complex patient who has had recurring perirectal abscesses after rectal cancer surgery. The very purulent collection she presented with some six days ago has been largely drained and the patient seems to be overall improving, though she still is ventilator dependent, albeit on lower settings, and she is still hypotensive, though on somewhat lower doses than yesterday. Part of the hypotension is likely secondary to relative adrenal insufficiency and that is being addressed by the ICU team. In addition, the patient has a polymicrobial infection in the abscess which has at least enterococci, two gram negative rods, two aerobic gram-negative rods, anaerobes which we detected by smelling them and she also has the highly resistant gram-negative mi in her urine. We are attempting to address this panoply of organisms with extremely broad-spectrum antibiotics and I regret we still cannot narrow them very much. RECOMMENDATIONS: 1. Will continue with our broad coverage of linezolid, meropenem and trimethoprim sulfamethoxazole. The linezolid is for the MRSA in the sputum as well as the Enterococcus which as of yet has no sensitivities in the rectal abscess. The meropenem is for broad-spectrum coverage of the gram-negative rods and the anaerobes found in the perirectal abscess and the trimethoprim sulfamethoxazole is for coverage of the highly resistant urinary organism. I recognize this is not in any way an elegant use of antibiotics but it is difficult to narrow without more data. 2. We await the tigecycline and ceftolozine susceptibilities on the urinary isolate as well as all the susceptibilities on the rectal abscess isolate. 3. This case discussed in detail with the ICU team.
[2016-09-22] MEDS ORDERED: Glucose 40% Oral Gel 15 Gm Tube PO PRN (11:30)
--- NOTE | 2016-09-22 11:44 | PROG NOTE ---
[address] [address] PROGRESS NOTE PATIENT: JOHN SMITH : 1945 MR#: [id number] ADMIT: 09/16/2016 JOB ID: [id number] DATE: 09/22/2016 PULMONARY CRITICAL CARE PROGRESS NOTE: A 70-year-old woman with history of rectal cancer, status post low anterior resection in May, admitted with septic shock, respiratory failure and presacral abscess. INTERVAL HISTORY: She is doing well on her spontaneous breathing trial both yesterday evening and today. No other events. REVIEW OF SYSTEMS: Unable to obtain. PHYSICAL EXAMINATION: Vital signs reviewed. T-max 38.1 last night, pulse 79, respirations 13, BP 114/58, sats 99% on 30% FiO2 and 5 cm of PEEP. General: Intubated. Slightly more awake than yesterday. Eyes open to voice but does not follow commands for me. Chest: Clear to auscultation. LABORATORIES: Reviewed. Notable for WBC stable at 10. Chemistry also reviewed, and creatinine is down to 1.16. IMAGING: CT chest, abdomen and pelvis reviewed. There is bibasilar atelectasis and small bilateral pleural effusions on the CT. Abdominal CT shows improvement in presacral/perirectal abscess. ASSESSMENT AND RECOMMENDATIONS: 1. Acute hypoxic respiratory failure. 2. Septic shock -- on lower dose vasopressors today. 3. Rectal carcinoma, status post low anterior resection in May, complicated by anastomotic dehiscence. 4. Presacral abscess, status post drainage and washout in the operating room on September 18. 5. Deep venous thrombosis, on heparin drip. 6. Takotsubo cardiomyopathy. 7. Acute kidney injury -- resolved. A 70-year-old woman with rectal cancer, status post low anterior resection in May with anastomotic dehiscence and recurrent infections and abscesses requiring drainage, presenting here with septic shock, for which she underwent drain placement in the operating room on September 18. Because of persistent pressor requirements we checked a cortisol level yesterday which was 8. We added hydrocortisone 100 mg IV q.8 h. for possibility of relative adrenal insufficiency. I would say that the serum cortisol of 8 seems inappropriate in view of septic shock and is consistent with relative adrenal insufficiency. So, we will continue the hydrocortisone. Her norepinephrine level is down from 0.2 to 0.08 today, and I think this is promising that she is responding to the steroids. Antibiotic wallis, she was broadened to meropenem from Zosyn, and linezolid, as well as Bactrim, are being continued to cover the resistant organisms that grew out of her urine. She is passing her spontaneous breathing trial today, so we are going to turn off her sedation and plan on extubation today. According to her , she remains a FULL CODE. It was planned to reintubate if needed, although I hope this will not be necessary. She is on a heparin drip for deep venous thrombosis. I wonder if we can switch this to enoxaparin. She is on appropriate gastrointestinal prophylaxis. She is FULL CODE. CRITICAL CARE TIME: 50 minutes.
--- NOTE | 2016-09-22 11:54 | PCM.PNMED ---
Subjective Date of Service Sep 22, 2016 Subjective The patient's renal function continues to improve. This morning her BUN and creatinine were 28 and 1.16. Exam Vital Signs Vital Sign - Last Date Time Temp Pulse Resp B/P Pulse Ox O2 Delivery O2 Flow Rate FiO2 09/22/16 08:00 Ventilator 09/22/16 07:51 79 107/60 100 30 09/22/16 04:00 36.4 13 09/17/16 19:20 9.00 Intake and Output 09/21/16 09/21/16 09/22/16 Cumulative From/Thru 15:00 23:00 07:00 09/15/16 23:05 - 09/22/16 05:40 Intake Total 3228 ml 2374 ml 36271 ml Output Total 4270 ml 2450 ml 30319 ml Balance -1042 ml -76 ml 44277 ml Intake Oral 0 ml IV Total 2560 ml 1861 ml 47830 ml Tube Feeding 588 ml 473 ml 3383 ml Tube Irrigant 80 ml 40 ml 618 ml Output Urine Total 4000 ml 2250 ml 95063 ml Stool Total 250 ml 200 ml 2930 ml Gastric Drainage Total 0 ml Drainage Total 20 ml 550 ml Exam Patient is sedated and on a ventilator and her oxygen requirements continued to decrease. Her exam is unchanged from our previous exams. Lab and Diagnostics Result Diagram: 09/22/16 0520 09/22/16 0520 Microbiology MRSA, blood, urine pending X-Rays, CTs and MRIs CXR 09/19 1. Support lines and tubes as above. 2. Pulmonary edema and/or bilateral multifocal pneumonia similar to prior exam. CXR 09/18 -personally/concurrently reviewed by Yuan 09/18 1. Lines and tubes as above. 2. Worsening pulmonary edema and/or diffuse bilateral inflammatory process. Correlate clinically. CT abd/pelvis 09/17 -personally/concurrently reviewed by Yuan 09/18 1. In absence of oral and IV contrast, evaluation for bowel ischemia is limited ; but no definitive evidence for bowel ischemia. 2. Presacral soft tissue thickening with fluid and air collection appears unchanged and remains suspicious for abscess. 3. Bibasilar infiltrates and consolidation consistent with pneumonia. Small to moderate bilateral effusions. Recommend followup to resolution. 4. Abnormal appearance of gallbladder with wall thickening and hyperdensity within the gallbladder lumen. Recommend clinical correlation for acute cholecystitis. 5. A 2 mm nonobstructive renal calculus in the proximal left ureter just beyond the UPJ, unchanged. CXR IMPRESSION: No acute cardiopulmonary disease. Umer Smith M.D. on 09/16/2016 at 8:06 personally/concurrently reviewed by Yuan 09/16 CT abdomen/pelvis: Personally/concurrently reviewed by Yuan 09/16 Impression: No evidence of obstructive uropathy. There is a 2 mm stone in the region of the left UPJ producing no apparent obstruction. There is marked distortion of the lower rectum and anal region is irregular soft tissue density, fluid density, and gas collections. Differential considerations include rectal neoplasm, abscess, postsurgical change or combination thereof. Findings need to be correlated with surgical history and symptoms. There is parastomal herniation of small bowel segment at the site of the patient 's right lower quadrant ileostomy. There is no evidence of small bowel obstruction or other complication. NightShift reader: Alok Rose MD 12-lead ECG 09/16 11:00 personally/concurrently reviewed by Yuan . Sinus rhythm 55, QTC 444 ms . Atrial premature complex . Inferior infarct, old . Consider anterior infarct Sinus rhythm personally/concurrently reviewed by Yuan 09/16 * Left bundle branch block rate 75, QTC 430 ms . When compared with ECG of 15-Sep-2016 22:59:46, * No significant change none prior to 09/15 Multiple EKG's taken in ED. Rate 75-85. Peaked T waves in first EKG in keeping with hyperkalemia on labs. Improved on subsequent exam. QTc 495 on first EKG improved to 443 . Cardiac Echo Impressions ECHO 08/27 [place] Interpretation Summary The left ventricle is not well visualized. The left ventricle is mildly dilated.The ejection fraction is estimated to be 25-30%. Except basal segments which are marcos slightly hyperdynamic rest of the LV segments are severely hypokinetic to akinetic with apical ballooning. These findings suggest likely stress induced cardiomyopathy, however multivessel CAD can not be ruled out. Compared to the prior exam, left ventricular function is significantly decreased with new wall motion abnormalities. The right ventricle is normal in size and function. There is severe posterior mitral annulus calcification, extending in to the subvalvular apparatus as well with restricted posterior mitral leaflet. Based on pressure half time MVA is about 1.7 cm square. Overall based on doppler profile across the MV, MS does not appear to be severe. It appears to be in moderate range. The mitral valve mean gradient is 6.2 mmHg. The mean MV gradient was 10.2 mmHg on the prior echo. There is mild to moderate tricuspid regurgitation. Right ventricular systolic pressure is estimated to be 48 mmHg plus the clinically estimated CVP which cannot be estimated on this exam. Assessment & Plan Impression 1. Acute kidney injury resolving Recommendations #1 the patient's renal function is returning to her baseline along with excellent urine output. At this point we will sign off the case. Please notify us if you have any questions or any further problems arise. GI Prophylaxis: Proton Pump Inhibitor VTE Prophylaxis: SCDs, Other VTE Mechanical Devices: Intermittant Pneumatic CD Resuscitation Status: CPR: Attempt Resuscitation Jaden He DO Sep 22, 2016 11:54
[2016-09-22] MEDS: fentaNYL 2,500 mCg/250 mL 2,500 MCG in IV Premix 1 EACH IV SCH ×2 (12:25→22:13)
--- NOTE | 2016-09-22 14:28 | NUR ---
Evaluation completed. Please go to "Notes" then click on "Assessments and Notes" (bottom left corner of screen). Then select appropriate discipline tab on top of screen.
--- NOTE | 2016-09-22 15:31 | NUR ---
Evaluation completed. Please go to "Notes" then click on "Assessments and Notes" (bottom left corner of screen). Then select appropriate discipline tab on top of screen.
[2016-09-22] MEDS ORDERED: Meropenem Inj 1,000 MG in 0.9% Sodium Chloride 50 ML IV SCH (16:30)
[2016-09-22] MEDS: Norepineph 8,000 mCg/250 mL NS 8,000 MCG in IV Premix 1 EACH IV SCH (17:35)
[2016-09-22] MEDS ORDERED: 0.9% Sodium Chloride 250 ML ONE (17:36)
--- NOTE | 2016-09-22 19:27 | NUR ---
Extubated at 1130 this morning, currently stable on room air with saturations mid to upper 90's. No s/s respiratory distress. Tolerates occasional ice chip without problems. Afebrile. Sedation gtts stopped at time of extubation, levophed currently at 0.05mcg with MAP greater than 60. IAP 13, monitoring discontinued. Cheetah monitor also discontinued. Oriented x2, calls out for nurse and doctor frequently. Refuses to turn off back, requires a lot of coaxing to remain on side for 20-30 minutes. Mepilex replaced over sacral open area and left hip wound. Ileostomy drainage system difficult to keep intact due to anatomy, wound care staff are assisting. and daughter here this afternoon. Care notes given defining sepsis, questions answered as able.
--- NOTE | 2016-09-22 19:27 | NUR ---
Wound Urostomy site continues to be difficult to maintain a seal at. replaced twice today. Used shiva rings and a convex moldable with a 45mm pouch, good seal attained. replace as needed. Maybe surgery could look at this stoma make recommendation or revise.
[2016-09-22] MEDS: DEXTROSE 5% IV SCH (20:34)
[2016-09-22] MEDS: TRIMETHOPRIM SULFA IV SCH (20:34)
[2016-09-22] MEDS ORDERED: 0.9% Sodium Chloride 500 ML ONE (21:08)
[2016-09-22] MEDS: Meropenem Inj 1,000 MG in 0.9% Sodium Chloride 50 ML IV SCH (21:48)
[2016-09-23] MEDS: Hydrocortisone 50 mg/mL 2 mL Inj IVPUSH SCH ×3 (00:17→17:16)
[2016-09-23 04:09] LABS: BASOPHILS % (AUTO) 0.1 % (0-3); EOSINOPHILS % (AUTO) 0 % (0-5); MONOCYTES % (AUTO) 3.8 % (4-12); Mean Corpuscular Hemoglobin 27.3 pg (27.0-35.0); Mean Corpuscular Volume 82.3 fL (81-100); NEUTROPHILS % (AUTO) 89.8 % (40-74); Platelet Count 111 bil/L (150-400)
[2016-09-23] MEDS: Meropenem Inj 1,000 MG in 0.9% Sodium Chloride 50 ML IV SCH ×3 (04:38→20:13)
[2016-09-23] MEDS: Heparin 25K Unit/500mL 0.45 NS 25,000 UNIT in IV Premix 1 EACH IV SCH (04:39)
[2016-09-23 04:41] VITALS: BP 91/58; PULSE 71; RESP 15; O2SAT 95
[2016-09-23 05:00] LABS: Magnesium 1.5 mg/dL (1.6-2.6); Phosphorus 2.7 mg/dL (2.5-4.9)
--- NOTE | 2016-09-23 06:42 | NUR ---
Mentation / Resp / Cardiac Patient remains oriented to person, knows she is in the hospital, knows she is in [facility] at times. Patient has generalized weakness, equal strength throughout. Patient remains on RA, SpO2 upper 90s. Lungs decreased. Rare cough productive at times. Levophed between standby and 0.05mcgs/kg/min. MAP goal >65. Tele mostly SR.
[2016-09-23] MEDS: Pantoprazole 4 mg/mL 10 mL Inj IVPUSH SCH (07:30)
[2016-09-23 07:59] VITALS: BP 114/43; PULSE 88; RESP 22; O2SAT 97
[2016-09-23] MEDS: Linezolid Inj 600 MG in IV Premix 1 EACH IV SCH ×2 (08:01→20:14)
[2016-09-23] MEDS: Insulin LISPRO 300 Unit/3 mL Inj SUBQ SCH ×4 (08:17→20:48)
[2016-09-23] MEDS: Sodium-Potassium Phosphorus Packet TUBE SCH ×5 (08:30→21:07)
--- NOTE | 2016-09-23 09:02 | DRSVH ---
PROCEDURE: X-RAY CHEST ONE VIEW, PORTABLE ([id number]) INDICATIONS: recent extubation TECHNIQUE: One view of the chest was acquired. COMPARISON: [facility], CR, XR CHEST 1VW (PORTABLE), 09/22/2016, 5:16. FINDINGS: Surgical changes and devices: ET tube and NG tube have been removed. Central venous catheter in stabl e position. Lungs and pleura: No pleural effusions or pneumothorax. Bibasilar airspace opacities have decreased in size. Venous congestion has diminished. Mediastinum: Mediastinal contours appear normal. Heart size is normal. Bones and chest wall: No suspicious bony lesions. Overlying soft tissues appear unremarkable. IMPRESSION: Resolving venous congestion and bibasilar opacities. Dictated by: Abigail Acosta MD, PhD on 09/23/2016 at 9:00 Approved by: Abigail Acosta MD, PhD on 09/23/2016 at 9:01
[2016-09-23] MEDS: TRIMETHOPRIM SULFA IV SCH ×2 (09:55→20:14)
[2016-09-23] MEDS: DEXTROSE 5% IV SCH ×2 (09:55→20:14)
[2016-09-23] MEDS ORDERED: Mag Sulf 4 Gm/100 mL IV Premix (Mag < 1.6 & Creat < 2) IV ONE (10:00)
[2016-09-23] MEDS ORDERED: 0.9% Sodium Chloride 250 ML ONE (10:40)
[2016-09-23 11:46] VITALS: BP 137/65; PULSE 88; O2SAT 95
--- NOTE | 2016-09-23 11:53 | PROG NOTE ---
[address] [address] PROGRESS NOTE PATIENT: JOHN SMITH : 1945 MR#: [id number] ADMIT: 09/16/2016 JOB ID: [id number] DATE: 09/23/2016 PULMONARY CRITICAL CARE PROGRESS NOTE: The patient is a 70-year-old woman with history of rectal cancer, status post low anterior resection in May, complicated by anastomotic dehiscence, admitted with septic shock, respiratory failure and presacral abscess. INTERVAL HISTORY: She was extubated yesterday morning and is doing well on room air currently. She is on minimal norepinephrine at 0.03 mcg. No other events. REVIEW OF SYSTEMS: Denies chest pain, shortness of breath, abdominal pain, nausea, cough. or phlegm. PHYSICAL EXAMINATION: Vitals reviewed. She is afebrile. Pulse 80, respirations 17, BP 91/58, sats 95% on room air. General: Morbidly obese woman lying in bed, lethargic, but opens her eyes and answers questions appropriately. Chest: Clear to auscultation. LABORATORIES: Reviewed. Cultures reviewed. Cultures from the abscess obtained September 18, probably in the operating room, show Enterococcus faecalis group D, light growth, this is pansensitive; Citrobacter freundii resistant to cefazolin, cefoxitin and ceftriaxone, and sensitive to everything else; as well as E. coli resistant to ampicillin and intermediate ampicillin/sulbactam, and sensitive to everything else. There was also bacteroides of moderate growth, and this is resistant to beta lactam. ASSESSMENT AND RECOMMENDATIONS: 1. Septic shock. 2. Acute hypoxic respiratory failure -- extubated on September 22. 3. Rectal carcinoma, status post low anterior resection in May complicated by anastomotic dehiscence. 4. Presacral abscess, status post drainage and washout in the operating room on September 18, with drain in place. 5. Deep venous thrombosis, on heparin drip. 6. Takotsubo cardiomyopathy -- resolved. Ejection fraction back up to 40% now. 7. Acute kidney injury -- resolved. 8. Relative adrenal insufficiency. A 70-year-old woman with rectal cancer, status post low anterior resection in May with anastomotic dehiscence and recurrent infections with abscesses still requiring drainage, presenting with septic shock, for which she underwent drain placement in the operating room on September 18. Cortisol level was 80 yesterday, and she remains on hydrocortisone at 100 mg IV q.8 h. with which she appears to have responded, and her norepinephrine requirement has come down from 0.22 to 0.03 now which is a pretty minimal dose. I think we can continue the current dose of hydrocortisone for today and probably go to 50 q.6 h. tomorrow and work our way down over the rest of the week. Antibiotic wallis, she is on meropenem and linezolid, as well as Bactrim, for resistant organisms, and her current abscess cultures show organisms that should be covered by this regimen. She is doing well post extubation, currently on room air. I would consider diuresis but because she is on room air and doing fine, I think we can hold off on this, especially in view of her pressor requirement, albeit low. She is on heparin drip for deep venous thrombosis prophylaxis. I wonder if we can switch to enoxaparin. She is on appropriate gastrointestinal prophylaxis. She is a FULL CODE. CRITICAL CARE TIME: 45 minutes.
[2016-09-23 11:59] VITALS: BP 100/58; PULSE 83; RESP 19; O2SAT 97
--- NOTE | 2016-09-23 12:40 | PCM.PNMED ---
Subjective Date of Service Sep 23, 2016 Subjective She was extubated yesterday. She is doing well today. She denies any dyspnea or abdominal pain. She states she believes it is 2012. She is in no distress. She can follow commands. Exam Vital Signs Vital Sign - Last Date Time Temp Pulse Resp B/P Pulse Ox O2 Delivery O2 Flow Rate FiO2 09/23/16 11:59 36.6 83 19 100/58 97 09/23/16 07:59 Room Air 09/22/16 12:00 2.00 09/22/16 08:00 30 Intake and Output 09/22/16 09/22/16 09/23/16 Cumulative From/Thru 15:00 23:00 07:00 09/15/16 23:05 - 09/23/16 06:30 Intake Total 1295 ml 1544 ml 60054 ml Output Total 1050 ml 500 ml 64527 ml Balance 245 ml 1044 ml 96214 ml Intake Oral 0 ml IV Total 1295 ml 1544 ml 96836 ml Tube Feeding 3383 ml Tube Irrigant 618 ml Output Urine Total 800 ml 500 ml 50879 ml Stool Total 250 ml 3180 ml Gastric Drainage Total 0 ml 0 ml Drainage Total 0 ml 550 ml Exam Alert and oriented to person. She has fluent speech no distress. She is relatively calm Anicteric sclera. Neck is supple. Lungs are clear with normal effort and rate. Heart is regular without murmur. Abdomen is soft nontender, ostomy is in place. Extremities with 1+ edema bilaterally and pedal pulses. IVs and Medications Medications Reviewed: Medications were reviewed in detail Lab and Diagnostics Result Diagram: 09/23/16 0350 09/23/16 0350 Assessment & Plan 1. Septic shock. Improving. She is weaning off the norepinephrine drip. She continues to improve clinically. Transient antimicrobial therapy which includes meropenem, Bactrim, and Linezolid. Her lactate is up and trending up slightly. We will continue the norepinephrine and follow her lactic acid throughout the day. 2. Acute hypoxic respiratory failure -- This is improved. She does have bilateral pleural effusions and infiltrates. This point she appears to be healing well after extubation. 3. Rectal carcinoma, status post low anterior resection in May complicated by anastomotic dehiscence. 4. Presacral abscess, status post drainage and washout in the operating room on September 18, with drain in place. His minimal output from the drain. This point no changes are planned. 5. Deep venous thrombosis, on heparin drip. Will consider conversion to an oral anticoagulant when she is clinically improved and able to take orals reliably. 6. Takotsubo cardiomyopathy -- her ventricular function is greatly improved on her serial echocardiogram. This point appears that she is clinically improving and we will, for norepinephrine in the near future. 7. Acute kidney injury -- resolved. 8. Relative adrenal insufficiency. We will continue her stress test steroids for the time being. 9. Rectal cancer with a history of a low anterior resection. Complicated by presacral abscess. This is complicated by an anastomosis dehiscence and a perianastomotic presacral abscess. This was drained via placement of a Jordan catheter through the anus into the actual abscess cavity recently. He had drain currently is having a little output. 10. Morbid obesity. Pain Evaluation: Adequate Pain Control GI Prophylaxis: Proton Pump Inhibitor VTE Prophylaxis: SCDs, Other VTE Mechanical Devices: Intermittant Pneumatic CD Resuscitation Status: CPR: Attempt Resuscitation Time spent 35 minutes Puma Johnson MD Sep 23, 2016 12:40
--- NOTE | 2016-09-23 13:25 | PROG NOTE ---
[address] [address] PROGRESS NOTE PATIENT: JOHN SMITH : 1945 MR#: [id number] ADMIT: 09/16/2016 JOB ID: [id number] DATE: 09/23/2016 I stopped by to see the patient this morning. I was pleased to see that she has been extubated. She is on decreasing doses of blood pressure support. I spent a fair amount of time talking with her and daughter about what has been going on. We talked about what will be needed in the future to manage this anastomotic dehiscence. At this point the plan should be to leave that drain that I placed in indefinitely. I think it should continue to be flushed as it has the propensity to get clogged. I reviewed the CT from a few days ago and it looks fine and looks like the drain is in good position. I think once she is discharged, I imagine to [facility], arrangements should be made for followup at [facility] with the colorectal surgeons down there to come up with a definitive plan. She is going to continue to have drainage and reaccumulate abscesses should that drain be removed before definitive management has been undertaken.
--- NOTE | 2016-09-23 13:44 | NUR ---
NUTRITION FOLLOW UP ASSESS: 70 YO F admitted to CCU with CLAY, hypotension, DVT, ACS/NSTEMI, and rectal abscess / anastomotic dehiscence. Pt went to OR 09/18 to washout abscess; drain was placed. The plan is to continue with the drain indefinitely, with frequent flushing due to propensity for clogging. Per surgery, arrangements should be made for followup at [facility] with the colorectal surgeons down there to develop a definitive plan. She is going to continue to have drainage and reaccumulate abscesses should that drain be removed before definitive management has been undertaken. Pt. was successfully extubated yesterday at 1130. She failed her initial swallow evaluation; however, today her diet was advanced to stimulation, nectar thick liquids. PMHx: Rectal cancer surgery with abscess surgery, type 2 diabetes, GERD, HTN, mitral stenosis, hypothyroid, deconditioning. DIET: Stimulation, nectar thick liquids. PO intake not yet recorded. NUTRITION SUPPORT DISCONTINUED: Vital 1.5 @ 60 ml/hr providing 1980 kcal (TF + Propofol = 2445 kcal), 90 g protein; meeting 100% calorie/protein needs. LABS: Reviewed. BUN 35, Cr 1.02, Glu 138, A1c 6.7, Lactic Acid 2.9, Ca 8.2, Mg 1.5, Alb 3.3. MEDICATIONS: Reviewed. Hydrocortisone, norepi, synthroid. GI: 450 ml stool via ileostomy (09/22). SKIN: Wound eval 09/18 - rectal abscess w/ perisacral/anal drain. Surgery is following. Lye Machine Operator recommending surgery consult, as the ostomy site continues to be difficult to maintain a seal. ANTHROPOMETRICS: Current Wt: 129.1 kg, BMI: 48.0 kg/m2. Admit wt: 116.0 kg (BMI: 43.9 kg/m2), IBW: 54.5 kg ESTIMATED NEEDS (BMI): Calories: 9317-6741 kcal (20-22 kcal/kg BW) Protein: 82-98 g protein (1.5-1.8 g/kg IBW) Fluids: 1635 ml fluid (approx. 30 ml/kg IBW) NUTRITION DIAGNOSIS: 1) Inadequate oral intake related to inability to consume sufficient energy as evidenced by NPO/Vent status - IMPROVED WITH EXTUBATION AND DIET ADVANCE. 2)Chewing / swallowing difficulties related to recent intubation, as evidenced by requirement for significantly modified diet texture, per ST order. INTERVENTION: 1) Diet advance per ST. 2)Will add nectar thick supplements to trays. 3)In the event diet unable to be advanced beyond stimulation texture in timely manner, recommend restart enteral feeding per previous recommendations. MONITOR/EVALUATE: Diet advance / tolerance, PO intake, labs, GI/nutrition status, POC. Follow per high nutrition risk guidelines.
[2016-09-23] MEDS: HYDROmorphone 0.5 mg/0.5 mL iSecure Syringe IVPUSH PRN ×2 (14:05→17:16)
[2016-09-23 16:02] LABS: Mean Corpuscular Hemoglobin 27.2 pg (27.0-35.0)
[2016-09-23 16:26] VITALS: BP 103/66; PULSE 82; O2SAT 99
--- NOTE | 2016-09-23 17:07 | PROG NOTE ---
[address] [address] PROGRESS NOTE PATIENT: JOHN SMITH : 1945 MR#: [id number] ADMIT: 09/16/2016 JOB ID: [id number] DATE: 09/23/2016 INFECTIOUS DISEASE FOLLOWUP NOTE: REASON FOR FOLLOWUP: Polymicrobial rectal abscess with highly resistant enterobacter urinary tract infection and associated septic shock with ventilatory-dependent respiratory failure. INTERVAL HISTORY: Overnight the patient has been extubated. She is now awake and is asking to be discharged from the hospital. She does appear still to be a bit confused in that she thinks she is ambulatory and ready to go, whereas she is still in the ICU and just recently been extubated. Despite that caveat, the patient looks dramatically better than she did day or so ago when she was still intubated and quite seriously ill. The patient this afternoon report she is uncomfortable in terms of lying in her bed but she is not having fevers, chills, or significant shortness of breath. She denies having abdominal pain at any time. No nausea, vomiting, diarrhea. She feels ready to go. PHYSICAL EXAMINATION: Temp 36.6, pulse 83, respiratory rate 19, blood pressure 100/58. She is saturating 97% on room air. She is alert and oriented x2 at least. Eyes without conjunctivitis. Oral cavity unremarkable now that she is extubated. Lungs fairly clear anteriorly. Abdomen obese, soft, nontender, without masses. She has a colostomy in place. Her extremities are reasonably well perfused and warm. LABORATORIES: Include white count 7800, platelet count 111, creatinine 1.02. LFTs are normal. Procalcitonin down to 0.23; it was never very elevated though and in fact was never higher than 0.58. Cultures are interesting. The patient's urine grew the highly resistant Enterobacter cloacae which does rim turning finisher to be sensitive to colistin and Avycaz, the new antibiotic, but only marginally susceptible to an Avycaz. We are still waiting for CRE determination from the state lab as well as tigecycline susceptibilities. Additionally the patient grew four organisms from her rectal abscess including Enterococcus which was ampicillin susceptible, a Citrobacter which was moderately resistant but sensitive to carbapenems as well as Bactrim, an E. coli that was quite susceptible, and a Bacteroides ovatus. The sputum grew MRSA. IMAGING: Includes today's chest radiograph which shows resolving bibasilar opacities. IMPRESSION: This extremely complex patient who was critically ill with rectal abscess is now much improved following drainage of the abscess. She also had some degree of adrenal insufficiency which has been corrected, and that has also helped. She also had a takotsubo cardiomyopathy which is improving. With respect to the ID situation, we still have a variety of different isolates to deal with as we have grown a total of six pathogenic microorganisms for this patient including one very resistant bug from the urine, MRSA from the respiratory tract, and four organisms from her abscess. Managing all these in a parsimonious way with antibiotics is difficult at best. RECOMMENDATIONS: 1. I would continue with our overly confusing regimen of linezolid, meropenem, and Bactrim to complete about a 10 day course of the linezolid and meropenem. 2. Following completion of about 10 days of linezolid and meropenem, if the patient looks well, I would switch her to oral Bactrim plus Flagyl to continue for another week or two depending on her clinical course.
[2016-09-23] MEDS: Norepineph 8,000 mCg/250 mL NS 8,000 MCG in IV Premix 1 EACH IV SCH (17:25)
--- NOTE | 2016-09-23 18:36 | NUR ---
Cardiac/hemo/GI SR with PACs per technical consultant. Levophed titrated off, MAP maintained > 65. Afebrile. Perianal drain secure, draining small amount of purulent fluid. Hypoactive bowel sounds. Ileostomy intact with small amount of stool present in ostomy bag. Denies nausea. Suboptimal intake, taking only small bites of applesauce and ice chips this shift. Restless, continually shifting weight in bed. Oriented to person and place. Following verbal instructions. Complaints of generalized aches, PRN dilaudid administered x 2 with minimal effect. Will continue to monitor.
[2016-09-23 20:10] VITALS: BP 106/89; PULSE 83; RESP 19; O2SAT 95
[2016-09-24] VITALS (8 sets, daily range): BP systolic 86–121; BP diastolic 47–74; PULSE 69–80; RESP 20–24; O2SAT 95–98
[2016-09-24] MEDS: Hydrocortisone 50 mg/mL 2 mL Inj IVPUSH SCH ×3 (00:37→20:12)
[2016-09-24 03:03] LABS: Mean Corpuscular Hemoglobin 27.6 pg (27.0-35.0); Mean Corpuscular Volume 81.5 fL (81-100)
[2016-09-24] MEDS ORDERED: 0.9% Sodium Chloride 250 ML ONE (03:21)
[2016-09-24] MEDS: Heparin 25K Unit/500mL 0.45 NS 25,000 UNIT in IV Premix 1 EACH IV SCH (05:08)
[2016-09-24] MEDS: Meropenem Inj 1,000 MG in 0.9% Sodium Chloride 50 ML IV SCH ×3 (05:57→20:10)
[2016-09-24] MEDS: HYDROmorphone 0.5 mg/0.5 mL iSecure Syringe IVPUSH PRN ×2 (06:01→09:10)
--- NOTE | 2016-09-24 06:22 | NUR ---
BP / Pain Patient remains off of Levophed during plant operator/shift supervisor, MAP > 65. Patient complains of 'feeling uncomfortable'. Assisted with repositioning and given Dilaudid once, seems to be effective for patient's pain.
[2016-09-24] MEDS: Insulin LISPRO 300 Unit/3 mL Inj SUBQ SCH ×4 (08:00→20:15)
[2016-09-24] MEDS: Linezolid Inj 600 MG in IV Premix 1 EACH IV SCH ×2 (08:20→21:43)
[2016-09-24] MEDS: Pantoprazole 4 mg/mL 10 mL Inj IVPUSH SCH (08:20)
[2016-09-24] MEDS: Sodium-Potassium Phosphorus Packet TUBE SCH ×4 (08:21→20:12)
[2016-09-24] MEDS: TRIMETHOPRIM SULFA IV SCH ×2 (09:09→22:43)
[2016-09-24] MEDS: DEXTROSE 5% IV SCH ×2 (09:09→22:43)
--- NOTE | 2016-09-24 13:40 | PCM.PNMED ---
Subjective Date of Service Sep 24, 2016 Subjective She is alert and mostly comfortable except wants to sit up more. She denies any dyspnea. No chest pain or abdominal pain. Exam Vital Signs Vital Sign - Last Date Time Temp Pulse Resp B/P Pulse Ox O2 Delivery O2 Flow Rate FiO2 09/24/16 12:21 36.5 69 24 121/71 98 Room Air 09/22/16 12:00 2.00 09/22/16 08:00 30 Intake and Output 09/23/16 09/23/16 09/24/16 Cumulative From/Thru 15:00 23:00 07:00 09/15/16 23:05 - 09/24/16 05:19 Intake Total 1273 ml 806 ml 79317 ml Output Total 600 ml 420 ml 65828 ml Balance 673 ml 386 ml 69429 ml Intake Oral 0 ml IV Total 1273 ml 806 ml 91596 ml Tube Feeding 3383 ml Tube Irrigant 618 ml Output Urine Total 550 ml 370 ml 55578 ml Stool Total 50 ml 3230 ml Gastric Drainage Total 0 ml Drainage Total 50 ml 600 ml Exam Alert oriented to place and person. Fluent speech. Neck supple Lungs are clear with normal effort. Heart is regular without murmur Abdomen soft nontender. Extremities are Relafen 1+ edema with venous stasis changes. She was arms and legs spontaneously and to command. IVs and Medications Medications Reviewed: Medications were reviewed in detail Lab and Diagnostics Result Diagram: 09/24/16 0250 09/24/16 0250 Assessment & Plan 1. Septic shock. Improving. She is weaned off the norepinephrine drip. She continues to improve clinically. Transient antimicrobial therapy which includes meropenem, Bactrim, and Linezolid. Her lactate is up and trending up slightly. We will continue the norepinephrine and follow her lactic acid throughout the day. 2. Acute hypoxic respiratory failure -- This is improved. She does have bilateral pleural effusions and infiltrates. This point she appears to be healing well after extubation. She continues to maintain ventilation and oxygenation with minimal assist. 3. Rectal carcinoma, status post low anterior resection in May complicated by anastomotic dehiscence. Spoke with surgery today. Dr. Perez will discuss future plans with her primary surgeon at [facility], Dr. Tovar early in the week. 4. Presacral abscess, status post drainage and washout in the operating room on September 18, with drain in place. His minimal output from the drain. Plan is as above. 5. Progressive thrombocytopenia. He is to stop heparin drip, sent HRT, and start this around toe twice a day. 6. Severe protein caloric malnutrition. Will encourage by mouth. She does not have caloric support this way we will encourage a Dobbhoff and start enteral feedings. This point no changes are planned. 7. Deep venous thrombosis, heparin drip and start this around toe 6. Takotsubo cardiomyopathy -- her ventricular function is greatly improved on her serial echocardiogram. She is clinically much better. No change to medical management. 7. Acute kidney injury -- resolved. 8. Relative adrenal insufficiency. We will continue her stress test steroids for the time being. 9. Morbid obesity. Pain Evaluation: Adequate Pain Control GI Prophylaxis: Proton Pump Inhibitor VTE Prophylaxis: SCDs, Other VTE Mechanical Devices: Intermittant Pneumatic CD Resuscitation Status: CPR: Attempt Resuscitation Time spent 30 minutes Puma Johnson MD Sep 24, 2016 13:40
--- NOTE | 2016-09-24 14:00 | NUR ---
Skin: Sacral abscess drain in place, tubing with purulent drainage present. Ileostomy intact, approx 300mL output this shift. Jordan to gravity, draining adequately. Mepilex to sacrum changed. Pt turned q2-3hrs, complains about repositioning but settles down easily. Heels floated. Pt downgraded to PCC status, family aware, transferred to room 2021, report to Corwin Pretty RN. Care ongoing.
--- NOTE | 2016-09-24 14:56 | PROG NOTE ---
[address] [address] PROGRESS NOTE PATIENT: JOHN SMITH : 1945 MR#: [id number] ADMIT: 09/16/2016 JOB ID: [id number] DATE: 09/24/2016 PULMONARY PROGRESS NOTE: A 70-year-old woman with history of rectal cancer, status post low anterior resection in May, complicated by anastomotic dehiscence, admitted with septic shock, respiratory failure, and presacral abscess. INTERVAL HISTORY: She was weaned off of norepinephrine completely as of sometime yesterday. She has been hemodynamically stable since then, on room air. REVIEW OF SYSTEMS: As above. Denies shortness of breath, chest pain. PHYSICAL EXAMINATION: Vital signs reviewed. She is afebrile. Pulse 76, respirations 20, BP 109/53, MAP 71, sats 97% on room air. General: Morbidly obese woman, lying in bed, appears slightly lethargic but answering questions. LABORATORIES: Reviewed. WBC is stable. Creatinine is up slightly to 1.24 from 1.04. Cultures: No new growth. Refer to my note yesterday for findings. IMAGING: No new chest x-ray today. ASSESSMENT/RECOMMENDATIONS: 1. Septic shock--resolved. 2. Acute hypoxic respiratory failure--had been intubated September 17--extubated on September 22. 3. Rectal carcinoma, status post low anterior resection in May, complicated by anastomotic dehiscence. 4. Presacral abscess, status post drainage and washout in the operating room, September 18, with drain in place. 5. Deep venous thrombosis, on heparin drip. 6. Takotsubo cardiomyopathy, resolved. Ejection fraction up to 40% now. 7. Acute kidney injury--resolved. 8. Relative adrenal insufficiency--on hydrocortisone since September 22. A 70-year-old woman with rectal cancer, status post low anterior resection in May, complicated by anastomotic dehiscence and recurrent infections with abscesses. She had her initial surgery at [facility]. She has had a complex hospital course as described above, but has been off the vent for two days, off pressors for almost 24 hours now, doing well on room air, hemodynamically stable. I do think the hydrocortisone helped her, but I would recommend weaning it down at this point since she is off pressors. She has been on 100 mg IV q.8 for the last two days and I decreased the dose to 100 q.12. Plan would be to keep going down one day at a time by about 50 mg and have her off the steroids in a few days' time, as long as her blood pressure tolerates. Antibiotic-wallis, she is on meropenem, linezolid and Bactrim for multiple resistant organisms from her abscess. Defer to Dr. Paula regarding this. Since she appears clinically stable, I am going to sign off. We are available for questions or concerns, if any, but I suspect she should be close to moving out of the intensive care unit very soon. TOY
[2016-09-24] MEDS: Norepineph 8,000 mCg/250 mL NS 8,000 MCG in IV Premix 1 EACH IV SCH (16:05)
--- NOTE | 2016-09-24 19:37 | NUR ---
Transfer/Hypotension Assumed care of Pt at ~1430, Pt transferred from CCU room 2013 to PCC room 2021 without issue. Pt denied pain, oriented to self/place/family. Pt's sacral drain in place and hooked back up to 50mmHg cont. suction after transfer. Pt worked with PT and made improvement, see PT note for details. Pt's BP 86/47 this evening, Pt asymptomatic, Pt's BP trends appeared to be low, family and Pt verbalized that they would call if Pt became symptomatic, oncoming NOC RN made aware.
[2016-09-25] VITALS (7 sets, daily range): BP systolic 106–132; BP diastolic 61–81; PULSE 71–78; RESP 20–24; O2SAT 95–99
--- NOTE | 2016-09-25 02:11 | NUR ---
MENTATION Pt was transferred from CCU to [facility] @ 1430. Pt has a triple lumen IJ that is patent with NS running TKO with antibiotics. Pt is alert to self and family, but not situation @ this time. Pt confused about how to use the call light or that she has a acevedo catheter in place. Pt calls out "Nurse...nurse...nurse" every few minutes, but doesn't really need anything when RN attends to calls. Vitals stable, BP previously low for day shift, but stable now. Pt on RA sating in the mid-high 90's. No other issues noted at this time.
[2016-09-25] MEDS: Meropenem Inj 1,000 MG in 0.9% Sodium Chloride 50 ML IV SCH ×4 (03:10→23:36)
--- NOTE | 2016-09-25 03:38 | NUR ---
INPUT/OUTPUT Pt has an ileostomy, acevedo catheter, and sacral abscess drain on cont. low suction. Ileostomy produced 150cc brown semi-formed/liquid stools. Acevedo catheter produced 200cc dark pink/cloudy urine. Sacral abscess drain produced minimal fluid to suction container, but the pad and bed sheets were wet and changed. Pt has had 1000cc of antibiotic throughout the night. Pt has had 36 oz of ice chips, tolerating well. No swallowing issues noted.
[2016-09-25] MEDS: Pantoprazole 4 mg/mL 10 mL Inj IVPUSH SCH (07:30)
[2016-09-25] MEDS: Insulin LISPRO 300 Unit/3 mL Inj SUBQ SCH ×4 (08:00→20:58)
[2016-09-25] MEDS: Hydrocortisone 50 mg/mL 2 mL Inj IVPUSH SCH ×2 (08:30→21:43)
[2016-09-25] MEDS: Linezolid Inj 600 MG in IV Premix 1 EACH IV SCH ×2 (10:02→21:41)
[2016-09-25] MEDS: Sodium-Potassium Phosphorus Packet TUBE SCH ×4 (10:03→21:43)
--- NOTE | 2016-09-25 10:20 | PCM.PNMED ---
Subjective Date of Service Sep 25, 2016 Subjective No chest pain, or dyspnea. No abdomen pain. Some perineal pain. No cough or hemoptysis. Exam Vital Signs Vital Sign - Last Date Time Temp Pulse Resp B/P Pulse Ox O2 Delivery O2 Flow Rate FiO2 09/25/16 09:37 36.4 76 122/71 97 Room Air 09/25/16 03:24 20 09/22/16 12:00 2.00 09/22/16 08:00 30 Intake and Output 09/24/16 09/24/16 09/25/16 Cumulative From/Thru 15:00 23:00 07:00 09/15/16 23:05 - 09/25/16 06:04 Intake Total 1096 ml 120 ml 98678 ml Output Total 1410 ml 350 ml 56812 ml Balance -314 ml -230 ml 19879 ml Intake Oral 320 ml 120 ml 440 ml IV Total 776 ml 03184 ml Tube Feeding 3383 ml Tube Irrigant 618 ml Output Urine Total 470 ml 200 ml 06868 ml Stool Total 900 ml 150 ml 4280 ml Gastric Drainage Total 0 ml Drainage Total 40 ml 0 ml 640 ml Exam Alert oriented to place and person. Fluent speech. Neck supple Lungs are clear with normal effort. Heart is regular without murmur Abdomen soft nontender. Extremities are Relafen 1+ edema with venous stasis changes. She was arms and legs spontaneously and to command. IVs and Medications Medications Reviewed: Medications were reviewed in detail Lab and Diagnostics Result Diagram: 09/24/16 02509/24/16 0250 Assessment & Plan 1. Septic shock. Improving. She is doing well off pressors, no recurrent fever. 2. Acute hypoxic respiratory failure -- This is improved. She is now on room air. 3. Rectal carcinoma, status post low anterior resection in May complicated by anastomotic dehiscence. Spoke with surgery today. Dr. Perez will discuss future plans with her primary surgeon at [facility], Dr. Tovar early in the week. 4. Presacral abscess, status post drainage and washout in the operating room on September 18, with drain in place. His minimal output from the drain. Plan is as above.(enterococcus, citrobacter, E. coli, and bacteroides f. ) 5. Progressive thrombocytopenia. Stopped heparin drip, sent HIT, and start Xarelto twice a day. 6. Severe protein caloric malnutrition. Will encourage by mouth. She does not have caloric support this way we will encourage a Dobbhoff and start enteral feedings. This point no changes are planned. 7. Deep venous thrombosis, heparin drip stopped due to thrombocytopenia. Xarelto to continue. 6. Takotsubo cardiomyopathy -- her ventricular function is greatly improved on her serial echocardiogram. She is clinically much better. No change to medical management. 7. Acute kidney injury -- resolved. 8. Relative adrenal insufficiency. We will continue her stress test steroids for the time being. 9. Morbid obesity. Pain Evaluation: Adequate Pain Control GI Prophylaxis: Proton Pump Inhibitor VTE Prophylaxis: SCDs, Other VTE Mechanical Devices: Intermittant Pneumatic CD Resuscitation Status: CPR: Attempt Resuscitation Time spent 30 minutes Puma Johnson MD Sep 25, 2016 10:20
--- NOTE | 2016-09-25 11:24 | PROG NOTE ---
[address] [address] PROGRESS NOTE PATIENT: JOHN SMITH : 1945 MR#: [id number] ADMIT: 09/16/2016 JOB ID: [id number] DATE: 09/25/2016 SUBJECTIVE: I spoke on the phone today with Dr. Tovar [facility] regarding a definitive plan for the patient. Based on my intraoperative findings, I do not believe her anastomosis is salvageable. However, appropriately, he would like to take a look for himself probably in 4-6 weeks. In the meantime, her drain that I placed should remain. I think it is fine to switch that to a drainage bag. It should continue to be flushed at least three times a day with 10-20 cc of saline. This should control her situation until a definitive surgical plan can be made. When she is discharged, please arrange for a followup appointment with Dr. David Tovar at [facility] in about four weeks. At that time, he will then arrange for an exam under anesthesia and make subsequent plans for either a definitive colostomy or an attempt at an anastomotic salvage. Please feel free to call me if there are any questions.
[2016-09-25] MEDS: Norepineph 8,000 mCg/250 mL NS 8,000 MCG in IV Premix 1 EACH IV SCH (15:05)
--- NOTE | 2016-09-25 15:30 | PROG NOTE ---
[address] [address] PROGRESS NOTE PATIENT: JOHN SMITH : 1945 MR#: [id number] ADMIT: 09/16/2016 JOB ID: [id number] DATE: 09/25/2016 INFECTIOUS DISEASE FOLLOWUP: REASON FOR FOLLOWUP: Complex polymicrobial infections including possible pneumonitis, rectal abscess, and multi-drug resistant urinary tract infection. INTERVAL HISTORY: The patient is lying in her bed and doing something which sounds like moaning, but she is awake and alert. When asked, she said she was in no discomfort and she reports no fevers, no chills. No shortness of breath. No nausea, vomiting, or abdominal pain. She has a Jordan catheter and has no urinary symptoms, of course. She states she is feeling better and is curious about the plans for her discharge. I discussed this situation with her , who was also in the room with her, and the plans are tentatively for her to go to [place], from what I understand, with eventual followup and possible repeat surgery through [facility]. PHYSICAL EXAMINATION: Reveals an afebrile woman. Temp 36.4, pulse 76, blood pressure 122/71. She is saturating well on room air. She is in no acute distress. Her eyes without scleral icterus. Oral cavity negative. A right IJ line is in good position. Lungs fairly clear, though difficult to auscultate given her body habitus. Cardiac sounds likewise distant. Abdomen quiet but with some bowel sounds. Ileostomy is present. The abdomen is obese, soft, and nontender, with a large pannus which is not inflamed. A Jordan catheter is present and is draining some cranberry-colored urine, perhaps as a result of some Jordan trauma that occurred earlier today. No new skin rashes noted. LABORATORIES: Include a white count of 5600, creatinine is 1.24. Lactic acid 2.5, which has been relatively stable. LFTs are normal. Micro studies include the previously mentioned MRSA from sputum, as well as the four organisms, including Enterococcus, Citrobacter. E. coli, and Bacteroides from a rectal abscess, and finally, the highly resistant Enterobacter cloacae from her urine. That Enterobacter cloacae turns out not to be CRE, at least by the PCR studies done at the [facility]. It was susceptible to colistin, borderline susceptible to ceftaz/avibactam, and resistant probably to tigecycline. It was sensitive to Bactrim, which is what we have been using primarily to treat it. IMAGING: Includes a chest x-ray, which shows resolving bilateral lower lobe infiltrates. Dr. Perez's notes reviewed regarding possible surgery. IMPRESSION: This is a very complex case of a woman with morbid obesity and anastomotic failure after surgery in May for rectal carcinoma. She has developed a large rectal abscess which has now been drained and grew four different microorganisms. She also had a highly resistant gram-negative urinary tract infection and methicillin-resistant Staphylococcus aureus colonization or infection of her airway. We have treated this with an inelegant but effective regimen including linezolid, meropenem, and Bactrim. RECOMMENDATIONS: 1. Linezolid will go through tomorrow morning and stop. Note that it may be the cause of her dropping platelets. 2. Will continue with meropenem through the , which will complete a 10-day course for that broad-spectrum antibiotic aimed at the rectal abscess. 3. Today, I have converted her IV Bactrim to oral solution. 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 4. When the meropenem ends on the , will switch to some oral Flagyl to be continued for a week or two as well.
[2016-09-25] MEDS: Trimeth-Sulfa 160-800 mg/20 mL - 20 mL Suspension PO SCH ×2 (15:41→21:45)
--- NOTE | 2016-09-25 17:50 | NUR ---
Wound Pt seen for replacement of her wafer and pouch at iliostomy site. Coloplast convexity one piece #[id number] with shiva ring and crusting, stoma paste at 3 and 9 o'clock, Brava strips around edges and a belt to secure, will recheck in am to see how well this works.
--- NOTE | 2016-09-25 19:01 | NUR ---
GI/Catheter/Mentation Pt denies nausea/vomiting. C/o pain with acevedo catheter. Discussed pain with MD who ordered catheter dc'd. Pt wears a pad at baseline for stress incontinence. Pt was instructed to use call light to let RN know if she has urinated. Ileostomy intact. Sacral abscess draining to suction at 50. Pt oriented to self and family during shift. She is confused and forgetful. Mentation has improved throughout shift.
[2016-09-25] MEDS ORDERED: 0.9% Sodium Chloride 250 ML ONE (20:45)
[2016-09-26] VITALS (7 sets, daily range): BP systolic 109–127; BP diastolic 67–79; PULSE 67–74; RESP 19–22; O2SAT 96–100
--- NOTE | 2016-09-26 03:55 | NUR ---
Mentation Pt alert and oriented to self, however very forgetful. Pt yelling for RN into hallway multiple times overnight. Pt frequently reoriented. Drain remains intact to suction. In addition to drainage in canister put draining around drain. Inco of urine. Frequent skin care provided in addition to q2 turns attempted. Pt very reluctant to turning. pt denies any pain. vitals stable.
[2016-09-26] MEDS: Insulin LISPRO 300 Unit/3 mL Inj SUBQ SCH ×4 (08:00→22:00)
--- NOTE | 2016-09-26 08:03 | PCM.PNMED ---
Subjective Date of Service Sep 26, 2016 Subjective Alert oriented, no distress. Fluent speech. She does have trouble with the year and typically cyst 2012 She denies any pain. No shortness of breath. No abdominal pain. Less back and bottom pain today. No headache. She is thirsty. Exam Vital Signs Vital Sign - Last Date Time Temp Pulse Resp B/P Pulse Ox O2 Delivery O2 Flow Rate FiO2 09/26/16 03:15 36.4 70 20 127/79 96 Room Air 09/22/16 12:00 2.00 09/22/16 08:00 30 Intake and Output 09/25/16 09/25/16 09/26/16 Cumulative From/Thru 15:00 23:00 07:00 09/15/16 23:05 - 09/26/16 05:30 Intake Total 717 ml 869 ml 06253 ml Output Total 670 ml 690 ml 22732 ml Balance 47 ml 179 ml 81329 ml Intake Oral 120 ml 450 ml 1010 ml IV Total 597 ml 419 ml 60088 ml Tube Feeding 3383 ml Tube Irrigant 618 ml Output Urine Total 550 ml 70987 ml Stool Total 120 ml 650 ml 5050 ml Gastric Drainage Total 0 ml Drainage Total 40 ml 680 ml # Voids 2 2 Exam Alert oriented except to year. No distress, fluent speech. Anicteric sclera. Lungs are clear, normal effort. Heart is regular without murmur gallop or rub. Abdomen is soft nondistended, ostomy. Extremities with 2+ edema with good pedal pulses. Good radial pulses. She can wiggle toes and both legs. IVs and Medications Medications Reviewed: Medications were reviewed in detail Lab and Diagnostics Result Diagram: 09/24/16 0250 09/24/16 0250 Assessment & Plan 1. Septic shock. Resolved 2. Acute hypoxic respiratory failure -- was intubated, resolved. 3. Rectal carcinoma, status post low anterior resection in May complicated by anastomotic dehiscence. Spoke with surgery today. Dr. Perez will discuss future plans with her primary surgeon at [facility], Dr. Tovar early in the week. 4. 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 Has minimal output from the drain. Plan is as above.(enterococcus, citrobacter, E. coli, and bacteroides f. ). Patient is currently on linezolid and meropenem and by mouth Bactrim for her polymicrobial infection. Infectious disease is involved in the case and likely she will be on these medications persistently until a primary repair of her anastomosis is performed. Dr. Paula to leave a very detailed antibiotic planning's note dated September 26. Includes one to stop the meropenem as well as APO conversion antibiotic plan. 5. Progressive thrombocytopenia. Stopped heparin drip, sent HIT, and start Xarelto twice a day. The plan is continue to drop to a low of [address] Paula is stopping the nasal living cases may be causing thrombocytopenia and stated she would expect a fairly quick rebound. Heparin was stopped 2 days ago. Xarelto will be continued. 6. Severe protein caloric malnutrition. Will encourage by mouth. 7. Deep venous thrombosis of the left leg., heparin drip stopped due to thrombocytopenia. Xarelto to continue. 6. Takotsubo cardiomyopathy -- her ventricular function is greatly improved on her serial echocardiogram. She is clinically much better. No change to medical management. 7. Acute kidney injury -- resolved. 8. Relative adrenal insufficiency. We will continue her stress test steroids for the time being. 9. Morbid obesity. 10. Multidrug resistant enterobacter urinary tract infection. POA. Antibiotics as above. Discharge planning. The patient will not have a second surgical procedure here. The patient's is interested in getting her back in the [facility], an LTAC which is located in [facility] next to [facility] where her primary surgeon Dr. Tovar is. We will begin making plans for potential transfer in the next several days. GI Prophylaxis: Proton Pump Inhibitor VTE Prophylaxis: SCDs, Other VTE Mechanical Devices: Intermittant Pneumatic CD Resuscitation Status: CPR: Attempt Resuscitation Time spent 30 minutes Puma Johnson MD Sep 26, 2016 08:03
[2016-09-26] MEDS: Linezolid Inj 600 MG in IV Premix 1 EACH IV SCH (09:36)
[2016-09-26] MEDS: Sodium-Potassium Phosphorus Packet TUBE SCH ×2 (09:36→12:46)
[2016-09-26] MEDS: Pantoprazole 4 mg/mL 10 mL Inj IVPUSH SCH (09:37)
[2016-09-26] MEDS: Hydrocortisone 50 mg/mL 2 mL Inj IVPUSH SCH ×2 (11:37→22:28)
[2016-09-26] MEDS: Trimeth-Sulfa 160-800 mg/20 mL - 20 mL Suspension PO SCH ×2 (11:37→22:29)
--- NOTE | 2016-09-26 11:42 | PROG NOTE ---
[address] [address] PROGRESS NOTE PATIENT: JOHN SMITH : 1945 MR#: [id number] ADMIT: 09/16/2016 JOB ID: [id number] DATE: 09/26/2016 INFECTIOUS DISEASE FOLLOWUP NOTE: REASON FOR FOLLOWUP: Polymicrobial rectal abscess, possible MRSA pulmonary infection, and highly resistant enterobacter urinary tract infection. INTERVAL HISTORY: Overnight the patient reports she has continued to gradually feel better. Though she always appears to be moaning a bit when I come in the room, she states she is not in any pain. She denies fevers, chills, or sweats. She says she is not short of breath at all. She denies abdominal pain, nausea, or vomiting. She is having no problems with her ileostomy. She states her feet are always swollen and they seem a little more so today. PHYSICAL EXAMINATION: Reveals an afebrile woman temp 36.7, pulse 73, respiratory rate 20, blood pressure 109/67, saturating well on room air. Examination of the oral cavity is unremarkable. The patient's right neck central line looks benign. Lungs relatively clear bilaterally. Cardiac tones regular rate and rhythm without murmur. Abdomen quite obese, with ileostomy on the right. It is nontender diffusely however. Lower extremities with 2+ edema below the knees. LABORATORIES: Include a white count 5600, platelets still dropping at 86,000. Creatinine is 1.24. Lactic acid 2.5. LFTs are normal. Last procalcitonin a couple of days ago 0.23. Heparin antibodies are pending. Micro studies were previously reviewed. She has a highly resistant enterobacter in her urine. Additionally, within her rectal abscess she had enterococcus, citrobacter, E. coli, and bacteroides. Her sputum was positive for MRSA. No recent imaging is available. IMPRESSION: This patient seems to be gradually improving with her rectal abscess following anastomotic failure of rectal surgery for carcinoma. The polymicrobial rectal abscess has been drained and the drain is still in place and Dr. Perez of General Surgery indicates it should stay in place until she is re-evaluated by her surgeon in [place] in 4-6 weeks. Additionally she had a highly resistant gram-negative urinary tract infection with Enterobacter, as well as MRSA colonization of the airway. RECOMMENDATIONS: 1. Linezolid will be stopped. It may be the cause of the dropping platelets and if that is the case they should rebound quickly in a couple of days. 2. The meropenem will continue through the and I have written a stop date for that. That will complete a 10 day course aimed at the multiple organisms found in the rectal abscess. 3. Will continue with oral Bactrim and I converted her Bactrim, which had been IV, to oral as of yesterday. This should probably continue for 10-14 days additionally. 4. When the patient's meropenem ends on the , I would start Flagyl 500 b.i.d. and continue that for 10-14 days in concert with the Bactrim. 5. I will see this patient again on September 28.
[2016-09-26 12:05] LABS: Mean Corpuscular Hemoglobin 27.1 pg (27.0-35.0); Mean Corpuscular Volume 81.8 fL (81-100)
[2016-09-26] MEDS: Meropenem Inj 1,000 MG in 0.9% Sodium Chloride 50 ML IV SCH (12:47)
--- NOTE | 2016-09-26 15:36 | NUR ---
NUTRITION FOLLOW UP ASSESS: 70 YO F admitted to CCU with CLAY, hypotension, DVT, ACS/NSTEMI, and rectal abscess / anastomotic dehiscence. Pt went to OR 09/18 to washout abscess; drain was placed. The plan is to continue with the drain for next 4-6 weeks until pt can be re-evaluated by surgeon in [place]. Pt advanced to Full Liquid diet on 2/5 w/ variable PO intake. Per notes, pt oriented to self, but is confused and forgetful. PMHx: Rectal cancer surgery with abscess surgery, Type II DM, GERD, HTN, mitral stenosis, hypothyroid, deconditioning. DIET: Full Liquid PO 0-75% LABS: BUN 54, Supervisor [employer] 1.24, Gluc 117, Lactic Acid 2.5, Alk Phos 179 MEDICATIONS: Reviewed. Insulin, Synthroid, Potassium/Phos/Na Replacement GI: 650 ml stool via ileostomy (09/26). SKIN: Wound eval 09/18 - rectal abscess w/ perisacral/anal drain. Surgery is following. WCS placed brava strips around edges of ostomy site to help secure. ANTHROPOMETRICS: Current Wt: 129.4 kg BMI: 49.0 kg/m2 Admit wt: 116.0 kg (BMI: 43.9 kg/m2) IBW: 54.5 kg ABW: 73.3 kg ESTIMATED NEEDS (BMI>40): Calories: 5445-2915 kcal/day (25-30 kcal/kg ABW) Protein: 90-110 g/day (1.2-1.5 g/kg ABW) Fluids: ~2000 ml (approx. 1 kcal/ml/day) NUTRITION DIAGNOSIS: 1) Inadequate oral intake related to inability to consume sufficient energy as evidenced by NPO/Vent status - IMPROVED WITH EXTUBATION AND DIET ADVANCE. 2) Chewing / swallowing difficulties related to recent intubation, as evidenced by requirement for significantly modified diet texture, per ST order.---IMPROVED W/ DIET ADVANCEMENT TO FULL LIQUIDS INTERVENTION: 1) Diet advance per ST. 2) Will continue sending NT Glucerna to B&L trays. 3) Will add Gelatein 20 to D tray to help increase calorie and protein intake. MONITOR/EVALUATE: Diet advance / tolerance, PO intake, labs, GI/nutrition status, POC. Follow per high nutrition risk guidelines. Addendum: 09/26/16 at [address] I have read and agree with above student documentation. Arabella Bermudez RD, CD
--- NOTE | 2016-09-26 19:41 | NUR ---
Mentation/diet/activities/ostomy appliance. Pt mentation improved today. Remembers where she is and asking if it is Sunday. Oriented to time, but within 5 minutes asks me if it is Sunday. Mood much improved and very pleasant today. Pt encouraged to feed herself today and is able to successfully feed herself. Family has been encouraged to make her do as many ADLs for herself as possible given her condition. Family cooperative. Pt unable to work with PT to get out of bed due to a leak in her ileostomy bag. Contacted wound care to help change, as supplies for her appliance was not in ostomy cart. Due to pt physique it is recommended that if appliance needs to be changed to contact wound care therapist.
[2016-09-27] VITALS (7 sets, daily range): BP systolic 111–121; BP diastolic 66–81; PULSE 71–84; RESP 16–22; O2SAT 95–98
[2016-09-27] MEDS: Meropenem Inj 1,000 MG in 0.9% Sodium Chloride 50 ML IV SCH ×2 (01:06→13:01)
[2016-09-27 06:35] LABS: Mean Corpuscular Hemoglobin 26.8 pg (27.0-35.0); Mean Corpuscular Volume 81.6 fL (81-100)
[2016-09-27 07:16] LABS: Phosphorus 4.6 mg/dL (2.5-4.9)
--- NOTE | 2016-09-27 07:29 | NUR ---
Activity/ Pt able to assist with Q2 turns and pull ups in bed, tolerated well. Pt now requesting bedpan and is incontinent at times. VSS and Tele SR 60's to 70's
[2016-09-27] MEDS: Insulin LISPRO 300 Unit/3 mL Inj SUBQ SCH ×4 (08:00→21:01)
--- NOTE | 2016-09-27 09:08 | NUR ---
Faxed referral to [facility] per PYROMETER OPERATOR and MD. Patient has been to downtown location prior and would like to return if meets criteria. Updated PYROMETER OPERATOR
[2016-09-27] MEDS ORDERED: 0.9% Sodium Chloride 250 ML ONE (09:11)
[2016-09-27] MEDS: Trimeth-Sulfa 160-800 mg/20 mL - 20 mL Suspension PO SCH ×2 (09:33→21:00)
[2016-09-27] MEDS: Hydrocortisone 50 mg/mL 2 mL Inj IVPUSH SCH ×2 (09:33→21:00)
[2016-09-27] MEDS: Pantoprazole 4 mg/mL 10 mL Inj IVPUSH SCH (09:34)
--- NOTE | 2016-09-27 15:57 | NUR ---
Social Work: Continued Discharge Planning Data & Assessment: Patient and patient's spouse requested [facility] as patient's discharge plan. Patient was [facility] to [facility]. Engineering Technical Specialist spoke with patient's and notified him that patient was accepted to [facility] and would move tomorrow. He voiced understanding and was in agreement. SW will continue to follow. Plan: Patient is likely to discharge to [facility] on 09/28/16. SW will continue to follow Patricia De Paz LMSW, BILL
--- NOTE | 2016-09-27 17:15 | PCM.PNMED ---
Subjective Date of Service Sep 27, 2016 Subjective Patient was examined at bedside today. Patient denies any chest pain, shortness of breath, nausea, vomiting, diarrhea. Exam Vital Signs Vital Sign - Last Date Time Temp Pulse Resp B/P Pulse Ox O2 Delivery O2 Flow Rate FiO2 09/27/16 16:01 36.6 77 20 111/66 95 Room Air 09/22/16 12:00 2.00 09/22/16 08:00 30 Intake and Output 09/26/16 09/26/16 09/27/16 Cumulative From/Thru 15:00 23:00 07:00 09/15/16 23:05 - 09/27/16 06:17 Intake Total 1216 ml 700 ml 44175 ml Output Total 852 ml 550 ml 01289 ml Balance 364 ml 150 ml 03213 ml Intake Oral 780 ml 700 ml 2490 ml IV Total 436 ml 51844 ml Tube Feeding 3383 ml Tube Irrigant 618 ml Output Urine Total 200 ml 23195 ml Stool Total 852 ml 350 ml 6252 ml Gastric Drainage Total 0 ml Drainage Total 680 ml # Voids 4 2 8 Exam Physical Exam: GEN: Patient was awake, responding appropriately to questions HEENT: PERRLA, EOMI, Neck soft supple, trachea midline, nomocephalic/atraumatic CV: +S1/S2, RRR, no murmurs auscultated Respiratory: CTAB, no wheezes, rales, rhonchi GI: +bowel sounds x4, soft, compressible, non TTP, ostomy in place good output, drains in place EXT: no c/c/e Neuro: CN II-XII grossly intact Psych: mood and affect were appropriate IVs and Medications Medications Reviewed: Medications were reviewed in detail Lab and Diagnostics Result Diagram: 09/27/16 1215 09/27/16 0620 Assessment & Plan 1. Septic shock. Resolved 2. Acute hypoxic respiratory failure -- was intubated, resolved. 3. Rectal carcinoma, status post low anterior resection in May complicated by anastomotic dehiscence. Spoke with surgery today. Dr. Perez will discuss future plans with her primary surgeon at [facility], Dr. Tovar early in the week. 4. 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 Has minimal output from the drain. Plan is as above.(enterococcus, citrobacter, E. coli, and bacteroides f. ). Patient is currently on linezolid and meropenem and by mouth Bactrim for her polymicrobial infection. Infectious disease is involved in the case and likely she will be on these medications persistently until a primary repair of her anastomosis is performed. Dr. Paula to leave a very detailed antibiotic planning's note dated September 26. Includes one to stop the meropenem as well as APO conversion antibiotic plan. 5. Progressive thrombocytopenia. Stopped heparin drip, sent HIT, and start Xarelto twice a day. The plan is continue to drop to a low of [address] Paula is stopping the nasal living cases may be causing thrombocytopenia and stated she would expect a fairly quick rebound. Heparin was stopped 2 days ago. Xarelto will be continued. 6. Severe protein caloric malnutrition. Will encourage by mouth. 7. Deep venous thrombosis of the left leg., heparin drip stopped due to thrombocytopenia. Xarelto to continue. 6. Takotsubo cardiomyopathy -- her ventricular function is greatly improved on her serial echocardiogram. She is clinically much better. No change to medical management. 7. Acute kidney injury -- resolved. 8. Relative adrenal insufficiency. We will continue her stress test steroids for the time being. 9. Morbid obesity. 10. Multidrug resistant enterobacter urinary tract infection. POA. Antibiotics as above. Discharge planning. The patient will not have a second surgical procedure here. The patient's is interested in getting her back in the [facility], an [facility] which is located [facility] to [facility] where her primary surgeon Dr. Tovar is. Patient is currently stable and able to be transferred back to [facility]. Patient will most likely go tomorrow. The patient's linezolid has been stopped per ID and he will continue the meropenem through tomorrow which will complete a ten-day course which was aimed at multiple organisms found in the rectal abscess. Patient will continue on oral Bactrim for 10-14 days as well as Flagyl 500 twice a day for 10-14 days. Patient will most likely be discharged to [facility] tomorrow on outpatient antibiotics as she remains medically stable. Patient will have her next surgical procedure for possible colostomy by her primary surgeon Dr. Tovar. GI Prophylaxis: Proton Pump Inhibitor VTE Prophylaxis: SCDs, Other VTE Mechanical Devices: Intermittant Pneumatic CD Resuscitation Status: CPR: Attempt Resuscitation Minoo Maldonado DO Sep 27, 2016 17:14
[2016-09-28] MEDS: Meropenem Inj 1,000 MG in 0.9% Sodium Chloride 50 ML IV SCH (00:30)
[2016-09-28 03:14] VITALS: BP 122/74; PULSE 71; RESP 16; O2SAT 100
[2016-09-28 06:03] LABS: Mean Corpuscular Volume 82.5 fL (81-100)
--- NOTE | 2016-09-28 06:48 | NUR ---
Mentation/Ostomy Pt was alert and oriented to self but was unaware of where she was and had to be frequently reoriented. Pt also did not know what date/year it was. Pt's ostomy bag had a leak and a full linen change was done along with an ostomy bag replacement. Pt was given applesauce to help slow down the output into the ileostomy since the output was just liquid.
[2016-09-28] MEDS: Pantoprazole 4 mg/mL 10 mL Inj IVPUSH SCH (07:27)
[2016-09-28 07:54] VITALS: PULSE 72
[2016-09-28] MEDS: Insulin LISPRO 300 Unit/3 mL Inj SUBQ SCH ×2 (08:00→12:00)
[2016-09-28] MEDS: Hydrocortisone 50 mg/mL 2 mL Inj IVPUSH SCH (08:23)
[2016-09-28] MEDS: Trimeth-Sulfa 160-800 mg/20 mL - 20 mL Suspension PO SCH (08:23)
[2016-09-28 08:31] VITALS: BP 131/75; PULSE 64; RESP 18; O2SAT 96
--- NOTE | 2016-09-28 08:47 | NUR ---
Spoke with Carolann from [facility] and is accepting doctor [phone] and the RN to RN report line is [phone] Orders will be faxed to [phone], once orders are in I will arrange transport and update Carolann Whitley [phone]. Updated DISHROOM ATTENDANT Addendum: 09/28/16 at 1104 by RENETTA SWANSON CM Faxed orders and summary to [facility]. Arranged [facility] transport for 1300 via [facility]. Called and left message for Carolann at [facility] regarding orders faxed and transport time. Updated DISHROOM ATTENDANT
--- NOTE | 2016-09-28 10:24 | PCM.DIMED ---
Discharge Instructions Date of Service Sep 28, 2016 Dates of Hospitalization Sep 16, 2016 at 01:18 Discharge Diagnosis Discharge Diagnosis Septic shock resolved Presacral abscess secondary to anastomosis breakdown Rectal carcinoma status post low anterior resection in May, treated by anastomotic dehiscence Progressive thrombocytopenia Acute hypoxic respiratory failure resolved status post intubation Medication Instructions Continue oral Bactrim twice a day for 10-14 days as recommended by infectious disease Continue Flagyl 500 mg twice a day for 10-14 days as recommended by infectious disease Diet Other (mechanical soft diet as) Activity Other (as tolerated gradually increase back to her normal daily activities) Call your provider Fever or Chills, Shortness of breath, Bleeding, Chest pain Patient Instructions Follow-up plan Patient should continue with her antibiotic course until it is completed as recommended by infectious disease. Patient is to be seen by Dr. Tovar at [facility] for possible colostomy and management of the patient's current rectal abscess secondary to anastomotic dehiscence patient still has a drain in place. Patient's hemoglobin and hematocrit have been fluctuating. They have been dropping as low as 7.0 but spontaneously rebounding into the mid sevens. Patient may need a blood transfusion there are no obvious signs of bleeding this is most likely secondary to the patient's disease process this is something that will need to be monitored. Follow-up with PCP in: 1 week (patient is to follow-up with Dr. Tovar for secondary surgical procedure.) Minoo Maldonado DO Sep 28, 2016 10:24
[2016-09-28] MEDS ORDERED: HYDR100V5 IVPUSH (10:33)
[2016-09-28] MEDS ORDERED: RIVA15TA PO (10:33)
[2016-09-28] MEDS ORDERED: INSLIS SUBQ (10:33)
[2016-09-28] MEDS ORDERED: METR500T PO (10:33)
[2016-09-28] MEDS ORDERED: HYDR-4003 PO (10:33)
[2016-09-28] MEDS ORDERED: Sulfamethoxazole/Trimethoprim PO (10:33)
--- NOTE | 2016-09-28 10:39 | PCM.DC.MED ---
Discharge Summary Date of Service Sep 28, 2016 Dates of Hospitalization Date of Hospital Admission Sep 16, 2016 at 01:18 Date of Discharge: Sep 28, 2016 Providers: Admitting Physician: Sofi Titus DO Primary Care Physician: Nopcp Attending Physician: Sofi Titus DO Diagnosis at Time of Discharge Diagnosis at Time of Discharge Septic shock resolved Presacral abscess secondary to anastomosis breakdown Rectal carcinoma status post low anterior resection in May, treated by anastomotic dehiscence Progressive thrombocytopenia Acute hypoxic respiratory failure resolved status post intubation Takotsubo cardiomyopathy Procedures XRay, CTs & MRIs PROCEDURE: CT CHEST, ABDOMEN AND PELVIS WTIH CONTRAST ([id number]) INDICATIONS: assess abscess, pneumonia, intubated TECHNIQUE: After the administration of oral and intravenous contrast, 5 mm thick sections acquired from the lung apices to the symphysis. 5 mm coronal and sagittal reformats were performed, with additional 7 mm coronal MIP reformats through the lungs. For radiation dose reduction, the following was used: automated exposure control, adjustment of mA and/or kV according to patient size. COMPARISON: [facility], CT, CT ABD PELVIS WO CON, 09/18/2016, 0:30. FINDINGS: Image quality: Excellent. CHEST: Lungs and pleura: Respiratory motion limits evaluation however there are multiple areas of consolidation within the upper lobes and lower lobes bilaterally. Small to moderate bilateral pleural effusions with adjacent atelectasis. Mediastinum: Heart size is normal. No pericardial effusion. No mediastinal or hilar adenopathy by size criteria. Thoracic aorta and central pulmonary arteries are normal in size. Esophagus is normal in caliber. No hiatal hernia. Chest wall: No axillary or supraclavicular adenopathy by size criteria. Thyroid gland unremarkable. ABDOMEN: Solid organs: Liver and spleen are normal in size and enhancement. Gallbladder grossly unremarkable. Biliary system is non dilated. Pancreas enhances normally. No adrenal nodules. Kidneys demonstrate normal size and enhancement, without hydronephrosis. Peritoneum and bowel: Bowel loops demonstrate normal wall thickness and caliber. No free fluid or air. There is a right-sided ostomy. There is a anastacio ostial hernia containing bowel loops and fluid without evidence of obstruction. Previously seen presacral fluid and gas collection appears decreased since 09/18. There is a drain versus rectal catheter present. Nodes and vessels: No retroperitoneal or mesenteric adenopathy by size criteria. Aorta and inferior vena cava are normal in size. Miscellaneous: No ventral hernias. PELVIS: Genitourinary: Bladder wall thickness is normal. Jordan catheter is present and the bladder is decompressed Miscellaneous: No inguinal hernias or adenopathy. Bones: No suspicious bony lesions. No vertebral body compression fractures. IMPRESSION: Decrease in presacral fluid and gas collection since 09/18/16. Small to moderate bilateral pleural effusions with adjacent atelectasis. Multifocal areas of consolidation within the upper and lower lobes suggestive of pneumonia and/or aspiration. Additional chronic and incidental findings as above. Dictated by: Isaac Mchugh M.D. on 09/21/2016 at 20:42 Approved by: Isaac Mchugh M.D. on 09/21/2016 at 20:51 PROCEDURE: X-RAY CHEST ONE VIEW, PORTABLE ([id number]) INDICATIONS: recent extubation TECHNIQUE: One view of the chest was acquired. COMPARISON: [facility], , XR CHEST 1VW (PORTABLE), 09/22/2016, 5: 16. FINDINGS: Surgical changes and devices: ET tube and NG tube have been removed. Central venous catheter in stable position. Lungs and pleura: No pleural effusions or pneumothorax. Bibasilar airspace opacities have decreased in size. Venous congestion has diminished. Mediastinum: Mediastinal contours appear normal. Heart size is normal. Bones and chest wall: No suspicious bony lesions. Overlying soft tissues appear unremarkable. IMPRESSION: Resolving venous congestion and bibasilar opacities. Dictated by: Abigail Acosta MD, PhD on 09/23/2016 at 9:00 Approved by: Abigail Acosta MD, PhD on 09/23/2016 at 9:01 PROCEDURE: US VENOUS LEG DUPLEX BILATERAL INDICATIONS: assess for DVT TECHNIQUE: Real-time imaging, as well as color and pulse Doppler interrogation, were performed of the deep veins of both legs from the inguinal ligament to the popliteal fossa. [facility] ARTERY LEG DPLX BILAT, 09/16/2016, 9: 38. FINDINGS: This study is limited by body habitus. There is occlusive thrombus seen within the left distal femoral vein and the left popliteal vein. No definite right lower extremity deep venous thrombosis is seen, although the midportion of the right femoral vein is not well-seen. IMPRESSION: Occlusive deep venous thrombosis is seen involving the left distal femoral vein and the left popliteal vein. No definite right lower extremity deep venous thrombosis is seen. Suboptimal examination, secondary to body habitus. Note: Concordant preliminary findings given by the instructional support specialist upon the completion of the examination to Lilian Brunothor at 10:15 [place] time on September 16, 2016. Dictated by: Lam Law M.D. on 09/16/2016 at 9:40 Approved by: Lam Law M.D. on 09/16/2016 at 9:43 Cardiac Echo Impression Echocardiogram Report Name: JOHN SMITH HStudy Date: 09/21/2016 Height: 64 in Hospital Exam Location: [facility] Weight: 281 lb Gender: Female BSA: 2.3 m2 : 1945 Age: 70 yrs BP: 99/7 8 mmHg Ordering Physician: HOSPITALIST [facility] Performed By: Ty Darling Referring Physician: GAIL PAGAN Interpretation Summary Left ventricular ejection fraction is estimated to be 40 +/- 5%. Compared to the prior exam, left ventricular function is moderately improved. There is still moderate hypokinesis of the apical third. Basal segments are hypercontractile. Procedure: A two-dimensional transthoracic echocardiogram with color flow and Doppler was performed in limited views only. The study quality was technically difficult. A contrast injection of Definity was performed to improve assessment of LV function. The patient was in normal sinus rhythm during the exam. Left Ventricle: Compared to the prior exam, left ventricular function is moderately improved. Left ventricular ejection fraction is estimated to be 40 +/- 5%. There is still moderate hypokinesis of the apical third. Basal segments are hypercontractile. Brief History Patient is a 70 year old female with a history of rectal cancer and type 2 DM. She presented to [facility] on 09/15/16 from [facility] after abnormal lab testing was found. Patient was hyperkalemic with acute renal failure. Patient currently able to report that she has no pain anywhere, including no chest pain or abdominal pain. She is undergoing a nebulizer treatment at the time of this exam and perseverates about how she cannot breathe with the mask on. Unable to obtain any meaningful history. Per ED report the nursing staff at [facility] states that the patient has been increasingly weak and less-energetic. This worsening weakness was the motivation to check labs today. In the ED the patient is afebrile with a heart rate of 75, respiratory rate 26, blood pressure 107/44, and O2 saturation 98% on room air. Labs remarkable for WBC 16.9, sodium 120, potassium 7.9, chloride 84, CO2 17, BUN 69, creatinine 3.39 and lactate 2.2. Given albuterol, insulin/dextrose, calcium gluconate, kayexalate, and sodium bicarb given in ED. Repeat labs showed potassium 6.9. IV NS given x 2L. Patient to be admitted to the ICU for further management. Discussed with Dr. Presley. Hospital Course 1. Septic shock. Resolved 2. Acute hypoxic respiratory failure -- was intubated, resolved. 3. Rectal carcinoma, status post low anterior resection in May complicated by anastomotic dehiscence. Spoke with surgery today. Dr. Perez will discuss future plans with her primary surgeon at [facility], Dr. Tovar early in the week. 4. 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 Has minimal output from the drain. Plan is as above.(enterococcus, citrobacter, E. coli, and bacteroides f. ). Patient is currently on linezolid and meropenem and by mouth Bactrim for her polymicrobial infection. Infectious disease is involved in the case and likely she will be on these medications persistently until a primary repair of her anastomosis is performed. Dr. Paula to leave a very detailed antibiotic planning's note dated September 26. Includes one to stop the meropenem as well as APO conversion antibiotic plan. 5. Progressive thrombocytopenia. Stopped heparin drip, sent HIT, and start Xarelto twice a day. The plan is continue to drop to a low of [address] Paula is stopping the nasal living cases may be causing thrombocytopenia and stated she would expect a fairly quick rebound. Heparin was stopped 2 days ago. Xarelto will be continued. 6. Severe protein caloric malnutrition. Will encourage by mouth. 7. Deep venous thrombosis of the left leg., heparin drip stopped due to thrombocytopenia. Xarelto to continue. 6. Takotsubo cardiomyopathy -- her ventricular function is greatly improved on her serial echocardiogram. She is clinically much better. No change to medical management. 7. Acute kidney injury -- resolved. 8. Relative adrenal insufficiency. We will continue her stress test steroids for the time being. 9. Morbid obesity. 10. Multidrug resistant enterobacter urinary tract infection. POA. Antibiotics as above. Discharge planning. The patient will not have a second surgical procedure here. The patient's is interested in getting her back in the [facility], an LT[facility] which is located in [facility] next to [facility] where her primary surgeon Dr. Tovar is. Patient is currently stable and able to be transferred back to [facility]. Patient will most likely go tomorrow. The patient's linezolid has been stopped per ID and he will continue the meropenem through tomorrow which will complete a ten-day course which was aimed at multiple organisms found in the rectal abscess. Patient will continue on oral Bactrim for 10-14 days as well as Flagyl 500 twice a day for 10-14 days. Patient will most likely be discharged to [facility] tomorrow on outpatient antibiotics as she remains medically stable. Patient will have her next surgical procedure for possible colostomy by her primary surgeon Dr. Tovar. Exam Vital Signs (Last) Date Time Temp Pulse Resp B/P Pulse Ox O2 Delivery O2 Flow Rate FiO2 09/28/16 08:31 36.5 64 18 131/75 96 Room Air 09/22/16 12:00 2.00 09/22/16 08:00 30 Exam Physical Exam: GEN: Patient was awake, alert, responding appropriately to questions HEENT: PERRLA, EOMI, Neck soft supple, trachea midline, nomocephalic/atraumatic CV: +S1/S2, RRR, no murmurs auscultated, right IJ in place Respiratory: CTAB, no wheezes, rales, rhonchi GI: +bowel sounds x4, soft, compressible, non TTP, ostomy in place, rectal abscess drain in place EXT: Bilateral lower extremity venous stasis discoloration, positive edema nonpitting Neuro: CN II-XII grossly intact Psych: mood and affect were appropriate Test 09/15/16 00:00 09/15/16 00:55 09/16/16 01:08 09/16/16 04:00 Miscellaneous Test Comment Urine Color Yellow (YELLOW) Urine Appearance Cloudy (CLEAR,HAZY) Urine pH 5.5 (5.0-8.0) Urine Specific [place] 1.025 (1.003-1.035) Urine Protein Negativemg/dL (NEG,TRACE) Urine Glucose (UA) 100mg/dL (NEGATIVE) Urine Ketones Negativemg/dL (NEGATIVE) Urine Occult Blood Negative (NEGATIVE) Urine Nitrite Negative (NEGATIVE) Urine Bilirubin Negative (NEGATIVE) Urine Urobilinogen Normalmg/dL (NORMAL) Urine Leukocyte Esterase Small (NEGATIVE) Urine RBC 0-2/hpf (0-2) Urine WBC 6-10/hpf (0-5) Urine Epithelial Cells Many/hpf (NONE-MOD) Urine Crystals Amorphous urates (NONE Urine Bacteria Few/hpf (NONE-FEW) Urine Hyaline Casts Occasional/lpf (NONE) Urine Granular Casts None seen (NONE SEEN) Urine Waxy Casts None seen (NONE SEEN) Urine Red Blood Cell Casts None seen (NONE SEEN) Urine White Blood Cell Casts None seen (NONE SEEN) Urine Mucus None seen (None Seen) Urine Trichomonas None seen (NONE SEEN) Urine Yeast None (NONE SEEN) Urine Culture Reflexed Indicated Pro-B-Type Natriuretic Peptide 3452pg/mL (0-301) Prothrombin Time 12.8sec (8.1-12.5) Prothromb Time International Ratio 1.19ratio Test 09/16/16 11:52 09/16/16 13:55 09/16/16 16:25 09/16/16 18:50 Hematology Comments Reticulocyte Count,Calculated 2.0% (0.6-2.6) Haptoglobin 347mg/dL (34-200) Hold Purple Top Tube Received (Received) Hemoglobin A1c 6.7% (4.8-5.6) Hold [place] Top Tube Received (Received) C-Reactive Protein 18.6mg/dL (0.0-0.5) Vitamin B12 Level 708pg/mL (211-946) Erythrocyte Sedimentation Rate 63mm/hr (0-40) Test 09/17/16 04:00 09/19/16 02:55 09/21/16 09:52 09/23/16 03:50 Iron Level 43ug/dL (35-150) Total Iron Binding Capacity 128ug/dL (250-450) Percent Iron Saturation 34%sat (15-50) Unsaturated Iron Binding 84.6ug/dL Ferritin 565ng/mL (13-150) Troponin T 0.316ug/L (0.0-0.011) Cortisol 8.0ug/dL (.) Neutrophils (%) (Auto) 89.8% (40-74) Lymphocytes (%) (Auto) 5.8% (14-46) Monocytes (%) (Auto) 3.8% (4-12) Eosinophils (%) (Auto) 0% (0-5) Basophils (%) (Auto) 0.1% (0-3) Procalcitonin 0.23ng/mL (0.00-0.08) Test 09/23/16 11:56 09/24/16 02:50 09/24/16 18:50 09/27/16 06:20 Hold Richards Top Tube Received (Received) Activated Partial Thromboplast Time 81.5sec (22.8-33.0) Lactic Acid Level 2.5mmol/L (0.4-2.0) Heparin-PF4 Ab Optical Density 0.151OD (<0.4) Heparin-PF4 Antibody Interpretation Not indicated Phosphorus Level 4.6mg/dL (2.5-4.9) Magnesium Level 2.0mg/dL (1.6-2.6) Test 09/27/16 21:21 09/28/16 05:30 Sodium Level 135mEq/L (134-144) Potassium Level 4.6mEq/L (3.5-5.2) Chloride Level 98mEq/L (97-108) Carbon Dioxide Level 22mmol/L (18-29) Blood Urea Nitrogen 56mg/dL (8-27) Creatinine 1.11mg/dL (0.57-1.00) Estimat Glomerular Filtration Rate 70mL/min (>59) Glucose Level 133mg/dL (60-99) Calcium Level 8.7mg/dL (8.5-10.1) Total Bilirubin 0.5mg/dL (0.0-1.2) Aspartate Amino Transf (AST/SGOT) 77U/L (0-50) Alanine Aminotransferase (ALT/SGPT) 37U/L (0-32) Alkaline Phosphatase 232U/L (25-165) Total Protein 6.2g/dL (6.4-8.4) Albumin 3.7g/dL (3.4-5.0) White Blood Count 4.2th/mm3 (3.8-10.1) Red Blood Count 2.63mil/mm3 (3.90-5.20) Hemoglobin 7.1g/dL (12.0-15.6) Hematocrit 21.7% (35.0-46.0) Mean Corpuscular Volume 82.5fL (81-100) Mean Corpuscular Hemoglobin 27.0pg (27.0-35.0) Mean Corpuscular Hemoglobin Concent 32.7% (32.0-37.0) Red Cell Distribution Width 15.7% (12.3-15.4) Platelet Count 55bil/L (150-400) Microbiology Results Laboratory Tests Test 09/27/16 12:15 09/27/16 21:21 09/28/16 05:30 Hemoglobin 7.6g/dL (12.0-15.6) 7.1g/dL (12.0-15.6) Hematocrit 22.6% (35.0-46.0) 21.7% (35.0-46.0) Sodium Level 135mEq/L (134-144) Potassium Level 4.6mEq/L (3.5-5.2) Chloride Level 98mEq/L (97-108) Carbon Dioxide Level 22mmol/L (18-29) Blood Urea Nitrogen 56mg/dL (8-27) Creatinine 1.11mg/dL (0.57-1.00) Estimat Glomerular Filtration Rate 70mL/min (>59) Glucose Level 133mg/dL (60-99) Calcium Level 8.7mg/dL (8.5-10.1) Total Bilirubin 0.5mg/dL (0.0-1.2) Aspartate Amino Transf (AST/SGOT) 77U/L (0-50) Alanine Aminotransferase (ALT/SGPT) 37U/L (0-32) Alkaline Phosphatase 232U/L (25-165) Total Protein 6.2g/dL (6.4-8.4) Albumin 3.7g/dL (3.4-5.0) White Blood Count 4.2th/mm3 (3.8-10.1) Red Blood Count 2.63mil/mm3 (3.90-5.20) Mean Corpuscular Volume 82.5fL (81-100) Mean Corpuscular Hemoglobin 27.0pg (27.0-35.0) Mean Corpuscular Hemoglobin Concent 32.7% (32.0-37.0) Red Cell Distribution Width 15.7% (12.3-15.4) Platelet Count 55bil/L (150-400) Microbiology 09/16/16 Blood Culture - Final, Complete NO GROWTH AFTER 5 DAYS 09/17/16 Sputum Quality Screen - Final, Complete 09/17/16 Sputum Culture - Final, Complete Methicillin Resistant S Aureus With Normal Delilah 09/15/16 Urine Culture - Final, Complete Enterobacter Cloacae Complex 09/20/16 Sputum Quality Screen - Final, Complete 09/20/16 Sputum Culture - Final, Complete No growth. Discharge Medications Discharge Medications ([Sulfamethoxazole/Trimethoprim]) 20 ML SUSPENSION 40 ML PO BID Prescribed by: MINOO MALDONADO DO Ferrous Sulfate (Ferrous Sulfate) 325 Mg Tablet 325 MG PO BID (Reported) Hydrocortisone Sod Succ/Pf (Solu-Cortef 100 mg Vial) 100 Mg/2 Ml Vial 100 MG IVPUSH Q12 Prescribed by: MINOO MALDONADO DO Insulin Human Lispro (HumaLOG U100 Insulin Vial) 100 Unit/Ml Unit 0 UNIT SUBQ WMHS Check blood sugars before meals and at bedtime. Use correction factor only before meals. Blood Sugar Lispro Correction: <151, 0 units; 151-175, 1 unit; 176-200, 2 units; 201-225, 3 units; 226-250, 4 units; 251-275, 5 units; 276-300 , 6 units; 301-325, 7 units; 326-350, 8 units; 351-375, 9 units; 376-400, 10 units; >400, 12 units. Prescribed by: MINOO MALDONADO DO Levothyroxine (Levothyroxine) 50 Mcg Tablet 50 MCG PO DAILY (Reported) Metronidazole (Flagyl) 500 Mg Tablet 500 MG PO BID Prescribed by: MINOO MALDONADO DO Pantoprazole DR (Pantoprazole DR) 40 Mg Tablet.dr 40 MG PO DAILY (Reported) Rivaroxaban (Xarelto) 15 Mg Tablet 15 MG PO BID Prescribed by: MINOO MALDONADO DO As needed Hydrocodone-Acetaminophen 5-325 mg (Hydrocodone-Acetaminophen 5-325 mg) 1 Each Tablet 1-2 TABLET PO Q4 PRN PRN For Mild Pain Prescribed by: MINOO MALDONADO DO Additional med instructions Continue oral Bactrim twice a day for 10-14 days as recommended by infectious disease Continue Flagyl 500 mg twice a day for 10-14 days as recommended by infectious disease Followup Plan Follow-up plan Patient should continue with her antibiotic course until it is completed as recommended by infectious disease. Patient is to be seen by Dr. Tovar at [facility] for possible colostomy and management of the patient's current rectal abscess secondary to anastomotic dehiscence patient still has a drain in place. Patient's hemoglobin and hematocrit have been fluctuating. They have been dropping as low as 7.0 but spontaneously rebounding into the mid sevens. Patient may need a blood transfusion there are no obvious signs of bleeding this is most likely secondary to the patient's disease process this is something that will need to be monitored. Discharge Diet: Other (mechanical soft diet as) Discharge Activity: Other (as tolerated gradually increase back to her normal daily activities) Follow-up with PCP in: 1 week (patient is to follow-up with Dr. Tovar for secondary surgical procedure.) Time spent Greater than 35 minutes Minoo Maldonado DO Sep 28, 2016 10:39
--- NOTE | 2016-09-28 11:55 | PROG NOTE ---
[address] [address] PROGRESS NOTE PATIENT: JOHN SMITH : 1945 MR#: [id number] ADMIT: 09/16/2016 JOB ID: [id number] DATE: 09/28/2016 INFECTIOUS DISEASE FOLLOWUP NOTE: REASON FOR FOLLOWUP: Multi-drug resistant urinary tract infection, polymicrobial rectal abscess and MRSA colonization. INTERVAL HISTORY: The patient reports she has been feeling quite well overnight. She denies any fevers, chills, or sweats. She has had no cough or shortness of breath. She reports she has had some minimal lower abdominal pain. She is tolerating her oral Bactrim very well. PHYSICAL EXAMINATION: Reveals an afebrile woman. Temp 36.5, blood pressure 131/75, pulse in the 70s, respiratory rate 18. She is in no acute distress. Oral cavity benign. The right neck line appears benign. Lungs: Clear. Abdomen: Slightly distended, but without focal tenderness. Rectal drain still in place. LABORATORIES: Include white count of 4200, platelets still slowly declining and now 55,000. Creatinine 1.11, which is relatively stable over the past several days. Her alk phos is a slowly climbing. It is 232. ALT is 37 and AST 77. The albumin 3.7. Potassium stable at 4.6. No new cultures are available, and they have been discussed previously. IMPRESSION: This is a complex woman with methicillin-resistant Staphylococcus aureus colonization and/or infection of the airway plus a multi-drug resistant gram-negative urinary tract infection and a polymicrobial rectal abscess from an anastomotic leak. We have completed the aggressive part of her therapy with meropenem and linezolid, which ended today and three days ago, respectively. She is now continuing on the Bactrim, which we had been using for the multi-drug resistant urinary isolate and will also provide coverage for the gram negatives in the rectal abscess as well as the methicillin-resistant Staphylococcus aureus. The Flagyl is just starting today and that is intended strictly for the anaerobes that were found in the rectal abscess. RECOMMENDATIONS: 1. I would continue with Bactrim and Flagyl for about two more weeks. 2. This course could be extended a bit if the intention is to keep her on therapy with the rectal abscess all the way up until her next surgery in [place]. 3. The LFT have risen very slightly. While I do not think it is due to the Bactrim, that is not beyond the realm of possibility. So, I would continue to closely check those and would repeat LFT every few days. 4. The platelets are still low, and it is hard to know if this is related to the linezolid she previously received. If so, her platelets should rebound soon, and I would check a CBC at least twice a week. 5. The patient is still on a fairly hefty dose of Bactrim which is equivalent to two double-strength tablets twice a day. This dose could certainly be reduced going forward. The potassium and creatinine have actually been fine on this dose of Bactrim but they should be monitored twice a week as well. 6. I understand this patient may be transferred to [facility] soon. 7. Infectious Disease will go ahead and sign off. Thanks for this consult.
[2016-09-28 12:45] VITALS: BP 125/77; PULSE 74; RESP 18; O2SAT 95
--- NOTE | 2016-09-28 16:28 | NUR ---
Transfer to [facility] Pt transferred to [facility] via ambulance at 1530. All belongings taken with, family took some of her belongings home. Report given at bedside to transport team and will be called to [facility] now. Jordan placed to rectal abscess draining tube for transport and flushed prior to leaving. Right IJ removed along with tele prior to DC.
== END 2016-09-28 15:30 | DRG 870 ==
LOC: EDBD 22:59 → SED 22:59 → CCU 09-16 01:18 → PCC 09-24 11:52
PROVIDERS: ADMIT Internal Medicine; ATTEND Internal Medicine
PROC: 4A033R1 Measurement of Arterial Saturation, Peripheral, Percutaneous Approach (ICD-10-PCS; 2016-09-16)
PROC: 5A1955Z Respiratory Ventilation, Greater than 96 Consecutive Hours (ICD-10-PCS; 2016-09-17)
PROC: 0BH17EZ Insertion of Endotracheal Airway into Trachea, Via Natural or Artificial Opening (ICD-10-PCS; 2016-09-17)
PROC: 0D9P70Z Drainage of Rectum with Drainage Device, Via Natural or Artificial Opening (ICD-10-PCS; principal; 2016-09-18 17:00)
DX: A41.9 Sepsis, unspecified organism (principal); J18.9 Pneumonia, unspecified organism; I50.21 Acute systolic (congestive) heart failure; E43 Unspecified severe protein-calorie malnutrition; R65.21 Severe sepsis with septic shock; G93.41 Metabolic encephalopathy; J96.01 Acute respiratory failure with hypoxia; Z68.42 Body mass index [BMI] 45.0-49.9, adult; I82.412 Acute embolism and thrombosis of left femoral vein; I51.81 Takotsubo syndrome; N17.9 Acute kidney failure, unspecified; E87.1 Hypo-osmolality and hyponatremia; K61.2 Anorectal abscess; E87.2 Acidosis; C20 Malignant neoplasm of rectum; N39.0 Urinary tract infection, site not specified; E87.5 Hyperkalemia; E66.01 Morbid (severe) obesity due to excess calories; I10 Essential (primary) hypertension; E11.9 Type 2 diabetes mellitus without complications; E03.9 Hypothyroidism, unspecified; Z93.3 Colostomy status; B96.89 Other specified bacterial agents as the cause of diseases classified elsewhere; B95.62 Methicillin resistant Staphylococcus aureus infection as the cause of diseases classified elsewhere; B95.2 Enterococcus as the cause of diseases classified elsewhere; B96.20 Unspecified Escherichia coli [E. coli] as the cause of diseases classified elsewhere; D69.6 Thrombocytopenia, unspecified

== ENCOUNTER 2016-11-21 15:59 | Inpatient (IN) | payer MEDICARE ==
[2016-11-21] VITALS (12 sets, daily range): BP systolic 55–156; BP diastolic 23–132; PULSE 92–135; RESP 19–35; O2SAT 96–99
[~2016-11-21] VITALS: Ht 157.5 cm; Wt 137.9 kg
[~2016-11-21 15:59] MED LIST changes: -AMOX500C2 PO; -CLAR500T PO; -FUR20 PO; -GLIM4TAB2 PO; +HYDR-4003 PO; +HYDR100V5 IVPUSH; +INSLIS SUBQ; -LOSA50TA37 PO; -METF500T4 PO; -METO25TA6 PO; +METR500T PO; +PANT40TA3 PO; +RIVA15TA PO; -SPIR25TA3 PO; +Sulfamethoxazole/Trimethoprim PO
[2016-11-21] MEDS ORDERED: 0.9% Sodium Chloride 1,000 ML IV ONE (16:14)
--- NOTE | 2016-11-21 16:19 | ED.REPORT ---
HPI-General Illness Date of Service Nov 21, 2016 ED Provider: Adrian Brown MD The patient is a 71 year old female with history of colorectal cancer with colostomy, sacral osteomyelitis, sepsis secondary to sacral abscess, DVTs, diabetes mellitus type II, hypertension, and hypothyroidism, who was brought to the emergency department by EMS for abnormal labs that were drawn today at 1200. Her blood work demonstrated WBC 22.3, neutrophil predominance, Na 124, K 5.8, BUN 46, creatinine 3.2. The patient presents confused and shaky. She complains of some buttock pain. She denies fever, chills, shortness of breath, cough, chest pain, dysuria, lower extremity swelling, rash, nausea, vomiting, diarrhea, numbness, weakness or headache. Nursing Notes Stated Complaint: CHRONIC MULTIPLE MEDICAL PROBLEMS Chief Complaint: General Complaint Nursing Notes Reviewed: Yes Allergies: Coded Allergies: codeine (Verified Allergy, Unknown, 11/21/16) Scheduled Ferrous Sulfate (Ferrous Sulfate) 325 Mg Tablet 325 MG PO BIDWM Insulin Aspart (NovoLOG U100 Insulin Vial) 100 U/Ml U 1-5 UNIT SUBQ ACHS Levofloxacin (Levofloxacin) 500 Mg Tablet 500 MG PO QAM Levothyroxine (Levothyroxine) 50 Mcg Tablet 50 MCG PO QAM Melatonin (Melatonin) 3 Mg Tablet 3 MG PO HS Metronidazole (Flagyl) 500 Mg Tablet 500 MG PO BID Omeprazole (Omeprazole) 20 Mg Capsule.dr 20 MG PO QAM Prednisone (PredniSONE) 20 Mg Tablet 40 MG PO DAILYWM Sulfamethoxazole/Trimeth 800-160 mg (Bactrim DS) 1 Each Tablet 2 TABLET PO BID Scheduled PRN Acetaminophen (Acetaminophen) 325 Mg Tablet 650 MG PO Q4H PRN PRN For Fever Bisacodyl (Bisacodyl Rectal) 10 Mg/30 Ml Enema 10 MG RC DAILY PRN PRN For Constipation Calcium Carbonate (Tums) 500 Mg Tab.chew 1,000 MG PO Q4H PRN PRN For Dyspepsia or Heartburn Docusate Sodium (Colace) 100 Mg Capsule 200 MG PO BID PRN PRN For Constipation Hydrocodone-Acetaminophen 5-325 mg (Hydrocodone-Acetaminophen 5-325 mg) 1 Each Tablet 1-2 TABLET PO Q4 PRN PRN For Mild Pain Loperamide (Loperamide) 2 Mg Capsule 2 MG PO Q6H PRN PRN For Diarrhea or Loose Stool Magnesium Hydroxide (Milk of Magnesia) 400 Mg/5 Ml Oral.susp 30 ML PO Q12H PRN PRN For Constipation Simethicone (Gas-X) 80 Mg Tablet 80 MG PO Q6H PRN PRN For Dyspepsia or Heartburn General Time Seen by MD: 16:16 Chief Complaint Weakness, Other (abnormal labs) Hx Obtained From: Patient, EMS Arrived By: Ambulance Sudden in Onset?: No Onset Occurred: Onset unknown Symptom Duration: Duration unknown Severity: Current: No pain currently Severity: Maximum: No pain Recent Healthcare: No recent hospitalization Similar Sx Previous: No Past Medical History Past Medical History Notes: Colon and rectal surgeon at [facility]: David Tovar MD - [phone] Past Medical History Rectal CA HTN Diabetes Hypothyroidism Vascular insufficiency Leg Swelling Past Surgical History Laparoscopic robotic low anterior resection with diverting loop ileostomy and a transanal total mesorectal excision with rigid proctoscopy May 2016 GRIFFIN drain to buttock recently Colonoscopy 2015 Reports: Tonsillectomy Smoking History Never Smoker Social History Currently residing at [facility] form indicates full code Alcohol Use: Denies alcohol use Drug Use: Denies drug use Review of Systems +buttock pain Full Review of Systems Constitutional: Denies: Chills, Fever Respiratory: Denies: Non-productive cough, Shortness of breath Cardiovascular: Denies: Chest pain GI: Denies: Abdominal pain, Diarrhea, Nausea, Vomiting Female: Denies: Dysuria Musculoskeletal: Denies: Extremity swelling Skin: Denies Rash Neurologic: Reports: Shaking, Weakness, Denies: Focal weakness, Headache, Numbness Complete sys rev & neg: except as marked. Physical Exam Vital Signs Vital Signs Date Time Temp Pulse Resp B/P Pulse Ox O2 Delivery O2 Flow Rate FiO2 11/21/16 20:27 113 23 156/132 98 11/21/16 20:09 114 32 131/111 97 11/21/16 19:59 124 23 77/61 97 Room Air 11/21/16 19:44 36.6 135 24 87/53 97 Room Air 11/21/16 19:10 123 35 103/60 99 Room Air 11/21/16 19:07 121 32 103/60 98 11/21/16 18:25 103 19 55/23 98 Room Air 11/21/16 17:53 96 22 72/45 98 Room Air 11/21/16 17:24 92 26 61/32 98 11/21/16 16:11 36.6 107 20 71/40 97 Room Air Initial VS: Reviewed Head / Eyes: Atraumatic, Normocephalic, PERRL ENT: Mucous membranes moist, Conjunctiva normal, No scleral icterus Neck: Supple, Non-tender, Full range of motion Extremities: Vascular intact, Neuro intact Skin: Warm, Dry, No cyanosis Alertness: Positive: Confused Appearance / Presentation: Positive: Pale Appears generally weak Respiratory / Chest: Atraumatic, Breath sounds NL, Breath sounds = bilat, No respiratory distress, No rales, No rhonchi, No wheezing Cardiovascular: Heart rate NL, Regular rhythm, Heart sounds NL, Cap refill not delayed, Peripheral circulation NL Abdomen: Soft, Non-tender, No guarding, No rebound, BS normoactive, No distention There is an ostomy bag in her RLQ with scant brown colored stool present BACK: There are multiple ulcers about the sacral region measuring at about 2-4 cm in size with surrounding erythema with induration that extends outward about the buttock. Lower Extremity / Pelvis / MS: Neurologic intact 2+ bilateral pitting edema that goes [address] up to her knees. RECTUM: Drain going into rectal region with dark brown drainage. Neurologic: Speech NL Mental Status: Positive: Confused Interpretation & Diagnostics Interpretation & Diagnostics: VB.165/31/47.5/10.8/-16.5 Lab Results Interpretation Result Diagram: 11/21/16 1615 11/21/16 1615 Test 11/21/16 16:15 11/21/16 16:46 11/21/16 19:55 White Blood Count 15.7th/mm3 (3.8-10.1) Red Blood Count 3.80mil/mm3 (3.90-5.20) Hemoglobin 10.6g/dL (12.0-15.6) Hematocrit 31.5% (35.0-46.0) Mean Corpuscular Volume 82.9fL (81-100) Mean Corpuscular Hemoglobin 27.9pg (27.0-35.0) Mean Corpuscular Hemoglobin Concent 33.7% (32.0-37.0) Red Cell Distribution Width 16.0% (12.3-15.4) Platelet Count 124bil/L (150-400) Neutrophils (%) (Auto) 96.5% (40-74) Lymphocytes (%) (Auto) 0.4% (14-46) Monocytes (%) (Auto) 1.3% (4-12) Eosinophils (%) (Auto) 0% (0-5) Basophils (%) (Auto) 0% (0-3) Sodium Level 118mEq/L (134-144) Potassium Level 6.0mEq/L (3.5-5.2) Chloride Level 85mEq/L (97-108) Carbon Dioxide Level 9mmol/L (18-29) Blood Urea Nitrogen 52mg/dL (8-27) Creatinine 3.61mg/dL (0.57-1.00) Estimat Glomerular Filtration Rate 18mL/min (>59) Glucose Level 209mg/dL (60-99) Calcium Level 9.1mg/dL (8.5-10.1) Magnesium Level 1.3mg/dL (1.6-2.6) Total Bilirubin 0.2mg/dL (0.0-1.2) Aspartate Amino Transf (AST/SGOT) 12U/L (0-50) Alanine Aminotransferase (ALT/SGPT) 10U/L (0-32) Alkaline Phosphatase 107U/L (25-165) Troponin T 0.100ug/L (0.0-0.011) Total Protein 6.7g/dL (6.4-8.4) Albumin 3.3g/dL (3.4-5.0) Urine Color Yellow (YELLOW) Urine Appearance Turbid (CLEAR,HAZY) Urine pH 5.0 (5.0-8.0) Urine Specific [place] 1.030 (1.003-1.035) Urine Protein 100mg/dL (NEG,TRACE) Urine Glucose (UA) Negativemg/dL (NEGATIVE) Urine Ketones Negativemg/dL (NEGATIVE) Urine Occult Blood Large (NEGATIVE) Urine Nitrite Positive (NEGATIVE) Urine Bilirubin Negative (NEGATIVE) Urine Urobilinogen Normalmg/dL (NORMAL) Urine Leukocyte Esterase Moderate (NEGATIVE) Urine RBC 3-10/hpf (0-2) Urine WBC 0-5/hpf (0-5) Urine Epithelial Cells None/hpf (NONE-MOD) Urine Crystals None seen (NONE SEEN) Urine Bacteria Many/hpf (NONE-FEW) Urine Hyaline Casts None/lpf (NONE) Urine Granular Casts None seen (NONE SEEN) Urine Waxy Casts None seen (NONE SEEN) Urine Red Blood Cell Casts None seen (NONE SEEN) Urine White Blood Cell Casts None seen (NONE SEEN) Urine Mucus Present (None Seen) Urine Trichomonas None seen (NONE SEEN) Urine Yeast None (NONE SEEN) Urinalysis Comment None Urine Culture Reflexed Indicated Hold Richards Top Tube Received (Received) ECG Interpretation ECG Interpretation: Sinus tachycardia with a rate of 103 bpm Inferior Q waves No acute ST segment changes Borderline prolonged DE interval When compared to prior dated 09/19/2016 the lateral T wave inversions are now resolved and T waves are more peaked in appearance in the anteroseptal leads when compared to prior EKG showed anteroseptal T wave flattening. Time: 16:45 Interpreted by: ED physician X-Ray Chest Interpretation Chest Xray Interpretation: IMPRESSION: No acute cardiopulmonary findings. Dictated by: Ela Velez M.D. on 11/21/2016 at 17:05 Interpretation / Wet Read by: Interpret - Radiologist Chest Xray Interpretation: IMPRESSION: Mild right lung alveolar infiltration consistent with mild aspiration. Dictated by: Patrick Amador M.D. on 11/21/2016 at 19:43 Interpretation / Wet Read by: Interpret - Radiologist Chest Xray Interpretation: IMPRESSION: Mildly reduced inspiratory time, central line in normal position from left-sided approach, as has been previously the case. Dictated by: Patrick Amador M.D. on 11/21/2016 at 19:47 Interpretation / Wet Read by: Interpret - Radiologist CT Abd / Pelvis Interpretation IMPRESSION: Somewhat high density material is present within the collecting system of both kidneys posteriorly, but not present in September of this year. These could represent an unusually rapid formation of urinary tract stones. What does appear to be the presence of mild left hydronephrosis is noted, And what appears to be a 5 x 6 mm distal left ureteral stone can be seen. A calculus within the ureter in that area was not identified in September of this year. Dictated by: Patrick Amador M.D. on 11/21/2016 at 20:12 Study type: Abdominal CT no contrast Interpretation / Wet Read by: Interpret - Radiologist Procedures Central Line Placement Time: 17:38 Procedure Performed by: ED physician Consent / Setup / Site Prep: Informed consent provided, Consent from patient , Time-out performed, Oxygen administered, Pulse oximeter applied, waistline joiner applied, Hand hygiene observed, Standard surgical scrub, Max barrier precaution, Sterile drapes applied, Position Trendelenburg Skin Preparation Agent: Hibiclens - Chlorhexidine, Normal saline Local Anesthesia: Lidocaine 1% Side / Location / Ultrasound: Internal jugular left, Ultrasound assisted Catheter / Lumen / Technique: Triple lumen, Good blood return, Secured w catheter device Post-Procedure / Complications: Antibiotic oint applied, Dressing placed, CXR neg for pneumothorax, Condition improved, Tolerated procedure well, Patient stable, Not stable post-procedure Re-Eval/Medical Decision Med Decision/Clinical Course The patient is a 71 year old female with history of colorectal cancer with colostomy, sacral osteomyelitis, sepsis secondary to sacral abscess, DVTs, diabetes mellitus type II, hypertension, and hypothyroidism, who was brought to the emergency department by EMS for abnormal labs that were drawn today at 1200. Her blood work demonstrated WBC 22.3, neutrophil predominance, Na 124, K 5.8, BUN 46, creatinine 3.2. The patient presents confused and shaky. She complains of some buttock pain. She denies fever, chills, shortness of breath, cough, chest pain, dysuria, lower extremity swelling, rash, nausea, vomiting, diarrhea, numbness, weakness or headache. Upon arrival the patient was tachycardic with a heart rate in the 130s and hypotensive with a blood pressure in the 70s over 40s. She was afebrile though toxic in appearance with examination as above. 2 large-bore IVs were obtained and a 30 mL/kg fluid bolus was administered. The patient was empirically treated with vancomycin and Zosyn. The patient failed to respond to 30 mL/kg fluid bolus. A left sided internal jugular CVC was placed after failed attempt on the right. We continued IV fluid resuscitation and initiated norepinephrine infusion. Mean arterial blood pressure increased to greater than 65. The patient's hyperkalemia was treated with calcium gluconate, insulin/glucose and nebulized albuterol. LABS: leukocytosis with a WBC 15.7, hct 31.5, CMP: Na 118, K 6.0, BUN 52, creatinine 3.61, glucose 209, lactic acid 5.3, troponin 0.100, Mg 1.3, UA: yellow turbid urine, large blood, positive nitrite, moderate leukocyte esterase, 0-5 WBC, many bacteria. VB.165/31/47.5/10.8/-16.5 consistent with primary metabolic acidosis and compensatory respiratory alkalosis. Reviewed the chest/abd/pelvis CT dated 09/21/2016 (approx 2 months ago), demonstrated decreasing presacral fluid and gas collection, small pleural effusions, multiple regions of consolidation in the upper and lower lobes suggestive of pneumonia. Chest x-ray obtained today demonstrated no acute cardiopulmonary process. Discussed the patient's case with the on-call surgeon from [facility]. Updated as to the patient's condition. Agree with plan thus far. Given the patient's poor renal function a noncontrast CT of the abdomen and pelvis was obtained as above. Discussed the patient's case with the on-call surgeon Dr. Curtis Johnson. We reviewed the patient's images and while I am concerned about urinary tract infection and infected ureteral stone I also quite concerned about the patient's pelvic fluid collection. Drainage catheter is currently present and draining purulent material. feels that the patient may require operative intervention note this time requires further stabilization and correction of electrolyte abnormalities. This plan was communicated to on-call surgeon Dr. Martinez at [facility] who is agreeable with plan for admission here to the ICU and further operative intervention in the morning. Patient was transferred to the ICU and stabilized though critical condition. Source of Hx: Old records, EMS Time of Eval: 16:30 Re-Evaluation/Progress Note: Rechecked the patient. Completed full examination. Time of Eval: 17:00 Re-Evaluation/Progress Note: Discussed plan for admission with the patient and family. Time of Eval: 17:25 Re-Evaluation/Progress Note: Discussed plan for central line with the patient and her . Time of Eval: 18:25 Re-Evaluation/Progress Note: The patient is stable. Central line is in place. Time of Eval: 18:56 Re-Evaluation/Progress Note: The patient is uncomfortable and complaining of buttock pain. She is breathing fast and tachycardic. Paged x-ray to take a stat chest x-ray. Consultation #1: Call Returned at: 18:32 Note: Spoke with the on-call colon rectal surgeon at [facility]. Consultation #2: Referral / Consult Name: Emir Rollins MD Consulted With: Hospitalist Call Returned at: 19:25 Engineering Aide: Will see patient, Agrees with eval, Agrees with plan, Accepts admit Consultation #3: Referral / Consult Name: Curtis Johnson MD Consulted With: Surgeon Call Returned at: 19:56 Engineering Aide: Will see patient, Agrees with eval, Agrees with plan Note: Discussed the patient's case. Consultation #4: Referral / Consult Name: Emir Rollins MD Consulted With: Hospitalist Call Returned at: 20:18 Engineering Aide: Will see patient, Agrees with eval, Agrees with plan, Accepts admit Counseled Regarding: Diagnosis, Lab results, Need for admission Discharge & Departure Primary Impression: Septic shock Additional Impressions: Ureteral stone with hydronephrosis Pelvic abscess Colorectal cancer Altered mental status Altered mental status type: delirium Qualified Code: R41.0 - Disorientation , unspecified Hyperkalemia Acute renal failure Acute renal failure type: unspecified Qualified Code: N17.9 - Acute kidney failure, unspecified Metabolic acidosis Lactic acidosis Leukocytosis Leukocytosis type: other Qualified Code: D72.828 - Other elevated white blood cell count Hyponatremia Disposition: ADMITTED TO HOSPITAL Discharge Condition All VS Reviewed: Yes Condition: Critical Referrals: NOPCP (PCP) Crit Care Except Billable Proc Time Spent: >225 minutes Services Performed: Patient management by me, Time spent at bedside, Reviewing test results, Reviewing imaging, Discussing patient care, Documentation in record, Time with fam/surrogate Critical Care Notes: Exclusive of separately billable procedures. Multiple conversations with surgeon at [facility], ICU doctor and surgeon here at [facility]. Multiple bedside reassessments and monitoring at the bedside. Scribe Attestation Portions of this note were transcribed by Jennifer Perez. I, Dr. Brown personally performed the history, physical exam and medical decision-making; I reviewed and confirmed the accuracy of the information in the transcribed note. Signed by: Baldo Torre, 11/21/2016 at 2100. Adrian Brown MD Nov 21, 2016 16:19 Jennifer Perez Nov 21, 2016 16:30
[2016-11-21] MEDS ORDERED: Vancomycin Dose per Pharmacist XX ONE (16:25)
[2016-11-21] MEDS ORDERED: Piperacillin-Tazo 3.375 Gm Inj 3.375 GM in Dextrose 5% Minibag Plus 50 ML IV ONE (16:25)
[2016-11-21 16:35] LABS: EOSINOPHILS % (AUTO) 0 % (0-5); MONOCYTES % (AUTO) 1.3 % (4-12); Mean Corpuscular Hemoglobin 27.9 pg (27.0-35.0); Mean Corpuscular Volume 82.9 fL (81-100)
[2016-11-21] MEDS ORDERED: Ondansetron 2 mg/mL 2 mL Inj IVPUSH PRN ×2 (16:35→20:40)
[2016-11-21] MEDS ORDERED: Alum-Mag Hydrox-Simeth 30 mL Suspension PO PRN (16:35)
[2016-11-21] MEDS ORDERED: Vancomycin Inj 2,000 MG in 0.9% Sodium Chloride 500 ML IV ONE (16:45)
[2016-11-21 16:47] LABS: BASOPHILS % (AUTO) 0 % (0-3); NEUTROPHILS % (AUTO) 96.5 % (40-74); Platelet Count 124 bil/L (150-400)
--- NOTE | 2016-11-21 16:56 | ABG ---
DateTimeAnalyzed 16:53:00 -_ pH ____7.165 - 7.350 7.450 pCO2 ___31.3__ -mmHg 35.0 45.0 pO2 ___47.5__ -mmHg 69.0 116 HCO3- ___10.8__ -mmol/L ABE __-16.5__ -mmol/L tHb ___10.6__ -g/dL O2Hb ___71.8__ -% COHb ____1.7__ -% MetHb ____1.0__ -% sO2 ___73.8__ -% FIO2 ___21.0__ -% Drawn By Brain, RN - Date/Time Notified____ 16:55:00 -_ Notified By KBB - Notified Whom [place], Campbell DO -_ B 755 -mmHg tO2 ___10.7__ -Vol% [place]uma test N/A -
[2016-11-21 17:05] LABS: APPEARANCE,URINE TURBID (CLEAR,HAZY); COLOR,URINE YELLOW (YELLOW); OCCULT BLOOD,URINE LARGE (NEGATIVE)
[2016-11-21 17:06] LABS: UROBILINOGEN,URINE NORMAL (NORMAL)
--- NOTE | 2016-11-21 17:06 | DRSVH ---
PROCEDURE: X-RAY CHEST ONE VIEW, PORTABLE ([id number]) INDICATIONS: hypotension TECHNIQUE: One view of the chest was acquired. COMPARISON: [facility], CR, XR CHEST 1VW (PORTABLE), 09/23/2016, 3:52. FINDINGS: Surgical changes and devices: Right central venous catheter has been removed. Lungs and pleura: No pleural effusions or pneumothorax. Lungs are clear. Mediastinum: Mediastinal contours appear normal. Heart size is normal. Bones and chest wall: No suspicious bony lesions. Overlying soft tissues appear unremarkable. IMPRESSION: No acute cardiopulmonary findings. Dictated by: Ela Velez M.D. on 11/21/2016 at 17:05 Approved by: Ela Velez M.D. on 11/21/2016 at 17:05
[2016-11-21 17:13] LABS: Magnesium 1.3 mg/dL (1.6-2.6)
[2016-11-21 17:20] LABS: TROPONIN T 0.1 ug/L (0.0-0.011)
[2016-11-21] MEDS: 0.9% Sodium Chloride 1,000 ML IV SCH ×2 (17:23→17:52)
[2016-11-21] MEDS ORDERED: PRE20 PO (17:26)
[2016-11-21] MEDS ORDERED: INSU100C8 SUBQ (17:26)
[2016-11-21] MEDS ORDERED: OMEP20CA11 PO (17:26)
[2016-11-21] MEDS ORDERED: SIME80TA53 PO (17:30)
[2016-11-21] MEDS ORDERED: SULF1TAB7 PO (17:30)
[2016-11-21] MEDS ORDERED: LOPE2CAP PO (17:30)
[2016-11-21] MEDS ORDERED: CALC500T9 PO (17:30)
[2016-11-21] MEDS ORDERED: DOCU-41 PO (17:31)
[2016-11-21] MEDS ORDERED: MELA3TAB35 PO (17:31)
[2016-11-21] MEDS ORDERED: ACET325T51 PO (17:59)
[2016-11-21] MEDS ORDERED: MAGN400O4 PO (17:59)
[2016-11-21] MEDS ORDERED: BISA10EN RC (18:00)
[2016-11-21] MEDS ORDERED: LEVO500T79 PO (18:01)
[2016-11-21] MEDS ORDERED: Albuterol 0.5% (5mg/mL) 20 mL Inhalation Solution NEB ONE (18:25)
[2016-11-21] MEDS ORDERED: Insulin Human REGular-Omnicell 100 Unit/mL IV ONE (18:25)
[2016-11-21] MEDS ORDERED: Norepineph 8,000 mCg/250 mL NS 8,000 MCG in IV Premix 1 EACH IV SCH ×2 (18:25→20:36)
[2016-11-21] MEDS ORDERED: Calcium GLUCOnate 10% (Gm) 1 Gm/10 mL Inj IVPUSH PRN (18:25)
[2016-11-21] MEDS: 0.9% Sodium Chloride 1,000 ML IV ONE ×2 (18:25→20:25)
[2016-11-21] MEDS ORDERED: HYDROmorphone 1 mg/mL Inj ONE (19:13)
--- NOTE | 2016-11-21 19:49 | DRSVH ---
PROCEDURE: X-RAY CHEST ONE VIEW, PORTABLE ([id number]) INDICATIONS: RULE OUT PNEUMO TECHNIQUE: One view of the chest was acquired. COMPARISON: [facility], CR, XR CHEST 1VW (PORTABLE), 11/21/2016, 18:27. FINDINGS: Surgical changes and devices: None. Lungs and pleura: No pleural effusions or pneumothorax. Lungs are clear. Mediastinum: Mediastinal contours appear normal. Heart size is normal. Bones and chest wall: No suspicious bony lesions. Overlying soft tissues appear unremarkable. IMPRESSION: Mildly reduced inspiratory time, central line in normal position from left-sided approac h, as has been previously the case. Dictated by: Patrick Amador M.D. on 11/21/2016 at 19:47 Approved by: Patrick Amador M.D. on 11/21/2016 at 19:47
--- NOTE | 2016-11-21 19:52 | DRSVH ---
PROCEDURE: X-RAY CHEST ONE VIEW, PORTABLE ([id number]) INDICATIONS: L IJ placement TECHNIQUE: One view of the chest was acquired. COMPARISON: [facility], CR, XR CHEST 1VW (PORTABLE), 11/21/2016, 18:52. [facility], CR, XR CHEST 1VW (PORTABLE), 11/21/2016, 16:48. [facility], CR, XR CHEST 1VW (POR TABLE), 09/23/2016, 3:52. [facility], CR, XR CHEST 1VW (PORTABLE), 09/22/2016, 5:16. FINDINGS: Surgical changes and devices: A Port-A-Cath from left-sided approach extends in normal position into the expected area of the superior vena cava. Lungs and pleura: No pleural effusions or pneumothorax. Lungs are difficult to assess due to promin ently reduced inspiratory by and large body habitus, but no definite pneumonia is seen.. Mediastinum: Mediastinal contours appear normal. Heart size is normal. Bones and chest wall: No suspicious bony lesions. Overlying soft tissues appear unremarkable. IMPRESSION: Study limited by large body habitus, reduced inspiration and portable film technique. N o definite pneumonia. Port-A-Cath in normal position from left-sided approach. Dictated by: Patrick Amador M.D. on 11/21/2016 at 19:50 Approved by: Patrick Amador M.D. on 11/21/2016 at 19:51
[2016-11-21] MEDS ORDERED: EPINEPHrine 0.1 mg/mL 10 mL Syringe ONE (20:00)
[2016-11-21] MEDS ORDERED: Calcium Chl 10% 1 Gm/10 mL Syringe ONE (20:00)
[2016-11-21] MEDS ORDERED: Sodium Bicarb 1 mEq/mL 50 mL Inj ONE (20:00)
--- NOTE | 2016-11-21 20:26 | DRSVH ---
PROCEDURE: CT ABDOMEN AND PELVIS WITHOUT CONTRAST ([id number]) INDICATIONS: sacral ulcer, septic, abscess, osteo? TECHNIQUE: Noncontrast 5 mm thick sections acquired from the diaphragms to the symphysis. 5 mm coronal and sagi ttal reformats were then performed. For radiation dose reduction, the following was used: automated exposure control, adjustment of mA and/or kV according to patient size. COMPARISON: [facility], CT, CT CHEST ABD PELVIS W CON, 09/21/2016, 19:58. FINDINGS: Image quality: Excellent. ABDOMEN: Lung bases: Lung bases are clear. Heart size is normal. Solid organs: Liver and spleen are normal in size. Gallbladder appears normal. Pancreas is normal in contours. No adrenal nodules. Kidneys are normal in size, without hydronephrosis but there is hi gh density material within the collecting system of each kidney, posteriorly, not present during CT s lindy 09/21/16. These could represent early urinary tract stones, and appear higher in density than would be expected for hemorrhagic blood products. There is mild hydronephrosis on the left, and hydr oureter that extends to what appears to be stone within the distal left ureter measuring approximatel y 6 mm in diameter, by 5 mm, located at the pelvis, image 78. Peritoneum and bowel: Unenhanced bowel loops demonstrate normal wall thickness and caliber. No free fluid or air. Nodes and vessels: No retroperitoneal or mesenteric adenopathy by size criteria. Aorta and inferior vena cava are normal in caliber. Miscellaneous: No ventral hernias. PELVIS: Genitourinary: Bladder wall thickness is normal. A focus that a Jordan catheter empties the bladder lumen. Miscellaneous: No inguinal hernias or adenopathy. Right lower quadrant ostomy site shows no inflamm ation. 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 Bones: No suspicious bony lesions. No vertebral body compression fractures. IMPRESSION: Somewhat high density material is present within the collecting system of both kidneys p osteriorly, but not present in September of this year. These could represent an unusually rapid forma tion of urinary tract stones. What does appear to be the presence of mild left hydronephrosis is not ed, And what appears to be a 5 x 6 mm distal left ureteral stone can be seen. A calculus within the uret er in that area was not identified in September of this year. Dictated by: Patrick Amador M.D. on 11/21/2016 at 20:12 Approved by: Patrick Amador M.D. on 11/21/2016 at 20:25
[2016-11-21] MEDS ORDERED: Vancomycin Dose per Pharmacist XX SCH (20:40)
[2016-11-21] MEDS ORDERED: Glucose 40% Oral Gel 15 Gm Tube PO PRN (20:45)
[2016-11-21] MEDS ORDERED: Meropenem 1 Gm/100 mL NS Minibag Plus IV ONE ×2 (21:35)
[2016-11-21] MEDS ORDERED: Meropenem Inj 2,000 MG in 0.9% Sodium Chloride 100 ML IV ONE (21:35)
--- NOTE | 2016-11-21 21:53 | PCM.PHAPRO ---
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 Expect renal fxn to improve with hydration, abx, and pressors, and baseline SrCr ~ 1.0, but will assess tomorrow. Trough: Draw vanco random on 45 w/ AM labs. Pharmacy to continue to monitor and adjust accordingly. Thank You, Brandy Neumann, Pharm D. Brandy Neumann Nov 21, 2016 21:53
[2016-11-21] MEDS ORDERED: Magnesium Sulf 2 Gm/50 mL D5W IV ONE (22:30)
--- NOTE | 2016-11-21 22:46 | PCM.HPMED ---
Subjective Date of Service Nov 21, 2016 Primary Provider: Admitting Physician: Emir Rollins MD Primary Care Physician: Margarita Amezcua DO Attending Physician: Emir Rollins MD Admit Status: From the Emergency Department Chief Complaint: Rigors, difficulty breathing, shortness of breath, loss of appetite, confusion, generalized weakness resulting in difficulty ambulating over the past week. History of Present Illness: This is a pleasant 71 Y/O obese F with history of colorectal cancer with colostomy, sacral osteomyelitis, sepsis secondary to sacral abscess (currently with drain in place), DVTs, diabetes mellitus type II, hypertension, and hypothyroidism, who presented to the ED secondary to worsening dyspnea, shortness of breath, loss of appetite, rigors, confusion, generalized weakness with difficulty ambulating over the past week. Of note patient had abnormal labs today at 1200. Her blood work demonstrated WBC 22.3, neutrophil predominance, Na 124, K 5.8, BUN 46, creatinine 3.2. She complains of some buttock pain. She denies fever, nausea, vomiting, abdominal pain chills, cough, chest pain, dysuria, lower extremity swelling. Of note patient had colectomy secondary to colon cancer in 06/16/[address] Tovar colorectal surgeon [facility], with ileostomy and placement of a right lower quadrant drain. This drain was in place for appeared of 5-6 weeks and then removed at [facility] secondary to nonfunctioning drain. She had CT scan of abdomen and pelvis done at that time which showed abscess in the sacral area and a new drain was placed for this finding. Patient had this drain in for a period of 1 month and then was removed secondary to a developing surrounding skin and tissue infection. It was thought that the abscess had partially resolved at that time as well. On 09/15/2016 patient was a very discouraged by hospital secondary to severe septic picture with decreased by mouth intake, hyperkalemia, and renal failure. Patient received IV antibiotics Bactrim and showed improvement which time was discharged/transferred to [facility] where she resided for 22 days and receive further IV antibiotics Bactrim. Patient was then discharged to [facility] on by mouth Bactrim. Patient was admitted today after being found to have an elevated lactic acid of 5.3, leukocytosis with left shift, clinical signs of septic shock, requiring 4 L normal saline bolus, and IV pressors. Vital signs in the ED: T 36.6, pulse 107-120's, respiratory rate 20s to 30s, BP systolic blood pressure 50s to 70s, diastolic blood pressure 20s to 40s, MAP 30s to 70's, 90% room air. Most recent vitals, temperature 36.6, pulse 113, respiratory rate 26, blood pressure via arterial line 70s over 50s with a map of 57. Hemogram: WBCs 15.7, % PMNs 96.5, hemoglobin 10.6, hematocrit 31.5, platelets 124, Chemistry panel: Initial labs showed sodium 118, potassium 6.0, chloride 85, CO2 9, BUN 52, creatinine 3.61, glucose 209, hemoglobin A1c pending, troponin 0.10, magnesium low at 1.3 Repeat chemistries: Sodium 124, potassium 5.0, chloride 98, CO2 7, BUN 43, creatinine 3.13, glucose 47 (patient received half an amp of glucose) Lactic acid 5.3--> 5.9--> 6.0 Patient received 4 L IV bolus in the ED secondary to septic shock. Patient blood cultures drawn and are pending followed by IV vancomycin and Zosyn in the ED. Urine clean catch was ordered and is pending. Jordan in place draining very dark-colored urine The abdomen and pelvis without contrast was ordered secondary to sacral ulcer, sepsis and abscess and osteomyelitis suspicion. Impression: High density material present in the collecting system of both kidneys posteriorly not present in September of this year. This could represent rapid formation of a tract stones. Left hydronephrosis. 5 x 6 mm distal ureteral stone not previously seen in of this year. CXR at 1614, showed no acute cardiopulmonary findings. The patient had left IJ placed with proper placement on follow-up chest x-ray. No pneumothorax. There is a left extremity IV line There is a right arterial line placed after admission. Review of Systems: A comprehensive review of systems was conducted and was negative except as mentioned in history of present illness. Allergies Coded Allergies: codeine (Verified Allergy, Unknown, 11/21/16) Home Medications Ferrous Sulfate (Ferrous Sulfate) 325 Mg Tablet 325 MG PO BIDWM Insulin Aspart (NovoLOG U100 Insulin Vial) 100 U/Ml U 1-5 UNIT SUBQ ACHS Levofloxacin (Levofloxacin) 500 Mg Tablet 500 MG PO QAM Levothyroxine (Levothyroxine) 50 Mcg Tablet 50 MCG PO QAM Melatonin (Melatonin) 3 Mg Tablet 3 MG PO HS Metronidazole (Flagyl) 500 Mg Tablet 500 MG PO BID Omeprazole (Omeprazole) 20 Mg Capsule.dr 20 MG PO QAM Prednisone (PredniSONE) 20 Mg Tablet 40 MG PO DAILYWM Sulfamethoxazole/Trimeth 800-160 mg (Bactrim DS) 1 Each Tablet 2 TABLET PO BID PRN Acetaminophen (Acetaminophen) 325 Mg Tablet 650 MG PO Q4H PRN PRN For Fever Bisacodyl (Bisacodyl Rectal) 10 Mg/30 Ml Enema 10 MG RC DAILY PRN PRN For Constipation Calcium Carbonate (Tums) 500 Mg Tab.chew 1,000 MG PO Q4H PRN PRN For Dyspepsia or Heartburn Docusate Sodium (Colace) 100 Mg Capsule 200 MG PO BID PRN PRN For Constipation Hydrocodone-Acetaminophen 5-325 mg (Hydrocodone-Acetaminophen 5-325 mg) 1 Each Tablet 1-2 TABLET PO Q4 PRN PRN For Mild Pain Loperamide (Loperamide) 2 Mg Capsule 2 MG PO Q6H PRN PRN For Diarrhea or Loose Stool Magnesium Hydroxide (Milk of Magnesia) 400 Mg/5 Ml Oral.susp 30 ML PO Q12H PRN PRN For Constipation Simethicone (Gas-X) 80 Mg Tablet 80 MG PO Q6H PRN PRN For Dyspepsia or Heartburn [facility] Colon and rectal surgeon at [facility]: David Tovar MD - [phone] Rectal CA HTN Diabetes mellitus type II Hypothyroidism Vascular insufficiency Leg Swelling Acute on chronic kidney disease Rheumatic fever involving cardiac valve Surgical History Laparoscopic robotic low anterior resection with diverting loop ileostomy and a transanal total mesorectal excision with rigid proctoscopy May 2016 GRIFFIN drain to buttock June 2016 Colonoscopy 2016 Tonsillectomy Family History Noncontributory Social History Hx Alcohol Use: No Hx Substance Use: No Hx Tobacco Use: No Smoking Status: Never Smoker Living Arrangement: with Family (his was nAgelo Cody telephone [phone]) Exam Vital Signs Vital Sign - Last Date Time Temp Pulse Resp B/P Pulse Ox O2 Delivery O2 Flow Rate FiO2 11/21/16 20:44 113 26 151/125 96 Room Air 11/21/16 19:44 36.6 Exam General: Confused and, ill appearing F, lying in bed, speaking in 2-3 word sentences and appearing very short of breath. HEENT: NC/AT, eyes, pupils equally round with minimal reaction to light, EOMI, neck appearing, soft supple, no JVD, no masses, throat mucous membranes pink and very dry, no erythema Lungs: CTAB all barfield, no wheezes, no rhonchi, no crackles, no adventitious lung sounds, good air movement, good respiratory effort, is tachypneic with a rate of 26 Heart: Regular rate and rhythm, no murmur, auscultation difficult given body habitus and patient's audible moaning. Abdomen: Soft, obese, nontender, nondistended, bowel sounds active, no rebound, no guarding, ileostomy bag GI: He has drain coming from posterior sacral area draining dark-colored fluid Genitourinary: Jordan catheter draining very dark-colored urine, Extremities: Pulses equal and symmetric upper/lower extremity including radial and dorsalis pedis, no edema, chronic lower extremity skin changes secondary to venous insufficiency. Hemosiderosis of the skin. Neurologic: See neurologically intact, speaking in 2-3 word, no focal neurological signs Skin: Hemosiderosis of the lower extremity skin bilaterally. IV line left upper extremity, arterial line right upper extremity, left IJ Lab and Diagnostics Result Diagram: 11/21/16 1615 11/21/162124 Assessment & Plan #Septic shock, present on admission, active - Patient meets septic shock criteria for BP 74/54 with map of 57 via arterial line. , White blood cell count elevated at 15.3 with left shift, patient's, respiratory rate 26, lactic acid of 6.0 on most recent lab - Lactic acid 6.0 - UA was negative - Received 4 L IV fluids in the ED - Continue IV normal saline at a rate of 250 mL per hour - IV vancomycin and IV Zosyn on board - IV pressors norepinephrine , titrate to map of 65 or greater #Sacral abscess, presently in remission, active - Patient has sacral drain in place - CT abdomen and pelvis done today did not comment on sacral abscess. - IV antibiotics as above - Surgery Dr. Odin Johnson is on board. We are waiting for patient to become hemodynamically stable prior to further surgical procedure. #Acute on chronic renal failure present on admission, active - Patient's creatinine level 3.6 today, baseline creatinine 1.11 on 10/17/2016 - IV fluids as above - Continue to monitor creatinine level - Repeat creatinine are ready responding to IV fluids. #Elevated troponin - Elevated troponin in the ED of 0.10 likely secondary to chronic disease and demand related to septic shock - Every 6 troponins 2 #Hyponatremia, present remission, resolved -Sodium 118 on admission -Resolved on IV fluids saline #Hyperkalemia, present on admission, resolved - Potassium 6.0 - Resolved on IV fluid replacement #Hypomagnesemia, present on admission - We will replete as needed #Hyperglycemia in a known type 2 diabetic. 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 CODE STATUS: Full code PCP: DVT PE prophylaxis: Subcutaneous heparin Contact: Bartolo, patient's [phone] Pain Evaluation: Adequate Pain Control VTE Prophylaxis: Sub-Q Heparin (Unfractionated) Resuscitation Status: CPR: Attempt Resuscitation Attending Statement The patient was seen and examined together with Dr. Ceballos on 11/21/2016 and I agree with the history, exam and plan as outlined in the note above. Angelito Ceballos DO Nov 21, 2016 22:46 Emir Rollins MD Nov 22, 2016 02:02
--- NOTE | 2016-11-21 23:09 | ABG ---
DateTimeAnalyzed 23:06:00 -_ pH ____7.049 - 7.350 7.450 pCO2 ___23.8__ -mmHg 35.0 45.0 pO2 ___99.3__ -mmHg 69.0 116 HCO3- ____6.3__ -mmol/L 22.0 26.0 ABE __-22.7__ -mmol/L -2.0 2.0 tHb ____8.8__ -g/dL O2Hb ___94.0__ -% COHb ____0.2__ -% MetHb ____1.2__ -% sO2 ___95.3__ -% FIO2 ___21.0__ -% Drawn By MT - Date/Time Notified____ 23:09:00 -_ Notified By MT - Notified Whom ____Gelou - B 755 -mmHg tO2 ___11.8__ -Vol%
[2016-11-21] MEDS: Insulin LISPRO 300 Unit/3 mL Inj SUBQ SCH (23:22)
--- NOTE | 2016-11-21 23:25 | PROCED ---
[address] [address] PROCEDURE NOTE PATIENT: JOHN SMITH : 1945 MR#: [id number] ADMIT: 11/21/2016 JOB ID: [id number] DATE OF SERVICE: POSTOPERATIVE DIAGNOSIS(ES): PREOPERATIVE DIAGNOSIS(ES): SURGEON: ANESTHESIA PROCEDURE NOTE: I was called by the bomb technician taking care of this patient to place a radial arterial line for hemodynamic monitoring and frequent blood draws secondary to sepsis requiring vasopressors. When I went to the ICU the patient was alert and oriented and her was present. After giving for explanation of risks and benefits, risks including bleeding, infection, air embolism, loss of blood flow to the hand and , both the and the patient agreed, and the consent was signed with witness. A time-out was completed verifying correct patient, procedure site, positioning, and the ultrasound was present. An Puma's test was performed to ensure adequate perfusion. The patient's right wrist was prepped and draped in a sterile fashion using ChloraPrep. Lidocaine 1% was used to anesthetize the skin. An Arrow arterial line was introduced into the right radial artery under ultrasound guidance. Only one attempt was necessary. The catheter was threaded over the guidewire and the needle was removed with appropriate pulsatile blood return. The catheter was then secured in place with Tegaderm and perfusion to the extremity distal to the point of catheter insertion was checked and found to be adequate. A good waveform was present and the nurse was able to flush the arterial line.
[2016-11-21] MEDS: Heparin 5,000 Unit/mL Inj SUBQ SCH (23:40)
--- NOTE | 2016-11-21 23:41 | CONS ---
[address] [address] CONSULTATION REPORT PATIENT: JOHN SMITH : 1945 MR#: [id number] ADMIT: 11/21/2016 JOB ID: [id number] DATE OF SERVICE: 11/21/2016 HISTORY OF PRESENT ILLNESS: The patient is a 71-year-old female who had a robotic low anterior resection at [facility] in May 2016 for rectal cancer and also had a diverting ileostomy. This operation was performed by Dr. David Tovar. I do not have the pathology report. In late August of this year, she presented with an anastomotic dehiscence and presacral abscess. She was operated on by Dr. Luiz Perez at the end of August. He did a transanal drainage of a pelvic abscess. On presentation in August, she was septic with marked hyponatremia and hyperkalemia and acute renal failure. Dr. Perez placed a large Jordan catheter and she had irrigations done and a week ago she was seen at [facility] again by Dr. Tovar. By history, he did an intraoperative evaluation including probable flexible sigmoidoscopy. He then took the Jordan catheter out and placed a Mallinckrodt catheter. She has been at [facility] in recovery since last fall but was transferred from [facility] to the emergency department today. Apparently, she had some labs that were abnormal. I do not have those, but was brought to the emergency department late this afternoon and evening. I was asked to see her in consultation by Dr. Adrian Brown. The patient reports increasing weakness. She also demonstrated confusion. When seen in the emergency department this evening, she had once again developed a marked hyponatremia with a sodium of 118, a potassium 6.0, a creatinine of 3.6, a glucose of 209, her lactic acid is 5.3. Her arterial blood gases show a pH of 7.165, CO2 of 31 and an O2 of 47. She had a CT scan of her abdomen and pelvis without contrast. This shows a possible left ureteral stone. A pelvic abscess could not be found, but I can see the Mallinckrodt catheter on it as one would expect. SOCIAL HISTORY: She is . Her , Adalberto, is present in the emergency department. They live in [place]. REVIEW OF SYSTEMS: Otherwise negative. PHYSICAL EXAMINATION: Elderly, tachypneic, overnourished. BMI 46. Temperature 36.6, brachial blood pressure 151/125, pulse 113, respiratory rate 16, O2 sat 96%. HEENT: Nonjaundiced. Trachea: Midline. Neck: No masses. Abdomen: Right lower quadrant ileostomy. Rectal exam: She has a catheter coming out of her rectum that is attached to a drainage bag. There is purulent fluid within the drainage bag. Extremities: 1+ edema. She has cutaneous changes consistent with venous stasis. LABORATORY RESULTS: White blood cell count 15.7, hematocrit is 31.5, platelet count 124,000. Sodium 118, potassium 6.0, total CO2 is 9, creatinine 3.6, glucose 209, lactic acid 5.3, magnesium is 1.3, calcium 9.1, troponin 0.100, albumin is 3.3. Arterial blood gas pH 7.165, CO2 is 31, O2 is 47. CT scan of abdomen and pelvis without contrast has been seen personally by myself and I have also reviewed the dictation by Patrick Amador MD. Again, as discussed above, he does not describe the pelvic abscess I see. Certainly, some postoperative changes in the catheter. IMPRESSION: 1. Sepsis. 2. Hyponatremia. 3. Hyperkalemia. 4. Renal failure. 5. Hyperglycemia. 6. Lactic acidosis. 7. Probable pelvic abscess. PLAN: She cannot be taken to the operating room for an anesthetic. This is because of her potassium and hyponatremia. She clearly needs resuscitation. She needs to have IV antibiotics started and that is happening in the emergency department. I am also going to order irrigations of her pelvic abscess by irrigating through her catheter. When she stabilizes, if necessary, she may need another return to the operating room for evaluation under anesthesia. TIME SPENT: Time spent with patient and and in coordination of care 1 hour 30 minutes.
[2016-11-22] VITALS (11 sets, daily range): BP systolic 60–118; BP diastolic 40–71; PULSE 70–166; RESP 25–28; O2SAT 91–100
[2016-11-22] MEDS: Dextrose 5% Lactated Ringer's 1,000 ML IV SCH ×4 (00:28→20:28)
[2016-11-22] MEDS ORDERED: DOPamine 800 mg/250 mL D5W Premix IV ONE (00:29)
[2016-11-22] MEDS ORDERED: Sodium Bicarb (50 mEq) 8.4% 1 mEq/mL 50 mL Syringe ONE (00:31)
[2016-11-22] MEDS: Phenylephrine 20 mg/250 mL D5W IV SCH ×10 (00:40→12:31)
[2016-11-22] MEDS ORDERED: Sodium Bicarb (50 mEq) 8.4% 1 mEq/mL 50 mL Syringe IVPUSH ONE (00:45)
[2016-11-22] MEDS: Sodium Bicarb 8.4% Inj 150 MEQ in Dextrose 5% 1,000 ML IV SCH ×5 (01:02→23:07)
[2016-11-22] MEDS: Vasopressin 20 Units/100 mL NS IV PRN ×4 (01:30→11:12)
--- NOTE | 2016-11-22 02:11 | ABG ---
DateTimeAnalyzed 02:08:00 -_ pH ____7.064 - 7.350 7.450 pCO2 ___29.3__ -mmHg 35.0 45.0 pO2 ___91.3__ -mmHg 69.0 116 HCO3- ____8.0__ -mmol/L 22.0 26.0 ABE __-21.0__ -mmol/L -2.0 2.0 tHb ___10.2__ -g/dL O2Hb ___93.1__ -% COHb ____0.3__ -% MetHb ____1.2__ -% sO2 ___94.5__ -% FIO2 ___28.0__ -% Drawn By MT - Date/Time Notified____ 02:10:00 -_ Notified By MT - Notified Whom ____Gelou - B 754 -mmHg tO2 ___13.4__ -Vol% Puma test N/A -
[2016-11-22] MEDS: Norepineph 8,000 mCg/250 mL NS 8,000 MCG in IV Premix 1 EACH IV SCH ×13 (02:12→23:05)
[2016-11-22] MEDS ORDERED: Amiodarone 360 mg/200 mL D5W Premix IV ONE ×2 (02:39→08:51)
[2016-11-22] MEDS ORDERED: IV Premix 1 EACH IV ONE ×3 (02:39→08:51)
[2016-11-22] MEDS ORDERED: [UNRECOGNIZED DRUG - OTHER] IV SCH (02:40)
[2016-11-22] MEDS ORDERED: Amiodarone 150 mg/100 mL D5W IV ONE (02:40)
[2016-11-22] MEDS ORDERED: Amiodarone 150 mg/100 mL D5W Premix IV ONE (02:43)
--- NOTE | 2016-11-22 03:37 | NUR ---
Admit Arrive 2100 from ER accompanied by spouse. Drowsy, oriented to self and place. Forgetful. Denies pain, N/V. c/o mild dyspnea. Grunting w/ breathes. RA sat mid to high 90s. Tele tachy teens to 140s. Norepinephrine at 0.05mcg, SBP 80 down to 60s. IVF bolus and increasing norepinephrine drip. R art line placed. ABG, EKG. Pt in A fib. Abnormal ABGs. Add 2L NC. BS in the 40s, D50 25ml, BS 60, D50 25ml, 53, D50 50ml. IVP bicarb. Bicarb drip initiated and BS currently stable. Pt has continuous requests for water. Receiving oral care, ice chips, and sips of water. Rectal/pelvic drain being irrigated w/ warm NS per MD order.
[2016-11-22 04:34] LABS: Mean Corpuscular Hemoglobin 28.2 pg (27.0-35.0); Mean Corpuscular Volume 83.6 fL (81-100); Platelet Count 126 bil/L (150-400)
[2016-11-22] MEDS ORDERED: Vancomycin Serum Trough XX ONE (05:00)
[2016-11-22 05:08] LABS: BASOPHILS % (AUTO) 0 % (0-3); EOSINOPHILS % (AUTO) 1 % (0-5); MONOCYTES % (AUTO) 0 % (4-12); NEUTROPHILS % (AUTO) 56 % (40-74)
--- NOTE | 2016-11-22 05:08 | ABG ---
DateTimeAnalyzed 05:05:00 -_ pH ____7.145 - 7.350 7.450 pCO2 ___26.5__ -mmHg 35.0 45.0 pO2 ___77.5__ -mmHg 69.0 116 HCO3- ____8.8__ -mmol/L 22.0 26.0 ABE __-18.8__ -mmol/L -2.0 2.0 tHb ____9.8__ -g/dL O2Hb ___92.9__ -% COHb ____0.5__ -% MetHb ____1.2__ -% sO2 ___94.5__ -% FIO2 ___28.0__ -% Drawn By MT - Date/Time Notified____ 05:08:00 -_ Notified By MT - Notified Whom ____Gelou - B 754 -mmHg tO2 ___12.9__ -Vol% Puma test _Positive -
[2016-11-22 05:45] LABS: Magnesium 1.2 mg/dL (1.6-2.6); TROPONIN T 0.126 ug/L (0.0-0.011)
--- NOTE | 2016-11-22 06:07 | NUR ---
P: hypotension I: vasopressin, norepinephrine drips E: Vasopressin at 0.03 units/min and norepinephrine drip at 1mcg/kg/min. SBP 90-100, DBP 60s, MAP 70s. Pt looses BP when pt turned. Slow recovery. Tele Afib, rate improve to teens-130, amiodarone bolus and drip at 1mg. Bicarb drip. [place]. Irrigating rectal tube, very pale tinge of yellow drainage now.
[2016-11-22] MEDS ORDERED: Mag Sulf 2 Gm/50mL IV Premix(Mag < 1.6 & Creat > 2) IV ONE (06:10)
[2016-11-22] MEDS: Meropenem 1 Gm/100 mL NS Minibag Plus IV SCH ×2 (07:32)
[2016-11-22] MEDS: Insulin LISPRO 300 Unit/3 mL Inj SUBQ SCH ×4 (08:00→22:00)
[2016-11-22] MEDS ORDERED: Piperacillin-Tazo 3.375 Gm Inj 3.375 GM in Dextrose 5% Minibag Plus 50 ML IV SCH (08:30)
--- NOTE | 2016-11-22 09:07 | ABG ---
DateTimeAnalyzed 09:03:00 -_ pH ____7.141 - 7.350 7.450 pCO2 ___28.5__ -mmHg 35.0 45.0 pO2 ___85.2__ -mmHg 69.0 116 HCO3- ____9.3__ -mmol/L 22.0 26.0 ABE __-18.2__ -mmol/L -2.0 2.0 tHb ____9.3__ -g/dL O2Hb ___93.9__ -% COHb ____0.6__ -% MetHb ____1.2__ -% sO2 ___95.6__ -% FIO2 ___24.0__ -% Drawn By gj - Date/Time Notified____ 09:07:00 -_ Liter_Flow ____1.0__ -L/min Oxygen Device 1 __CANNULA - Notified By gj - Notified Whom DR JENNIFER - B 755 -mmHg tO2 ___12.4__ -Vol% Puma test N/A -
[2016-11-22] MEDS ORDERED: DEXTROSE 5% IV ONE (09:15)
[2016-11-22] MEDS ORDERED: AVIBACTAM IV ONE (09:15)
[2016-11-22] MEDS ORDERED: CEFTAZIDIME IV ONE (09:15)
[2016-11-22] MEDS ORDERED: Famotidine Inj 20 MG in IV Premix 1 EACH IV ONE (09:20)
[2016-11-22] MEDS: Heparin 5,000 Unit/mL Inj SUBQ SCH ×2 (09:25→20:25)
--- NOTE | 2016-11-22 09:28 | NUR ---
Infection Prevention Patient placed in Contact precautions due to recent MDR organism infections. Patient's nurse notified; discussed at multidiscipline rounds with Dr. Paula. l
--- NOTE | 2016-11-22 10:12 | NUR ---
NUTRITION ASSESSMENT: ASSESS: Pt is a 71yo F admitted to CCU for septic shock. She is currently NPO x1. There is concern that she may require intubation. ID is following, PMHX: colon/rectal ca, HTN, DM, hypothyroid, CKD LABS: Reviewed. Na 126, CO2 7, BUN 39, [employer] Set Up Mechanic 2.87, Glu 152, Ca 7.1, Mg 1.2, Alb 2.4 MEDS: Reviewed. pressors GI: ileostomy SKIN: sacral abscess, sailaja 11. WC pending CURRENT WTS: 119.9kg, BMI 48.3kg/m2, Adj bw 67.4kg, IBW 50kg DIET: NPO EST. NEEDS: BMI, CKD Kcals: 1690-2025kcal/day (25-30kcal/kg adj bw) Pro: 65-80g/day (1.0-1.2g/kg adj bw) Fluids:~2640-2995ml/day (22-25ml/kg) NUTRITION DIAGNOSIS: 1.) Inadequate oral intake related to inability to consume sufficient energy as evidenced by NPO status NUTRITION INTERVENTION: 1.) Will monitor NPO status and POC MONITOR / EVAL: NPO, wt, GI, wounds, labs, POC, nutrition status. Will continue to monitor per high nutrition risk guidelines.
--- NOTE | 2016-11-22 10:17 | CONS ---
[address] [address] CONSULTATION REPORT PATIENT: JOHN SMITH : 1945 MR#: [id number] ADMIT: 11/21/2016 JOB ID: [id number] DATE OF SERVICE: 11/22/2016 INFECTIOUS DISEASE CONSULTATION: I thank Dr. John Hanson for this timely consult. REASON FOR CONSULTATION: Septic shock with renal injury, metabolic acidosis and incipient respiratory failure. HISTORY OF PRESENT ILLNESS: The patient is a 71-year-old woman well known to me from a very complex admission during August and September of this year. The patient's relevant medical history starts back in May when she was diagnosed with rectal carcinoma. She underwent surgery in [place] which included an APR resection and formation of a right-sided colostomy. Also during that time frame, she had radiation for the rectal cancer. She was then staying at [facility], and convalescing when she was admitted to this hospital in August with septic shock, ventilator dependent respiratory failure, renal failure and had a very stormy admission. During that admission, we found that there was an anastomotic failure with drainage into the sacral space which was the apparent source of that septic shock. She was taken to the operating room and that sacral space was drained and a Jordan catheter was actually placed up into this presacral area to allow continued drainage from the anastomotic failure. The patient eventually stabilized and was [facility]. She was subsequently seen by her surgeon in [place] apparently who installed a Mallinckrodt type drain into this presacral space which remains sutured in place. The patient was doing more or less okay it sounds like at the [facility] facility over the last several weeks with this drain in place and was starting to ambulate and to be somewhat more functional when she developed over the last couple days generalized weakness and increasing difficulty walking. This came to a head yesterday when she became more short of breath, confused and unable to do basically anything as well as having fever and rigors. This led to her transfer back to this facility and admission to the ICU. Since admission, she has been critically ill requiring extremely high-dose dual vasopressor agents. She has not yet required intubation but is quite acidotic and short of breath at this moment. Additionally she has had evidence of recurrent and severe renal injury and is in absolutely critical condition here in the ICU. History from her, at this point, is not terribly helpful as she is awake but quite lethargic and in a great deal of pain. She states she has some vague abdominal pain and is somewhat short of breath. She also notes she has had fevers and chills in the last day or so, but beyond that does not give too much history. She does deny sore throat, and states she has no significant cough though she is short of breath. She says she has vague abdominal pain and otherwise is really unable to tell us much. She, in fact, is unaware of which [facility] facility she was at though she is now aware she is in an acute care hospital. This case was discussed extensively with the critical care team as well as nursing at the bedside and respiratory therapy. PAST MEDICAL HISTORY: 1. Rectal cancer diagnosed May 2016 with radiation therapy and NOV. a. Anastomotic failure August 2015 with septic shock. b. Mallinckrodt drain in place to drain presacral accumulations. 2. Diabetes. 3. Hypertension. 4. Morbid obesity. 5. Hypothyroidism. 6. 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 7. History of MRSA colonization in August. 8. History of complicated urinary tract infections. SOCIAL HISTORY: The patient is a lifelong nonsmoker. She drinks alcohol very rarely and certainly not at all in the last year. She is and lives with her in the local area though she has had numerous trips to [place] for surgery starting in May with some follow up visits. No family history can be recalled at this time by the patient as she is really critically ill, and able to speak only in very short sentences and is somewhat unaware of what is going on at this point. REVIEW OF SYSTEMS: Cannot be obtained in any useful way in this critically ill patient. She does deny headache, sore throat. Says she is short of breath without a cough. She denies nausea or vomiting but reports mild diffuse abdominal pain, and otherwise is unable to provide any additional history or review of systems details. PHYSICAL EXAMINATION: Reveals a critically ill woman lying supine in the ICU and moaning at times. Temperature is 36.4. She has been afebrile during her brief admission here. Pulse currently 102 and irregular. On the monitor we see what appears to be abundant PACs. Blood pressure is currently in the 80s on extremely high doses of norepinephrine with supplemental vasopressin. She continues to have urine output but it is relatively poor. The patient's head without trauma. Eyes without conjunctivitis or scleral icterus. Ears normal. Nose appears normal. Oral cavity without thrush or pharyngitis. The neck is obese and without significant adenopathy. There is a central line in the left neck which is new and appears uninfected. Lungs notable from the posterior aspect for some rales at the bases. We rolled the patient over carefully and examined things there. Her spine appears straight and without notable abnormality. There is a very shallow stage 2 superior gluteal cleft ulceration which appears completely uninfected. There is a tube which is inserted just above the anus which is the Mallinckrodt tube which is sutured into place. There is no palpable tenderness or oozing around this tube which goes into the presacral space. A Jordan catheter is present and draining modest amounts of urine. The Mallinckrodt tube does not have much drainage and what drainage there is appears to be from flushes and looks more like saline than anything else. The patient's cardiac tones irregular rate and rhythm with a 2/6 murmur, but her heart tones are quite distant. The abdomen is diffusely tender with a colostomy present on the right. There is no carla peritoneal signs, however. There is no evidence of synovitis in any of the joints. The patient's feet and ankles and lower extremities below the knee are mottled with very slow capillary refill and appear ischemic though they are not cold. I do not palpate pulses in the feet bilaterally. She is able to move her extremities including her feet and she states she has reasonable sensation in her feet. The remainder of the physical is unremarkable or cannot be done. LABORATORIES: Include a white count of 23,000 today with enormous left shift, 33% bands. Creatinine is 2.87, up from her baseline which is just over 1 from prior admissions. Lactic acid this morning 4.1, down from 5.4 yesterday. Liver function tests entirely normal interestingly. Albumin 2.4. Procalcitonin is irrelevant in this case as the patient is in carla septic shock but its actually only 0.23. Urinalysis without white cells. Random vanco level after a loading dose last night is 19. Micro studies include positive blood cultures and this is both anaerobic bottles that were drawn only about 14 hours ago so it extraordinarily high grade anaerobic bacteremia appears to be present. These are anaerobic gram-negative rods apparently. It is also possible, of course, that these are aerobic or facultative organisms growing better in the anaerobic bottles and will see tomorrow. MRSA screen of the nares using PCR technology is already back and already negative. Recall that on her last admission back in August she had a wide variety of organisms including from the abscess anaerobe Enterococcus, Citrobacter, E. coli and Bacteroides. All of those had the usual susceptibility pattern but unfortunately she also had an Enterobacter cloacae from urine during the last admission, which was resistant to carbapenems and all beta lactamases and was really only sensitive to aminoglycosides and Bactrim. We treated that organism with Bactrim. Also note that during the last admission, her nose was positive for MRSA but it is negative now. IMAGING: So far this admission includes two chest x-rays. I carefully reviewed today's on the monitor. It shows poor inspiratory effort but without any focal infiltrate whatsoever. The abdominal pelvic CT done last night shows some high density material within the collecting system of both kidneys, which was thought to be perhaps related to stones. There is a mild left hydronephrosis and a possible 5 x 6 distal left ureteral stone present. These were not seen on CT scans in September so she may have new stone disease. Interestingly, the radiologist does not mention the Mallinckrodt drain which extends into the presacral area. So, I imply from this that no abscess is present though it is not explicitly mentioned. IMPRESSION: This is an unfortunate extremely complex woman who was here in August. At that time, her main problem was a large presacral abscess due to anastomotic failure following APR. This grew many organisms including two gram-negative aerobes, Bacteroides and Enterococcus. We were also concerned at that time about a CRE urinary tract infection and she received the Bactrim for that as it was actually susceptible. MRSA was also a concern and she received a short course of linezolid which seemed to produce thrombocytopenia but it was never completely clear if the thrombocytopenia was due to the linezolid or septic shock. In any event, the patient is now back with recurrent very deep septic shock though still not requiring ventilation. She also has associated renal failure and profound lactic acidosis. Her blood cultures are already growing gram-negative rods which may be aerobes but are more likely anaerobes. The most likely source of this by far is her GI tract and it is unclear to me exactly what her anatomy is given that she was diagnosed with anastomotic failure some two months ago and that apparently has not been surgically repaired in any way and only treated through persistent drainage. I suspect that she has an intra-abdominal source of infection which would be polymicrobial. The problem here is that we know that she is colonized at least with an Enterobacter which is resistant to almost all antibiotics and I have alerted the laboratory to this possibility. It is also possible she has sepsis arising from a urinary source as she now has a new left ureteral stone. The possibility of pneumonia seems remote here as the patient does not note any cough and her chest x-ray does not show any focal infiltrates. RECOMMENDATIONS: 1. I would not give any more vanco as she is already in renal failure and we have a vanco level which approaches 20. We can hold off on that until tomorrow and see what develops with respect to cultures. 2. I would not give any more Zosyn. 3. We can continue cautiously with meropenem though. If the Enterobacter is present as part of this infection and still resistant to carbapenems, of course, this will not work. 4. I would add ceftazidime-avibactam in a loading dose of 2.5 g followed by 1.25 g q.8 directed specifically at the multi-drug resistant Enterobacter isolated previously and I have asked the lab to do susceptibilities if any gram negatives are once again isolated. 5. Flagyl will be added in a dose of 750 q.12 at this point, as Ceftaz/avibactam does not have coverage for anaerobes and our plan is probably to drop the meropenem tomorrow and simply treat with Ceftaz/avibactam plus Flagyl. 6. This case discussed extensively with the ICU team as well as multiple others caring for this complex patient. 7. This patient has been placed in strict isolation because of her history of CRE as well as MRSA as a strict contact isolation. 8. Total time on this case exceeds 70 minutes.
--- NOTE | 2016-11-22 10:29 | PROG NOTE ---
[address] [address] PROGRESS NOTE PATIENT: JOHN SMITH : 1945 MR#: [id number] ADMIT: 11/21/2016 JOB ID: [id number] DATE: 11/22/2016 SUBJECTIVE: The patient is seen in followup. She remains on three pressors but is improved. When this event occurred in August, she was intubated at this time. She has been getting her pelvic drain irrigations. Metabolically she is improving despite still on pressors. REVIEW OF SYSTEMS: She has no specific complaints. PHYSICAL EXAMINATION: Very fatigued. BMI 48, temperature 36.4, brachial blood pressure currently 83/52, pulse 103, respiratory rate 27, O2 sat on 2 L 95%. Rectal tube just currently has clear fluid. In the ED last night, there was pus. LABORATORY RESULTS: White blood cell count is increased to 22.8 from 15.7, hematocrit is 29, essentially unchanged from 31. Platelet count 126,000, stable. Sodium at 0425 this morning 126, potassium 4.7. Creatinine has dropped to 2.87. Glucose 152. Lactic acid has fallen to 4.1. Blood cultures have Gram variable rods, the identification pending. Remains critically ill but improving. PLAN: I discussed her case with Dr. Paula. I think the rectal drain irrigations are helping and we will continue those. Time spent with patient and in coordination of care [address] scan with Radiology.
[2016-11-22] MEDS: metroNIDAZOLE Inj 500 MG in IV Premix 1 EACH IV SCH ×2 (11:10→17:14)
--- NOTE | 2016-11-22 11:32 | NUR ---
PAMELA Perez at bedside inserting rectal drain, pt became unresponsive during procedure. Arterial wave form lost on monitor. Unable to palpate pulses. PEA. CPR initiated at bedside. See pamela turner form.
[2016-11-22] MEDS ORDERED: fentaNYL 2,500 mCg/250 mL Premix IV ONE (12:09)
--- NOTE | 2016-11-22 12:33 | DRSVH ---
PROCEDURE: X-RAY CHEST ONE VIEW, PORTABLE ([id number]) INDICATIONS: TUBE PLACEMENT TECHNIQUE: One view of the chest was acquired. COMPARISON: , CR, XR CHEST 1VW (PORTABLE), 11/21/2016, 18:52. FINDINGS: Surgical changes and devices: There is an endotracheal tube with the tip at level of nichelle. A nasoga stric tube. A nasogastric is noted within the stomach. There is a left IJ central line with the tip i n the area of the SVC. Lungs and pleura: Left upper medial thorax is partially obscured. There are bilateral parahilar air space infiltrates compatible with bilateral pneumonia or pulmonary edema. No pleural effusions or pne umothorax. Mediastinum: Mediastinal contours appear normal. Heart size is normal. Bones and chest wall: No suspicious bony lesions. Overlying soft tissues appear unremarkable. IMPRESSION: 1. The endotracheal tube the tube tip is at the level of nichelle. The nasogastric tube is within the s tomach. 2. Bilateral perihilar airspace infiltrates compatible with pulmonary edema or bilateral pneumonia. Dictated by: Umer Smith M.D. on 11/22/2016 at 12:29 Approved by: Umer Smith M.D. on 11/22/2016 at 12:32
[2016-11-22 12:45] LABS: Mean Corpuscular Volume 84.3 fL (81-100); Platelet Count 87 bil/L (150-400)
[2016-11-22] MEDS ORDERED: levETIRAcetam Inj 1,000 MG in IV Premix 1 EACH IV ONE (12:50)
[2016-11-22] MEDS ORDERED: Cisatracurium 2,000 mCg/mL 10 mL Inj IV ONE (13:00)
--- NOTE | 2016-11-22 13:05 | ABG ---
DateTimeAnalyzed 13:02:00 -_ pH ____6.872 - pCO2 ___50.8__ -mmHg pO2 ___43.2__ -mmHg HCO3- ____8.8__ -mmol/L ABE __-22.8__ -mmol/L tHb ____7.8__ -g/dL O2Hb ___59.6__ -% COHb ____0.3__ -% MetHb ____1.3__ -% sO2 ___60.6__ -% FIO2 __100.0__ -% PRVC 25 - PEEP ____5.0__ -cmH2O Vt __400.0__ -L Drawn By gj - Date/Time Notified____ 13:05:00 -_ Spontaneous_RR ___25.0__ -b/min Oxygen Device 1 VENTILATOR - Notified Whom KENDREGAN - B 756 -mmHg tO2 ____6.6__ -Vol% Puma test N/A -
--- NOTE | 2016-11-22 13:08 | ABG ---
DateTimeAnalyzed 13:06:00 -_ pH ____6.936 - 7.350 7.450 pCO2 ___36.7__ -mmHg 35.0 45.0 pO2 146 -mmHg 69.0 116 HCO3- ____7.4__ -mmol/L 22.0 26.0 ABE __-23.1__ -mmol/L -2.0 2.0 tHb ____7.9__ -g/dL O2Hb ___95.9__ -% COHb ____0.2__ -% MetHb ____1.1__ -% sO2 ___97.2__ -% FIO2 __100.0__ -% PRVC 25 - PEEP ____5.0__ -cmH2O Vt __400.0__ -L Drawn By GJ - Date/Time Notified____ 13:08:00 -_ Spontaneous_RR ___25.0__ -b/min Oxygen Device 1 VENTILATOR - Notified By gj - Notified Whom KENDREGAN - B 756 -mmHg tO2 ___11.0__ -Vol% Puma test N/A -
[2016-11-22] MEDS: EPINEPHrine 10,000 mCg/250 mL NS IV PRN ×8 (13:09→22:07)
[2016-11-22] MEDS: Cisatracurium 200,000 mCg/100 mL NS IV SCH ×4 (13:09→21:57)
[2016-11-22] MEDS ORDERED: Sodium Chloride LOK Flush 10 mL Syringe IVFLUSH PRN ×2 (13:10)
--- NOTE | 2016-11-22 13:12 | PROG NOTE ---
[address] [address] PROGRESS NOTE PATIENT: JOHN SMITH : 1945 MR#: [id number] ADMIT: 11/21/2016 JOB ID: [id number] DATE: 11/22/2016 SUBJECTIVE: The patient is very familiar to me from her last hospitalization. I have been in communication with her colorectal surgeon, Dr. Tovar, down in [place]. She came in last night with sepsis after having her perineal drain changed a week ago. It is a small drain. Overnight drain has been irrigated with the quality of the fluent clearing up somewhat. She remains in critical condition. I decided to replace that drain with a larger drain to make sure we are completely getting the presacral space irrigated. I removed her existing transanal drain and was about to replace the new one when she proceeded to have a cardiac arrest. CPR was initiated and was required for about 15-20 minutes. She remains in critical condition. I did opt to replace the drain with a 20-Thai 3-way Jordan. I was able to get it out through the stricture into the presacral space. The balloon was inflated with 10 cc of saline. I have instructed the nursing in appropriate irrigation. I will continue to follow along and assume the role of surgical consultation at this point.
[2016-11-22 13:20] LABS: BASOPHILS % (AUTO) 0 % (0-3); EOSINOPHILS % (AUTO) 0 % (0-5); MONOCYTES % (AUTO) 0 % (4-12); NEUTROPHILS % (AUTO) 60 % (40-74)
[2016-11-22 13:28] LABS: Magnesium 1.8 mg/dL (1.6-2.6)
[2016-11-22] MEDS ORDERED: Hydrocortisone 50 mg/mL 2 mL Inj IV ONE (13:30)
[2016-11-22 13:32] LABS: TROPONIN T 0.149 ug/L (0.0-0.011)
[2016-11-22] MEDS ORDERED: Albumin 25% 50 GM in IV Premix 1 EACH IV ONE (14:50)
--- NOTE | 2016-11-22 14:51 | NUR ---
Palliative care note D/A: Palliative care referral kindly received today from Dr.s Alvarado and Genevieve. Pt is a woman with a complex medical history involving her colorectal cancer and was at [facility] for an extended period of time in Aug/2016. She was discharged to [facility] and then transitioned to [facility], where she has been until current admit. Pt able to make significant progress in her rehab and has recently been able to ambulate. A couple of days ago, she began to complain of not feeling well and was admitted for septic shock. Pt coded earlier today. Referral is for goals of care. P: Palliative care to follow. Brittany SANDOVAL, [facility]
[2016-11-22] MEDS ORDERED: Albumin 25% 200 ML IV ONE (14:55)
[2016-11-22] MEDS: DOBUTamine 500 mg/250 D5W 500,000 MCG in IV Premix 1 EACH IV PRN ×3 (16:17→22:47)
[2016-11-22] MEDS: CEFTAZIDIME IV SCH (16:45)
[2016-11-22] MEDS: AVIBACTAM IV SCH (16:45)
[2016-11-22] MEDS: DEXTROSE 5% IV SCH (16:45)
[2016-11-22] MEDS ORDERED: Insulin Human REGular Inj 100 UNIT in 0.9% Sodium Chloride-Pha MIX 100 ML IV SCH (17:03)
--- NOTE | 2016-11-22 17:14 | PCM.CONPAL ---
Date of Service Nov 22, 2016 Date of Hospital Admission: Nov 21, 2016 at 20:31 Date of Palliative Consult: Nov 22, 2016 Requesting Provider: John Hanson MD Reason Palliative Care Consult: Goals of Care Discussion, w/d Life Prolonging Interventions Reason for Consultation Palliative care referral kindly received today from Dr.s Alvarado and Genevieve. Pt is a woman with a complex medical history involving her colorectal cancer and was at [facility] for an extended period of time in Aug/2016. She was discharged to [facility] and then transitioned to [facility], where she has been until current admit. Pt able to make significant progress in her rehab and has recently been able to ambulate. A couple of days ago, she began to complain of not feeling well and was admitted for septic shock. Pt coded earlier today. Referral is for goals of care. Palliative Care Recommendation Summary of palliative recommendations: -Symptom management (Pain/other): per CCU medical and [facility] Hospitalist Teams -DPOA/Advanced Directives/POLST: 1. Code status on admission was FULL code. Changed to DNR/DNI after Dr. Solis (Attending team) and Palliative Care discussion with patient's today (11/22) -Family/emotional support: excellent support from , their daughter and many neighbors that have been friends with the couple for decades. 's Goals for his : 1. Do not perform CPR/defibrillation if pt has another cardiac arrest. He feels she has gone through a lot. He is shocked by the news of her initial arrest, but now feels if it happens again, he wants doctors to make her comfortable. 2. If there is no future cardiac arrest, he is still hoping for recovery but knows that she may not get better. He is experiencing pre-anticipatory grief, having watched all that providers have been doing for her to try to keep her alive. He seems to understand that her chances of survival are quite limited. He is grateful to the medical and nursing providers who have been taking such good care of her. has called their daughter to make her aware of the situation and the code change. As he expressed some feelings of guilt during our counseling session, Dr. Alvarado emphasized to him that his decision was not an act aimed at withdrawing care from her, but that her body was failing and we were allowing a natural end to her life if we do not perform CPR or shocks the next time her heart stops. He is somewhat reassured by this message. Overall, he is understanding that everything was put into place to try to keep her alive at 12 noon today, and it just is not likely to bring back to the unique person and the personality she was before this tragic event. Palliative Care will follow tomorrow for support of and family. Thank you for the consult. Problems: Resuscitation Status Resuscitation Status: DNR/DNI:Do Not Resuscitate/Intubate POLST Updates/Changes Previous POLST?: No . Advanced Care Planning Address: Code status change Pt History History of Present Illness This is a pleasant 71 Y/O obese F with history of colorectal cancer with colostomy, sacral osteomyelitis, sepsis secondary to sacral abscess (currently with drain in place), DVTs, diabetes mellitus type II, hypertension, and hypothyroidism, who presented to the ED secondary to worsening dyspnea, shortness of breath, loss of appetite, rigors, confusion, generalized weakness with difficulty ambulating over the past week. Of note patient had abnormal labs today at 1200. Her blood work demonstrated WBC 22.3, neutrophil predominance, Na 124, K 5.8, BUN 46, creatinine 3.2. She complains of some buttock pain. She denies fever, nausea, vomiting, abdominal pain chills, cough, chest pain, dysuria, lower extremity swelling. Of note patient had colectomy secondary to colon cancer in 06/16/[address] Tovar colorectal surgeon [facility], with ileostomy and placement of a right lower quadrant drain. This drain was in place for appeared of 5-6 weeks and then removed at [facility] secondary to nonfunctioning drain. She had CT scan of abdomen and pelvis done at that time which showed abscess in the sacral area and a new drain was placed for this finding. Patient had this sacral drain in for a period of 1 month and then was removed secondary to a developing surrounding skin and tissue infection. It was thought that the abscess had partially resolved at that time as well. On 09/15/2016 patient was a very discouraged by hospital secondary to severe septic picture with decreased by mouth intake, hyperkalemia, and renal failure. Patient received IV antibiotics Bactrim and showed improvement which time was discharged/ transferred to [facility] where she resided for 22 days and receive further IV antibiotics Bactrim. Patient was then discharged to current [facility] on by mouth Bactrim. Patient was admitted on 11/21 at [facility] after being found to have an elevated lactic acid of 5.3, leukocytosis with left shift, clinical signs of septic shock, requiring 4 L normal saline bolus, and IV pressors. Her perineal drain was last changed a week ago. Hospital Course: Today is Hospital Day 2. Mrs. Cody is being treated for septic shock due to infection from an as yet unknown site, likely her perineal drain that goes to her presacral space. She has been critically ill in the CCU, needing very high dose dual vasopressors. She was not yet intubated this morning , but was quite acidotic, short of breath, lethargic and not able to communicate well. Dr. Perez was replacing one of her drains and replacing it with another when she had a cardiac arrest around 12noon. CPR was initiated and needed for 15-20 minutes along with critical ACLS medications. She is now intubated and CCU team has been with her continually this afternoon, working to stabilize her. Medications Current Medications: Current Medications Sodium Chloride 1,000 ml @ 0 mls/hr Q0M IV Last administered on 11/21/16 17:52 ; Admin Dose 999 MLS/HR; Start 11/21/16 at 16:20; Stop 11/22/16 at 00:28; Status DC Al Hydrox/Mg Hydrox/Simethicone 30 ml Q6 PRN PO; Start 11/21/16 at 16:35; Status Cancel Ondansetron HCl Dose range: 4 mg to 8 mg Q4H PRN IVPUSH; Start 11/21/16 at 16:35 ; Stop 11/21/16 at 20:52; Status DC Acetaminophen 975 mg Q6H PRN PO; Start 11/21/16 at 16:35; Status Cancel Calcium Gluconate 1 gm 1 gm Q5MIN PRN IVPUSH Last administered on 11/21/16 19: 01; Admin Dose 1 GM; Start 11/21/16 at 18:25; Stop 11/21/16 at 21:00; Status DC Norepinephrine/ Premix 250 ml @ 9.37 mls/hr 1825 IV Last administered on 18:49; Admin Dose 9.37 MLS/HR; Start 11/21/16 at 18:25; Stop 11/21/16 at 20: 52; Status DC Ondansetron HCl 4 to 8 mg Q4H PRN IVPUSH; Start 11/21/16 at 20:40 Enoxaparin Sodium 30 mg BID SUBQ; Start 11/22/16 at 08:30; Stop 11/22/16 at 08:30 ; Status DC Pharmacy Consult 1 ea 1 ea DAILY XX Last administered on 11/21/16 20:40; Admin Dose 1 EA; Start 11/21/16 at 20:40; Stop 11/22/16 at 09:02; Status DC Piperacillin Sod/ Tazobactam Sod 3.375 gm/Dextrose/ Water 50 ml @ 12.5 mls/hr Q12 IV; Start 11/22/16 at 08:30; Stop 11/22/16 at 08:30; Status DC Norepinephrine/ Premix 250 ml @ 9.37 mls/hr Q24H IV; Start 11/21/16 at 20:36; Stop 11/22/16 at 00:35; Status DC Insulin Human Lispro Nutritional Dose to be given pr... [facility] SUBQ Last administered on 11/22/16 15:14; Admin Dose 4 UNIT; Start 11/21/16 at 22:00 Meropenem/Sodium Chloride 100 ml @ 33.333 mls/ hr DAILY IV Last administered on 11/22/16 07:32; Admin Dose 33.333 MLS/HR; Start 11/22/16 at 08:30 Heparin Sodium (Porcine) 5000 unit 5,000 unit Q12 SUBQ Last administered on 09:25; Admin Dose 5,000 UNIT; Start 11/21/16 at 22:00 Dextrose/Lactated Ringer's 1,000 ml @ 150 mls/hr Q6H40M IV; Start 11/22/16 at 00 :28 Phenylephrine HCl 19513 mcg/ Dextrose/Water 252 ml @ 42.97 mls/ hr Q5H52M IV Last administered on 11/22/16 12:31; Admin Dose 42.97 MLS/HR; Start 11/22/16 at 00:35 Vasopressin 20 unit/Sodium Chloride 101 ml @ 9.09 mls/hr Q11H7M PRN IV Last administered on 11/22/16 11:12; Admin Dose 9.09 MLS/HR; Start 11/22/16 at 00:50 Norepinephrine 8000 mcg/Premix 250 ml @ 9.37 mls/hr Q24H IV Last administered on 11/22/16 16:45; Admin Dose 9.37 MLS/HR; Start 11/22/16 at 01:55 Amiodarone HCL/ Dextrose 360 mg/ Premix/IV Miscellaneous Supplies 200 ml @ 0 mls /hr Q0M IV Last administered on 11/22/16 08:49; Admin Dose 0 MLS/HR; Start at 02:40 Famotidine/Sodium Chloride 20 mg/ Premix 50 ml @ 100 mls/hr Q12 IV; Start at 20:30; Stop 11/22/16 at 20:30; Status DC Ceftazidime/ Avibactam 1.25 gm/ Dextrose/Water 50 ml @ 25 mls/hr Q8 IV Last administered on 11/22/16 16:45; Admin Dose 25 MLS/HR; Start 11/22/16 at 16:30 Metronidazole/ Sodium Chloride 500 mg/Premix 100 ml @ 100 mls/hr Q8 IV Last administered on 11/22/16 11:10; Admin Dose 100 MLS/HR; Start 11/22/16 at 09:15 Cisatracurium Besylate 957575 mcg/Sodium Chloride 200 ml @ 21.58 mls/ hr Q9H17M IV Last administered on 11/22/16 13:09; Admin Dose 21.58 MLS/HR; Start at 12:40 Epinephrine 10 mg/ Sodium Chloride/ Miscellaneous 250 ml @ 0 mls/hr Q0M PRN IV Last administered on 11/22/16 16:47; Admin Dose 0 MLS/HR; Start 11/22/16 at 12:45 Famotidine/Sodium Chloride 20 mg/ Premix 50 ml @ 100 mls/hr DAILY IV; Start 11/23/16 at 08:30 Dobutamine HCl/ Dextrose/Premix 250 ml @ 0 mls/hr Q0M PRN IV Last administered on 11/22/16 16:45; Admin Dose 0 MLS/HR; Start 11/22/16 at 14:55 Scheduled Ferrous Sulfate (Ferrous Sulfate) 325 Mg Tablet 325 MG PO BIDWM Insulin Aspart (NovoLOG U100 Insulin Vial) 100 U/Ml U 1-5 UNIT SUBQ ACHS Levofloxacin (Levofloxacin) 500 Mg Tablet 500 MG PO QAM Levothyroxine (Levothyroxine) 50 Mcg Tablet 50 MCG PO QAM Melatonin (Melatonin) 3 Mg Tablet 3 MG PO HS Metronidazole (Flagyl) 500 Mg Tablet 500 MG PO BID Omeprazole (Omeprazole) 20 Mg Capsule.dr 20 MG PO QAM Prednisone (PredniSONE) 20 Mg Tablet 40 MG PO DAILYWM Sulfamethoxazole/Trimeth 800-160 mg (Bactrim DS) 1 Each Tablet 2 TABLET PO BID Scheduled PRN Acetaminophen (Acetaminophen) 325 Mg Tablet 650 MG PO Q4H PRN PRN For Fever Bisacodyl (Bisacodyl Rectal) 10 Mg/30 Ml Enema 10 MG RC DAILY PRN PRN For Constipation Calcium Carbonate (Tums) 500 Mg Tab.chew 1,000 MG PO Q4H PRN PRN For Dyspepsia or Heartburn Docusate Sodium (Colace) 100 Mg Capsule 200 MG PO BID PRN PRN For Constipation Hydrocodone-Acetaminophen 5-325 mg (Hydrocodone-Acetaminophen 5-325 mg) 1 Each Tablet 1-2 TABLET PO Q4 PRN PRN For Mild Pain Loperamide (Loperamide) 2 Mg Capsule 2 MG PO Q6H PRN PRN For Diarrhea or Loose Stool Magnesium Hydroxide (Milk of Magnesia) 400 Mg/5 Ml Oral.susp 30 ML PO Q12H PRN PRN For Constipation Simethicone (Gas-X) 80 Mg Tablet 80 MG PO Q6H PRN PRN For Dyspepsia or Heartburn Objective Findings Exam Vital Sign - Last Date Time Temp Pulse Resp B/P Pulse Ox O2 Delivery O2 Flow Rate FiO2 11/22/16 16:15 36.6 98 25 93/56 100 Mechanical Ventilator 90 11/22/16 08:11 2.00 Intake and Output 11/21/16 11/21/16 11/22/16 Cumulative From/Thru 15:00 23:00 07:00 11/21/16 16:11 - 11/22/16 06:02 Intake Total 4000 ml 6358 ml 40108 ml Output Total 260 ml 260 ml Balance 4000 ml 6098 ml 40725 ml Intake IV Total 4000 ml 6358 ml 12003 ml Output Urine Total 210 ml 210 ml Drainage Total 50 ml 50 ml # Bowel Movements 0 0 Objective Pt's EMR notes/procedures/labs all reviewed. She was not examined as multiple people in her room, and we were asked to obtain a private conversation with her Lab/Diagnostics Lab and Imaging results reviewed in detail in EMR. Time spent Total time 50 minutes; >50% face to face with patient and/or family, providing counselling regarding plans and recommendations, and in care coordination with his/her medical teams. I also spent an additional 60 minutes counseling for advanced care planning with the patient/the patients family/the surrogate decision maker. Emilia Alvarado MD Nov 22, 2016 17:14
--- NOTE | 2016-11-22 17:37 | ABG ---
DateTimeAnalyzed 17:33:00 -_ pH ____7.128 - 7.350 7.450 pCO2 ___33.0__ -mmHg 35.0 45.0 pO2 148 -mmHg 69.0 116 HCO3- ___10.5__ -mmol/L 22.0 26.0 ABE __-17.2__ -mmol/L -2.0 2.0 tHb ____7.6__ -g/dL O2Hb ___97.1__ -% COHb ____0.5__ -% MetHb ____1.0__ -% sO2 ___98.6__ -% FIO2 ___90.0__ -% PRVC 25 - PEEP ___11.0__ -cmH2O Vt __400.0__ -L Drawn By gj - Date/Time Notified____ 17:37:00 -_ Spontaneous_RR ___25.0__ -b/min Oxygen Device 1 VENTILATOR - Notified By gj - Notified Whom kendregan - B 755 -mmHg tO2 ___10.8__ -Vol% Puma test N/A -
[2016-11-22 17:48] LABS: Magnesium 1.7 mg/dL (1.6-2.6)
[2016-11-22] MEDS: Hydrocortisone 50 mg/mL 2 mL Inj IVPUSH SCH (19:27)
[2016-11-22] MEDS: Insulin Human REGular Inj 100 UNIT in 0.9% Sodium Chloride-Pha MIX 100 ML IV SCH (20:26)
[2016-11-22] MEDS ORDERED: Famotidine Inj 20 MG in IV Premix 1 EACH IV SCH (20:30)
--- NOTE | 2016-11-22 21:09 | PROCED ---
[address] [address] PROCEDURE NOTE PATIENT: JOHN SMITH : 1945 MR#: [id number] ADMIT: 11/21/2016 JOB ID: [id number] DATE OF SERVICE: 11/22/2016 PROCEDURE: Emergency intubation in the ICU in code setting. POSTOPERATIVE DIAGNOSIS(ES): PREOPERATIVE DIAGNOSIS(ES): SURGEON: John Rodgers DO I was called to the patient's bedside due to a Code Blue being called due to cardiopulmonary failure. The patient was lying supine on the bed with chest compressions actively being administered, was being bag masked using an oral airway. I was supplied intubating equipment by the ICU staff including a MAC-4 blade, a 7.5 oroendotracheal tube with stylet inserted, and suction was at the ready. Without interruption of chest compressions, the MAC-4 was inserted to the vallecula with appropriate elevation and visualization of the arytenoids and associated tissue anterior. Glottis visualization was difficult due to continuing chest compressions as well as apparent gastric fluid and oral secretions which were repeatedly suctioned during the process. The 7.5 endotracheal tube was inserted into the glottis, with calorimetric confirmation of endotracheal intubation. Five cc of air was used to inflate the cuff with an appropriate seal. This tube was secured by the ICU staff, and following conversation with the team overseeing the code, I was dismissed. The patient was adequately ventilated using this device, and there was no apparent trauma inflicted through the process of placing the oral endotracheal tube, particularly without change to her dentition. Time was estimated to be from 11:54 to 12:06 on November 22.
[2016-11-22] MEDS: LEVETIRACETAM IV SCH (21:13)
--- NOTE | 2016-11-22 21:20 | PCM.PNMED ---
Subjective Date of Service Nov 22, 2016 Subjective Mrs. Cody is a 71-year-old obese female past medical history of colorectal cancers status post colostomy and bowel reduction surgery, sacral osteomyelitis, sepsis secondary to sacral abscess (currently with drain in place ) admitted for severe sepsis. Overnight: Patient oriented to self and place though forgetful throughout the night. Denies significant pain nausea or vomiting. Throughout the night patient had increased work of breathing dyspnea and became tachycardic. We will set initiated secondary to hypotension. Right art line placed and bicarbonate drip initiated. At time of interview has been not present in the room, patient unable to answer questions appropriately secondary to work of breathing and presumed altered mental status. Exam Vital Signs Vital Sign - Last Date Time Temp Pulse Resp B/P Pulse Ox O2 Delivery O2 Flow Rate FiO2 11/22/16 16:15 36.6 98 25 93/56 100 Mechanical Ventilator 90 11/22/16 08:11 2.00 Intake and Output 11/21/16 11/21/16 11/22/16 Cumulative From/Thru 15:00 23:00 07:00 11/21/16 16:11 - 11/22/16 06:02 Intake Total 4000 ml 6358 ml 33183 ml Output Total 260 ml 260 ml Balance 4000 ml 6098 ml 56331 ml Intake IV Total 4000 ml 6358 ml 32398 ml Output Urine Total 210 ml 210 ml Drainage Total 50 ml 50 ml # Bowel Movements 0 0 Exam Physical exam performed prior to intubation. General: Morbidly obese female in moderate to severe distress. She and minimally responsive to questions, 1-2 word answers. HEENT: Pupils equal, round, and reactive to light and accommodation. Oropharynx with dry mucosa. Neck: No jugular venous distension, no difficulty appreciated secondary to body habitus. Left IJ in place Cardiovascular: Tachycardic rate, with irregular rhythm. Auscultation difficult secondary to habitus as well as audible moaning while breathing Pulmonary: Tachypneic with rate of 26-30. Poor air movement short shallow respirations. Mild wheezing heard in upper anterior lobes. Abdomen: Obese abdomen, bowel tones difficult to appreciate. Ileostomy bag intact. : Jordan catheter in place.. Extremities: Pedal pulses difficult to appreciate. Patient able to move all 4 extremities. Skin: Mottled skin in lower extremities bilaterally. 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 Left IJ in place, right upper extremity arterial line. Left before meals line. IVs and Medications Medications Reviewed: Medications were reviewed in detail Lab and Diagnostics Result Diagram: 11/22/16 1215 11/22/16 1703 X-Rays, CTs and MRIs . X-RAY CHEST ONE VIEW, PORTABLE IMPRESSION: No acute cardiopulmonary findings. Dictated by: Ela Velez M.D. on 11/21/2016 at 17:05 X-RAY CHEST ONE VIEW, PORTABLE IMPRESSION: Study limited by large body habitus, reduced inspiration and portable film technique. No definite pneumonia. Port-A-Cath in normal position from left-sided approach. Dictated by: Patrick Amador M.D. on 11/21/2016 at 19:50 ADDENDUM: The central line present is not a Port-A-Cath but rather a left internal jugular line, crossing from left to right, superimposing upon the right mediastinum in the expected area of the distal SVC. X-RAY CHEST ONE VIEW, PORTABLE IMPRESSION: Mildly reduced inspiratory time, central line in normal position from left-sided approach, as has been previously the case. Dictated by: Patrick Amador M.D. on 11/21/2016 at 19:47 ADDENDUM: The central line present does not represent a Port-A-Cath but rather a left internal jugular central line which extends to the expected position of the distal SVC. No pneumothorax is suspected. Dictated by: Patrick Amador M.D. on 11/21/2016 at 20:34 X-RAY CHEST ONE VIEW, PORTABLE ([id number]) INDICATIONS: TUBE PLACEMENT IMPRESSION: 1. The endotracheal tube the tube tip is at the level of nichelle. The nasogastric tube is within the stomach. 2. Bilateral perihilar airspace infiltrates compatible with pulmonary edema or bilateral pneumonia. Dictated by: Umer Smith M.D. on 11/22/2016 at 12:29 CT ABDOMEN AND PELVIS WITHOUT CONTRAST IMPRESSION: Somewhat high density material is present within the collecting system of both kidneys posteriorly, but not present in September of this year. These could represent an unusually rapid formation of urinary tract stones. What does appear to be the presence of mild left hydronephrosis is noted, And what appears to be a 5 x 6 mm distal left ureteral stone can be seen. A calculus within the ureter in that area was not identified in February of this year. Dictated by: Patrick Amador M.D. on 11/21/2016 at 20:12 Assessment & Plan Mrs. Cody is a 71-year-old obese female past medical history of colorectal cancers status post colostomy and bowel reduction surgery, sacral osteomyelitis, sepsis secondary to sacral abscess (currently with drain in place ) admitted for severe sepsis. Hospital day 2. 1. Septic shock, present on admission, active - Patient meets criteria for septic shock with hypotension refractory to pressors support, elevated white blood cell count, elevated lactic acid, tachypnea, tachycardia with suspected source of sacral ulcer. - Related pulmonary blood cultures positive 2 growing gram variable rods - ID following we appreciate the recommendations - Received 4 L IV fluids in the ED - Continue IV D5 LR at a rate of 150 mL per hour - Continue antibiotics ceftazidime, meropenem per ID - Continue blood pressure support - Current continuous IV medications are Nor epi, epinephrin, dobutamine, cisatracurium, insulin, fentanyl, propofol, amiodarone - Continue to trend lactic acid - ABG in am - CXR in am 2. Acute respiratory failure. Not present on admission. Ongoing - Secondary to #1 - Prior to intubation pH has remained low ~ 7.1 with a low PCO2 and bicarbonate. - Continue Bicarb replacement - CODE BLUE called, patient intubated and sedated. 3. Sacral abscess, presently in remission, active - Patient has sacral drain in place - No mention of abscess on CT report - Antibiotics as in #1 - Surgery following 4. Acute on chronic renal failure present on admission, active - Patient's creatinine level 3.6 today, baseline creatinine 1.11 on 10/17/2016 - IV fluids as above - Continue to monitor creatinine level 5. Elevated troponin - Elevated troponin in the ED of 0.10 likely secondary to chronic disease and demand related to septic shock - Repeat troponin remained elevated with labile trend prior to cardiac arrest 6. Hyponatremia, present remission, resolved -Sodium 118 on admission -Resolved on IV fluids 7. Hyperkalemia, present on admission, resolved - Potassium 6.0 - Resolved with IV fluids 8. Hypomagnesemia, present on admission. resolved - 1.3 on admit - Resolved with IV fluids 9. Hyperglycemia in a known type 2 diabetic. 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 CODE STATUS: DNR/DNI DVT PE prophylaxis: Subcutaneous heparin Contact: Bartolo, patient's [phone] Pain Evaluation: Adequate Pain Control VTE Prophylaxis: Sub-Q Heparin (Unfractionated) VTE Mechanical Devices: Intermittant Pneumatic CD Resuscitation Status: DNR/DNI:Do Not Resuscitate/Intubate Attending Statement The patient was seen and examined together with Dr. Nj on 11/22/2016 and I agree with the history, exam and plan as outlined in the note above. . RYAN NJ DO Nov 22, 2016 18:02 Angelo Vallejo MD Nov 24, 2016 16:43
--- NOTE | 2016-11-22 21:48 | ABG ---
DateTimeAnalyzed 21:43:57 -_ pH ____7.175 - pCO2 ___34.8__ -mmHg pO2 111 -mmHg HCO3- ___12.8__ -mmol/L ABE __-14.2__ -mmol/L tHb ____7.4__ -g/dL O2Hb ___97.7__ -% COHb ____1.3__ -% MetHb ___-0.1__ -% sO2 ___98.9__ -% FIO2 ___80.0__ -% PRVC 25 - PEEP ___11.0__ -cmH2O Vt __400.0__ -L Drawn By RB - Spontaneous_RR 25 -b/min Oxygen Device 1 VENTILATOR - Notified By RB - Notified Whom MILA K, RN - B 753 -mmHg K+ ____3.5__ -mmol/L tO2 ___10.4__ -Vol% Puma test N/A -
[2016-11-23] VITALS (20 sets, daily range): BP systolic 64–99; BP diastolic 43–59; PULSE 102–142; RESP 25; O2SAT 95–99
[2016-11-23] MEDS: metroNIDAZOLE Inj 500 MG in IV Premix 1 EACH IV SCH ×3 (00:07→15:25)
[2016-11-23] MEDS: AVIBACTAM IV SCH ×3 (00:53→15:24)
[2016-11-23] MEDS: Hydrocortisone 50 mg/mL 2 mL Inj IVPUSH SCH ×4 (00:53→18:22)
[2016-11-23] MEDS: CEFTAZIDIME IV SCH ×3 (00:53→15:24)
[2016-11-23] MEDS: DEXTROSE 5% IV SCH ×5 (00:53→15:26)
--- NOTE | 2016-11-23 01:20 | ABG ---
DateTimeAnalyzed 01:15:56 -_ pH ____7.145 - pCO2 ___38.0__ -mmHg pO2 ___88.0__ -mmHg HCO3- ___13.1__ -mmol/L ABE __-14.3__ -mmol/L tHb ____7.0__ -g/dL O2Hb ___95.5__ -% COHb ____1.3__ -% MetHb ____0.0__ -% sO2 ___96.8__ -% FIO2 ___70.0__ -% PRVC 25 - PEEP ___11.0__ -cmH2O Vt __400.0__ -L Drawn By RB - Spontaneous_RR 25 -b/min Oxygen Device 1 VENTILATOR - Notified By RB - Notified Whom MILA K, RN - B 750 -mmHg K+ ____3.3__ -mmol/L tO2 ____9.6__ -Vol% Puma test N/A -
[2016-11-23] MEDS: Norepineph 8,000 mCg/250 mL NS 8,000 MCG in IV Premix 1 EACH IV SCH ×11 (02:12→18:49)
[2016-11-23] MEDS ORDERED: KCl 20 mEq/100 mL IV Premix (K 3 - 3.7 & Cr 2.1 - 2.9) IV ONE ×2 (02:50→07:10)
[2016-11-23] MEDS: Insulin Human REGular Inj 100 UNIT in 0.9% Sodium Chloride-Pha MIX 100 ML IV SCH (02:54)
[2016-11-23] MEDS: Dextrose 5% Lactated Ringer's 1,000 ML IV SCH ×3 (03:08→16:00)
[2016-11-23] MEDS: EPINEPHrine 10,000 mCg/250 mL NS IV PRN ×8 (03:30→16:00)
[2016-11-23] MEDS: Sodium Bicarb 8.4% Inj 150 MEQ in Dextrose 5% 1,000 ML IV SCH ×3 (03:30→19:28)
[2016-11-23] MEDS: Phenylephrine 20 mg/250 mL D5W IV SCH ×2 (03:31)
[2016-11-23] MEDS: DOBUTamine 500 mg/250 D5W 500,000 MCG in IV Premix 1 EACH IV PRN ×3 (04:07→13:10)
--- NOTE | 2016-11-23 04:40 | NUR ---
P: hypotension I: epinephrine, norepinephrine, dobutamine drips E: SBP 80-teens, DBP 50s mostly, marginal MAP > 65. Ventilated at 70% fio2, 11 peep. Adjusted CVP 16-17. Tele A fib, teens to 130s. Currently epinephrine drip at 0.6mcg, norepinephrine drip at 0.6mcg, dobutamine drip at 15mcg. Making minimal urine, dark roya and dark red. Intermittently irrigating rectal tube, light roya to pale w/ minimal shreds. Small amount of rectal bleed. Fentanyl drip for comfort and sedation. Nimbex titrate off, TOF 0/4. RASS -5. Does not overbreathe vent rate. Bicarb continues at 300ml/hr.
--- NOTE | 2016-11-23 05:13 | ABG ---
DateTimeAnalyzed 05:10:00 -_ pH ____7.124 - 7.350 7.450 pCO2 ___43.2__ -mmHg 35.0 45.0 pO2 ___87.2__ -mmHg 69.0 116 HCO3- ___13.6__ -mmol/L 22.0 26.0 ABE __-14.2__ -mmol/L -2.0 2.0 tHb ____6.7__ -g/dL O2Hb ___94.7__ -% COHb ____0.4__ -% MetHb ____1.0__ -% sO2 ___96.0__ -% FIO2 ___70.0__ -% PRVC 25 - PEEP ___11.0__ -cmH2O Vt __400.0__ -L Drawn By RB - Date/Time Notified____ 05:13:00 -_ Spontaneous_RR ___25.0__ -b/min Oxygen Device 1 VENTILATOR - Notified By RB - Notified Whom MILA K, RN - B 749 -mmHg tO2 ____9.0__ -Vol% Puma test N/A -
[2016-11-23 06:07] LABS: Mean Corpuscular Volume 82.3 fL (81-100)
[2016-11-23 06:08] LABS: BASOPHILS % (AUTO) 0 % (0-3); EOSINOPHILS % (AUTO) 0 % (0-5); MONOCYTES % (AUTO) 1 % (4-12); Magnesium 1.3 mg/dL (1.6-2.6); NEUTROPHILS % (AUTO) 77 % (40-74); Phosphorus 4.2 mg/dL (2.5-4.9); Platelet Count 20 bil/L (150-400)
[2016-11-23] MEDS ORDERED: Mag Sulf 2 Gm/50mL IV Premix(Mag < 1.6 & Creat > 2) IV ONE (07:10)
[2016-11-23] MEDS: Cisatracurium 200,000 mCg/100 mL NS IV SCH ×4 (07:14→16:00)
--- NOTE | 2016-11-23 07:33 | CONS ---
[address] [address] CONSULTATION REPORT PATIENT: JOHN SMITH : 1945 MR#: [id number] ADMIT: 11/21/2016 JOB ID: [id number] DATE OF SERVICE: 11/22/2016 PULMONARY CRITICAL CARE CONSULTATIVE NOTE: REQUESTING PHYSICIAN: Angelo Vallejo M.D. REASON FOR CONSULTATION: Septic shock. HISTORY OF PRESENT ILLNESS: The patient is a 71-year-old female who has a rather complicated history. She can only give desultory responses. According to review of her past medical history, the patient underwent AP resection of rectal carcinoma in 2015. She also received adjuvant radiation therapy. She was left with a colostomy. Apparently the colostomy broke down in August of 2016. She underwent surgical intervention to repair the anastomotic leak but was found to have a rather large sacral abscess at that time. This has subsequently been drained with an indwelling drain, initially a Jostin-Cabrales, currently a Mallinckrodt tube draining some small amount of brownish material, currently undergoing saline irrigation. At the time of the anastomotic leak, CRE was grown. She was treated for same. Bugs included Enterococcus faecalis group D, Citrobacter freundii, E. coli with anaerobic cultures growing Bacteroides ovatus. The urine culture at that time grew Enterobacter cloacae. The Enterobacter was sensitive to trimethoprim sulfamethoxazole and aminoglycosides. The Enterobacter cloacae were sensitive to fourth generation cephalosporins, carbapenems. The patient was sent from her care facility to the emergency department for abnormal labs including creatinine of 3.2, sodium 124, potassium of 5.8, shaking chills and confusion. Initial note indicated she denied shortness of breath, cough or chest pain. The patient not able to give much of a history at this time. Denies pain except for pain in the low back in the site of the drainage tube. No particular problems with shortness of breath. No cough or sputum production. REVIEW OF SYSTEMS: Unable to reliably complete. ALLERGIES: CODEINE causes an unknown reaction. MEDICATIONS ON ADMISSION: Include: 1. Ferrous sulfate. 2. Insulin aspart. 3. Levofloxacin. 4. Levothyroxine. 5. Melatonin. 6. Metronidazole. 7. Omeprazole. 8. Prednisone 40 mg daily. 9. Sulfamethoxazole trimethoprim. Unable to obtain any other details. PAST MEDICAL HISTORY: According to the chart, includes: 1. Hypertension. 2. Diabetes. 3. Hypothyroidism. 4. Vascular insufficiency. 5. Leg swelling. SMOKING HISTORY: According to his chart is none. Past history of multiple DVTs as well with admitting medications including rivaroxaban for DVT treatment. Other medications of note include: 1. Prednisone 40 mg daily. 2. Omeprazole. 3. Levofloxacin. 4. Metronidazole. 5. Bactrim DS. 6. Ferrous sulfate. Currently vital signs show a temperature of 36.4, pulse of 103 after the patient received amiodarone infusion for a tachyarrhythmia with ventricular response of 166. Rhythm not described. Respiratory rate mid 20s. Blood pressure varies between 83/52 to 116/71, O2 sat on 2 L is 95%. I and O shows 10.3 liters in, in the past eight hours with urine output of 210 mL. There is a small amount of drainage from the sacral drain. General appearance: Well developed, moderately obese patient groaning in bed. Will, however, answer questions when they are posed. Replies are understandable but are often rather vague. Eyes: Conjunctivae are pink. No scleral icterus. Pupils about 2 mm. Nose and throat could not be examined. Chest: Fairly good breath sounds bilaterally. There are some crackles in the left lower posterior lung field. Remainder of lung barfield are clear. No use of accessory muscles of respiration. Heart: Irregular rhythm. Heart tones seem normal. Monitor shows multiple PACs. Abdomen: Soft. Nondistended. No apparent tenderness. Bowel tones present. Skin appears somewhat dusky including abdominal wall and both lower extremities. Acral areas are cool. Buttocks show quarter-sized areas of denuded skin with underlying tissue being rather pink and seemingly well perfused. Colostomy looks rather pink and well perfused. LABORATORY: Shows a mini white count of 15,700 with 96 polymorphonuclears, no bands, 0.4 lymphocytes. Repeat CBC 12 hours later shows a white count of 22,800 with 56 polymorphonuclears, 33 bands, 8 metamyelocytes, 1 lymphocyte. Hemoglobin 10.6 on admission. Twelve hours later 9.8. Platelet count stable at 126,000. Sodium 124, potassium 5, chloride 98, CO2 is 7. BUN 43, creatinine 3.1. Glucose 47 after the patient received 10 units of regular insulin for a sugar of 198. Initial lactic acid was 5.9, calcium 7.8 with an albumin of 2.4. Total bilirubin 0.2. AST 10, ALT 8, alkaline phosphatase 97. Troponin T is 0.085. Repeat studies seven hours later show sodium 126 and stable, potassium 4.7 and relatively stable. Chloride 98 and stable. Carbon dioxide 7 and stable, though the patient is currently receiving a bicarbonate drip with bicarbonate concentration of 150 mEq/L running at 150 mL an hour. The creatinine has dropped from peak of 3.61 to 2.87. Magnesium is 1.2 and has been replaced and is currently 1.9. Phosphorus normal at 3.4. UA shows a specific gravity 1.030, a large amount of occult blood. Urine leukocyte esterase is moderate in quantity. Urine white blood cells 0-5. Urine bacteria many. The patient currently has a Jordan. Unclear whether she has chronic indwelling Jordan catheter. Chest x-ray to my eye shows clear lung barfield. Heart size felt to be normal. A CT of abdomen and pelvis shows high density material in collecting system post both kidneys. Mild left hydronephrosis. Appears to be a 5 x 6 mm distal left ureteral stone not present in September of this year. Arterial blood gases on 1 L of oxygen by nasal cannula shows a pO2 of 85, pCO2 of 28, pH of 7.14 with the patient currently on bicarbonate infusion. Bicarbonate level is 9.3. Hemodynamic monitoring suggests cardiac output is approximately 5.6 L a minute. Systemic vascular resistance is 780. Blood cultures growing gram-negative rods. IMPRESSIONS: 1. Septic shock. The patient currently running a blood pressure of 83/52 on norepinephrine at 1 mcg/kg per minute, vasopressin at 0.03 units/minute. Phenylephrine has just been started. The patient currently is not intubated. Vigileo has been utilized. May want to utilize the cheetah system as that can be employed without the necessity for intubation. The patient remains awake, so a bit lethargic and a bit slow in her mentation, not completely awake and alert but certainly cognizant and functioning at a reasonably good level given the marked perturbations of her physiology. Sepsis is presumably from the gram-negative rods currently residing in her blood. Previous cultures have grown rather nasty gram-negative rods. Infectious disease on board and will help guide antibiotic therapy. Given her relatively refractory response to pressors and steroids. 2. Metabolic acidosis. The patient has a severe metabolic acidosis. Has only partial respiratory compensation suggesting a mild underlying respiratory acidosis. I suspect that her ventilatory status is tiring and that she may very well need to be intubated in the future. Might benefit from noninvasive ventilatory support. Having some problems with oxygenation. Her ventilation seems quite good at this time which would argue against BiPAP. However, I suspect her ventilatory muscles are fatiguing and may need ventilatory support, either noninvasive ventilation if we think we can support her for a short period of time with good recovery or whether this will be a long drawn out process in which case intubation given her other comorbidities would be in order. Metabolic acidosis is multifactorial. Has some renal failure. Has a lactic acidosis. Has a mild superimposed respiratory acidosis (an inadequate compensatory ventilatory response to the metabolic acidemia). 3. Multiple electrolyte abnormalities. The patient had markedly decreased magnesium of 1.2. That has been replaced. Does have a mild hypernatremia. Renal failure present but somewhat improved going up from a creatinine of 3.61 to 2.87 in the course of 12 hours. Urine output, however, remains rather marginal. 4. Gram-negative bacillus bacteremia. Blood cultures positive. The patient will likely require rather broad spectrum antibiotics to cover likely multidrug resistant organisms. She has been on antibiotics in the recent past and has had a number of hospitalizations in the past four months. 5. Shallow decubitus ulcers on her lower sacral area. Look rather clean. For the most part consist of loss of the integrity of the skin with no piriform material. The Mallinckrodt catheter appears to be residing in a sacral pocket presumably due to the preexistent abscess. Drainage is minimal. Is being subject to Gram stain and culture. 6. Myocardial depression. Cardiac output is not what one would expect in a patient with septic shock. May have underlying cardiac issues. Back in August did have Takotsubo's with ejection fraction of 25%, improving over the next few weeks to an ejection fraction of 40%. Right ventricular systolic pressure at the time of the cardiomyopathy was 48. Will need to repeat that to see whether we are dealing with a similar episode with underlying cardiomyopathy or whether dealing with the myocardial depression associated with the sepsis. In any case, she may need further fluid administration although she has received a generous quantity of fluids but may require inotropes as well. May want to change to the cheetah system as not sure about the Vigileo system in this setting. PLAN: 1. Stat echocardiogram to help with fluid administration, pressors and possibly adding inotropes. 2. Consider switching to cheetah system although the Vigileo is probably acceptable for current issues though will not give us a stroke volume variance to guide fluid responsiveness. 3. Metabolic acidosis. Unfortunately, we will need to continue her bicarbonate drip. Repeat gases are pending to see where we are with the pH. However, she is running a pH of 7.14 in the face of bicarbonate. 4. Fluid repletion. 5. Antibiotics. 6. Will probably need ventilatory support in the near future be it noninvasive if we think this will be short-term or invasive mechanical ventilation due to her fragile status and multiple issues the past year or so. 7. Case discussed with primary care team as well as the Infectious Disease service. TIME SPENT: Time spent so far in critical care is 83 minutes. Thank you so much, Dr. Vallejo, for asking us to participate in the care of this most critically ill individual. Will follow her status closely along with you.
[2016-11-23] MEDS: Insulin LISPRO 300 Unit/3 mL Inj SUBQ SCH ×3 (08:00→15:28)
--- NOTE | 2016-11-23 08:01 | PCM.PALLBR ---
Palliative Care Recommendation Summary of palliative recommendations: 11/23: Dr. Turner met briefly with for supportive listening. He seems to be holding up as well as can be expected, given the circumstances. Many friends visit the room and sit with him. -Symptom management (Pain/other): per CCU medical and [facility] Hospitalist Teams -DPOA/Advanced Directives/POLST: 1. Code status on admission was FULL code. Changed to DNR/DNI after Dr. Solis (Attending team) and Palliative Care discussion with patient's today (11/22) -Family/emotional support: excellent support from , their daughter and many neighbors that have been friends with the couple for decades. Contact: Bartolo, patient's [phone] 's Goals for his : 1. Do not perform CPR/defibrillation if pt has another cardiac arrest. He feels she has gone through a lot. He is shocked by the news of her initial arrest, but now feels if it happens again, he wants doctors to make her comfortable. 2. If there is no future cardiac arrest, he is still hoping for recovery but knows that she may not get better. He is experiencing pre-anticipatory grief, having watched all that providers have been doing for her to try to keep her alive. He seems to understand that her chances of survival are quite limited. He is grateful to the medical and nursing providers who have been taking such good care of her. has called their daughter to make her aware of the situation and the code change. As he expressed some feelings of guilt during our counseling session, Dr. Alvarado emphasized to him that his decision was not an act aimed at withdrawing care from her, but that her body was failing and we were allowing a natural end to her life if we do not perform CPR or shocks the next time her heart stops. He is somewhat reassured by this message. Overall, he is understanding that everything was put into place to try to keep her alive at 12 noon today, and it just is not likely to bring back to the unique person and the personality she was before this tragic event. Palliative Care will follow tomorrow for support of and family. Thank you for the consult. Problems: Resuscitation Status Resuscitation Status: DNR/DNI:Do Not Resuscitate/Intubate POLST Updates/Changes Previous POLST?: No Total time 15 minutes; >50% face to face with patient and/or family, providing counselling regarding plans and recommendations, and in care coordination with his/her medical teams. Palliative Brief Note Date of Service Nov 23, 2016 . Patient Identification: This is a pleasant 71 Y/O obese F with history of colorectal cancer with colostomy, sacral osteomyelitis, sepsis secondary to sacral abscess (currently with drain in place), DVTs, diabetes mellitus type II, hypertension, and hypothyroidism, who presented to the ED secondary to worsening dyspnea, shortness of breath, loss of appetite, rigors, confusion, generalized weakness with difficulty ambulating over the past week. Of note patient had abnormal labs today at 1200. Her blood work demonstrated WBC 22.3, neutrophil predominance, Na 124, K 5.8, BUN 46, creatinine 3.2. She complains of some buttock pain. She denies fever, nausea, vomiting, abdominal pain chills, cough, chest pain, dysuria, lower extremity swelling. Of note patient had colectomy secondary to colon cancer in 06/16/[address] Tovar colorectal surgeon [facility], with ileostomy and placement of a right lower quadrant drain. This drain was in place for appeared of 5-6 weeks and then removed at [facility] secondary to nonfunctioning drain. She had CT scan of abdomen and pelvis done at that time which showed abscess in the sacral area and a new drain was placed for this finding. Patient had this sacral drain in for a period of 1 month and then was removed secondary to a developing surrounding skin and tissue infection. It was thought that the abscess had partially resolved at that time as well. On 09/15/2016 patient was a very discouraged by hospital secondary to severe septic picture with decreased by mouth intake, hyperkalemia, and renal failure. Patient received IV antibiotics Bactrim and showed improvement which time was discharged/ transferred to [facility] where she resided for 22 days and receive further IV antibiotics Bactrim. Patient was then discharged to [facility] on by mouth Bactrim. Patient was admitted on 11/21 at [facility] after being found to have an elevated lactic acid of 5.3, leukocytosis with left shift, clinical signs of septic shock, requiring 4 L normal saline bolus, and IV pressors. Her perineal drain was last changed a week ago. Hospital Course: Today is Hospital Day 3. Mrs. Cody is being treated for septic shock due to infection from an as yet unknown site, likely her perineal drain that goes to her presacral space. She has been critically ill in the CCU, needing very high dose dual vasopressors. She was quite acidotic, short of breath, lethargic and not able to communicate well. Dr. Perez was replacing one of her drains and replacing it with another when she had a cardiac arrest around 12noon on 11/22. CPR was initiated and needed for 15-20 minutes along with critical ACLS medications. Pt discussed at length in CCU rounds. This is day 2 of intubation and she is on epinephrine, norepinephrine, dobutamine drips for hypotension due to sepsis from an aggressive infection with a gram negative mi that is multi-drug resistent. She is not breathing over the vent and not compensating for her metabolic acidosis. .Currently epinephrine drip at 0.6mcg, norepinephrine drip at 0.6mcg, dobutamine drip at 15mcg. She has fentanyl drip at 75mcg/hr for comfort and sedation. The nimbex was titrated off overnight. There is a bicarb drip running at 300ml/hr to try to improve her pH of 7.14. From the sepsis, she has a cardiogenic shock component that needs frequent adjustment in her pressures to support her BP. Her MAP is consistently low at 64-68. Exam: SBP 80-teens, DBP 50s mostly, marginal MAP > 65. Ventilated at 70% fio2, 11 peep. Adjusted CVP 16-17. Tele A fib, teens to 130s. Making minimal urine, dark roya and dark red. Intermittently irrigating rectal tube, light roya to pale w/ minimal shreds. Small amount of rectal bleed. Does not overbreathe vent rate. Emilia Alvarado MD Nov 23, 2016 08:01 Emilia Alvraado MD Nov 23, 2016 08:01
[2016-11-23] MEDS ORDERED: Albumin 25% 50 GM in IV Premix 1 EACH IV ONE (08:05)
[2016-11-23] MEDS ORDERED: Ipratropium 0.02% 0.5 mg/2.5 mL Inhalation Solution NEB SCH (08:15)
[2016-11-23] MEDS ORDERED: Famotidine Inj 20 MG in IV Premix 1 EACH IV SCH (08:30)
[2016-11-23] MEDS ORDERED: Vancomycin Dose per Pharmacist XX SCH (08:30)
--- NOTE | 2016-11-23 08:56 | DRSVH ---
PROCEDURE: X-RAY CHEST ONE VIEW, PORTABLE ([id number]) INDICATIONS: septic shock, aspiration, intubated TECHNIQUE: One view of the chest was acquired. COMPARISON: [facility], CR, XR CHEST 1VW (PORTABLE), 11/22/2016, 12:05. [facility], CR, XR CHEST 1VW (PORTABLE), 11/21/2016, 18:52. [facility], CR, XR CHEST 1VW (POR TABLE), 11/21/2016, 18:27. FINDINGS: Surgical changes and devices: ETT is present, tip of which is roughly 20 mm above the nichelle. Left cannon bclavian central venous catheter is present, tip of which is in the mid SVC. Lungs and pleura: No pleural effusions or pneumothorax. Multifocal patchy air space opacities are pr esent, and are increased at the right lung base. Mediastinum: Mediastinal contours appear normal. Heart size is normal. Bones and chest wall: No suspicious bony lesions. Overlying soft tissues appear unremarkable. IMPRESSION: Increased multifocal pneumonia. Dictated by: Rebecca Salgado M.D. on 11/23/2016 at 8:54 Approved by: Rebecca Salgado M.D. on 11/23/2016 at 8:55
--- NOTE | 2016-11-23 09:06 | PROG NOTE ---
[address] [address] PROGRESS NOTE PATIENT: JOHN SMITH : 1945 MR#: [id number] ADMIT: 11/21/2016 JOB ID: [id number] DATE: 11/23/2016 INFECTIOUS DISEASE FOLLOW UP NOTE: REASON FOR FOLLOWUP: Refractory septic shock and ventilatory dependent respiratory failure in a complex patient. INTERVAL HISTORY: Yesterday, I had seen the patient in consultation for septic shock. I misunderstood the nature of the original surgery she had in [place] last year in that she did not have an APR but rather a low abdominal resection of her malignancy with preservation of the anus. Colostomy was formed but there was subsequent breakdown and the patient then developed a presacral abscess/fluid collection as was previously described so this does not really affect our overall plans, but just a clarification to the nature of the surgery that was involved in initiating this process. Yesterday shortly after we saw the patient, a code was called. There had been an effort to exchange the perineal/presacral drain and move it up to a larger size for better irrigation, and at about that time, the patient has suffered a cardiac arrest and there was some CPR performed. Following that CPR event, the patient remained critically ill and has remained on high-dose vasopressor agents throughout the night with minimal urine output and a very soft blood pressure. Currently the patient is receiving norepinephrine at really maximal doses as well as high doses of epinephrine and dobutamine to maintain pressures of 80 or 90 systolic. Her urine output is very poor and she obviously remains in very severe septic shock. This case was discussed with the family and with the nurse at the bedside and the ICU team. No history is available from this patient obviously who is intubated, sedated and in shock. PHYSICAL EXAMINATION: Reveals a woman who is intubated, sedated in the ICU. Temperature 36.8. She has been afebrile since admission. Her pulse is currently 150 and irregular. Blood pressure around 90 on the three vasopressor agents mentioned. 70% and 11 of PEEP on the ventilator. Examination of the head reveals no new abnormalities. The eyes are without conjunctivitis or scleral icterus. Pupils are mid-range bilaterally. Oral endotracheal tube, oral gastric tube in good position. Minimal secretions through the endotracheal tube. Neck without new abnormality. Central line present. Lungs with scattered rales bilaterally. Cardiac tones: Irregular rate and rhythm with tachycardia. Murmurs cannot be appreciated at this rate. The patient's abdomen is distended and there is a brownish discoloration which is more pronounced than yesterday which covers much of the anterior abdomen. The new perineal presacral drain is present and the main fluid collecting in the bag is just irrigation which is being used. Jordan catheter is present with a very small amount of thick dark urine overnight, about 150 cc total. The extremities are quite cool all the way up to and including the lower abdomen. There is mottling and very poor capillary refill. LABORATORIES: Include a white count this morning 14,000. Hematocrit has dropped from 31 two days ago down to 19. Platelets have dropped from 125,000 down to 20. There is a left shift with 19% bands. Creatinine is 2.67. LFTs basically normal. Procalcitonin is 36. Urinalysis had no white cells in it though it is growing an Enterococcus as well as a mucoid gram-negative mi. More importantly, the blood cultures from admission are growing an anaerobic mucoid gram-negative mi to be identified. This could easily be a Enterobacter Klebsiella type organism, but it is not yet known. MRSA PCR is negative. Chest x-ray from yesterday showed bilateral infiltrates consistent with pulmonary edema. I personally reviewed today's chest film and compare it to yesterday. Today's shows diffuse bilateral infiltrates, left greater than right. It is similar to but somewhat worse perhaps than yesterday though the inspiratory volume is very poor and it is difficult to make a quantitative comparison. IMPRESSION: This unfortunate woman has once again developed very profound septic shock with gram-negative bacteremia. The identification of the organism in the blood is incomplete. Based on our experience last time with this patient, we have reason to suspect she could have a CRE type organism as she had an extremely resistant Enterobacter in her urine during her recent admission and that organism was really only sensitive to Bactrim as well as aminoglycosides. During her last admission, she also had abscess cultures which yielded Enterococcus, Citrobacter and E. coli as well as anaerobes, so the differential here is really extremely broad. RECOMMENDATIONS: 1. Will continue with our somewhat unusual dual beta lactam coverage with ceftazidime/avibactam in a renally adjusted dose of 1.25 g q.8 hours plus meropenem once a day to take into account her renal failure. 2. Will continue with Flagyl for enhanced anaerobic coverage as we may be dropping meropenem before too long depending on susceptibilities. 3. Note that the patient does have the Enterococcus in her urine though not apparently in blood. She has already received a dose of vanco and yesterday had a therapeutic level. Today we will recheck a level and if need be will re-dose one more time in terms of the vanco until we have some clarity as to what is going. 4. This case discussed extensively with the ICU team during rounds and with the team prior to rounds. REASON FOR THE ADDITIONAL TEXT: Discussion regarding the use of vitamin C and thiamine in septic shock. This case was discussed extensively, and we reviewed the article by Vasquez that was published lately in Chest_. This article recommends low-dose steroids, which the patient is already receiving, plus vitamin C 1.5 g q.6 h., as well as thiamine 200 mg IV q.12 h., for the septic shock. Though this is an uncontrolled study, it is of interest and appears to involve the use of completely nontoxic drugs in an effort to reduce pressor requirements and septic shock. Though the data is limited, Dr. Vallejo, Dr. Hanson and I all agree that this would be something reasonable to try in this desperately ill woman. I have written the orders to institute this, and it has been discussed with Pharmacy. Addenda added by SALINA 11/23/16 at 11:40pm TOY
[2016-11-23] MEDS ORDERED: Ipratropium 0.02% 0.5 mg/2.5 mL Inhalation Solution NEB PRN (09:27)
[2016-11-23 09:31] LABS: INR 1.99 ratio
--- NOTE | 2016-11-23 09:35 | PCM.PNMED ---
Subjective Date of Service Nov 23, 2016 Subjective Pulmonary/Critical Care Service Patient is an unfortunate 71yof with MHx significant for colorectal cancer s/p irradiation and resection with ileostomy had an anastomotic dehiscence and presacral abscess last presented on (11/21) with septic shock that required 3 pressors support, PEA on (11/22) currently on ventilation support. had change code status to DNR/DNI. Patient remains paralyzed, sedated, and intubated overnight. Norepinephrine titrated to 1mcg/kg/min to maintain MAP 65-70. She has minimal urine output 150cc since midnight. ABG continues to showed predominate metabolic acidosis with pH 7.1's on bicarb drip 300cc/hr. No vent changes. Status unchanged this AM. Cardiac output 5L/min with systemic vascular resistant 1200's, an improvement given CO 1.8-2L/min and SVR 4000's Exam Vital Signs Vital Sign - Last Date Time Temp Pulse Resp B/P Pulse Ox O2 Delivery O2 Flow Rate FiO2 11/23/16 09:18 135 89/50 96 11/23/16 08:23 36.4 25 Mechanical Ventilator 70 11/22/16 08:11 2.00 Intake and Output 11/22/16 11/22/16 11/23/16 Cumulative From/Thru 15:00 23:00 07:00 11/21/16 16:11 - 11/23/16 06:07 Intake Total 6709 ml 6888 ml 04547 ml Output Total 290 ml 150 ml 700 ml Balance 6419 ml 6738 ml 77063 ml Intake IV Total 6709 ml 6888 ml 18623 ml Output Urine Total 90 ml 150 ml 450 ml Gastric Drainage Total 200 ml 0 ml 200 ml Drainage Total 50 ml # Bowel Movements 0 Exam Gen: Lying at 30degree head tilt HEENT: PERRLA, Anicteric sclerae, moist conjunctivae, and no lid lag. Neck: supple, no JVD, IJ line with site non erythematous or edematous Cardio: afib rate and rhythm, cannot appreciate any murmurs Pulm: b/l air sound, diminished, wheezes throughout. cannot appreciate rhonchi or crackles Abd: positive bowel tone. Soft, nontender, nondistended. ileostomy in place, pink, nonerythematous Extremities: no pedal edema Skin: cold extremities Neuro: sedated, intubated. Psyc: unable to exam Lab and Diagnostics Result Diagram: 11/23/16 0500 11/23/16 0500 X-Rays, CTs and MRIs . X-RAY CHEST ONE VIEW, PORTABLE IMPRESSION: No acute cardiopulmonary findings. Dictated by: Ela Velez M.D. on 11/21/2016 at 17:05 X-RAY CHEST ONE VIEW, PORTABLE IMPRESSION: Study limited by large body habitus, reduced inspiration and portable film technique. No definite pneumonia. Port-A-Cath in normal position from left-sided approach. Dictated by: Patrick Amador M.D. on 11/21/2016 at 19:50 ADDENDUM: The central line present is not a Port-A-Cath but rather a left internal jugular line, crossing from left to right, superimposing upon the right mediastinum in the expected area of the distal SVC. X-RAY CHEST ONE VIEW, PORTABLE IMPRESSION: Mildly reduced inspiratory time, central line in normal position from left-sided approach, as has been previously the case. Dictated by: Patrick Amador M.D. on 11/21/2016 at 19:47 ADDENDUM: The central line present does not represent a Port-A-Cath but rather a left internal jugular central line which extends to the expected position of the distal SVC. No pneumothorax is suspected. Dictated by: Patrick Amador M.D. on 11/21/2016 at 20:34 X-RAY CHEST ONE VIEW, PORTABLE ([id number]) INDICATIONS: TUBE PLACEMENT IMPRESSION: 1. The endotracheal tube the tube tip is at the level of nichelle. The nasogastric tube is within the stomach. 2. Bilateral perihilar airspace infiltrates compatible with pulmonary edema or bilateral pneumonia. Dictated by: Umer Smith M.D. on 11/22/2016 at 12:29 CT ABDOMEN AND PELVIS WITHOUT CONTRAST IMPRESSION: Somewhat high density material is present within the collecting system of both kidneys posteriorly, but not present in September of this year. These could represent an unusually rapid formation of urinary tract stones. What does appear to be the presence of mild left hydronephrosis is noted, And what appears to be a 5 x 6 mm distal left ureteral stone can be seen. A calculus within the ureter in that area was not identified in September of this year. Dictated by: Patrick Amador M.D. on 11/21/2016 at 20:12 Assessment & Plan Patient is an unfortunate 71yof with MHx significant for colorectal cancer s/p irradiation and resection with ileostomy had an anastomotic dehiscence and presacral abscess last presented on (11/21) with septic shock that required 3 pressors support, PEA on (11/22) currently on ventilation support, status guarded. Lee issue remains septic shock with severe metabolic acidosis in the setting of an aggressive infection, presumed multi-drug resistant gram negative mi. She has diminished lung volume, autopeep with any increase in respiratory rate, cannot compensate for metabolic acidosis. She receives 300cc/ h bicarb to improve pH to 7.14's. Consequentially, she has sepsis induced cardiomyopathy that requires frequent adjustments to dobutamine, norepinephrine , and epinephrine to optimize BP. MAP consistently low 64-68. Problem List Pelvic abscess Sepsis shock Sepsis induced cardiomyopathy ARDS Thrombocytopenia Acute on chronic renal failure Possible generalized seizure Respiratory Acute hypoxic respiratory failure - Maintain ventilation as set below Moderate ARDS - Diagnosed based on 2012 Rochelle definition. - Maintain current vent setting of high peep 11, TV 400, RR 25, and FIO2 70% - Steroids Infectious Pelvic abscess - 2nd to colostomy breakdown. - Cont saline flush with 3-way drain Bacteremic - Likely from sacral abscess, possible urine - blood culture grew gram negative rods 11/21 bottle. Sensitivity pending - current abx: meropenem and ceftazedime/Avibactam Cardiovascular Septic shock - Hemodynamic change monitor by Vigileo - 2 pressors epinephrine and norepinephrine, and ionotropic dobutamine. Maintain MAP >60. - Patient likely has sepsis induced cardiomyopathy. Dobutamine currently max at 20mcg/kg/min. - Fluids 300cc/hr bicarb drip. Patient up 23L from admission - Of note, lactic acid level unreliable in the setting of epinephrine use as it clamps on peripheral tissue and shunting to anabolic metabolism - Added Vitamin C to augment hydrocortisone 50mg Q6H and thiamine Hematology Acute normocytic anemia - likely 2nd to dilution. Again, she is 23L up from admission - Transfuse 2units pRBC Thrombocytopenia - likely DIC, sepsis related - fibrinogen and heme review ordered - 1packet of 5units platelets transfused - hold off DVT prophylaxis Lovenox Metabolic Anion gap metabolic acidosis - 2nd to hypoperfusion. - Bicarb drip at 300cc/hr. Acute on chronic renal failure - hydration - establish reperfusion - avoid nephrotoxic meds Alimentary GI prophylaxis - famotidine IV 20mg Q12H Neurologic Generalized Seizure - s/p CODE blue 15-20min - likely has anoxic brain injury, edema - renally adjusted Keppra - removed all paralytics. May need EEG should family wish Dr. Hicks has discuss prognosis with family at great length and voiced understating of grim prognosis. They wish for her daughter from [place] to be here prior to making any additional changes in code status. Patient is currently DNR. VTE Prophylaxis: Sub-Q Heparin (Unfractionated) VTE Mechanical Devices: Intermittant Pneumatic CD Resuscitation Status: DNR/DNI:Do Not Resuscitate/Intubate Attending Statement The patient was seen and examined together with Dr. Cowart on 11/23/2016 and I agree with the history, exam and plan as outlined in the note above. Time spent in critical care: 75 min Feliberto Cowart DO Nov 23, 2016 09:35 John Hanson MD December 21, 2016 17:33
[2016-11-23] MEDS ORDERED: Vancomycin Inj 2,000 MG in 0.9% Sodium Chloride 500 ML IV ONE (09:55)
[2016-11-23] MEDS: Meropenem 1 Gm/100 mL NS Minibag Plus IV SCH ×2 (10:05)
[2016-11-23] MEDS: LEVETIRACETAM IV SCH ×2 (10:20→21:00)
[2016-11-23] MEDS ORDERED: SODIUM CHLORIDE 0.9% IV SCH (10:35)
[2016-11-23] MEDS ORDERED: THIAMINE IV SCH (10:35)
[2016-11-23] MEDS: ASCORBIC ACID IV SCH ×2 (11:10→15:26)
[2016-11-23] MEDS ORDERED: Vancomycin Inj 1,500 MG in 0.9% Sodium Chloride 500 ML IV SCH (11:15)
--- NOTE | 2016-11-23 11:18 | NUR ---
NUTRITION FOLLOW-UP: ASSESS: Pt is a 71yo F admitted to CCU for septic shock. She is NPO x2 days. Pt had a cardiac arrest 4/5 and required intubation. She was paralyzed and sedated overnight. Plan today is to turn off paralytic to assess neurologic status. Palliative care is involved for goals of care. Wt increased 24kg x 2 days. PMHX: colon/rectal ca, HTN, DM, hypothyroid, CKD LABS: Reviewed. 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 Thiamine, Vit C GI: ileostomy SKIN: sacral abscess, sailaja 11. WC pending CURRENT WTS: 137.9kg, BMI 55.6kg/m2, IBW 50kg, admit wt 113.7kg, adjbw 65.9kg (based off admit wt). Wt has increased 24kg since admit DIET: NPO EST. NEEDS: BMI, CKD, vent (based off admit wt) Kcals: 2275-2575kcal/day (20-22kcal/kg) Pro: 75-95g/day (1.5-1.8g/kg IBW) Fluids:~2500-2845ml/day (22-25ml/kg) NUTRITION DIAGNOSIS: 1.) Inadequate oral intake related to inability to consume sufficient energy as evidenced by NPO status--PERSISTS NUTRITION INTERVENTION: 1.) Will monitor NPO status and POC. If pt remains intubated, recommend consider nutrition support. MONITOR / EVAL: vent/NPO, wt, GI, wounds, labs, POC, nutrition status. Will continue to monitor per high nutrition risk guidelines.
--- NOTE | 2016-11-23 11:46 | DRSVH ---
[facility] [address] [place] [address] Echocardiogram Report Name: JOHN SMITH HStudy Date: 11/22/2016 Height: 62 in Hospital Exam Location: [facility] Weight: 264 lb Gender: Female BSA: 2.2 m2 : 1945 Age: 71 yrs BP: 83/52 mmHg Reason For Study: SEPTIC SHOCK Ordering Physician: HOSPITALIST OPHELIAerformed By: Ty Darling Referring Physician: ANGELIQUE HAGER Interpretation Summary The study quality was technically difficult. The ejection fraction is estimated to be 50-55%. There are no obvious focal wall motion abnormalities noted but poor endocardial definition reduces the sensitivity for the detection of such. The left atrium is severely dilated. There is moderate to severe mitral annular calcification. The mitral valve mean gradient is 6 mmHg. This is unchanged compared to the previous study. There is mild aortic stenosis. The right ventricular systolic pressure is estimated at 53 mmHg assuming a right atrial pressure of 15 mm Hg. There is mild tricuspid regurgitation. Procedure: A two-dimensional transthoracic echocardiogram with color flow and Doppler was performed. The study quality was technically difficult. Comparison is made with the echocardiogram of 09/21/16. The patient was in atrial fibrillation with heart rates between 89-111 bpm during the exam. Left Ventricle: LV could not be well visualized. Grossly, LV size and wall thickness is normal. The ejection fraction is estimated to be 50-55%. There are no obvious focal wall motion abnormalities noted but poor endocardial definition reduces the sensitivity for the detection of such. Atria: The left atrium is severely dilated. Right atrial size is normal. The interatrial septum is intact with no evidence for an atrial septal defect. Mitral Valve: The mitral valve leaflets are moderately calcified. There is moderate to severe mitral annular calcification. The mitral valve chordae are thickened and/or calcified. The mitral valve mean gradient is 6 mmHg. This is unchanged compared to the previous study. There is no mitral regurgitation noted. Aortic Valve: The aortic valve is mildly calcified. There is mild aortic stenosis. The peak aortic velocity is 2.3 m/sec. The aortic valve mean gradient is 12 mmHg. No aortic regurgitation is present. Tricuspid Valve: The tricuspid valve is not well visualized, but is grossly normal. The right ventricular systolic pressure is estimated at 53 mmHg assuming a right atrial pressure of 15 mm Hg. There is mild tricuspid regurgitation. Pulmonic Valve: The pulmonic valve is not well visualized. There is a trace or physiologic amount of pulmonic regurgitation. Great Vessels: The aortic root is normal size. The ascending aorta is mild- moderately enlarged. The pulmonary artery is normal size. The IVC is dilated (diameter is greater than 2.1 cm) and it collapses less than 50% with a sniff. This suggests a high right atrial pressure of 15 mm Hg. Pericardium/ Pleura There is no pericardial effusion. There is no pleural effusion. MMode/2D Measurements & Calculations EPSS: 0.91 cm RA long axis asc Aorta Diam LA A2 area: 28.5 cm LA A4 area: 30.7 cm LA length (vol) RA area: 18.3 cm RA vol: 55.4 ml LA vol: 116.4 ml RA : 25.7 ml/m2 LA vol index IVC diam: 2.4 cm RVD1 (basal) TAPSE: 1.1 cm Doppler Measurements & Calculations Ao V2 max MV E max oliver MV E/A: 0.76 TR max oliver : 233.6 cm/sec : 149.3 cm/sec : 307.4 cm/sec Ao max PG MV A max oliver TR max PG : 21.8 mmHg : 195.9 cm/sec : 38.0 mmHg Ao mean PG MV P1/2t: 111.1 msec PA V2 max : 11.5 mmHg : 132.6 cm/sec LVOT Max Oliver PA mean PG : 129.7 cm/sec : 3.6 mmHg sev ratio: 0.65 MV V2 mean MV P1/2t max oliver Ao V2 mean LV V1 max PG : 116.7 cm/sec : 160.8 cm/sec MV mean PG Ao V2 VTI: 27.6 cm LV V1 VTI: 18.0 cm MVA(P1/2t): 2.0 cm2 MV V2 VTI: 55.6 cm MV dec time : 0.36 sec PA V2 mean : 89.6 cm/sec Electronically signed by: Carlos Richardson on Reading Physician:11/22/2016 01:50 PM
[2016-11-23] MEDS: Chlorhexidine 0.12% 15 mL Oral Solution MT SCH ×3 (12:37→18:22)
[2016-11-23] MEDS ORDERED: LORazepam 100 mg/100 mL Drip IV PRN ×2 (12:55)
--- NOTE | 2016-11-23 15:53 | NUR ---
P: Resp, Hemodynamics,Neuro, Skin,Social I,E: Pt remains on the vent, sats high 90's on 70%, PEEP 11. Pt was on nimbex this am but this has been DC'd. Pt opens eyes occ. Peak pressures on vent were elevated in the 50's, are 48 at this time. Suctioning scant pink/clear sputum rarely from ETT. Pt does not have a spontaneous cough that I have noted. Pt has been hypotensive today despite dobutamine at 20mcg/kg/min, norepi at 1mcg/kg/min and Epi at .8mcg/kg/min. SBP has been in the 80's for the past few hours. It was as low as the 60's earlier and Dr. Hanson increased the epi to .8mcg. Pt also received a 6pack of platelets and 2 units RBC's this am. stated no labs required for follow up this afternoon. Pt has had scant to zero UOP. HR is in the 110's to 150's, a-fib. Pt is currently on 0.5mg of ativan and 75mcg of fentanyl for pain and anxiety. Pt opens eyes spontaneously but not to command. She has occ twitching of her hands bi-lat. She does not follow commands. Pt has drain in sacral wound placed by Dr. Perez yesterday and this has intermittent irrigation going into this and then draining out. The fluid coming out this afternoon is mostly clear, slightly yellow tinged with some infreqent bits of ? tissue. has spoken with pt's r.e. plan of care and pt condition. does not want any further escalation of care or meds. Comfort is a focus. Continue current therapies. Many friends and family have been here today to support pt and her .
--- NOTE | 2016-11-23 15:57 | PCM.PNMED ---
Subjective Date of Service Nov 23, 2016 Subjective Mrs. Cody is a 71-year-old female past medical history significant for colorectal cancer with multiple resections and ileostomy. 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 She is admitted secondary to severe sepsis/bacteremia with subsequent cardiac arrest requiring intubation and ventilation and multiple blood pressure support and paralyzation. Overnight: Patient remains intubated and sedated/paralyzed with minimal urine output and he continued metabolic acidosis with a low pH. Bicarbonate remained overnight at 300 mL per hour. Exam Vital Signs Vital Sign - Last Date Time Temp Pulse Resp B/P Pulse Ox O2 Delivery O2 Flow Rate FiO2 11/23/16 05:05 125 89/59 99 70 11/23/16 04:30 36.8 25 Mechanical Ventilator 11/22/16 08:11 2.00 Intake and Output 11/22/16 11/22/16 11/23/16 Cumulative From/Thru 14:59 22:59 06:59 11/21/16 16:11 - 11/23/16 06:07 Intake Total 6709 ml 6888 ml 78043 ml Output Total 290 ml 150 ml 700 ml Balance 6419 ml 6738 ml 61289 ml Intake IV Total 6709 ml 6888 ml 96526 ml Output Urine Total 90 ml 150 ml 450 ml Gastric Drainage Total 200 ml 0 ml 200 ml Drainage Total 50 ml # Bowel Movements 0 Exam General: Patient intubated and sedated, in no apparent distress lying at approximately 30 angle. No acute distress, well-developed, well-nourished, appropriately interactive HEENT: Normocephalic, atraumatic. External ears without defect. Pupils equal, round, and reactive to light and accommodation. ET tube in place Neck: Supple. No jugular venous distension. IJ line in place intact. Cardiovascular: Irregular rhythm with tachycardic rate. No murmurs appreciated Pulmonary: Bilateral wheezing with upper anterior lobes. Diminished breath sounds globally secondary to body habitus. Abdomen: Obese abdomen soft palpation. Ileostomy bag in place. Extremities: No clubbing, cyanosis, edema, or lymphadenopathy appreciated. Skin: Extremities remain mottled, cool to palpation Neurological: Intubated and sedated Lab and Diagnostics Result Diagram: 11/23/16 0500 11/23/16 0500 X-Rays, CTs and MRIs . X-RAY CHEST ONE VIEW, PORTABLE IMPRESSION: No acute cardiopulmonary findings. Dictated by: Ela Velez M.D. on 11/21/2016 at 17:05 X-RAY CHEST ONE VIEW, PORTABLE IMPRESSION: Study limited by large body habitus, reduced inspiration and portable film technique. No definite pneumonia. Port-A-Cath in normal position from left-sided approach. Dictated by: Patrick Amador M.D. on 11/21/2016 at 19:50 ADDENDUM: The central line present is not a Port-A-Cath but rather a left internal jugular line, crossing from left to right, superimposing upon the right mediastinum in the expected area of the distal SVC. X-RAY CHEST ONE VIEW, PORTABLE IMPRESSION: Mildly reduced inspiratory time, central line in normal position from left-sided approach, as has been previously the case. Dictated by: Patrick Amador M.D. on 11/21/2016 at 19:47 ADDENDUM: The central line present does not represent a Port-A-Cath but rather a left internal jugular central line which extends to the expected position of the distal SVC. No pneumothorax is suspected. Dictated by: Patrick Amador M.D. on 11/21/2016 at 20:34 X-RAY CHEST ONE VIEW, PORTABLE INDICATIONS: TUBE PLACEMENT IMPRESSION: 1. The endotracheal tube the tube tip is at the level of nichelle. The nasogastric tube is within the stomach. 2. Bilateral perihilar airspace infiltrates compatible with pulmonary edema or bilateral pneumonia. Dictated by: Umer Smith M.D. on 11/22/2016 at 12:29 CT ABDOMEN AND PELVIS WITHOUT CONTRAST IMPRESSION: Somewhat high density material is present within the collecting system of both kidneys posteriorly, but not present in September of this year. These could represent an unusually rapid formation of urinary tract stones. What does appear to be the presence of mild left hydronephrosis is noted, And what appears to be a 5 x 6 mm distal left ureteral stone can be seen. A calculus within the ureter in that area was not identified in September of this year. Dictated by: Patrick Amador M.D. on 11/21/2016 at 20:12 X-RAY CHEST ONE VIEW, PORTABLE IMPRESSION: Increased multifocal pneumonia. Dictated by: Rebecca Salgado M.D. on 11/23/2016 at 8:54 Assessment & Plan Mrs. Cody is a 71-year-old obese female past medical history of colorectal cancers status post colostomy and bowel reduction surgery, sacral osteomyelitis, sepsis secondary to sacral abscess (currently with drain in place ) admitted for severe sepsis. Hospital day 3. Patient transitioned to DNR/DNI CODE STATUS today 1. Septic shock, present on admission, Ongoing - Patient meets criteria for septic shock with hypotension refractory to pressors support, elevated white blood cell count, elevated lactic acid, tachypnea, tachycardia with suspected source of sacral ulcer. - Related pulmonary blood cultures positive 2 growing gram variable rods - ID following we appreciate their recommendations - Received 4 L IV fluids in the ED - Continue sodium bicarbonate 300 per hour - Continue antibiotics ceftazidime, meropenem per ID - Continue blood pressure support - Current continuous IV medications are Nor epi, epinephrin, dobutamine, cisatracurium, insulin, fentanyl, propofol - Continue to trend lactic acid 2. Acute respiratory failure. Not present on admission. Ongoing - Secondary to #1and status post cardiac arrest - Prior to intubation pH has remained low ~ 7.1 with a low PCO2 and bicarbonate. - Blood glass still remains acidotic - Continue Bicarb replacement 3. Sacral abscess, presently in remission, active - Secondary to colostomy breakdown - Patient has sacral drain in place - No mention of abscess on CT report - Antibiotics as in #1 - Surgery following 4. Bacteremia. Present on admission. Active - Probable source of sacral abscess, additional sources include urine - Blood culture grew gram-negative rods 4-4 bottles - Continue antibiotics as in #1 5. Acute on chronic renal failure present on admission, active - Patient's creatinine level 3.6 today, baseline creatinine 1.11 on 10/17/2016 - IV fluids as above - Continue to monitor creatinine level 6. Acute respiratory distress syndrome. Not present on admission. Ongoing - [place] criteria confirms diagnosis - Maintain current ventilatory settings 7. Elevated troponin - Elevated troponin in the ED of 0.10 likely secondary to chronic kidney disease and demand related to septic shock - Repeat troponin remained elevated with labile trend prior to cardiac arrest 8. Thrombocytopenia. Not present on admission. Ongoing - Possibly due to DIC. - Appropriate labs pending - Continue to monitor 9. Anemia. Not present on admission. Ongoing - Possibly secondary to GI blood loss, exacerbated by aggressive resuscitation efforts - Continue to monitor 10. Hyponatremia, present remission, resolved -Sodium 118 on admission -Resolved on IV fluids 11. Hyperkalemia, present on admission, resolved - Potassium 6.0 - Resolved with IV fluids 12. Hypomagnesemia, present on admission. resolved - 1.3 on admit - Resolved with IV fluids 13. Hyperglycemia in a known type 2 diabetic. - Hemoglobin A1c 6.3 - Insulin drip as in #1 14. 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 Patient's daughter flying from [place] tomorrow scheduled to arrive sometime mid morning to afternoon to say goodbye to mother. CODE STATUS: DNR/DNI DVT PE prophylaxis: Subcutaneous heparin Contact: Bartolo, patient's [phone] Pain Evaluation: Adequate Pain Control VTE Prophylaxis: Sub-Q Heparin (Unfractionated) VTE Mechanical Devices: Intermittant Pneumatic CD Resuscitation Status: DNR/DNI:Do Not Resuscitate/Intubate Attending Statement The patient was seen and examined together with Dr. Nj on 11/23/2016 and I agree with the history, exam and plan as outlined in the note above. . RYAN NJ DO Nov 23, 2016 06:53 Angelo Vallejo MD Nov 24, 2016 16:44
--- NOTE | 2016-11-23 17:24 | NUR ---
Social Work: Screen D: Per EMR review, pt is a 71 year old female admitted for septic shock. Pt is Medicare with AARP supplement. PCP is Margarita Amezcua MD. NOK is pt's spouse Angelo Cody. Readmit score is moderate, 3/8. POLST completed with pt's spouse. Pt is currently in CCU, vented and sedated. Per palliative care notes, pt has been made DNR/DNI and family is focusing on comfort measures. Pt previously resided at home with her supportive spouse. She has a long history of rehab with an admission at [facility] and several stays at [facility]. A: Pt who is currently in CCU with poor prognosis. P: Given pt's current clinical presentation, anticipate pt to at [facility] if family chooses to compassionately extubate. [employer] OPERATOR will continue to follow pt's clinical course and assist as requested by CCU team. FREEDOM Scherer
[2016-11-23] MEDS ORDERED: fentaNYL 2,500 mCg/250 mL Premix IV ONE (18:30)
[2016-11-23] MEDS ORDERED: fentaNYL 2,500 mCg/250 mL IV Premix IV SCH (18:45)
[2016-11-23] MEDS ORDERED: fentaNYL-PF 50 mCg/mL 2 mL Inj IVPUSH PRN (19:45)
[2016-11-23] MEDS ORDERED: fentaNYL-PF 50 mCg/mL 2 mL Inj IVPUSH ONE (19:45)
[2016-11-23] MEDS ORDERED: 0.9% Sodium Chloride 1,000 ML IV SCH (19:45)
--- NOTE | 2016-11-23 22:22 | NUR ---
Pt was extubated to comfort care at 1952 per family request. All gtts stopped except for ativan and fentanyl. Ativan was increased to 2 mg/hr and fentanyl was increased to 150 mcg/hr for pt comfort. Pt at 2000 comfortably. Pt did not wake or show any signs of discomfort. Supportive family/friends at bedside. See CCU flow sheet for vitals. All lines/drains removed with okay from systems specialist. Pt is not a systems specialist case.
[2016-11-24] MEDS ORDERED: Vancomycin Inj 1,500 MG in 0.9% Sodium Chloride 500 ML IV SCH (10:00)
[2016-11-26] MEDS ORDERED: Vancomycin Serum Trough XX ONE (09:30)
--- NOTE | 2016-11-26 10:06 | PCM.DC.MEX ---
Discharge Summary Date of Service Nov 26, 2016 Dates of Hospitalization Date of Hospital Admission Nov 21, 2016 at 20:31 Date of Expiration: Nov 24, 2016 Time of Expiration: 20:01 Providers: Admitting Physician: Emir Rollins MD Primary Care Physician: Margarita Amezcua DO Attending Physician: Emir Rollins MD Diagnosis at Time of 1. Septic shock 2. Acute respiratory failure 3. Sacral abscess 4. Bacteremia 5. Acute on chronic renal failure present on admission 6. Acute respiratory distress syndrome 7. Elevated troponin 8. Thrombocytopenia 9. Anemia 10. Hyponatremia 11. Hyperkalemia 12. Hypomagnesemia 13. Diabetes Mellitus type 2 14. 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 Jorge Shaw General Surgery - Dr. Alex Shaw, Dr. Chris Payton Infectious Disease - Dr. Chai Shaw Pulmonology/Critical Care - Dr. David Shaw Palliative Care Dr. Vicky Shaw Procedures XRay, CTs & MRIs . X-RAY CHEST ONE VIEW, PORTABLE IMPRESSION: No acute cardiopulmonary findings. Dictated by: Ela Velez M.D. on 11/21/2016 at 17:05 X-RAY CHEST ONE VIEW, PORTABLE IMPRESSION: Study limited by large body habitus, reduced inspiration and portable film technique. No definite pneumonia. Port-A-Cath in normal position from left-sided approach. Dictated by: Patrick Amador M.D. on 11/21/2016 at 19:50 ADDENDUM: The central line present is not a Port-A-Cath but rather a left internal jugular line, crossing from left to right, superimposing upon the right mediastinum in the expected area of the distal SVC. X-RAY CHEST ONE VIEW, PORTABLE IMPRESSION: Mildly reduced inspiratory time, central line in normal position from left-sided approach, as has been previously the case. Dictated by: Patrick Amador M.D. on 11/21/2016 at 19:47 ADDENDUM: The central line present does not represent a Port-A-Cath but rather a left internal jugular central line which extends to the expected position of the distal SVC. No pneumothorax is suspected. Dictated by: Patrick Amador M.D. on 11/21/2016 at 20:34 X-RAY CHEST ONE VIEW, PORTABLE INDICATIONS: TUBE PLACEMENT IMPRESSION: 1. The endotracheal tube the tube tip is at the level of nichelle. The nasogastric tube is within the stomach. 2. Bilateral perihilar airspace infiltrates compatible with pulmonary edema or bilateral pneumonia. Dictated by: Umer Smith M.D. on 11/22/2016 at 12:29 CT ABDOMEN AND PELVIS WITHOUT CONTRAST IMPRESSION: Somewhat high density material is present within the collecting system of both kidneys posteriorly, but not present in September of this year. These could represent an unusually rapid formation of urinary tract stones. What does appear to be the presence of mild left hydronephrosis is noted, And what appears to be a 5 x 6 mm distal left ureteral stone can be seen. A calculus within the ureter in that area was not identified in September of this year. Dictated by: Patrick Amador M.D. on 11/21/2016 at 20:12 X-RAY CHEST ONE VIEW, PORTABLE IMPRESSION: Increased multifocal pneumonia. Dictated by: Rebecca Salgado M.D. on 11/23/2016 at 8:54 Cardiac Echo Impression . Echocardiogram Report Interpretation Summary The study quality was technically difficult. The ejection fraction is estimated to be 50-55%. There are no obvious focal wall motion abnormalities noted but poor endocardial definition reduces the sensitivity for the detection of such. The left atrium is severely dilated. There is moderate to severe mitral annular calcification. The mitral valve mean gradient is 6 mmHg. This is unchanged compared to the previous study. There is mild aortic stenosis. The right ventricular systolic pressure is estimated at 53 mmHg assuming a right atrial pressure of 15 mm Hg. There is mild tricuspid regurgitation. Electronically signed by: Carlos Richardson Invasive Procedures Central line access internal jugular vein Radial arterial line Endotracheal Intubation Brief History History of Present Illness per Dr. Tucker Verdugo on 11/21/2016 "This is a pleasant 71 Y/O obese F with history of colorectal cancer with colostomy, sacral osteomyelitis, sepsis secondary to sacral abscess (currently with drain in place), DVTs, diabetes mellitus type II, hypertension, and hypothyroidism, who presented to the ED secondary to worsening dyspnea, shortness of breath, loss of appetite, rigors, confusion, generalized weakness with difficulty ambulating over the past week. Of note patient had abnormal labs today at 1200. Her blood work demonstrated WBC 22.3, neutrophil predominance, Na 124, K 5.8, BUN 46, creatinine 3.2. She complains of some buttock pain. She denies fever, nausea, vomiting, abdominal pain chills, cough, chest pain, dysuria, lower extremity swelling. Of note patient had colectomy secondary to colon cancer in 06/16/[address] Tovar colorectal surgeon [facility], with ileostomy and placement of a right lower quadrant drain. This drain was in place for appeared of 5-6 weeks and then removed at [facility] secondary to nonfunctioning drain. She had CT scan of abdomen and pelvis done at that time which showed abscess in the sacral area and a new drain was placed for this finding. Patient had this drain in for a period of 1 month and then was removed secondary to a developing surrounding skin and tissue infection. It was thought that the abscess had partially resolved at that time as well. On 09/15/2016 patient was a very discouraged by hospital secondary to severe septic picture with decreased by mouth intake, hyperkalemia, and renal failure. Patient received IV antibiotics Bactrim and showed improvement which time was discharged/transferred to [facility] where she resided for 22 days and receive further IV antibiotics Bactrim. Patient was then discharged to [facility] on by mouth Bactrim. Patient was admitted today after being found to have an elevated lactic acid of 5.3, leukocytosis with left shift, clinical signs of septic shock, requiring 4 L normal saline bolus, and IV pressors. " Hospital Course 1. Septic shock, present on admission. - Patient met criteria for septic shock with hypotension which was refractory to blood pressor support, leukocytosis, lactic acidosis, tachypnea, tachycardia with suspected source of infection being a sacral ulcer. Blood cultures were positive 4/4 for gram negative rods. Infectious disease followed the Pt throughout stay, ceftazedime/Avibactam and meropenem given per ID recommendations. Fluid administration throughout stay with strict monitoring of her volume status, prior to a sodium bicarbonate drip was administered secondary to acid base disturbances. To maintain hemodynamic stabilization and control required the use nor epinephrin, epinephrin, dobutamine were administered eventually requiring up titration to maximal doses. To maintain sedation fentanyl, propofol and cisatracurium were utilized. Hemodynamic state was monitored using the [place] system 2. Acute respiratory failure. Not present on admission. Requiring intubation. This was secondary to #1 and status post cardiac arrest. Prior to intubation pH had remained low ~ 7.1 with a low PCO2 and bicarbonate. Blood gasses continually remained acidotic despite continued bicarb replacement. 3. Sacral abscess, presently in remission, chronic in nature. This was secondary to her colonic anastomosing surgery breakdown and required a sacral drain. Antibiotics administration as in #1. Surgery followed patient throughout admission. 4. Bacteremia. Present on admission. Probable source was her sacral abscess, additional source includes urine. Blood cultures and antibiotics as in #1. 5. Acute on chronic renal failure present on admission. - Patient's baseline creatinine was 1.1 and this remained elevated throughout stay. IV fluids as in #1 with close monitoring of ins and outs 6. Acute respiratory distress syndrome. Not present on admission. Diagnosed using [place] criteria confirms diagnosis. Continual monitoring of ventilatory settings and response to changes with daily radiographs and ABG's to monitor status and IV steroid administration. Vent settings prior to were of a high PEEP at 11, with TV fo 400, RR of 25 and FiO2 70%. 7. Elevated troponin. Present on admission. Elevated troponin in the ED of 0.10 likely secondary to chronic kidney disease and demand related to septic shock. Repeat troponin remained elevated with labile trend prior to cardiac arrest. 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 Added Vitamin C to augment hydrocortisone 50mg Q6H and thiamine 8. Thrombocytopenia. Not present on admission. - Likely due to DIC/sepsis Appropriate labs pending prior to , these include a fibrinogen and heme review. Platelets transfused and DVT prophylaxis discontinued. 9. Anemia. Not present on admission. - Possibly secondary to GI blood loss, exacerbated by aggressive resuscitation efforts. She was typed and crossed and transfused with pRBC's as needed. 10. Hyponatremia, present remission. Sodium 118 on admission. This resolved with administration of IV fluids 11. Hyperkalemia, present on admission. - Potassium 6.0. Resolved with IV fluids 12. Hypomagnesemia, present on admission. resolved - 1.3 on admit. Resolved with IV fluids 13. Hyperglycemia in a known type 2 diabetic. - Hemoglobin A1c 6.3. Insulin drip for blood glucose control. 14. 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 15. Possible generalized seizure. This possibly occurred status post cardiac arrest requiring CODE BLUE - and aggressive resuscitation efforts lasting ~15 min. She presented a difficult airway for intubation and most likely suffered a degree of anoxic brain injury followed by cerebral edema. She was started on renally adjusted Keppra prior to . All paralytics were removed and EEG was planned. Exam Test 11/21/16 16:15 11/21/16 16:46 11/21/16 19:55 11/22/16 04:25 Hemoglobin A1c 6.3% (4.8-5.6) Urine Color Yellow (YELLOW) Urine Appearance Turbid (CLEAR,HAZY) Urine pH 5.0 (5.0-8.0) Urine Specific [place] 1.030 (1.003-1.035) Urine Protein 100mg/dL (NEG,TRACE) Urine Glucose (UA) Negativemg/dL (NEGATIVE) Urine Ketones Negativemg/dL (NEGATIVE) Urine Occult Blood Large (NEGATIVE) Urine Nitrite Positive (NEGATIVE) Urine Bilirubin Negative (NEGATIVE) Urine Urobilinogen Normalmg/dL (NORMAL) Urine Leukocyte Esterase Moderate (NEGATIVE) Urine RBC 3-10/hpf (0-2) Urine WBC 0-5/hpf (0-5) Urine Epithelial Cells None/hpf (NONE-MOD) Urine Crystals None seen (NONE SEEN) Urine Bacteria Many/hpf (NONE-FEW) Urine Hyaline Casts None/lpf (NONE) Urine Granular Casts None seen (NONE SEEN) Urine Waxy Casts None seen (NONE SEEN) Urine Red Blood Cell Casts None seen (NONE SEEN) Urine White Blood Cell Casts None seen (NONE SEEN) Urine Mucus Present (None Seen) Urine Trichomonas None seen (NONE SEEN) Urine Yeast None (NONE SEEN) Urinalysis Comment None Urine Culture Reflexed Indicated Hold Richards Top Tube Received (Received) Random Vancomycin Level 18.7ug/mL Rx Test 11/22/16 12:15 11/23/16 03:00 11/23/16 05:00 11/23/16 09:12 Metamyelocytes % 12% (0-0) Myelocytes % 2% (0-0) Nucleated Red Blood Cells 1/100 WBC (0-24) Troponin T 0.149ug/L (0.0-0.011) Triglycerides Level 112mg/dL (0-149) Cholesterol Level 95mg/dL (100-199) LDL Cholesterol, Calculated 58.600mg/dL (0-99) VLDL Cholesterol 22.400mg/dL HDL Cholesterol 14mg/dL (>39) Cholesterol/HDL Ratio 6.79 (0.0-4.4) Lipase 12U/L (13-60) Thyroid Stimulating Hormone (TSH) 2.370uIU/mL (0.450-4.500) Ionized Calcium (Calculated) 3.56mg/dL (3.5-5.2) White Blood Count 14.6th/mm3 (3.8-10.1) Red Blood Count 2.32mil/mm3 (3.90-5.20) Hemoglobin 6.5g/dL (12.0-15.6) Hematocrit 19.1% (35.0-46.0) Mean Corpuscular Volume 82.3fL (81-100) Mean Corpuscular Hemoglobin 28.0pg (27.0-35.0) Mean Corpuscular Hemoglobin Concent 34.0% (32.0-37.0) Red Cell Distribution Width 16.2% (12.3-15.4) Platelet Count 20bil/L (150-400) Neutrophils (%) (Auto) 77% (40-74) Lymphocytes (%) (Auto) 3% (14-46) Monocytes (%) (Auto) 1% (4-12) Eosinophils (%) (Auto) 0% (0-5) Basophils (%) (Auto) 0% (0-3) Band Neutrophils % 19% (1-5) Blood Smear Pathologist Review Sodium Level 126mEq/L (134-144) Potassium Level 3.6mEq/L (3.5-5.2) Chloride Level 92mEq/L (97-108) Carbon Dioxide Level 12mmol/L (18-29) Blood Urea Nitrogen 34mg/dL (8-27) Creatinine 2.67mg/dL (0.57-1.00) Estimat Glomerular Filtration Rate 25mL/min (>59) Glucose Level 147mg/dL (60-99) Lactic Acid Level 8.0mmol/L (0.4-2.0) Calcium Level 5.6mg/dL (8.5-10.1) Phosphorus Level 4.2mg/dL (2.5-4.9) Magnesium Level 1.3mg/dL (1.6-2.6) Total Bilirubin 0.5mg/dL (0.0-1.2) Aspartate Amino Transf (AST/SGOT) 16U/L (0-50) Alanine Aminotransferase (ALT/SGPT) 9U/L (0-32) Alkaline Phosphatase 65U/L (25-165) Total Protein 3.2g/dL (6.4-8.4) Albumin 1.6g/dL (3.4-5.0) Procalcitonin 36.19ng/mL (0.00-0.08) Prothrombin Time 21.6sec (8.1-12.5) Prothromb Time International Ratio 1.99ratio Fibrinogen 319mg/dL (157-380) Microbiology Results Blood cultures grew Klebsiella Oxytocia Urine cultures grew Enterococcus Faecalis Attending Statement Brain was recognized on 11/24/16 and patient was prepared for organ donation, as previously designated by the patient. The patient was seen and examined together with Dr. Nj on 11/24/2016 and I agree with the history, exam and plan as outlined in the note above. . copies to: Margarita Amezcua GILES A DO Nov 26, 2016 10:06 Angelo Vallejo MD Nov 26, 2016 17:36 RYAN NJ DO Nov 26, 2016 10:06
== END 2016-11-23 20:01 | disposition expired | DRG 871 ==
LOC: EDBD 15:59 → SED 15:59 → PCC 20:31 → CCU 20:39
PROVIDERS: ADMIT Family Medicine; ATTEND Family Medicine
PROC: 03HY32Z Insertion of Monitoring Device into Upper Artery, Percutaneous Approach (ICD-10-PCS; principal; 2016-11-21)
PROC: 02HV33Z Insertion of Infusion Device into Superior Vena Cava, Percutaneous Approach (ICD-10-PCS; 2016-11-21)
PROC: 4A033R1 Measurement of Arterial Saturation, Peripheral, Percutaneous Approach (ICD-10-PCS; 2016-11-21)
PROC: 5A1945Z Respiratory Ventilation, 24-96 Consecutive Hours (ICD-10-PCS; 2016-11-22)
PROC: 5A12012 Performance of Cardiac Output, Single, Manual (ICD-10-PCS; 2016-11-22)
PROC: 0BH17EZ Insertion of Endotracheal Airway into Trachea, Via Natural or Artificial Opening (ICD-10-PCS; 2016-11-22)
PROC: 30233N1 Transfusion of Nonautologous Red Blood Cells into Peripheral Vein, Percutaneous Approach (ICD-10-PCS; 2016-11-23)
PROC: 30233R1 Transfusion of Nonautologous Platelets into Peripheral Vein, Percutaneous Approach (ICD-10-PCS; 2016-11-23)
DX: A41.89 Other specified sepsis (principal); R65.21 Severe sepsis with septic shock; E87.1 Hypo-osmolality and hyponatremia; E87.2 Acidosis; N17.9 Acute kidney failure, unspecified; M46.28 Osteomyelitis of vertebra, sacral and sacrococcygeal region; Z68.43 Body mass index [BMI] 50.0-59.9, adult; J80 Acute respiratory distress syndrome; K68.11 Postprocedural retroperitoneal abscess; I46.9 Cardiac arrest, cause unspecified; E66.01 Morbid (severe) obesity due to excess calories; Z85.038 Personal history of other malignant neoplasm of large intestine; I10 Essential (primary) hypertension; E03.9 Hypothyroidism, unspecified; Z79.4 Long term (current) use of insulin; Z79.52 Long term (current) use of systemic steroids; Z93.2 Ileostomy status; E87.5 Hyperkalemia; Z86.14 Personal history of Methicillin resistant Staphylococcus aureus infection; Z87.440 Personal history of urinary (tract) infections; Z66 Do not resuscitate; E83.42 Hypomagnesemia; E11.65 Type 2 diabetes mellitus with hyperglycemia; D69.6 Thrombocytopenia, unspecified